=== PATIENT | female | born 1940 | race Caucasian/White ===

== ENCOUNTER 2016-04-13 00:38 | Inpatient (IN) | payer MEDICARE, OTHER ==
--- NOTE | 2016-04-13 01:05 | ER Document Report ---
ED General - General Stated Complaint: ALTERED MENTAL STATUS Notes: Patient is a 75 year old female who presents with complaints of possible overdose. Patient was seen yesterday after a fall. CT scan of the head and neck were performed. Also x-rays performed. Patient has a clavicle fracture. Patient is now on oxycodone 15 mg which, according to her medication list, she has been on for a long period time and is not new. She is also on final. Patient was not discharged home with any new medications. Tonight she become unresponsive in her chair after taking it. [facility] arrived and she was unresponsive and hypoxic. They gave her Narcan. Patient did awake after Narcan but continue to be confused. She cannot comment whole lot other than she has pain which is understandable being that she did receive Narcan. She does have the broken clavicle fracture. She when asked where her pain is, she continues to say her neck. Did speak with her and asked are wall. She is one that has been care for the patient since her fall yesterday. She says that at baseline she is usually awake and alert and appropriate and cares for herself without difficulty. She does not think that she took any extra pain medications. She says that the fentanyl patch that is on her is 3 days old. TRAVEL OUTSIDE OF THE [place] IN LAST 30 DAYS: No - Related Data Allergies/Adverse Reactions: No Known Allergies Allergy (Verified 04/13/16 04:43) Past Medical History - Social History Smoking Status: Never Smoker Frequency of alcohol use: None Drug Abuse: None Family History: Reviewed & Not Pertinent - Past Medical History Cardiac Medical History: Reports: Hx Hypertension Pulmonary Medical History: Reports: Hx Bronchitis Skin Medical History: Reports Hx Cellulitis Traumatic Medical History: Reports: Hx Fractures - Femur Past Surgical History: Reports: Hx Cholecystectomy, Hx Hysterectomy, Hx Orthopedic Surgery - right hip, right knee - Immunizations Hx Diphtheria, Pertussis, Tetanus Vaccination: No Review of Systems - Review of Systems -: Yes ROS unobtainable due to patient's medical condition - Limited due to patient's confusion. Physical Exam - Vital signs Vitals: Temp 98.9 F 04/13/16 00:40 - Notes Notes: General Appearance: Well nourished, alert, confused. Appears to be in pain. Vitals: reviewed, See vital signs table. Head: no swelling or tenderness to the head Eyes: PERRL, EOMI, Conjuctiva clear Mouth: No decreasd moisture Throat: No tonsillar inflammation, No airway obstruction, No lymphadenopathy Neck: Pain with any movement or palpation of the neck. Chest wall: Pain over the right clavicle. Fentanyl patch on right flank which was removed by me. Lungs: No wheezing, No rales, No rhonci, No accessory muscle use, good air exchange bilaterally. Heart: Normal rate, Regular rythm, No murmur, no rub Abdomen: Normal BS, soft, No rigidity, No abdominal tenderness, No guarding, no rebound, no abdominal masses, no organomegaly Extremities: strength 5/5 in all extremities, good pulses in all extremities, no swelling or tenderness in the extremities, no edema. Skin: warm, dry, appropriate color, no rash Neuro: speech clear, disoriented, unable to answer questions appropriately. As before extremities on her own without difficulty.. Course - Re-evaluation Re-evalutation: 04/13/16 04:56 Patient continues to have some confusion. The Narcan initially did awaken her however she still seemed confused on the right arrival. She is complaining of some neck pain at times. I did obtain a CT scan it's negative. She does have a leukocytosis. My main concern is that now she is starting to spike a fever. I feel that she possibly could be meningitis being that she has continued confusion, fever, and neck pain. I will obtain a lumbar puncture. I've ordered a crack in the buttocks. We will put her in isolation. - Vital Signs Vital signs: Temp Pulse Resp BP Pulse Ox 100.4 F 17 162/69 H 97 04/13/16 04:30 04/13/16 04:02 04/13/16 04:02 04/13/16 04:02 - Laboratory Result Diagrams: 04/13/16 01:10 04/13/16 01:10 Laboratory results interpreted by me: 04/13/16 04/13/16 04/13/16 01:10 01:10 01:10 WBC 13.3 H RDW 15.4 H Seg Neutrophils % 84.8 H Lymphocytes % 5.5 L Absolute Neutrophils 11.3 H Sodium 134.8 L Chloride 95 L Glucose 113 H AST 57 H ALT 58 H TSH Urine Protein 04/13/16 04/13/16 01:10 01:20 WBC RDW Seg Neutrophils % Lymphocytes % Absolute Neutrophils Sodium Chloride Glucose AST ALT TSH 5.95 H Urine Protein 30 H - EKG Interpretation by Me Additional EKG results interpreted by me: 04/13/16 02:07 EKG is reviewed and interpreted by me. EKG shows what appears to be either atrial fibrillation or very rate or sinus arrhythmia. There are some P waves. It's hard to discern if there is P waves before every QRS. It is irregular. There is no ST segment elevation or depression. Rate is approximately 112 bpm. MN interval, QRS duration are within normal range. QTC intervals slightly prolonged. Old EKG for comparison is from 12/07/2015. - Transfer of Care Notes: 04/13/16 02:08 I just spoke with patient's vy-ngwteuco-os-law. She says that after being seen her yesterday she came home with her and she's been caring for her. She says she really does not know her medical regimen. She did bring a list of all her medications as well as list of medical past medical problems from Dr. Roman's office. She says she did receive dosages of Dilaudid yesterday when she was here. She is unsure she took her meds at home but she does have a Juliette patch on. She does get oxycodone at home as well. According to her records these have been prescribed since November at the latest. Some of her meds have been prescribed since July. Discharge - Discharge Clinical Impression: Fracture of clavicle, right, closed Qualifiers: Encounter type: initial encounter Clavicle location: shaft Fracture alignment: nondisplaced Qualified Code(s): S42.024A - Nondisplaced fracture of shaft of right clavicle, initial encounter for closed fracture Altered mental status Qualifiers: Altered mental status type: unspecified Qualified Code(s): R41.82 - Altered mental status, unspecified Fever Qualifiers: Fever type: unspecified Qualified Code(s): R50.9 - Fever, unspecified Leukocytosis Qualifiers: Leukocytosis type: unspecified Qualified Code(s): D72.829 - Elevated white blood cell count, unspecified Condition: Stable Disposition: ADMITTED INPATIENT Admitting Provider: Hospitalist Unit Admitted: [facility]
[2016-04-13 01:20] LABS: ABSOLUTE LYMPHOCYTES (AUTO) 0.7 10^3/uL (0.5-4.7); ABSOLUTE MONOCYTES (AUTO) 1.3 10^3/uL (0.1-1.4); ABSOLUTE NEUT (AUTO) 11.3 10^3/uL (1.7-8.2); BASOPHILS % (AUTO) 0.2 % (0-2); EOSINOPHILS % (AUTO) 0.1 % (0-6); HEMATOCRIT 38.2 % (36.0-47.0); HEMOGLOBIN 12.8 g/dL (12.0-15.5); HGB HCT DIFFERENCE 0.2; LYMPHOCYTES % (AUTO) 5.5 % (13-45); MEAN CORPUSCULAR HEMOGLOBIN 30.9 pg (27.0-33.4); MEAN CORPUSCULAR HGB CONC 33.4 g/dL (32.0-36.0); MEAN CORPUSCULAR VOLUME 93 fl (80-97); MONOCYTES % (AUTO) 9.4 % (3-13); RED BLOOD COUNT 4.13 10^6/uL (3.72-5.28); RED CELL DISTRIBUTION WIDTH 15.4 % (11.5-14.0); SEGMENTED NEUTROPHILS % (AUTO) 84.8 % (42-78); WHITE BLOOD COUNT 13.3 10^3/uL (4.0-10.5)
[2016-04-13 01:36] LABS: ANION GAP 14 (5-19); BLOOD UREA NITROGEN 19 mg/dL (7-20); CALCIUM 9.9 mg/dL (8.4-10.2); CARBON DIOXIDE 26 mmol/L (22-30); CHLORIDE 95 mmol/L (98-107); CREATININE RESULT 0.72 mg/dL (0.52-1.25); GLUCOSE 113 mg/dL (75-110); POTASSIUM 4.5 mmol/L (3.6-5.0); SODIUM 134.8 mmol/L (137-145)
[2016-04-13 01:47] LABS: AMORPHOUS SEDIMENT,URINE TRACE /HPF; APPEARANCE,URINE CLEAR; BILIRUBIN,URINE NEGATIVE (NEGATIVE); GLUCOSE, URINE NEGATIVE (NEGATIVE); KETONES,URINE NEGATIVE (NEGATIVE); LEUKOCYTE ESTERASE,URINE NEGATIVE (NEGATIVE); NITRITE,URINE NEGATIVE (NEGATIVE); PROTEIN,URINE 30 mg/dL (NEGATIVE); URINE SPECIFIC GRAVITY 1.012; UROBILINOGEN,URINE NEGATIVE mg/dL (<2.0)
[2016-04-13] MEDS ORDERED: FENTANYL CITRATE INJ/PF 100 MCG/2 ML AMPUL IV ONE (02:03)
[2016-04-13] MEDS ORDERED: CEFTRIAXONE INJ 1000 MG VIAL IV ONE (04:53)
[2016-04-13] MEDS ORDERED: VANCOMYCIN HCL INJ 1000 MG VIAL IV ONE (04:53)
[2016-04-13] MEDS ORDERED: ACYCLOVIR SODIUM INJ/PF 500 MG/10 ML SDV IV ONE (04:55)
[2016-04-13] MEDS ORDERED: LIDOCAINE 1% INJ-PF (10 MG/ML) 30 ML SDV INJ ONE (04:56)
[2016-04-13] MEDS ORDERED: DIAZEPAM INJ 10 MG/2 ML DISP.SYRIN IV ONE (05:07)
[2016-04-13] MEDS ORDERED: DIAZEPAM INJ 10 MG/2 ML DISP.SYRIN ONE ×2 (05:09→05:17)
[2016-04-13 05:39] LABS: ADD ON TESTING BLD IN LAB ACKNOWLEDGE
[2016-04-13 06:01] LABS: ALANINE AMINOTRANSFERASE 58 U/L (9-52); ALBUMIN 3.9 g/dL (3.5-5.0); ALKALINE PHOSPHATASE 109 U/L (38-126); ASPARTATE AMINO TRANSFERASE 57 U/L (14-36); BILIRUBIN,TOTAL 0.7 mg/dL (0.2-1.3); CREATINE KINASE 132 U/L (30-135); MAGNESIUM 1.8 mg/dL (1.6-2.3); TOTAL PROTEIN 7.2 g/dL (6.3-8.2)
[2016-04-13 06:03] LABS: ALCOHOL < 10 mg/dL (NONE DETECTED)
[2016-04-13 06:12] LABS: CREATINE KINASE MB 4.35 ng/mL (<4.55); TROPONIN I 0.016 ng/mL
[2016-04-13 06:45] LABS: PARTIAL THROMBOPLASTIN TIME 21.3 SEC (23.5-35.8); PROTHROMBIN TIME 13.6 SEC (11.4-15.4)
[2016-04-13] MEDS ORDERED: VANCOMYCIN HCL 0 MG in DEXTROSE 5%-WATER 250 ML IV NR (06:45)
[2016-04-13] MEDS ORDERED: NORMAL SALINE 1000 ML 1,000 ML IV PRN (06:57)
[2016-04-13] MEDS ORDERED: ACYCLOVIR SODIUM INJ/PF 500 MG/10 ML SDV IV SCH (07:00)
[2016-04-13] MEDS ORDERED: PHARMACY COMMUNICATION ORDER MC SCH (07:00)
[2016-04-13] MEDS ORDERED: RIFAMPIN INJ 600 MG VIAL IV SCH (07:00)
[2016-04-13] MEDS ORDERED: IPRATROPIUM/ALBUTEROL 0.5-2.5 MG/3 ML AMPUL NEB PRN (07:11)
[2016-04-13 07:26] LABS: URINE BARBITURATES SCREEN NEGATIVE; URINE METHADONE SCREEN NEGATIVE; URINE PHENCYCLIDINE SCREEN NEGATIVE
--- NOTE | 2016-04-13 07:45 | PDOC H&P ---
History of Present Illness Admission Date/PCP: 04/13/16 06:00 Abel Patient complains of: confusion History of Present Illness: BHARATH JORDAN is a 75 year old female with underlying rheumatoid arthritis, on multiple pain medications for same, along with paroxysmal atrial fibrillation, reported hypertension, osteoporosis, sick sinus syndrome and sleep apnea, along with multiple other diagnoses, who presents to the emergency room for evaluation of above complaint. Patient has been discussed with emergency room physician who evaluated the patient. Patient is globally disoriented and is able to provide no history whatsoever in terms of acute or chronic events, review of systems, personal habits, family history, etc. No friends or family are present. No Old inpatient records are available for review.. Was seen in the emergency room on April 12 after suffering a fall, with resulting concussion and closed right clavicle fracture. Was sent home with a right arm sling but no additional pain medication. Was found unresponsive in her chair by her mh-atgywuvf-jt-law, who had been taking care of her since her fall. Was also noted to be hypoxic upon EMS arrival. Was given Narcan. She did awaken somewhat after Narcan, but remained confused. At her baseline, she is awake alert and appropriate, and cares for herself without difficulty. Takes multiple pain medications, including fentanyl patch, but according to the emergency room physician, who removed the patch, the patch itself was 3 days old. She spiked a low-grade fever sometime after arrival in the emergency room. Concern was for encephalitis. However, despite sedation, lumbar puncture was not able to be performed by the emergency room physician due to lack of patient cooperation. Hospitalist service was then consulted. Laboratory results are listed in [facility] and are reviewed. X-ray summary results are listed below, with full report(s) reviewed. . EKG reviewed and compared to prior tracing from December 06 of last year. Social history/personal habits: No information available at this point in time. Family History : No information available at this point in time. Allergies/adverse reactions NKDA. Home medications are reviewed from a print out from her primary care provider's office and are to be reconciled by nursing staff in [facility]. Home medications initially autopopulated into [facility] may not accurately reflect patient's true medications, dosages, and/or frequencies. REVIEW OF SYSTEMS: See history and present illness. Otherwise, No information available at this point in time. PHYSICAL EXAMINATION: 70.2 kg. Height is not recorded on the chart. Blood pressure 162/88. Pulse 83 and regular. 97% saturation on room air. Respirations are 20 and unlabored. Temperature 100.4. Elderly female, who appears perhaps a bit older than her stated age. Appears not to feel very well. Awake, but her only verbal response is "I hurt. " Mostly she just moans. Nursing staff says that has been the case since her arrival in the emergency room. Emergency room nurse Liza is present. Skin is warm and dry. No grossly obvious evidence of rash in areas of skin examined. No subcutaneous nodules palpated. Moderate-sized area of ecchymosis , anterolateral right lower leg, without mikael hematoma. ENT: Hearing difficult to adequately evaluate due to her mental status. Tongue midline on slight protrusion pink and slightly tacky Eyes: No scleral icterus. Pupils equal and reactive to light at 4 mm. [place] conjunctivae. Moderate-sized area of ecchymosis on the lateral half of her right supraorbital ridge, without mikael hematoma. No evidence of globe involvement. Neck is nontender to gentle palpation. Midline trachea. No palpable thyroid nodule mass enlargement or tenderness. Lymphatic: No palpable cervical or clavicular nodes. Neck and lymphatic exams limited by patient body habitus. Psychiatric: Can't be adequately evaluated due to her current status. Lungs: Auscultation reveals clear and equal breath sounds bilaterally. No use of accessory respiratory muscles. Cardiovascular: Heart regular rate and rhythm, without gallop murmur or rub. No carotid or abdominal aortic bruits. No ankle or pedal edema. Faintly palpable dorsalis pedis pulses. Abdomen: soft, slightly obese, slightly distended nontender with positive bowel sounds. Unable to adequately evaluate abdomen for masses or organomegaly due to body habitus and distention. Extremities: Hands and feet are warm and dry. No calf tenderness to compression. No grossly obvious visual evidence of calf swelling. Gentle manipulation of lower extremities fails to reveal any obvious evidence of injury or instability to knees hips or ankles. Right upper extremity is in a sling. This is left in place. Neurologic: Moves left upper extremity grossly normally. Patellar reflexes absent. Absent Babinski. Light touch can't be determined due to her mental status. Does not follow request for dorsiflexion or plantar flexion of her feet.. Past Medical History Cardiac Medical History: Reports: Hypertension Pulmonary Medical History: Reports: Bronchitis Hematology: Reports: Anemia Past Surgical History Past Surgical History: Reports: Cholecystectomy, Hysterectomy, Orthopedic Surgery - right hip, right knee Social History Information Source: Emergency Med Personnel, [facility] Records Lives with: Other - Uncertain Smoking Status: Never Smoker Frequency of Alcohol Use: None - Uncertain Hx Recreational Drug Use: No - uncertain Drugs: None - uncertain - Advance Directive Resuscitation Status: Full Code - Assumed Surrogate healthcare decision maker:: uncertain at this point in time Family History Family History: Reviewed & Not Pertinent Parental Family History Reviewed: No - information not available at this point in time. Children Family History Reviewed: No Sibling(s) Family History Reviewed.: No Medication/Allergy Home Medications: Cetirizine HCl [All Day Allergy] 1 tab PO DAILY 04/13/16 Cholecalciferol (Vitamin D3) [Vitamin D3 2000 unit Tablet] 1 tab PO DAILY Docusate Sodium [Dok] 1 tab PO TID 04/13/16 Fentanyl [Fentanyl] 1 each TOP ASDIR PRN 04/13/16 Furosemide [Furosemide] 1 tab PO DAILY 04/13/16 Levalbuterol Tartrate [Xopenex Hfa] 2 inh PO Q4H 04/13/16 Misoprostol [Cytotec 100 Mcg Tablet] 1 tab PO DAILY 04/13/16 Oxybutynin Chloride [Ditropan Xl] 1 tab PO DAILY 04/13/16 Oxycodone HCl [Oxycodone HCl ER] 1 tab PO ASDIR PRN 04/13/16 Oxycodone HCl [Oxycodone HCl ER] 1 tab PO ASDIR PRN 04/13/16 RX: Celecoxib 1 tab PO BID 04/13/16 RX: Famotidine 1 tab PO DAILY 04/13/16 RX: Hydrocortisone Valerate [Westcort] 1 applic TOP ASDIR PRN 04/13/16 RX: Hydroxyzine HCl 1 tab PO DAILY 04/13/16 RX: Omeprazole 1 tab PO DAILY 04/13/16 RX: Potassium Chloride 1 tab PO DAILY 04/13/16 Silver Sulfadiazine [Silvadene 1% Cream 25 gm] 1 applic TP DAILY 04/13/16 Triamcinolone Acetonide [Aristocort 0.1% Cream 15 gm] 1 applic TP BID 04/13/16 Allergies/Adverse Reactions: No Known Allergies Allergy (Verified 04/13/16 04:43) Physical Exam Vital Signs: Temp Pulse Resp BP Pulse Ox 100.4 F 17 162/69 H 97 04/13/16 04:30 04/13/16 04:02 04/13/16 04:02 04/13/16 04:02 Results Impressions: Cervical Spine CT 04/13/16 00:46 IMPRESSION: CHRONIC DEGENERATIVE CHANGES. NO ACUTE FINDINGS. Head CT 04/13/16 00:46 IMPRESSION: CHRONIC CHANGES OF ATROPHY AND MICROVASCULAR ISCHEMIA. NO ACUTE PROCESS. Chest X-Ray 04/13/16 05:24 IMPRESSION: HEART ENLARGED WITHOUT FAILURE. NO OTHER SIGNIFICANT RADIOGRAPHIC FINDING IN THE CHEST. Assessment & Plan - Diagnosis (1) Acute encephalopathy Is this a current diagnosis for this admission?: YesPlan: Uncertain etiology at this point in time. With low-grade fever, concern is for encephalitis. Order has been written for image guided lumbar puncture. Empiric antibiotics and steroids have been ordered. Hopefully will clear with time and treatment. Knee high SCDs for DVT prophylaxis; will forego Lovenox or heparin at this point in time due to her lumbar puncture. Will reinstitute medical prophylaxis at appropriate time interval from her lumbar puncture. Time spent in evaluation and management of patient: 61 minutes. (2) Fever Qualifiers: Qualified Code(s): R50.9 - Fever, unspecified Is this a current diagnosis for this admission?: YesPlan: No obvious source at this point in time. Image guided lumbar puncture has been ordered. (3) Fracture of clavicle, right, closed Qualifiers: Qualified Code(s): S42.024A - Nondisplaced fracture of shaft of right clavicle, initial encounter for closed fracture Is this a current diagnosis for this admission?: YesPlan: Continue right upper extremity sling. When necessary pain medication. (4) Elevated LFTs Is this a current diagnosis for this admission?: YesPlan: Repeat chemistry. (5) EMERSON (obstructive sleep apnea) Is this a current diagnosis for this admission?: YesPlan: When necessary CPAP. (6) Paroxysmal atrial fibrillation Is this a current diagnosis for this admission?: YesPlan: Sinus rhythm at present. Follow clinically. (7) Rheumatoid arthritis Qualifiers: Qualified Code(s): M06.9 - Rheumatoid arthritis, unspecified Is this a current diagnosis for this admission?: YesPlan: When necessary pain medication. - Inpatient Certification Based on my medical assessment, after consideration of the patient's comorbidities, presenting symptoms, or acuity I expect that the services needed warrant INPATIENT care.: Yes I certify that my determination is in accordance with my understanding of Medicare's requirements for reasonable and necessary INPATIENT services [42 CFR 412.3e].: Yes Medical Necessity: Need Close Monitoring Due to Risk of Patient Decompensation, Need For IV Fluids, Need For Continuous Telemetry Monitoring, Need for IV Antibiotics, Risk of Complication if Not Cared For in Hospital Post Hospital Care: D/C or Transfer Summary
--- NOTE | 2016-04-13 09:03 | EKG REPORT ---
SEVERITY:- BORDERLINE ECG - SINUS TACHYCARDIA WITH IRREGULAR RATE 96-135 : Confirmed by: Huber Ashraf MD 13-Apr-2016 09:02:44
--- NOTE | 2016-04-13 10:54 | Progress Note ---
Provider Note Provider Note: JULIAN SINHA Search Criteria: Last Name 'Julian' and First Name 'Shreya' and = ' and Request Period = 10/16/15' to 04/13/2016' - 2 out of 2 Recipients Selected. Fill Date Product, Str, Form Qty Days Pt ID Prescriber Written RX# N/R* Pharm MED+ ------ ---- --------- --- ------- ----- --------- ------ 04/04/2016 FENTANYL 50 MCG/HR PATCH 10.00 30 [id number] 01/30/2016 [id number] N [id number] 120.0 02/11/2016 HYDROCODONE-CHLORPHEN ER SUSP 115.00 23 [id number] 2015 [id number] N [id number] 00.0 01/22/2016 FENTANYL 50 MCG/HR PATCH 10.00 30 [id number] 01/22/2016 [id number] N [id number] 120.0 11/13/2015 OXYCODONE HCL 15 MG TABLET 90.00 30 [id number] 11/13/2015 [id number] N [id number] 67.5 11/09/2015 OXYCODONE HCL 10 MG TABLET 180.00 30 [id number] 11/09/2015 [id number] N [id number] 90.0 [id number] LENNIE NORRIS); [facility], [address] [facility], [facility], [place] [address] [id number] BHARTI PAIZ MD; [facility], [address] , [address], [facility] [address] [id number] LANEY ESCOBAR MD; [facility], [address] [place] [address] ,, [facility] [address]
[2016-04-13] MEDS ORDERED: ONDANSETRON HCL INJ/PF 4 MG/2 ML SDV IV PRN (11:23)
[2016-04-13] MEDS ORDERED: ONDANSETRON HCL INJ/PF 4 MG/2 ML SDV ONE (11:24)
[2016-04-13] MEDS: DEXAMETHASONE SOD PHOS INJ 10 MG/1 ML VIAL IV SCH ×2 (13:33→18:36)
[2016-04-13] MEDS ORDERED: OXYCODONE HCL IR 5 MG TABLET ONE (14:45)
--- NOTE | 2016-04-13 14:45 | PDOC PROGRESS REPORT ---
Subjective Progress Note for:: 04/13/16 Subjective:: The patient was seen earlier today on rounds. When rounding on the patient she was found to be awake and alert to situation but not fully conversational. Patient has consented to the lumbar puncture. The patient complains of generalized pain but no area of specific pain. The patient has asked to remove her immobilizer and I have encouraged her to keep this in place. Patient has had one episode of bilious vomit. The patient denies any nausea, diarrhea, shortness of breath, dizziness, chest pain, heart palpitations, fevers, or chills. The patient has remained afebrile. Blood pressures have been in a good range. When prompted the patient voices no other concerns at this time. Review of systems: The rest of the review of systems is negative. Physical Exam Vital Signs: Temp Pulse Resp BP Pulse Ox 98.4 F 101 H 20 161/96 H 95 04/13/16 09:10 04/13/16 09:15 04/13/16 09:10 04/13/16 09:10 04/13/16 09:10 General appearance: PRESENT: no acute distress, cooperative, disheveled, well- developed, well-nourished Head exam: PRESENT: atraumatic, normocephalic Eye exam: PRESENT: conjunctiva pink, EOMI, PERRLA. ABSENT: scleral icterus Ear exam: PRESENT: normal external ear exam Mouth exam: PRESENT: moist, tongue midline Neck exam: ABSENT: carotid bruit, JVD, lymphadenopathy, thyromegaly Respiratory exam: PRESENT: clear to auscultation sabina, symmetrical, unlabored. ABSENT: rales, rhonchi, tachypnea, wheezes Cardiovascular exam: PRESENT: RRR. ABSENT: diastolic murmur, rubs, systolic murmur Pulses: PRESENT: normal dorsalis pedis pul Vascular exam: PRESENT: normal capillary refill GI/Abdominal exam: PRESENT: normal bowel sounds, soft. ABSENT: distended, guarding, mass, organolmegaly, rebound, tenderness Rectal exam: PRESENT: deferred Extremities exam: PRESENT: full ROM. ABSENT: calf tenderness, clubbing, pedal edema Neurological exam: PRESENT: alert, altered - Slightly, delayed, oriented to person, oriented to place, oriented to situation, CN II-XII grossly intact. ABSENT: motor sensory deficit Psychiatric exam: PRESENT: appropriate affect, normal mood. ABSENT: homicidal ideation, suicidal ideation Skin exam: PRESENT: dry, intact, warm. ABSENT: cyanosis, rash Results Laboratory Results: Labs- Last Values WBC 13.3 10^3/uL (4.0-10.5) H 04/13/16 01:10 RBC 4.13 10^6/uL (3.72-5.28) 04/13/16 01:10 Hgb 12.8 g/dL (12.0-15.5) 04/13/16 01:10 Hct 38.2 % (36.0-47.0) 04/13/16 01:10 MCV 93 fl (80-97) 04/13/16 01:10 MCH 30.9 pg (27.0-33.4) 04/13/16 01:10 MCHC 33.4 g/dL (32.0-36.0) 04/13/16 01:10 RDW 15.4 % (11.5-14.0) H 04/13/16 01:10 Plt Count 279 10^3/uL (150-450) 04/13/16 01:10 Seg Neutrophils % 84.8 % (42-78) H 04/13/16 01:10 Lymphocytes % 5.5 % (13-45) L 04/13/16 01:10 Monocytes % 9.4 % (3-13) 04/13/16 01:10 Eosinophils % 0.1 % (0-6) 04/13/16 01:10 Basophils % 0.2 % (0-2) 04/13/16 01:10 Absolute Neutrophils 11.3 10^3/uL (1.7-8.2) H 04/13/16 01:10 Absolute Lymphocytes 0.7 10^3/uL (0.5-4.7) 04/13/16 01:10 Absolute Monocytes 1.3 10^3/uL (0.1-1.4) 04/13/16 01:10 Absolute Eosinophils 0.0 10^3/uL (0.0-0.6) 04/13/16 01:10 Absolute Basophils 0.0 10^3/uL (0.0-0.2) 04/13/16 01:10 PT 13.6 SEC (11.4-15.4) 04/13/16 06:22 INR 1.01 04/13/16 06:22 APTT 21.3 SEC (23.5-35.8) L 04/13/16 06:22 Sodium 134.8 mmol/L (137-145) L 04/13/16 01:10 Potassium 4.5 mmol/L (3.6-5.0) 04/13/16 01:10 Chloride 95 mmol/L (98-107) L 04/13/16 01:10 Carbon Dioxide 26 mmol/L (22-30) 04/13/16 01:10 Anion Gap 14 (5-19) 04/13/16 01:10 BUN 19 mg/dL (7-20) 04/13/16 01:10 Creatinine 0.72 mg/dL (0.52-1.25) 04/13/16 01:10 Est GFR ( Amer) > 60 (>60) 04/13/16 01:10 Est GFR (Non-Af Amer) > 60 (>60) 04/13/16 01:10 Glucose 113 mg/dL (75-110) H 04/13/16 01:10 Calcium 9.9 mg/dL (8.4-10.2) 04/13/16 01:10 Magnesium 1.8 mg/dL (1.6-2.3) 04/13/16 01:10 Total Bilirubin 0.7 mg/dL (0.2-1.3) 04/13/16 01:10 Direct Bilirubin 0.0 mg/dL (0.0-0.3) 04/13/16 01:10 AST 57 U/L (14-36) H 04/13/16 01:10 ALT 58 U/L (9-52) H 04/13/16 01:10 Alkaline Phosphatase 109 U/L (38-126) 04/13/16 01:10 Creatine Kinase 132 U/L (30-135) 04/13/16 01:10 CK-MB (CK-2) 4.35 ng/mL (<4.55) 04/13/16 01:10 Troponin I 0.016 ng/mL 04/13/16 01:10 Total Protein 7.2 g/dL (6.3-8.2) 04/13/16 01:10 Albumin 3.9 g/dL (3.5-5.0) 04/13/16 01:10 TSH 5.95 uIU/mL (0.47-4.68) H 04/13/16 01:10 Urine Color YELLOW 04/13/16 01:20 Urine Appearance CLEAR 04/13/16 01:20 Urine pH 6.0 (5.0-9.0) 04/13/16 01:20 Ur Specific [place] 1.012 04/13/16 01:20 Urine Protein 30 mg/dL (NEGATIVE) H 04/13/16 01:20 Urine Glucose (UA) NEGATIVE mg/dL (NEGATIVE) 04/13/16 01:20 Urine Ketones NEGATIVE mg/dL (NEGATIVE) 04/13/16 01:20 Urine Blood NEGATIVE (NEGATIVE) 04/13/16 01:20 Urine Nitrite NEGATIVE (NEGATIVE) 04/13/16 01:20 Urine Bilirubin NEGATIVE (NEGATIVE) 04/13/16 01:20 Urine Urobilinogen NEGATIVE mg/dL (<2.0) 04/13/16 01:20 Ur Leukocyte Esterase NEGATIVE (NEGATIVE) 04/13/16 01:20 Urine WBC (Auto) 1 /HPF 04/13/16 01:20 U Hyaline Cast (Auto) 5 /LPF 04/13/16 01:20 Squamous Epi Cells Auto <1 /HPF 04/13/16 01:20 Amorphous Sediment Auto TRACE /HPF 04/13/16 01:20 Urine Ascorbic Acid NEGATIVE (NEGATIVE) 04/13/16 01:20 Fluid Tube Number Not Reportable 04/13/16 06:45 CSF Volume Not Reportable 04/13/16 06:45 CSF WBC Not Reportable 04/13/16 06:45 CSF RBC Not Reportable 04/13/16 06:45 Urine Opiates Screen NEGATIVE 04/13/16 01:20 Urine Methadone Screen NEGATIVE 04/13/16 01:20 Ur Barbiturates Screen NEGATIVE 04/13/16 01:20 Ur Phencyclidine Scrn NEGATIVE 04/13/16 01:20 Ur Amphetamines Screen NEGATIVE 04/13/16 01:20 U Benzodiazepines Scrn NEGATIVE 04/13/16 01:20 Urine Cocaine Screen NEGATIVE 04/13/16 01:20 U Marijuana (THC) Screen NEGATIVE 04/13/16 01:20 Serum Alcohol < 10 mg/dL (NONE DETECTED) 04/13/16 01:10 Impressions: Cervical Spine CT 04/13/16 00:46 IMPRESSION: CHRONIC DEGENERATIVE CHANGES. NO ACUTE FINDINGS. Head CT 04/13/16 00:46 IMPRESSION: CHRONIC CHANGES OF ATROPHY AND MICROVASCULAR ISCHEMIA. NO ACUTE PROCESS. Chest X-Ray 04/13/16 05:24 IMPRESSION: HEART ENLARGED WITHOUT FAILURE. NO OTHER SIGNIFICANT RADIOGRAPHIC FINDING IN THE CHEST. Lumbar Puncture 04/13/16 06:53 IMPRESSION: Attempted Lumbar puncture under fluoroscopy. Assessment & Plan - Diagnosis (1) SIRS (systemic inflammatory response syndrome) Is this a current diagnosis for this admission?: YesPlan: Uncertain of the source of this. Given the patient's elevated white count and elevation in LFTs will obtain right upper quadrant ultrasound to assure there is no biliary issue. Any other source of infectious process other than encephalitis appear to be ruled out at this time. 04/13/16 04/13/16 01:10 01:10 WBC 13.3 H AST 57 H ALT 58 H (2) Acute encephalopathy Is this a current diagnosis for this admission?: YesPlan: Multiple differentials exist including eventual encephalitis. Currently awaiting lumbar puncture. Do have a suspicion for opiate withdrawal. Please see attached controlled substance records. Appears the patient has gotten narcotics from both the [facility] pharmacy as well as civilian pharmacies. (3) Fracture of clavicle, right, closed Qualifiers: Encounter type: initial encounter Clavicle location: shaft Fracture alignment: nondisplaced Qualified Code(s): S42.024A - Nondisplaced fracture of shaft of right clavicle, initial encounter for closed fracture Is this a current diagnosis for this admission?: YesPlan: NT immobilizer. (4) Elevated LFTs Is this a current diagnosis for this admission?: YesPlan: These are mild will repeat in the a.m.. (5) Concussion Qualifiers: Encounter type: subsequent encounter Loss of consciousness presence/ duration: with LOC of 30 min or less Qualified Code(s): S06.0X1D - Concussion with loss of consciousness of 30 minutes or less, subsequent encounter Is this a current diagnosis for this admission?: YesPlan: Follow-up head CT is unremarkable (6) Facial laceration Qualifiers: Encounter type: subsequent encounter Qualified Code(s): S01.81XD - Laceration without foreign body of other part of head, subsequent encounter Is this a current diagnosis for this admission?: YesPlan: Areas clean and dry (7) Laceration of right forearm Qualifiers: Encounter type: subsequent encounter Qualified Code(s): S51.811D - Laceration without foreign body of right forearm, subsequent encounter (8) Scalp laceration Qualifiers: Encounter type: subsequent encounter Qualified Code(s): S01.01XD - Laceration without foreign body of scalp, subsequent encounter (9) EMERSON (obstructive sleep apnea) Is this a current diagnosis for this admission?: Yes (10) Paroxysmal atrial fibrillation Is this a current diagnosis for this admission?: YesPlan: Currently in sinus rhythm will continue home medications. Upon review of the patient's current medications doesn't appear he is taken any antidysrhythmic. Upon review of the patient's external medication list it appears that she has not had flecainide filled since November. Will continue the patient's current home medications and follow. (11) Rheumatoid arthritis Qualifiers: Rheumatoid arthritis location: unspecified site Rheumatoid factor presence: unspecified presence Qualified Code(s): M06.9 - Rheumatoid arthritis, unspecified Is this a current diagnosis for this admission?: Yes (12) Opiate dependence, continuous Is this a current diagnosis for this admission?: YesPlan: Given the patient has both fentanyl and oxycodone there is possibility that the patient may have been oversedated however she did not respond very well to marked in. It appears the patient's drug screen is negative in spite of her having a Fentanyl patch in place. Therefore the patient may having some evidence of opiate withdrawal. Will add when necessary oxycodone follow.
[2016-04-13] MEDS: ACETAMINOPHEN 650 MG SUPP.RECT PR PRN (14:51)
[2016-04-13] MEDS ORDERED: RIFAMPIN 600 MG in NORMAL SALINE 500 ML IV SCH (15:00)
[2016-04-13] MEDS: AMPICILLIN SODIUM 2 GM in NORMAL SALINE 100 ML IV SCH ×2 (15:59→18:36)
[2016-04-13] MEDS: ACYCLOVIR SODIUM 700 MG in NORMAL SALINE 250 ML IV SCH ×2 (16:00→22:26)
[2016-04-13] MEDS ORDERED: VANCOMYCIN HCL 1,000 MG in DEXTROSE 5%-WATER 250 ML IV SCH (16:00)
[2016-04-13] MEDS ORDERED: CEFTRIAXONE 2 GM/D5W RTU 50 ML IV SCH (18:00)
[2016-04-13] MEDS ORDERED: DOCUSATE SODIUM 100 MG CAPSULE PO SCH (18:00)
[2016-04-13] MEDS: DOCUSATE SODIUM 100 MG CAPSULE PO SCH (18:36)
[2016-04-13] MEDS: VANCOMYCIN HCL 1,000 MG in DEXTROSE 5%-WATER 250 ML IV SCH (20:54)
[2016-04-13] MEDS: OXYCODONE HCL IR 5 MG TABLET PO PRN (23:04)
[2016-04-13] MEDS ORDERED: NORMAL SALINE 1000 ML 500 ML IV ONE (23:35)
[2016-04-14] MEDS: DEXAMETHASONE SOD PHOS INJ 10 MG/1 ML VIAL IV SCH ×2 (00:25→05:34)
[2016-04-14] MEDS: AMPICILLIN SODIUM 2 GM in NORMAL SALINE 100 ML IV SCH ×3 (00:44→07:49)
[2016-04-14] MEDS: CEFTRIAXONE 2 GM/D5W RTU 2 GM/50 ML RTUPB IV SCH ×2 (02:07→10:32)
[2016-04-14] MEDS: OXYCODONE HCL IR 5 MG TABLET PO PRN ×4 (03:39→19:52)
[2016-04-14] MEDS ORDERED: NORMAL SALINE 1000 ML 250 ML IV ONE (04:10)
[2016-04-14] MEDS ORDERED: ENALAPRILAT DIHYDRATE INJ/PF 1.25 MG/1 ML SDV IV PRN (04:11)
[2016-04-14] MEDS: ACETAMINOPHEN 650 MG SUPP.RECT PR PRN (04:18)
[2016-04-14] MEDS: ACYCLOVIR SODIUM 700 MG in NORMAL SALINE 250 ML IV SCH (05:34)
[2016-04-14 07:28] LABS: HEMATOCRIT 39.1 % (36.0-47.0); HEMOGLOBIN 13.4 g/dL (12.0-15.5); HGB HCT DIFFERENCE 1.1; MEAN CORPUSCULAR HEMOGLOBIN 31.6 pg (27.0-33.4); MEAN CORPUSCULAR HGB CONC 34.3 g/dL (32.0-36.0); MEAN CORPUSCULAR VOLUME 92 fl (80-97); RED BLOOD COUNT 4.24 10^6/uL (3.72-5.28); WHITE BLOOD COUNT 8.5 10^3/uL (4.0-10.5)
[2016-04-14 07:42] LABS: ALANINE AMINOTRANSFERASE 45 U/L (9-52); ALKALINE PHOSPHATASE 100 U/L (38-126); ANION GAP 12 (5-19); ASPARTATE AMINO TRANSFERASE 35 U/L (14-36); BILIRUBIN,TOTAL 1.3 mg/dL (0.2-1.3); BLOOD UREA NITROGEN 13 mg/dL (7-20); CALCIUM 8.7 mg/dL (8.4-10.2); CARBON DIOXIDE 24 mmol/L (22-30); CHLORIDE 96 mmol/L (98-107); CREATININE RESULT 0.53 mg/dL (0.52-1.25); GLUCOSE 101 mg/dL (75-110); MAGNESIUM 1.6 mg/dL (1.6-2.3); SODIUM 132.3 mmol/L (137-145); TOTAL PROTEIN 6.3 g/dL (6.3-8.2)
[2016-04-14] MEDS: VANCOMYCIN HCL 1,000 MG in DEXTROSE 5%-WATER 250 ML IV SCH (07:50)
[2016-04-14 07:56] LABS: BASOPHILS % (MANUAL) 0 % (0-2); EOSINOPHILS % (MANUAL) 0 % (0-6); LYMPHOCYTES % (MANUAL) 5 % (13-45); TOTAL CELLS COUNTED 100
[2016-04-14 07:59] LABS: ANISOCYTOSIS SLIGHT; TOXIC GRANULATION 1+; TOXIC VACUOLATION PRESENT
--- NOTE | 2016-04-14 09:18 | EKG REPORT ---
SEVERITY:- ABNORMAL ECG - AFIB with RVR BORDERLINE LEFT AXIS DEVIATION BORDERLINE PROLONGED QT INTERVAL : Confirmed by: Lai Luz 14-Apr-2016 09:17:56
[2016-04-14] MEDS ORDERED: CHOLECALCIFEROL PO SCH (10:00)
[2016-04-14] MEDS ORDERED: FAMOTIDINE PO SCH (10:00)
[2016-04-14] MEDS ORDERED: [UNRECOGNIZED DRUG - REMARK] PO SCH (10:00)
[2016-04-14] MEDS ORDERED: (PENDING PHARMACY ID) (Omeprazole [Omeprazole] 1 TAB) PO SCH (10:00)
[2016-04-14] MEDS ORDERED: MISOPROSTOL 0.1 MG TABLET PO SCH (10:00)
[2016-04-14] MEDS: CHOLECALCIFEROL (D3) 1,000 UNIT TABLET PO SCH (10:32)
[2016-04-14] MEDS: CETIRIZINE 5 MG TABLET PO SCH (10:32)
[2016-04-14] MEDS: MISOPROSTOL 0.1 MG TABLET PO SCH (10:33)
[2016-04-14] MEDS: FAMOTIDINE 20 MG TABLET PO SCH (10:33)
[2016-04-14] MEDS: DOCUSATE SODIUM 100 MG CAPSULE PO SCH ×3 (10:33→17:38)
[2016-04-14] MEDS ORDERED: ENOXAPARIN SODIUM INJ 80 MG/0.8 ML DISP.SYRIN SUBCUT ONE (12:00)
[2016-04-14] MEDS ORDERED: AZITHROMYCIN 250 MG TABLET PO ONE (12:45)
[2016-04-14] MEDS ORDERED: METOPROLOL SUCCINATE 25 MG TAB.SR.24H PO ONE (12:45)
[2016-04-14] MEDS ORDERED: FENTANYL 50 MCG/HR PATCH.TD72 TOP PRN (13:00)
[2016-04-14] MEDS ORDERED: FENTANYL 50 MCG/HR PATCH.TD72 TOP SCH (13:45)
--- NOTE | 2016-04-14 15:48 | PDOC PROGRESS REPORT ---
Subjective Progress Note for:: 04/14/16 Subjective:: The patient was seen on rounds today. The patient is completely back to baseline. The patient is alert and oriented to person place time and situation. The patient has no issues with breathing. Patient has remained afebrile and her blood pressures have been in a good range. According to the patient and her daughter the patient had been treated for bronchitis the day before at her primary care provider's office. The patient denies any headaches no neurological deficits. The patient responded to Narcan yesterday as well as with holding her narcotics. I spoke with the patient about her opiate use in that it appears that she gets opiates from 2 different places including [facility] as well as a civilian pharmacy. As soon as I entered the room I was met with significant hostility from the patient's son who did invade my personal space to demand to have her transferred immediately. I asked the patient's son to please respect my space and allow me to assess the patient with her permission. Son went on to say that he did not like this hospital and the patient was in danger by being here. I explained EMTALA laws to both the son, patient and other family that was present at bedside. Other than the son, the family present at bedside was supportive of the patient to stay in this hospital. The patient herself stated that she was okay to stay in this hospital however she wanted to be transferred if it would in make her son happy. Both the patient and her son stated that they would flip the cost of being transferred to another facility. I explained to the patient had made a significant recovery and a complete resolution of symptoms that once her pain was under control the patient could be discharged. They're not receptive to this plan. It appears that the patient has been on this Duragesic patch for years so she is agreed to let me resumed it however will add oxycodone back sparingly given the patient's oversedation. Also both family members in the room are concerned about the amount of opiates this patient consumes. Since the patient has providers in [place] the patient has asked to be transferred to [facility]. I spoke with the transfer center at [facility]. Given that there are absolutely no beds available at this time the patient appointment coordinator would not initiate transfer. The patient appointment coordinator inform me that the case would be reviewed on Thursday and a call would be made back to [facility] if there were beds available. The patient appointment coordinator stated that the reasons of transfer did not fall within EMTALA guidelines and that the patient would have to pay for transport most likely up front. I called and spoke with the patient's cardiology practice. Dr. Hadley was the manager of school honey producer for the group since this is a holiday. It appears that the patient has not had any medications for her atrial fibrillation since October 2015. The patient is in chronic A. fib it appears and her rate is relatively well controlled however she is not on a medication. With activity the patient can tack up into the 120s. The patient does not appear to be on any long-term anticoagulation which may be due to her fall risk. I discussed the case and he is agreed to proceed with adding a beta idalmis therapy and anticoagulating while in the hospital setting. Patient is to follow with cardiology at discharge. There was no need for acute transfer for cardiac care. I communicated this with the patient's son and family. The son accused me of being a liar and stated that if the patient needed to be transferred it could be easily transferred. I reassured the patient family in the son that I was not being deceptive. I made him aware that the only other option would be to leave AMA and drive to the emergency room at [facility]. I quickly exited the room after my examination as I realize there is no way to me rectify this situation at this time. Both the patient and other family members are content at this time however the patient's son is highly disgruntled. I once again rounded on the patient after the family left and the patient was found to be at her personal baseline with no complaint. Physical Exam Vital Signs: Temp Pulse Resp BP Pulse Ox 99.6 F 107 H 20 125/79 97 04/14/16 13:00 04/14/16 13:00 04/14/16 13:00 04/14/16 13:00 04/14/16 13:00 Intake & Output 04/12/16 04/13/16 04/14/16 23:59 23:59 23:59 Intake Total 1367 2229 Output Total 1800 2049 Balance -433 179 Weight 73.4 kg General appearance: PRESENT: no acute distress, cooperative, disheveled, well- developed - Frail, chronically ill-appearing, well-nourished Head exam: PRESENT: atraumatic, normocephalic Eye exam: PRESENT: conjunctiva pink, EOMI, PERRLA. ABSENT: scleral icterus Ear exam: PRESENT: normal external ear exam Mouth exam: PRESENT: moist, tongue midline Neck exam: ABSENT: carotid bruit, JVD, lymphadenopathy, thyromegaly Respiratory exam: PRESENT: clear to auscultation sabina. ABSENT: rales, rhonchi, wheezes Cardiovascular exam: PRESENT: irregular rhythm. ABSENT: diastolic murmur, rubs , systolic murmur Pulses: PRESENT: normal dorsalis pedis pul Vascular exam: PRESENT: normal capillary refill GI/Abdominal exam: PRESENT: normal bowel sounds, soft. ABSENT: distended, guarding, mass, organolmegaly, rebound, tenderness Rectal exam: PRESENT: deferred Extremities exam: PRESENT: full ROM. ABSENT: calf tenderness, clubbing, pedal edema Neurological exam: PRESENT: alert, awake, oriented to person, oriented to place , oriented to time, oriented to situation, CN II-XII grossly intact. ABSENT: motor sensory deficit Psychiatric exam: PRESENT: appropriate affect, normal mood. ABSENT: homicidal ideation, suicidal ideation Skin exam: PRESENT: abrasion, dry, intact, warm, other - Multiple areas of ecchymosis from fall. ABSENT: cyanosis, rash Results Laboratory Results: 04/14/16 06:48 04/14/16 06:48 04/14/16 04/14/16 06:48 06:48 WBC 8.5 RBC 4.24 Hgb 13.4 Hct 39.1 MCV 92 MCH 31.6 MCHC 34.3 RDW 15.0 H Plt Count 263 Seg Neutrophils % Not Reportable Lymphocytes % Not Reportable Monocytes % Not Reportable Eosinophils % Not Reportable Basophils % Not Reportable Absolute Neutrophils Not Reportable Absolute Lymphocytes Not Reportable Absolute Monocytes Not Reportable Absolute Eosinophils Not Reportable Absolute Basophils Not Reportable Sodium 132.3 L Potassium 4.0 Chloride 96 L Carbon Dioxide 24 Anion Gap 12 BUN 13 Creatinine 0.53 Est GFR ( Amer) > 60 Est GFR (Non-Af Amer) > 60 Glucose 101 Calcium 8.7 Magnesium 1.6 Total Bilirubin 1.3 AST 35 ALT 45 Alkaline Phosphatase 100 Total Protein 6.3 Albumin 3.0 L Impressions: Abdomen Ultrasound 04/13/16 00:00 IMPRESSION: 1. Limited study. Fatty liver is suggested. Gallbladder surgically absent. No duct dilatation. Cervical Spine CT 04/13/16 00:46 IMPRESSION: CHRONIC DEGENERATIVE CHANGES. NO ACUTE FINDINGS. Head CT 04/13/16 00:46 IMPRESSION: CHRONIC CHANGES OF ATROPHY AND MICROVASCULAR ISCHEMIA. NO ACUTE PROCESS. Chest X-Ray 04/13/16 05:24 IMPRESSION: HEART ENLARGED WITHOUT FAILURE. NO OTHER SIGNIFICANT RADIOGRAPHIC FINDING IN THE CHEST. Lumbar Puncture 04/13/16 06:53 IMPRESSION: Attempted Lumbar puncture under fluoroscopy. Assessment & Plan - Diagnosis (1) Opiate overdose Qualifiers: Encounter type: initial encounter Injury intent: accidental or unintentional Qualified Code(s): T40.601A - Poisoning by unspecified narcotics, accidental (unintentional), initial encounter Is this a current diagnosis for this admission?: YesPlan: It appears that the patient was oversedated due to both fentanyl and oxycodone. The patient responded well to Narcan and withholding these medications the patient's mentation returned back to her baseline. (2) Opiate dependence, continuous Is this a current diagnosis for this admission?: YesPlan: I have resumed the patient's fentanyl patch which she has been on for a number of years. Instead of adding back long-acting oxycodone I have started back instant release oxycodone 5 milligrams for the patient to take only as needed. I have encouraged the patient to use opiates sparingly as her response to Narcan feels strongly that this is all oversedation. (3) Acute bronchitis Qualifiers: Bronchitis organism: unspecified organism Qualified Code(s): J20.9 - Acute bronchitis, unspecified Is this a current diagnosis for this admission?: YesPlan: Her symptoms overall are much improved will transition antibiotic coverage to by mouth. (4) SIRS (systemic inflammatory response syndrome) Is this a current diagnosis for this admission?: YesPlan: Secondary to bronchitis the patient has been afebrile for greater than 24 hours. White count is normalized. (5) Acute encephalopathy Is this a current diagnosis for this admission?: YesPlan: Most likely a combination of Sirs and opiates (6) Fracture of clavicle, right, closed Qualifiers: Encounter type: initial encounter Clavicle location: shaft Fracture alignment: nondisplaced Qualified Code(s): S42.024A - Nondisplaced fracture of shaft of right clavicle, initial encounter for closed fracture Is this a current diagnosis for this admission?: YesPlan: Continue immobilizer. (7) Elevated LFTs Is this a current diagnosis for this admission?: YesPlan: These have normalized. (8) Concussion Qualifiers: Encounter type: subsequent encounter Loss of consciousness presence/ duration: with LOC of 30 min or less Qualified Code(s): S06.0X1D - Concussion with loss of consciousness of 30 minutes or less, subsequent encounter Is this a current diagnosis for this admission?: YesPlan: Follow-up head CT is unremarkable (9) Facial laceration Qualifiers: Encounter type: subsequent encounter Qualified Code(s): S01.81XD - Laceration without foreign body of other part of head, subsequent encounter Is this a current diagnosis for this admission?: YesPlan: Areas clean and dry (10) Laceration of right forearm Qualifiers: Encounter type: subsequent encounter Qualified Code(s): S51.811D - Laceration without foreign body of right forearm, subsequent encounter (11) Scalp laceration Qualifiers: Encounter type: subsequent encounter Qualified Code(s): S01.01XD - Laceration without foreign body of scalp, subsequent encounter (12) EMERSON (obstructive sleep apnea) Is this a current diagnosis for this admission?: Yes (13) Paroxysmal atrial fibrillation Is this a current diagnosis for this admission?: YesPlan: The patient is currently in atrial fibrillation but is relatively well rate controlled. Upon review of the patient's current medications doesn't appear he is taken any antidysrhythmic. Upon review of the patient's external medication list it appears that she has not had flecainide filled since November. I've spoken with the patient's covering manager of school who is in agreement of starting metoprolol and having the patient to follow-up in outpatient basis. (14) Rheumatoid arthritis Qualifiers: Rheumatoid arthritis location: unspecified site Rheumatoid factor presence: unspecified presence Qualified Code(s): M06.9 - Rheumatoid arthritis, unspecified Is this a current diagnosis for this admission?: Yes - Time Time Spent with patient: on this followup including assessment, plan, physical examination, family meeting, conversation with the transfer center, and patient education is 60 minutes. Time Spent with patient: 35 or more minutes Medications reviewed and adjusted accordingly: Yes Anticipated discharge: Home Within: within 24 hours Disposition: The patient is a full code. Pending patient's symptomatology and diagnostic findings will reevaluate in the a.m. for discharge.
[2016-04-14] MEDS ORDERED: CEFUROXIME 500 MG TABLET PO SCH (18:00)
[2016-04-14] MEDS ORDERED: CELECOXIB 200 MG CAPSULE PO SCH (18:00)
[2016-04-14] MEDS ORDERED: ENOXAPARIN SODIUM INJ 80 MG/0.8 ML DISP.SYRIN SUBCUT SCH (22:00)
[2016-04-14] MEDS: METOPROLOL SUCCINATE 25 MG TAB.SR.24H PO SCH (22:57)
[2016-04-15] MEDS ORDERED: LORAZEPAM INJ 2 MG/1 ML VIAL IV ONE (01:40)
--- NOTE | 2016-04-15 07:53 | PDOC TRANSFER SUMMARY ---
General Admission Date/PCP: 04/13/16 07:00 Admission Date: 04/13/16 Transfer Date: 04/15/16 Accepting Facility: [facility] Resuscitation Status: Full Code - Assumed - Transfer Diagnosis (1) Acute encephalopathy Current Visit: Yes (2) Fracture of clavicle, right, closed Current Visit: Yes (3) Opiate dependence, continuous Current Visit: Yes (4) Opiate overdose Current Visit: Yes (5) Elevated LFTs Current Visit: Yes (6) EMERSON (obstructive sleep apnea) Current Visit: No (7) Paroxysmal atrial fibrillation Current Visit: No (8) Rheumatoid arthritis Current Visit: No - Transfer Medications Home Medications: Celecoxib 1 tab PO BID 04/13/16 Cetirizine HCl [All Day Allergy] 1 tab PO DAILY 04/13/16 Cholecalciferol (Vitamin D3) [Vitamin D3 2000 unit Tablet] 1 tab PO DAILY Docusate Sodium [Dok] 1 tab PO TID 04/13/16 Famotidine 1 tab PO DAILY 04/13/16 Fentanyl [Fentanyl] 1 each TOP ASDIR PRN 04/13/16 Furosemide [Furosemide] 1 tab PO DAILY 04/13/16 Hydrocortisone Valerate [Westcort] 1 applic TOP ASDIR PRN 04/13/16 Hydroxyzine HCl 1 tab PO DAILY 04/13/16 Levalbuterol Tartrate [Xopenex Hfa] 2 inh PO Q4H 04/13/16 Misoprostol [Cytotec 100 Mcg Tablet] 1 tab PO DAILY 04/13/16 Omeprazole 1 tab PO DAILY 04/13/16 Oxybutynin Chloride [Ditropan Xl] 1 tab PO DAILY 04/13/16 Oxycodone HCl [Oxycodone HCl ER] 1 tab PO ASDIR PRN 04/13/16 Oxycodone HCl [Oxycodone HCl ER] 1 tab PO ASDIR PRN 04/13/16 Potassium Chloride 1 tab PO DAILY 04/13/16 Silver Sulfadiazine [Silvadene 1% Cream 25 gm] 1 applic TP DAILY 04/13/16 Triamcinolone Acetonide [Aristocort 0.1% Cream 15 gm] 1 applic TP BID 04/13/16 Transfer Medications: Current Medications Acetaminophen (Tylenol 650 Mg Supp) 650 mg SD Q8HP PRN Stop: 05/13/16 07:10 Last Admin: 04/14/16 04:18 Dose: 650 mg Cefuroxime Axetil (Ceftin 500 Mg Tablet) 500 mg PO BID NELI Stop: 04/21/16 17:59 Last Admin: 04/14/16 17:38 Dose: 500 mg Celecoxib (Celebrex 200 Mg Capsule) 200 mg PO BID NELI Stop: 05/14/16 17:59 Last Admin: 04/14/16 17:38 Dose: 200 mg Cetirizine HCl (Zyrtec 5 Mg Tablet) 5 mg PO DAILY NELI Stop: 05/14/16 09:59 Last Admin: 04/14/16 10:32 Dose: 5 mg Cholecalciferol (Vitamin D3 1000 Unit Tablet) 2,000 unit PO DAILY NELI Stop: 05/14/16 09:59 Last Admin: 04/14/16 10:32 Dose: 2,000 unit Docusate Sodium (Colace 100 Mg Capsule) 100 mg PO TID NELI Stop: 05/13/16 17:59 Last Admin: 04/14/16 17:38 Dose: 100 mg Enoxaparin Sodium (Lovenox Inj 80 Mg/0.8 Ml Disp.Syrin) 70 mg SUBCUT Q12 NELI Stop: 05/14/16 21:59 Last Admin: 04/14/16 23:38 Dose: Not Given Famotidine (Pepcid 20 Mg Tablet) 40 mg PO DAILY NELI Stop: 05/14/16 09:59 Last Admin: 04/14/16 10:33 Dose: 40 mg Fentanyl (Duragesic 50 Mcg/Hr Transdermal Patch) 1 each TOP Q3DAYS [facility] Stop: 04/21/16 12:59 Metoprolol Succinate (Toprol Xl 25 Mg Tab.Sr) 25 mg PO Q12 NELI Stop: 05/14/16 21:59 Last Admin: 04/14/16 22:57 Dose: 25 mg Misoprostol (Cytotec 0.1 Mg Tablet) 0.1 mg PO DAILY NELI Stop: 05/14/16 09:59 Last Admin: 04/14/16 10:33 Dose: 0.1 mg Oxycodone HCl (Oxy-Ir 5 Mg Tablet) 5 mg PO Q4HP PRN Stop: 04/20/16 14:38 Last Admin: 04/14/16 19:52 Dose: 5 mg Pharmacy Profile Note (Medication Communication Order) 1 each MC .DOSE ADJUST NELI Stop: 05/13/16 06:59 Sodium Chloride (Saline Flush 2.5 Ml Monoject Prefil Syrin) 2.5 ml IV Q8 [facility] Stop: 05/13/16 13:59 Last Admin: 04/15/16 05:03 Dose: 2.5 ml - Allergies Allergies/Adverse Reactions: No Known Allergies Allergy (Verified 04/13/16 04:43) - Diet/Activity Discharge Diet: As Tolerated Discharge Activity: Bedrest Hospital Course Hospital Course: Patient was admitted on 04/13/2016 with altered mental status She was found unresponsive at home and responded to Narcan IV , but remained confused seen on 04/12/2016 in ER after sustaining a fall and was diagnosed of concussion and fractured right clavicle During her stay patient remains confused belligerent at times 1- Metabolic Encephalopathy Etiology may be multifold Concussion Patient did sustain a head injury 04/[address] scan of the brain was negative on 04/12/16 and 04/13/2016 There was no evidence of subdural hematoma Repeat CT of the head be performed today as patient has been anticoagulated in the last couple days There is no evidence of infection; patient came in was a normal white count; no fever A spinal tap could not be performed on admission as the patient was too restless Sedimentation rate , CRP have been ordered and results are pending TSH was slightly elevated Repeat TSH T3-T4 pending Vitamin B-12 level ABGs ammonia pending Opiate use and withdrawal may be responsible for metabolic encephalopathy at this time Patient was restarted on small dose of oxycodone and fentanyl patch 2 paroxysmal atrial fibrillation Rate controlled on metoprolol 25 mg twice a day Patient has a vascular chelo score 4 but she is clearly not a candidate for chronic anticoagulation with her unsteady gait; recent head injury We will just treat her with Lovenox prophylaxis and have discontinued anticoagulation 3 obstructive sleep apnea We'll we will inquire about C Pap at night ABGs will be obtained 4 transient elevated LFTs on admission LFTs are normal now serum ammonia level will be obtained Small doses of Risperdal 1 mg by mouth every 12 were ordered for agitation and delirium We will transfer the patient to [facility] at request of her Family Physical Exam Vital Signs: Temp Pulse Resp BP Pulse Ox 97.4 F 91 20 156/98 H 95 04/15/16 04:22 04/15/16 04:22 04/15/16 04:22 04/15/16 04:22 04/15/16 01:05 Intake & Output 04/14/16 04/15/16 04/16/16 00:59 00:59 00:59 Intake Total 1392 2667 12 Output Total 2750 1300 500 Balance -1358 1367 -488 Weight 73.4 kg 71.6 kg General appearance: PRESENT: cooperative, mild distress, well-nourished Head exam: PRESENT: other - Ecchymoses right periorbital area; small laceration sutured over the right eyebrow Eye exam: PRESENT: conjunctiva pink, EOMI, PERRLA Neck exam: ABSENT: carotid bruit, JVD, lymphadenopathy, thyromegaly Respiratory exam: PRESENT: wheezes - Scattered. ABSENT: accessory muscle use, chest wall tenderness, prolonged expiratory phas, tachypnea Cardiovascular exam: PRESENT: irregular rhythm. ABSENT: gallop, rubs, systolic murmur Pulses: PRESENT: normal carotid pulses GI/Abdominal exam: PRESENT: normal bowel sounds, soft. ABSENT: distended, guarding, mass, organolmegaly, rebound, tenderness Extremities exam: PRESENT: full ROM, other - Multiple ecchymosis upper extremities. ABSENT: calf tenderness, clubbing, pedal edema Musculoskeletal exam: PRESENT: full ROM Neurological exam: PRESENT: awake, oriented to situation, CN II-XII grossly intact Psychiatric exam: PRESENT: agitated, anxious Skin exam: PRESENT: other - Multiple ecchymosis Results Laboratory Results: 04/14/16 06:48 04/14/16 06:48 04/14/16 06:48 WBC 8.5 RBC 4.24 Hgb 13.4 Hct 39.1 MCV 92 MCH 31.6 MCHC 34.3 RDW 15.0 H Plt Count 263 04/13/16 04/13/16 04/13/16 01:10 01:10 01:10 WBC 13.3 H RDW 15.4 H Seg Neutrophils % 84.8 H Seg Neuts % (Manual) Lymphocytes % 5.5 L Lymphocytes % (Manual) Monocytes % (Manual) Absolute Neutrophils 11.3 H Abs Lymphs (Manual) Abs Monocytes (Manual) APTT Sodium 134.8 L Chloride 95 L Glucose 113 H AST 57 H ALT 58 H Albumin TSH Urine Protein 04/13/16 04/13/16 04/13/16 01:10 01:20 06:22 WBC RDW Seg Neutrophils % Seg Neuts % (Manual) Lymphocytes % Lymphocytes % (Manual) Monocytes % (Manual) Absolute Neutrophils Abs Lymphs (Manual) Abs Monocytes (Manual) APTT 21.3 L Sodium Chloride Glucose AST ALT Albumin TSH 5.95 H Urine Protein 30 H 04/14/16 04/14/16 06:48 06:48 WBC RDW 15.0 H Seg Neutrophils % Seg Neuts % (Manual) 95 H Lymphocytes % Lymphocytes % (Manual) 5 L Monocytes % (Manual) 0 L Absolute Neutrophils Abs Lymphs (Manual) 0.4 L Abs Monocytes (Manual) 0.0 L APTT Sodium 132.3 L Chloride 96 L Glucose AST ALT Albumin 3.0 L TSH Urine Protein EKG Comments: afib RVR Impressions: Abdomen Ultrasound 04/13/16 00:00 IMPRESSION: 1. Limited study. Fatty liver is suggested. Gallbladder surgically absent. No duct dilatation. Cervical Spine CT 04/13/16 00:46 IMPRESSION: CHRONIC DEGENERATIVE CHANGES. NO ACUTE FINDINGS. Head CT 04/13/16 00:46 IMPRESSION: CHRONIC CHANGES OF ATROPHY AND MICROVASCULAR ISCHEMIA. NO ACUTE PROCESS. Chest X-Ray 04/13/16 05:24 IMPRESSION: HEART ENLARGED WITHOUT FAILURE. NO OTHER SIGNIFICANT RADIOGRAPHIC FINDING IN THE CHEST. Lumbar Puncture 04/13/16 06:53 IMPRESSION: Attempted Lumbar puncture under fluoroscopy. Plan Discharge Plan: transfer to [facility] when bed is available
[2016-04-15] MEDS: FAMOTIDINE 20 MG TABLET PO SCH (09:46)
[2016-04-15] MEDS: OXYCODONE HCL IR 5 MG TABLET PO PRN (09:47)
[2016-04-15] MEDS: RISPERIDONE 1 MG TABLET PO SCH ×2 (09:48→17:44)
[2016-04-15] MEDS: DOCUSATE SODIUM 100 MG CAPSULE PO SCH ×2 (09:48→17:44)
[2016-04-15] MEDS: METOPROLOL SUCCINATE 25 MG TAB.SR.24H PO SCH ×2 (09:48→21:04)
[2016-04-15] MEDS: FENTANYL 25 MCG/HR PATCH.TD72 TD SCH (09:49)
[2016-04-15] MEDS: CHOLECALCIFEROL (D3) 1,000 UNIT TABLET PO SCH (09:49)
[2016-04-15] MEDS: CETIRIZINE 5 MG TABLET PO SCH (09:50)
[2016-04-15] MEDS: MISOPROSTOL 0.1 MG TABLET PO SCH (09:50)
[2016-04-15 09:54] LABS: C-REACTIVE PROTEIN 24.6 mg/L (<10.0)
[2016-04-15 10:55] LABS: ARTERIAL BLOOD BASE EXCESS 2.9 mmol/L; ARTERIAL BLOOD O2 SATURATION 94.5 % (94-98)
[2016-04-15 11:04] LABS: FREE T3 2.88 pg/mL (2.77-5.27)
[2016-04-15 11:17] LABS: THYROID STIMULATING HORMONE 5.41 uIU/mL (0.47-4.68)
[2016-04-15 11:39] LABS: CREATININE RESULT 0.63 mg/dL (0.52-1.25)
[2016-04-16 04:45] LABS: HEMATOCRIT 40.5 % (36.0-47.0); HGB HCT DIFFERENCE 1.5; MEAN CORPUSCULAR HEMOGLOBIN 31.6 pg (27.0-33.4); MEAN CORPUSCULAR HGB CONC 34.6 g/dL (32.0-36.0); MEAN CORPUSCULAR VOLUME 91 fl (80-97); RED BLOOD COUNT 4.44 10^6/uL (3.72-5.28); RED CELL DISTRIBUTION WIDTH 15.2 % (11.5-14.0); WHITE BLOOD COUNT 9.6 10^3/uL (4.0-10.5)
[2016-04-16] MEDS: CETIRIZINE 5 MG TABLET PO SCH (09:47)
[2016-04-16] MEDS: METOPROLOL SUCCINATE 25 MG TAB.SR.24H PO SCH ×2 (09:47→21:54)
[2016-04-16] MEDS: MISOPROSTOL 0.1 MG TABLET PO SCH (09:47)
[2016-04-16] MEDS: RISPERIDONE 1 MG TABLET PO SCH ×2 (09:47→17:41)
[2016-04-16] MEDS: CHOLECALCIFEROL (D3) 1,000 UNIT TABLET PO SCH (09:48)
[2016-04-16] MEDS: ENOXAPARIN SODIUM INJ 40 MG/0.4 ML DISP.SYRIN SUBCUT SCH (09:48)
[2016-04-16] MEDS: FAMOTIDINE 20 MG TABLET PO SCH (09:48)
[2016-04-16] MEDS: DOCUSATE SODIUM 100 MG CAPSULE PO SCH ×3 (09:48→17:41)
--- NOTE | 2016-04-16 10:39 | PDOC PROGRESS REPORT ---
Subjective Progress Note for:: 04/16/16 Subjective:: Patient is still confused less agitated Repeat CAT scan was unremarkable Rest of delirium workup was also unremarkable She is still monitored and is still in atrial fibrillation now controlled ventricular rate she appears to be bradycardic at times and Toprol-XL was decreased to only once a day There were no beds available at [facility] she still awaiting transfer Physical Exam Vital Signs: Temp Pulse Resp BP Pulse Ox 97.8 F 50 L 16 165/75 H 98 04/16/16 07:59 04/16/16 07:59 04/16/16 07:59 04/16/16 07:59 04/16/16 07:59 Intake & Output 04/15/16 04/16/16 04/17/16 00:59 00:59 00:59 Intake Total 2667 474 245 Output Total 1300 500 Balance 1367 -26 245 Weight 73.4 kg 69 kg 71.6 kg General appearance: PRESENT: no acute distress, thin Head exam: PRESENT: normocephalic Eye exam: PRESENT: conjunctiva pink, EOMI, PERRLA. ABSENT: scleral icterus Mouth exam: PRESENT: moist, tongue midline Neck exam: ABSENT: carotid bruit, JVD, lymphadenopathy, thyromegaly Respiratory exam: PRESENT: clear to auscultation sabina. ABSENT: rales, rhonchi, wheezes Cardiovascular exam: PRESENT: irregular rhythm. ABSENT: diastolic murmur, rubs , systolic murmur Pulses: PRESENT: normal dorsalis pedis pul GI/Abdominal exam: PRESENT: normal bowel sounds, soft. ABSENT: distended, guarding, mass, organolmegaly, rebound, tenderness Neurological exam: PRESENT: awake, CN II-XII grossly intact Skin exam: PRESENT: other - Scattered ecchymoses Results Laboratory Results: 04/16/16 04:20 04/15/16 09:25 04/15/16 04/15/16 04/15/16 09:25 09:25 09:25 WBC RBC Hgb Hct MCV MCH MCHC RDW Plt Count Carbonic Acid HCO3/H2CO3 Ratio ABG pH ABG pCO2 ABG pO2 ABG HCO3 ABG O2 Saturation ABG Base Excess FiO2 Creatinine 0.63 Est GFR ( Amer) > 60 Est GFR (Non-Af Amer) > 60 C-Reactive Protein 24.6 H Vitamin B12 436.0 TSH 5.41 H Free T4 1.62 Free T3 pg/mL 2.88 04/15/16 04/16/16 10:30 04:20 WBC 9.6 RBC 4.44 Hgb 14.0 Hct 40.5 MCV 91 MCH 31.6 MCHC 34.6 RDW 15.2 H Plt Count 266 Carbonic Acid 1.09 HCO3/H2CO3 Ratio 24:1 ABG pH 7.48 H ABG pCO2 36.3 ABG pO2 66.5 L ABG HCO3 26.2 H ABG O2 Saturation 94.5 ABG Base Excess 2.9 FiO2 ROOM AIR Creatinine Est GFR ( Amer) Est GFR (Non-Af Amer) C-Reactive Protein Vitamin B12 TSH Free T4 Free T3 pg/mL Impressions: Abdomen Ultrasound 04/13/16 00:00 IMPRESSION: 1. Limited study. Fatty liver is suggested. Gallbladder surgically absent. No duct dilatation. Cervical Spine CT 04/13/16 00:46 IMPRESSION: CHRONIC DEGENERATIVE CHANGES. NO ACUTE FINDINGS. Lumbar Puncture 04/13/16 06:53 IMPRESSION: Attempted Lumbar puncture under fluoroscopy. Head CT 04/15/16 07:59 IMPRESSION: No acute intracranial changes Chest X-Ray 04/15/16 10:00 IMPRESSION: Bibasilar probable atelectasis. Pneumonia could not entirely be excluded Retrocardiac hiatal hernia Nonunited nondisplaced distal right clavicle fracture. Multiple old healed right anterior rib fractures Assessment & Plan - Diagnosis (1) Acute encephalopathy Is this a current diagnosis for this admission?: YesPlan: Etiology likely related to drugs Opiate overdose on admission Patient also may have been hypotensive and or hypoxemic Encephalopathy is improving ;we will continue small doses of Risperdal Patient is still on a one-to-one watch (2) Fracture of clavicle, right, closed Qualifiers: Encounter type: initial encounter Clavicle location: shaft Fracture alignment: nondisplaced Qualified Code(s): S42.024A - Nondisplaced fracture of shaft of right clavicle, initial encounter for closed fracture Is this a current diagnosis for this admission?: Yes (3) Opiate dependence, continuous Is this a current diagnosis for this admission?: YesPlan: Continue small doses of opiates to prevent withdrawal (4) Opiate overdose Qualifiers: Encounter type: initial encounter Injury intent: accidental or unintentional Qualified Code(s): T40.601A - Poisoning by unspecified narcotics, accidental (unintentional), initial encounter Is this a current diagnosis for this admission?: Yes (5) Elevated LFTs Is this a current diagnosis for this admission?: Yes (6) EMERSON (obstructive sleep apnea) Is this a current diagnosis for this admission?: Yes (7) Paroxysmal atrial fibrillation Is this a current diagnosis for this admission?: YesPlan: Decrease metoprolol continue to monitor The patient is not a candidate for chronic anticoagulation (8) Rheumatoid arthritis Qualifiers: Rheumatoid arthritis location: unspecified site Rheumatoid factor presence: unspecified presence Qualified Code(s): M06.9 - Rheumatoid arthritis, unspecified Is this a current diagnosis for this admission?: Yes - Time Time Spent with patient: Continue the present management We will transfer if a bed is available at [facility] Time Spent with patient: 25-34 minutes
[2016-04-16] MEDS: OXYCODONE HCL IR 5 MG TABLET PO PRN (14:40)
[2016-04-16 23:04] LABS: ANION GAP 9 (5-19); BLOOD UREA NITROGEN 19 mg/dL (7-20); CALCIUM 9.5 mg/dL (8.4-10.2); CARBON DIOXIDE 27 mmol/L (22-30); CHLORIDE 101 mmol/L (98-107); CREATININE RESULT 0.78 mg/dL (0.52-1.25); GLUCOSE 108 mg/dL (75-110); POTASSIUM 3.8 mmol/L (3.6-5.0); SODIUM 136.5 mmol/L (137-145)
[2016-04-16 23:52] LABS: ARTERIAL BLOOD BASE EXCESS 1.1 mmol/L; ARTERIAL BLOOD O2 SATURATION 94.8 % (94-98)
[2016-04-17] MEDS: CHOLECALCIFEROL (D3) 1,000 UNIT TABLET PO SCH (09:48)
[2016-04-17] MEDS: FAMOTIDINE 20 MG TABLET PO SCH (09:48)
[2016-04-17] MEDS: CETIRIZINE 5 MG TABLET PO SCH (09:48)
[2016-04-17] MEDS: ENOXAPARIN SODIUM INJ 40 MG/0.4 ML DISP.SYRIN SUBCUT SCH (09:48)
[2016-04-17] MEDS: DOCUSATE SODIUM 100 MG CAPSULE PO SCH ×3 (09:48→18:19)
[2016-04-17] MEDS: METOPROLOL SUCCINATE 25 MG TAB.SR.24H PO SCH ×2 (09:48→22:15)
[2016-04-17] MEDS: MISOPROSTOL 0.1 MG TABLET PO SCH (09:52)
[2016-04-17] MEDS ORDERED: ACETAMINOPHEN 650 MG SUPP.RECT PR PRN (11:24)
--- NOTE | 2016-04-17 16:35 | PDOC PROGRESS REPORT ---
Subjective Progress Note for:: 04/17/16 Subjective:: doing a lot better still confused but not agitated does not complain of any pain except in her right shoulder Physical Exam Vital Signs: Temp Pulse Resp BP Pulse Ox 98.3 F 103 H 18 147/79 H 100 04/17/16 12:34 04/17/16 14:00 04/17/16 08:39 04/17/16 12:34 04/17/16 12:34 Intake & Output 04/16/16 04/17/16 04/18/16 00:59 00:59 00:59 Intake Total 474 496 30 Output Total 500 Balance -26 496 30 Weight 69 kg 71.6 kg 71.6 kg General appearance: PRESENT: no acute distress, thin Head exam: PRESENT: normocephalic, other - right periorbital ecchymoses Eye exam: PRESENT: conjunctiva pink, EOMI, PERRLA. ABSENT: scleral icterus Mouth exam: PRESENT: moist, tongue midline Respiratory exam: PRESENT: clear to auscultation sabina. ABSENT: rales, rhonchi, wheezes Cardiovascular exam: PRESENT: RRR. ABSENT: diastolic murmur, rubs, systolic murmur GI/Abdominal exam: PRESENT: normal bowel sounds, soft. ABSENT: distended, guarding, mass, organolmegaly, rebound, tenderness Neurological exam: PRESENT: awake, CN II-XII grossly intact Results Laboratory Results: 04/16/16 04:20 04/16/16 22:42 04/16/16 04/16/16 22:42 23:40 Carbonic Acid 1.01 L HCO3/H2CO3 Ratio 23:1 ABG pH 7.48 H ABG pCO2 33.5 L ABG pO2 68.0 L ABG HCO3 24.1 ABG O2 Saturation 94.8 ABG Base Excess 1.1 FiO2 21% Sodium 136.5 L Potassium 3.8 Chloride 101 Carbon Dioxide 27 Anion Gap 9 BUN 19 Creatinine 0.78 Est GFR ( Amer) > 60 Est GFR (Non-Af Amer) > 60 Glucose 108 Calcium 9.5 Impressions: Abdomen Ultrasound 04/13/16 00:00 IMPRESSION: 1. Limited study. Fatty liver is suggested. Gallbladder surgically absent. No duct dilatation. Cervical Spine CT 04/13/16 00:46 IMPRESSION: CHRONIC DEGENERATIVE CHANGES. NO ACUTE FINDINGS. Lumbar Puncture 04/13/16 06:53 IMPRESSION: Attempted Lumbar puncture under fluoroscopy. Head CT 04/15/16 07:59 IMPRESSION: No acute intracranial changes Chest X-Ray 04/15/16 10:00 IMPRESSION: Bibasilar probable atelectasis. Pneumonia could not entirely be excluded Retrocardiac hiatal hernia Nonunited nondisplaced distal right clavicle fracture. Multiple old healed right anterior rib fractures Assessment & Plan - Diagnosis (1) Acute encephalopathy Is this a current diagnosis for this admission?: Yes (2) Fracture of clavicle, right, closed Qualifiers: Encounter type: initial encounter Clavicle location: shaft Fracture alignment: nondisplaced Qualified Code(s): S42.024A - Nondisplaced fracture of shaft of right clavicle, initial encounter for closed fracture Is this a current diagnosis for this admission?: Yes (3) Opiate dependence, continuous Is this a current diagnosis for this admission?: Yes (4) Opiate overdose Qualifiers: Encounter type: initial encounter Injury intent: accidental or unintentional Qualified Code(s): T40.601A - Poisoning by unspecified narcotics, accidental (unintentional), initial encounter Is this a current diagnosis for this admission?: Yes (5) Elevated LFTs Is this a current diagnosis for this admission?: Yes (6) EMERSON (obstructive sleep apnea) Is this a current diagnosis for this admission?: Yes (7) Paroxysmal atrial fibrillation Is this a current diagnosis for this admission?: Yes (8) Rheumatoid arthritis Qualifiers: Rheumatoid arthritis location: unspecified site Rheumatoid factor presence: unspecified presence Qualified Code(s): M06.9 - Rheumatoid arthritis, unspecified Is this a current diagnosis for this admission?: Yes - Time Time Spent with patient: will continue present management patient was evaluated by PT and needs 2 people assist cancelled transfer to [place] as there is no active medical issue at this time delirium - resolving and physical disability remain Patient needs transfer to SNF facility attempted to reach family Time Spent with patient: 25-34 minutes
[2016-04-18 06:56] LABS: HEMATOCRIT 37.3 % (36.0-47.0); HEMOGLOBIN 12.6 g/dL (12.0-15.5); HGB HCT DIFFERENCE 0.5; MEAN CORPUSCULAR HEMOGLOBIN 31.6 pg (27.0-33.4); MEAN CORPUSCULAR HGB CONC 33.8 g/dL (32.0-36.0); MEAN CORPUSCULAR VOLUME 93 fl (80-97); RED CELL DISTRIBUTION WIDTH 15.1 % (11.5-14.0)
[2016-04-18] MEDS: ENOXAPARIN SODIUM INJ 40 MG/0.4 ML DISP.SYRIN SUBCUT SCH (09:37)
[2016-04-18] MEDS: METOPROLOL SUCCINATE 25 MG TAB.SR.24H PO SCH ×2 (09:38→21:06)
[2016-04-18] MEDS: FAMOTIDINE 20 MG TABLET PO SCH (09:38)
[2016-04-18] MEDS: CHOLECALCIFEROL (D3) 1,000 UNIT TABLET PO SCH (09:38)
[2016-04-18] MEDS: DOCUSATE SODIUM 100 MG CAPSULE PO SCH ×3 (09:38→17:17)
[2016-04-18] MEDS: CETIRIZINE 5 MG TABLET PO SCH (09:39)
[2016-04-18] MEDS: MISOPROSTOL 0.1 MG TABLET PO SCH (09:39)
[2016-04-18] MEDS: FENTANYL 25 MCG/HR PATCH.TD72 TD SCH (09:39)
--- NOTE | 2016-04-18 18:06 | PDOC PROGRESS REPORT ---
Subjective Progress Note for:: 04/18/16 Subjective:: doing much better still confused at times but not belligerant or delirious mentation very much improved patient was evaluated by Physical therapy and found to be a candidate for short term rehab She has 2 bed offers and may be transfered on thursday if stable Physical Exam Vital Signs: Temp Pulse Resp BP Pulse Ox 98.4 F 53 L 16 102/54 L 97 04/18/16 16:22 04/18/16 16:22 04/18/16 16:22 04/18/16 16:22 04/18/16 16:22 Intake & Output 04/17/16 04/18/16 04/19/16 00:59 00:59 00:59 Intake Total 496 555 105 Balance 496 555 105 Weight 71.6 kg 71.6 kg 71 kg General appearance: PRESENT: no acute distress, cooperative, thin Head exam: PRESENT: normocephalic, other - ecchymoses right periorbital area fading Eye exam: PRESENT: conjunctiva pink, EOMI, PERRLA. ABSENT: scleral icterus Neck exam: ABSENT: carotid bruit, JVD, lymphadenopathy, thyromegaly Respiratory exam: PRESENT: clear to auscultation sabina. ABSENT: rales, rhonchi, wheezes Cardiovascular exam: PRESENT: bradycardia GI/Abdominal exam: PRESENT: normal bowel sounds, soft. ABSENT: distended, guarding, mass, organolmegaly, rebound, tenderness Neurological exam: PRESENT: awake, CN II-XII grossly intact Skin exam: PRESENT: dry, intact, warm, other - ecchmoses face and upper extremities. ABSENT: cyanosis, rash Results Laboratory Results: 04/18/16 06:33 04/16/16 22:42 04/18/16 06:33 WBC 9.0 RBC 4.00 Hgb 12.6 Hct 37.3 MCV 93 MCH 31.6 MCHC 33.8 RDW 15.1 H Plt Count 272 Impressions: Abdomen Ultrasound 04/13/16 00:00 IMPRESSION: 1. Limited study. Fatty liver is suggested. Gallbladder surgically absent. No duct dilatation. Cervical Spine CT 04/13/16 00:46 IMPRESSION: CHRONIC DEGENERATIVE CHANGES. NO ACUTE FINDINGS. Lumbar Puncture 04/13/16 06:53 IMPRESSION: Attempted Lumbar puncture under fluoroscopy. Head CT 04/15/16 07:59 IMPRESSION: No acute intracranial changes Chest X-Ray 04/15/16 10:00 IMPRESSION: Bibasilar probable atelectasis. Pneumonia could not entirely be excluded Retrocardiac hiatal hernia Nonunited nondisplaced distal right clavicle fracture. Multiple old healed right anterior rib fractures Assessment & Plan - Diagnosis (1) Acute encephalopathy Is this a current diagnosis for this admission?: Yes (2) Fracture of clavicle, right, closed Qualifiers: Encounter type: initial encounter Clavicle location: shaft Fracture alignment: nondisplaced Qualified Code(s): S42.024A - Nondisplaced fracture of shaft of right clavicle, initial encounter for closed fracture Is this a current diagnosis for this admission?: Yes (3) Opiate dependence, continuous Is this a current diagnosis for this admission?: Yes (4) Opiate overdose Qualifiers: Encounter type: initial encounter Injury intent: accidental or unintentional Qualified Code(s): T40.601A - Poisoning by unspecified narcotics, accidental (unintentional), initial encounter Is this a current diagnosis for this admission?: Yes (5) Elevated LFTs Is this a current diagnosis for this admission?: Yes (6) EMERSON (obstructive sleep apnea) Is this a current diagnosis for this admission?: Yes (7) Paroxysmal atrial fibrillation Is this a current diagnosis for this admission?: Yes (8) Rheumatoid arthritis Qualifiers: Rheumatoid arthritis location: unspecified site Rheumatoid factor presence: unspecified presence Qualified Code(s): M06.9 - Rheumatoid arthritis, unspecified Is this a current diagnosis for this admission?: Yes - Time Time Spent with patient: continue present management Time Spent with patient: 25-34 minutes Within: within 72 hours Disposition: to SNF
[2016-04-18] MEDS: ACETAMINOPHEN 325 MG TABLET PO PRN (21:06)
[2016-04-19] MEDS: DOCUSATE SODIUM 100 MG CAPSULE PO SCH ×3 (09:15→17:15)
[2016-04-19] MEDS: FAMOTIDINE 20 MG TABLET PO SCH (09:15)
[2016-04-19] MEDS: CETIRIZINE 5 MG TABLET PO SCH (09:15)
[2016-04-19] MEDS: CHOLECALCIFEROL (D3) 1,000 UNIT TABLET PO SCH (09:15)
[2016-04-19] MEDS: ENOXAPARIN SODIUM INJ 40 MG/0.4 ML DISP.SYRIN SUBCUT SCH (09:15)
[2016-04-19] MEDS: MISOPROSTOL 0.1 MG TABLET PO SCH (09:17)
--- NOTE | 2016-04-19 14:44 | PDOC PROGRESS REPORT ---
Subjective Progress Note for:: 04/19/16 Subjective:: confusion is very much improved alert and awake awaiting transfer to short term rehab on thursday Physical Exam Vital Signs: Temp Pulse Resp BP Pulse Ox 98.0 F 52 L 18 144/61 H 99 04/19/16 11:43 04/19/16 11:43 04/19/16 11:43 04/19/16 11:43 04/19/16 11:43 Intake & Output 04/18/16 04/19/16 04/20/16 00:59 00:59 00:59 Intake Total 555 798 377 Balance 555 798 377 Weight 71.6 kg 71 kg 71.6 kg General appearance: PRESENT: no acute distress Head exam: PRESENT: normocephalic Eye exam: PRESENT: conjunctiva pink, EOMI, PERRLA. ABSENT: scleral icterus Neck exam: ABSENT: carotid bruit, JVD, lymphadenopathy, thyromegaly Respiratory exam: PRESENT: clear to auscultation sabina. ABSENT: rales, rhonchi, wheezes Cardiovascular exam: PRESENT: RRR. ABSENT: diastolic murmur, rubs, systolic murmur GI/Abdominal exam: PRESENT: normal bowel sounds, soft. ABSENT: distended, guarding, mass, organolmegaly, rebound, tenderness Rectal exam: PRESENT: deferred Extremities exam: PRESENT: full ROM. ABSENT: calf tenderness, clubbing, pedal edema Neurological exam: PRESENT: awake, CN II-XII grossly intact Results Laboratory Results: 04/18/16 06:33 04/16/16 22:42 Impressions: Abdomen Ultrasound 04/13/16 00:00 IMPRESSION: 1. Limited study. Fatty liver is suggested. Gallbladder surgically absent. No duct dilatation. Cervical Spine CT 04/13/16 00:46 IMPRESSION: CHRONIC DEGENERATIVE CHANGES. NO ACUTE FINDINGS. Lumbar Puncture 04/13/16 06:53 IMPRESSION: Attempted Lumbar puncture under fluoroscopy. Head CT 04/15/16 07:59 IMPRESSION: No acute intracranial changes Chest X-Ray 04/15/16 10:00 IMPRESSION: Bibasilar probable atelectasis. Pneumonia could not entirely be excluded Retrocardiac hiatal hernia Nonunited nondisplaced distal right clavicle fracture. Multiple old healed right anterior rib fractures Assessment & Plan - Diagnosis (1) Acute encephalopathy Is this a current diagnosis for this admission?: Yes (2) Fracture of clavicle, right, closed Qualifiers: Encounter type: initial encounter Clavicle location: shaft Fracture alignment: nondisplaced Qualified Code(s): S42.024A - Nondisplaced fracture of shaft of right clavicle, initial encounter for closed fracture Is this a current diagnosis for this admission?: Yes (3) Opiate dependence, continuous Is this a current diagnosis for this admission?: Yes (4) Opiate overdose Qualifiers: Encounter type: initial encounter Injury intent: accidental or unintentional Qualified Code(s): T40.601A - Poisoning by unspecified narcotics, accidental (unintentional), initial encounter Is this a current diagnosis for this admission?: Yes (5) Elevated LFTs Is this a current diagnosis for this admission?: Yes (6) EMERSON (obstructive sleep apnea) Is this a current diagnosis for this admission?: Yes (7) Paroxysmal atrial fibrillation Is this a current diagnosis for this admission?: Yes (8) Rheumatoid arthritis Qualifiers: Rheumatoid arthritis location: unspecified site Rheumatoid factor presence: unspecified presence Qualified Code(s): M06.9 - Rheumatoid arthritis, unspecified Is this a current diagnosis for this admission?: Yes (9) Bradycardia Is this a current diagnosis for this admission?: NoPlan: HR is in 40's or 50's at times will decrease metoprolol to 12.5 mg twice a day with parameters - Time Time Spent with patient: 15-24 minutes
[2016-04-19] MEDS ORDERED: BISACODYL 10 MG SUPP.RECT PR PRN (15:53)
[2016-04-19] MEDS ORDERED: POLYETHYLENE GLYCOL 3350 POWDER 17 GM/1 PACKET PO ONE (17:00)
[2016-04-19] MEDS: ACETAMINOPHEN 325 MG TABLET PO PRN (21:51)
[2016-04-19] MEDS: METOPROLOL TARTRATE 25 MG TABLET PO SCH (21:53)
[2016-04-20] MEDS: MISOPROSTOL 0.1 MG TABLET PO SCH (10:49)
[2016-04-20] MEDS: CETIRIZINE 5 MG TABLET PO SCH (10:50)
[2016-04-20] MEDS: CHOLECALCIFEROL (D3) 1,000 UNIT TABLET PO SCH (10:50)
[2016-04-20] MEDS: METOPROLOL TARTRATE 25 MG TABLET PO SCH ×2 (10:50→21:34)
[2016-04-20] MEDS: FAMOTIDINE 20 MG TABLET PO SCH (10:50)
[2016-04-20] MEDS: ACETAMINOPHEN 325 MG TABLET PO PRN (10:54)
[2016-04-20] MEDS: ENOXAPARIN SODIUM INJ 40 MG/0.4 ML DISP.SYRIN SUBCUT SCH (10:58)
[2016-04-20] MEDS: POLYETHYLENE GLYCOL 3350 POWDER 17 GM/1 PACKET PO SCH (12:14)
[2016-04-20] MEDS: DOCUSATE SODIUM 100 MG CAPSULE PO SCH ×3 (12:14→17:39)
--- NOTE | 2016-04-20 18:55 | PDOC PROGRESS REPORT ---
Subjective Progress Note for:: 04/20/16 Subjective:: feels well cooperative At times still somewhat confused Physical Exam Vital Signs: Temp Pulse Resp BP Pulse Ox 97.4 F 105 H 17 130/74 H 96 04/20/16 03:41 04/20/16 14:00 04/20/16 03:41 04/20/16 03:41 04/20/16 03:41 Intake & Output 04/19/16 04/20/16 04/21/16 00:59 00:59 00:59 Intake Total 798 1767 205 Balance 798 1767 205 Weight 71 kg 71.6 kg 72.5 kg Results Laboratory Results: 04/18/16 06:33 04/16/16 22:42 Impressions: Abdomen Ultrasound 04/13/16 00:00 IMPRESSION: 1. Limited study. Fatty liver is suggested. Gallbladder surgically absent. No duct dilatation. Cervical Spine CT 04/13/16 00:46 IMPRESSION: CHRONIC DEGENERATIVE CHANGES. NO ACUTE FINDINGS. Lumbar Puncture 04/13/16 06:53 IMPRESSION: Attempted Lumbar puncture under fluoroscopy. Head CT 04/15/16 07:59 IMPRESSION: No acute intracranial changes Chest X-Ray 04/15/16 10:00 IMPRESSION: Bibasilar probable atelectasis. Pneumonia could not entirely be excluded Retrocardiac hiatal hernia Nonunited nondisplaced distal right clavicle fracture. Multiple old healed right anterior rib fractures Assessment & Plan - Diagnosis (1) Acute encephalopathy Is this a current diagnosis for this admission?: Yes (2) Fracture of clavicle, right, closed Qualifiers: Encounter type: initial encounter Clavicle location: shaft Fracture alignment: nondisplaced Qualified Code(s): S42.024A - Nondisplaced fracture of shaft of right clavicle, initial encounter for closed fracture Is this a current diagnosis for this admission?: Yes (3) Opiate dependence, continuous Is this a current diagnosis for this admission?: Yes (4) Opiate overdose Qualifiers: Encounter type: initial encounter Injury intent: accidental or unintentional Qualified Code(s): T40.601A - Poisoning by unspecified narcotics, accidental (unintentional), initial encounter Is this a current diagnosis for this admission?: Yes (5) Elevated LFTs Is this a current diagnosis for this admission?: Yes (6) EMERSON (obstructive sleep apnea) Is this a current diagnosis for this admission?: Yes (7) Paroxysmal atrial fibrillation Is this a current diagnosis for this admission?: Yes (8) Rheumatoid arthritis Qualifiers: Rheumatoid arthritis location: unspecified site Rheumatoid factor presence: unspecified presence Qualified Code(s): M06.9 - Rheumatoid arthritis, unspecified Is this a current diagnosis for this admission?: Yes (9) Bradycardia Is this a current diagnosis for this admission?: No - Time Time Spent with patient: patient is stable at this time no new acute issues evaluate for SNF in am Time Spent with patient: 15-24 minutes
[2016-04-21] MEDS: ACETAMINOPHEN 325 MG TABLET PO PRN ×2 (01:17→08:44)
[2016-04-21 07:35] LABS: HEMATOCRIT 35.5 % (36.0-47.0); HEMOGLOBIN 12.2 g/dL (12.0-15.5); HGB HCT DIFFERENCE 1.1; MEAN CORPUSCULAR HEMOGLOBIN 31.3 pg (27.0-33.4); MEAN CORPUSCULAR HGB CONC 34.2 g/dL (32.0-36.0); MEAN CORPUSCULAR VOLUME 92 fl (80-97); RED BLOOD COUNT 3.88 10^6/uL (3.72-5.28); RED CELL DISTRIBUTION WIDTH 14.8 % (11.5-14.0); WHITE BLOOD COUNT 22.8 10^3/uL (4.0-10.5)
[2016-04-21 07:51] LABS: ANION GAP 10 (5-19); BLOOD UREA NITROGEN 24 mg/dL (7-20); CALCIUM 9.4 mg/dL (8.4-10.2); CARBON DIOXIDE 26 mmol/L (22-30); CHLORIDE 98 mmol/L (98-107); GLUCOSE 99 mg/dL (75-110); POTASSIUM 4.3 mmol/L (3.6-5.0); SODIUM 133.6 mmol/L (137-145)
[2016-04-21] MEDS: ENOXAPARIN SODIUM INJ 40 MG/0.4 ML DISP.SYRIN SUBCUT SCH (08:43)
[2016-04-21] MEDS: CETIRIZINE 5 MG TABLET PO SCH (10:40)
[2016-04-21] MEDS: POLYETHYLENE GLYCOL 3350 POWDER 17 GM/1 PACKET PO SCH (10:40)
[2016-04-21] MEDS: FAMOTIDINE 20 MG TABLET PO SCH (10:41)
[2016-04-21] MEDS: DOCUSATE SODIUM 100 MG CAPSULE PO SCH ×2 (10:41→13:54)
[2016-04-21] MEDS: CHOLECALCIFEROL (D3) 1,000 UNIT TABLET PO SCH (10:41)
[2016-04-21] MEDS: MISOPROSTOL 0.1 MG TABLET PO SCH (10:41)
[2016-04-21] MEDS: FENTANYL 25 MCG/HR PATCH.TD72 TD SCH (10:42)
[2016-04-21] MEDS: METOPROLOL TARTRATE 25 MG TABLET PO SCH (11:16)
--- NOTE | 2016-04-21 12:32 | PDOC TRANSFER SUMMARY ---
General - Admit/Disc Date/PCP Admission Date/Primary Care Provider: 04/13/16 07:00 Anthony Roman Discharge Date: 04/21/16 - Discharge Diagnosis (1) Acute encephalopathy Is this a current diagnosis for this admission?: YesSummary: patient was admitted with acute encephalopathy She was extremely restless and after her spinal tap could not be performed She was not febrile A CT of the head was negative Patient was on the fentanyl patch and intermittent doses of oxycodone It was felt that the patient had metabolic encephalopathy secondary to narcotics which were held In the first couple days of her stay Later on we resumed fentanyl patch 25 microg every 3 days Oxycodone was discontinued patient did not have intractable pain And is quite comfortable at discharge Vitamin B-12 was 430 TSH was 5.4 with normal T3-T4 (2) Fracture of clavicle, right, closed Is this a current diagnosis for this admission?: YesSummary: A sling was applied Patient should wear sling for the next 4 weeks for comfort (3) Opiate dependence, continuous Is this a current diagnosis for this admission?: YesSummary: Patient is treated at pain clinic in [place] We strongly feel that the opiates should be ordered sparingly (4) Opiate overdose Is this a current diagnosis for this admission?: Yes (5) Elevated LFTs Is this a current diagnosis for this admission?: YesSummary: LFTs were slightly elevated on admission, they did normalize upon discharge (6) EMERSON (obstructive sleep apnea) Is this a current diagnosis for this admission?: Yes (7) Paroxysmal atrial fibrillation Is this a current diagnosis for this admission?: YesSummary: Patient is not a candidate for chronic anticoagulation as she is high risk for falls and bleeds We discharged her on Ecotrin 81 mg daily Bradycardia has been noted on the monitor with heart rate less then 50 We decreased metoprolol to 12.5 mg by mouth twice a day (8) Rheumatoid arthritis Is this a current diagnosis for this admission?: YesSummary: Continue NSAIDS (9) Bradycardia Is this a current diagnosis for this admission?: No (10) Leukocytosis Is this a current diagnosis for this admission?: YesSummary: At discharge patient's white count is 20,000 The reason is unclear patient has no fever ; UA showed wbc small bacteria C+S pending patient was discharged on keflex po - Additional Information Resuscitation Status: Full Code - Assumed Discharge Diet: As Tolerated Discharge Activity: Bedrest Home Medications: Cetirizine HCl [All Day Allergy] 1 tab PO DAILY 04/13/16 Cholecalciferol (Vitamin D3) [Vitamin D3 2000 unit Tablet] 1 tab PO DAILY Docusate Sodium [Dok] 1 tab PO TID 04/13/16 Famotidine 1 tab PO DAILY 04/13/16 Levalbuterol Tartrate [Xopenex Hfa] 2 inh PO Q4H 04/13/16 Misoprostol [Cytotec 0.1 mg Tablet] 1 tab PO DAILY 04/13/16 Omeprazole 1 tab PO DAILY 04/13/16 Oxybutynin Chloride [Ditropan Xl] 1 tab PO DAILY 04/13/16 Aspirin [Ecotrin 81 mg EC Tablet] 81 mg PO DAILY #30 tabec 04/21/16 Celecoxib [Celebrex 100 mg Capsule] 100 mg PO BID #60 capsule 04/21/16 Cephalexin Monohydrate [Keflex 500 mg Capsule] 500 mg PO TID #21 capsule Fentanyl [Duragesic 25 mcg/hr Transdermal Patch] 1 each TD Q3DAYS #4 patch.[id number] 04/21/16 Metoprolol Tartrate [Lopressor 25 mg Tablet] 12.5 mg PO Q12 #60 tablet 04/21/16 Polyethylene Glycol 3350 [Miralax Powder 17 gm/Packet] 17 gm PO DAILY #30 powd.pack 04/21/16 History of Present Illness Admission Date/PCP: 04/13/16 07:00 Patient complains of: altered mental status History of Present Illness: BHARATH JORDAN is a 75 year old female with underlying rheumatoid arthritis, on multiple pain medications for same, along with paroxysmal atrial fibrillation, reported hypertension, osteoporosis, sick sinus syndrome and sleep apnea, along with multiple other diagnoses, who presents to the emergency room for evaluation of above complaint. Patient has been discussed with emergency room physician who evaluated the patient. Patient is globally disoriented and is able to provide no history whatsoever in terms of acute or chronic events, review of systems, personal habits, family history, etc. No friends or family are present. No Old inpatient records are available for review.. Was seen in the emergency room on April 12 after suffering a fall, with resulting concussion and closed right clavicle fracture. Was sent home with a right arm sling but no additional pain medication. Was found unresponsive in her chair by her [id number]-law, who had been taking care of her since her fall. Was also noted to be hypoxic upon EMS arrival. Was given Narcan. She did awaken somewhat after Narcan, but remained confused. At her baseline, she is awake alert and appropriate, and cares for herself without difficulty. Takes multiple pain medications, including fentanyl patch, but according to the emergency room physician, who removed the patch, the patch itself was 3 days old. She spiked a low-grade fever sometime after arrival in the emergency room. Concern was for encephalitis. However, despite sedation, lumbar puncture was not able to be performed by the emergency room physician due to lack of patient cooperation. Hospitalist service was then consulted. Laboratory results are listed in upad and are reviewed. Hospital Course Hospital Course: See above Physical Exam Vital Signs: Temp Pulse Resp BP Pulse Ox 98.9 F 31 L 20 104/62 98 04/21/16 07:54 04/21/16 07:54 04/21/16 07:54 04/21/16 07:54 04/21/16 07:54 Intake & Output 04/20/16 04/21/16 04/22/16 00:59 00:59 00:59 Intake Total 1767 205 420 Balance 1767 205 420 Weight 71.6 kg 72.5 kg 71.8 kg General appearance: PRESENT: no acute distress, thin Head exam: PRESENT: normocephalic - Ecchymosis right periorbital area. One stitch was removed from laceration of the right eyebrow which was healed Eye exam: PRESENT: conjunctiva pink, EOMI, PERRLA. ABSENT: scleral icterus Mouth exam: PRESENT: moist, tongue midline Neck exam: ABSENT: carotid bruit, JVD, lymphadenopathy, thyromegaly Respiratory exam: PRESENT: clear to auscultation sabina. ABSENT: rales, rhonchi, wheezes Cardiovascular exam: PRESENT: RRR. ABSENT: diastolic murmur, rubs, systolic murmur Vascular exam: PRESENT: normal capillary refill GI/Abdominal exam: PRESENT: normal bowel sounds, soft. ABSENT: distended, guarding, mass, organolmegaly, rebound, tenderness Rectal exam: PRESENT: deferred Extremities exam: PRESENT: other - Right upper extremity in a sling Neurological exam: PRESENT: alert, awake, CN II-XII grossly intact. ABSENT: motor sensory deficit Results Laboratory Results: 04/21/16 07:22 04/21/16 07:22 04/21/16 04/21/16 07:22 07:22 WBC 22.8 H RBC 3.88 Hgb 12.2 Hct 35.5 L MCV 92 MCH 31.3 MCHC 34.2 RDW 14.8 H Plt Count 252 Sodium 133.6 L Potassium 4.3 Chloride 98 Carbon Dioxide 26 Anion Gap 10 BUN 24 H Creatinine 0.80 Est GFR ( Amer) > 60 Est GFR (Non-Af Amer) > 60 Glucose 99 Calcium 9.4 Labs- All tests 24 hr 04/21/16 04/21/16 07:22 07:22 WBC 22.8 H RBC 3.88 Hgb 12.2 Hct 35.5 L MCV 92 MCH 31.3 MCHC 34.2 RDW 14.8 H Plt Count 252 Sodium 133.6 L Potassium 4.3 Chloride 98 Carbon Dioxide 26 Anion Gap 10 BUN 24 H Creatinine 0.80 Est GFR ( Amer) > 60 Est GFR (Non-Af Amer) > 60 Glucose 99 Calcium 9.4 04/16/16 04/18/16 04:20 06:33 WBC 9.0 Hgb 14.0 Hct 40.5 Impressions: Abdomen Ultrasound 04/13/16 00:00 IMPRESSION: 1. Limited study. Fatty liver is suggested. Gallbladder surgically absent. No duct dilatation. Cervical Spine CT 04/13/16 00:46 IMPRESSION: CHRONIC DEGENERATIVE CHANGES. NO ACUTE FINDINGS. Lumbar Puncture 04/13/16 06:53 IMPRESSION: Attempted Lumbar puncture under fluoroscopy. Head CT 04/15/16 07:59 IMPRESSION: No acute intracranial changes Chest X-Ray 04/15/16 10:00 IMPRESSION: Bibasilar probable atelectasis. Pneumonia could not entirely be excluded Retrocardiac hiatal hernia Nonunited nondisplaced distal right clavicle fracture. Multiple old healed right anterior rib fractures Transfer Plan - Disposition Transfer Plan: Patient to be transferred to [place] for short-term rehabilitation - Time Spent with Patient Time spent with patient: Greater than 30 Minutes
[2016-04-21 13:31] VITALS: BP 112/98
[2016-04-21 13:53] LABS: APPEARANCE,URINE SLIGHTLY-CLOUDY; BILIRUBIN,URINE NEGATIVE (NEGATIVE); GLUCOSE, URINE NEGATIVE (NEGATIVE); KETONES,URINE NEGATIVE (NEGATIVE); LEUKOCYTE ESTERASE,URINE SMALL (NEGATIVE); NITRITE,URINE NEGATIVE (NEGATIVE); PROTEIN,URINE NEGATIVE (NEGATIVE); URINE SPECIFIC GRAVITY 1.018; UROBILINOGEN,URINE NEGATIVE mg/dL (<2.0)
[2016-04-21] MEDS ORDERED: CEPHALEXIN 500 MG CAPSULE PO ONE (14:19)
[2016-04-21] MEDS ORDERED: CIPROFLOXACIN HCL 500 MG TABLET PO ONE (15:30)
[2016-04-21] MEDS ORDERED: CIPROFLOXACIN HCL 500 MG TABLET PO SCH (22:00)
== END 2016-04-21 17:25 | DRG 917 ==
LOC: ER 00:38 → EH 06:00 → UNDOADMIN 06:00 → EH 07:00 → 3W 08:55 → EH 08:55 → 5 04-15 22:57
PROVIDERS: ADMIT Family Medicine; ATTEND Family Medicine
DX: T40.4X1A Poisoning by other synthetic narcotics, accidental (unintentional), initial encounter (principal); G92 Toxic encephalopathy; F11.23 Opioid dependence with withdrawal; T40.2X1A Poisoning by other opioids, accidental (unintentional), initial encounter; J20.9 Acute bronchitis, unspecified; G47.33 Obstructive sleep apnea (adult) (pediatric); I10 Essential (primary) hypertension; M06.9 Rheumatoid arthritis, unspecified; I48.0 Paroxysmal atrial fibrillation; I49.5 Sick sinus syndrome; M81.0 Age-related osteoporosis without current pathological fracture; D64.9 Anemia, unspecified; Z78.1 Physical restraint status; R94.5 Abnormal results of liver function studies; Z53.8 Procedure and treatment not carried out for other reasons; S51.811D Laceration without foreign body of right forearm, subsequent encounter; S42.024D Nondisplaced fracture of shaft of right clavicle, subsequent encounter for fracture with routine healing; S01.01XD Laceration without foreign body of scalp, subsequent encounter; Y92.009 Unspecified place in unspecified non-institutional (private) residence as the place of occurrence of the external cause; W19.XXXD Unspecified fall, subsequent encounter; Z79.899 Other long term (current) drug therapy; Z90.49 Acquired absence of other specified parts of digestive tract; Z90.710 Acquired absence of both cervix and uterus; R09.02 Hypoxemia
CPT/HCPCS: 36415; 36600; 62270; 70450; 71010; 71020; 71250; 72125; 76705; 80048; 80053; 80076; 80202; 80307; 81001; 82140; 82550; 82553; 82565; 82607; 82803; 83735; 84439; 84443; 84481; 84484; 85025; 85027; 85610; 85652; 85730; 86140; 87040; 87086; 87088; 87186; 89050; 93005; 93010; 94799; 96374; 99285; G8978-GP; G8979-GP; J0133; J0290; J0696; J1100; J1650; J2060; J2405; J3010; J3360; J3370; J3490; J7030; J7040; J7050; J7060; L0172

== ENCOUNTER 2016-06-08 16:12 | Inpatient (IN) | payer MEDICARE, OTHER ==
[2016-06-08 16:48] LABS: HEMATOCRIT 34.5 % (36.0-47.0); HEMOGLOBIN 11.5 g/dL (12.0-15.5); MEAN CORPUSCULAR HEMOGLOBIN 31.6 pg (27.0-33.4); MEAN CORPUSCULAR HGB CONC 33.4 g/dL (32.0-36.0); MEAN CORPUSCULAR VOLUME 95 fl (80-97); RED BLOOD COUNT 3.65 10^6/uL (3.72-5.28); RED CELL DISTRIBUTION WIDTH 14.3 % (11.5-14.0); WHITE BLOOD COUNT 20.5 10^3/uL (4.0-10.5)
[2016-06-08 17:02] LABS: ALANINE AMINOTRANSFERASE 41 U/L (9-52); ALBUMIN 4.4 g/dL (3.5-5.0); ALKALINE PHOSPHATASE 139 U/L (38-126); ANION GAP 16 (5-19); ASPARTATE AMINO TRANSFERASE 58 U/L (14-36); BASOPHILS % (MANUAL) 0 % (0-2); BILIRUBIN,TOTAL 1.2 mg/dL (0.2-1.3); BLOOD UREA NITROGEN 37 mg/dL (7-20); CALCIUM 10.4 mg/dL (8.4-10.2); CARBON DIOXIDE 24 mmol/L (22-30); CHLORIDE 94 mmol/L (98-107); CREATININE RESULT 1.28 mg/dL (0.52-1.25); EOSINOPHILS % (MANUAL) 0 % (0-6); GLUCOSE 104 mg/dL (75-110); LYMPHOCYTES % (MANUAL) 1 % (13-45); POTASSIUM 4.4 mmol/L (3.6-5.0); SODIUM 134.2 mmol/L (137-145); TOTAL CELLS COUNTED 100; TOTAL PROTEIN 7.8 g/dL (6.3-8.2)
[2016-06-08 17:04] LABS: RBC MORPHOLOGY COMMENT NORMO-CYTIC/CHROMIC
[2016-06-08] MEDS ORDERED: NORMAL SALINE 1000 ML 500 ML IV ONE (17:09)
[2016-06-08] MEDS ORDERED: LORAZEPAM INJ 2 MG/1 ML VIAL IV ONE ×2 (17:10→18:58)
--- NOTE | 2016-06-08 17:19 | ER Document Report ---
ED General - General Chief Complaint: Fever Stated Complaint: FEVER Information source: Patient, Relative, [facility] Records Notes: This is a 75-year-old female with a history of multiple medical problems to include rheumatoid arthritis for which she takes multiple pain medications. Patient lives with her son who helps take care of her. The son states that the patient woke up at about 420 this morning screaming saying that she needed to help to get back in bed. He was able to assist her back to bed and then she awoke up at 0720 moaning and groaning. She has been moaning and writhing around ever since and not answering questions consistently. EMS was called and of note EMS documented a temperature of 103.9. Son states that he was not aware that she had a fever and that she was not sick recently and was acting normally yesterday. She has had no vomiting. She tells me that she hurts all over but specifically in her abdomen. She is persistently moaning and difficult to understand but will occasionally answer a question. TRAVEL OUTSIDE OF THE [place] IN LAST 30 DAYS: No - Related Data Allergies/Adverse Reactions: amoxicillin Allergy (Verified 04/21/16 14:55) cephalexin [From Keflex] Allergy (Verified 04/21/16 14:55) Itching and Rash morphine Allergy (Verified 04/21/16 14:55) Penicillins Allergy (Verified 04/21/16 14:55) Past Medical History - General Information source: Relative, [facility] Records Cannot obtain history due to: Dementia, Altered mental status - Social History Smoking Status: Unknown if Ever Smoked Family History: Reviewed & Not Pertinent - Past Medical History Cardiac Medical History: Reports: Hx Hypertension Pulmonary Medical History: Reports: Hx Bronchitis Skin Medical History: Reports Hx Cellulitis Traumatic Medical History: Reports: Hx Fractures - Femur Past Surgical History: Reports: Hx Cholecystectomy, Hx Hysterectomy, Hx Orthopedic Surgery - right hip, right knee - Immunizations Hx Diphtheria, Pertussis, Tetanus Vaccination: No Review of Systems - Review of Systems -: Yes ROS unobtainable due to patient's medical condition Physical Exam - Vital signs Vitals: Resp 20 06/08/16 16:15 - Notes Notes: PHYSICAL EXAMINATION: GENERAL: Frail elderly female, agitated and moaning. She will open her eyes and occasionally answer a question. She is ill-appearing. HEAD: Atraumatic, normocephalic. EYES: Pupils equal round and reactive to light, extraocular movements intact, sclera anicteric, conjunctiva are normal. ENT: nares patent, oropharynx clear without exudates. Moist mucous membranes. NECK: without lymphadenopathy, supple with normal range of motion LUNGS: Breath sounds clear to auscultation bilaterally and equal. No wheezes rales or rhonchi. HEART: Regular rate and rhythm without murmurs ABDOMEN: Soft, nontender, normoactive bowel sounds. No guarding, no rebound. Large ventral hernia which is easily reduced and nontender to palpation EXTREMITIES: no pitting or edema. No cyanosis. NEUROLOGICAL: Cranial nerves grossly intact. Patient moves all 4 extremities symmetrically. PSYCH: Agitated and anxious. SKIN: Warm, Dry, normal turgor, no rashes or lesions noted. Course - Re-evaluation Re-evalutation: 06/08/16 17:17 Record review reveals that patient was recently admitted from April 13 to April 21 of this year with somewhat similar symptoms finally determined to be an insect encephalopathy likely secondary to polypharmacy with narcotics. She was discharged to [facility] for rehabilitation at which she stay for 1 month and then her son signed her out and has been caring for her since. 06/08/16 20:33 Lab evaluation and chest x-ray demonstrated likely sepsis with leukocytosis and a right basilar infiltrate. She also has a significant urinary tract infection. She was given 2 doses of Ativan for initial added agitation in order to tolerate a CT of her abdomen and pelvis. She is now sleepy secondary to the Ativan but she does respond to tactile stimulation opens her eyes and pushes my hand away. She is continuing to maintain her airway. Her EKG does demonstrate new T-wave inversions in V3 and V4 and her cardiac enzymes are mildly elevated. She was given aspirin. 06/08/16 20:40 06/08/16 21:10 Discussed case with carmen Villeda and at this time given the patient's infection and sepsis the recommendation is to treat here at [place], as urgent cardiac intervention is not indicated at this time.. If patient requires urgent cardiac intervention at a later time, she can be transferred later. Will discuss with hospitalist for admission. 06/08/16 23:30 - Vital Signs Vital signs: Temp Pulse Resp BP Pulse Ox 100.1 F 104 H 16 140/59 H 98 06/08/16 16:18 06/08/16 16:18 06/08/16 19:01 06/08/16 19:01 06/08/16 19:01 - Laboratory Result Diagrams: 06/08/16 16:25 06/08/16 16:25 Laboratory results interpreted by me: 06/08/16 06/08/16 06/08/16 16:25 16:25 16:25 WBC 20.5 H RBC 3.65 L Hgb 11.5 L Hct 34.5 L RDW 14.3 H Seg Neuts % (Manual) 97 H Lymphocytes % (Manual) 1 L Monocytes % (Manual) 2 L Abs Neuts (Manual) 19.9 H Abs Lymphs (Manual) 0.2 L Sodium 134.2 L Chloride 94 L BUN 37 H Creatinine 1.28 H Est GFR ( Amer) 49 L Est GFR (Non-Af Amer) 41 L Calcium 10.4 H AST 58 H Alkaline Phosphatase 139 H Creatine Kinase 621 H CK-MB (CK-2) Urine Protein Urine Ketones Urine Blood Ur Leukocyte Esterase 06/08/16 06/08/16 16:25 17:52 WBC RBC Hgb Hct RDW Seg Neuts % (Manual) Lymphocytes % (Manual) Monocytes % (Manual) Abs Neuts (Manual) Abs Lymphs (Manual) Sodium Chloride BUN Creatinine Est GFR ( Amer) Est GFR (Non-Af Amer) Calcium AST Alkaline Phosphatase Creatine Kinase CK-MB (CK-2) 7.37 H Urine Protein 30 H Urine Ketones TRACE H Urine Blood SMALL H Ur Leukocyte Esterase LARGE H - EKG Interpretation by Me EKG shows normal: Sinus rhythm Rate: Tachycardia Rhythm: NSR Additional EKG results interpreted by me: 06/08/16 20:39 Compared to previous EKG, there are deep T-wave inversions in V3 and V4 which appear new. I see no ST elevation or depression. Critical Care Note - Critical Care Note Total time excluding time spent on procedures (mins): 40 - minutes of critical care time spent in direct contact evaluating and reevaluating the patient, treating symptoms, reviewing labs and studies and speaking with family and consultants excluding any procedures Discharge - Discharge Clinical Impression: Acute electrocardiogram changes Sepsis Qualifiers: Sepsis type: sepsis due to unspecified organism Qualified Code(s): A41.9 - Sepsis, unspecified organism UTI (urinary tract infection) Qualifiers: Urinary tract infection type: site unspecified Hematuria presence: without hematuria Qualified Code(s): N39.0 - Urinary tract infection, site not specified Pneumonia Qualifiers: Pneumonia type: due to unspecified organism Laterality: right Lung location: lower lobe of lung Qualified Code(s): J18.1 - Lobar pneumonia, unspecified organism Condition: Serious Disposition: ADMITTED INPATIENT Admitting Provider: Hospitalist - Dr. Ghotra Unit Admitted: [facility]
[2016-06-08] MEDS ORDERED: LEVOFLOXACIN 750 MG/D5W RTU 150 ML IV ONE (17:25)
[2016-06-08] MEDS ORDERED: VANCOMYCIN HCL INJ 1000 MG VIAL IV ONE (17:25)
[2016-06-08 18:31] LABS: APPEARANCE,URINE CLOUDY; BILIRUBIN,URINE NEGATIVE (NEGATIVE); GLUCOSE, URINE NEGATIVE (NEGATIVE); KETONES,URINE TRACE mg/dL (NEGATIVE); LEUKOCYTE ESTERASE,URINE LARGE (NEGATIVE); NITRITE,URINE NEGATIVE (NEGATIVE); PROTEIN,URINE 30 mg/dL (NEGATIVE); URINE SPECIFIC GRAVITY 1.014; UROBILINOGEN,URINE NEGATIVE mg/dL (<2.0)
[2016-06-08 18:51] LABS: URINE BARBITURATES SCREEN NEGATIVE; URINE METHADONE SCREEN NEGATIVE; URINE OPIATES LOW NEGATIVE; URINE PHENCYCLIDINE SCREEN NEGATIVE
[2016-06-08 19:19] LABS: CREATINE KINASE MB 7.37 ng/mL (<4.55); TROPONIN I 0.018 ng/mL
[2016-06-08] MEDS ORDERED: ASPIRIN 81 MG TABLET, CHEWABLE PO ONE (19:45)
[2016-06-08] MEDS ORDERED: HEPARIN SOD (PORCINE) 1,000 UNIT/ML 10 ML VIAL IV ONE (20:29)
[2016-06-08] MEDS ORDERED: HEPARIN SODIUM,PORCINE/D5W 250 ML IV PRN (20:29)
[2016-06-08] MEDS ORDERED: HEPARIN SOD (PORCINE) 1,000 UNIT/ML 10 ML VIAL IV PRN (20:29)
[2016-06-08] MEDS ORDERED: NORMAL SALINE 1000 ML 1,000 ML IV ONE (20:31)
[2016-06-08 21:40] LABS: PROTHROMBIN TIME 15.3 SEC (11.4-15.4)
[2016-06-08] MEDS ORDERED: ASPIRIN 300 MG SUPP, RECTAL PR ONE (21:40)
[2016-06-08 21:41] LABS: PARTIAL THROMBOPLASTIN TIME 28.1 SEC (23.5-35.8)
[2016-06-08] MEDS ORDERED: IPRATROPIUM/ALBUTEROL 0.5-2.5 MG/3 ML AMPUL NEB PRN (23:14)
[2016-06-08] MEDS ORDERED: PHARMACY COMMUNICATION ORDER MC NR (23:15)
[2016-06-08] MEDS ORDERED: GENTAMICIN SULFATE 0 MG in DEXTROSE 5%-WATER 100 ML IV NR (23:15)
[2016-06-08] MEDS ORDERED: VANCOMYCIN HCL 0 MG in DEXTROSE 5%-WATER 250 ML IV NR (23:30)
[2016-06-08] MEDS ORDERED: ACETAMINOPHEN 650 MG SUPP.RECT PR PRN (23:35)
--- NOTE | 2016-06-08 23:56 | PDOC H&P ---
History of Present Illness Admission Date/PCP: 06/08/16 21:53 Uncertain Patient complains of: Fever History of Present Illness: BHARATH JORDAN is a 75 year old female With underlying rheumatoid arthritis, treated by Fentanyl patch, along with paroxysmal atrial fibrillation , reported hypertension, osteoporosis, sick sinus syndrome, and sleep apnea, who presents to the emergency room for evaluation of above complaint. Patient has been discussed with emergency room physician who evaluated the patient. Patient is oriented only to the fact that she is in the hospital and is able to provide no history whatsoever in terms of acute or chronic events, review of systems, personal habits, family history, etc. No friends or family are present. Old inpatient records are reviewed. She does currently deny pain. Emergency room physician notes have been reviewed. Hospitalized on our service April 13 to the of this year with final diagnoses including acute encephalopathy, felt secondary to narcotics along with closed right clavicle fracture and leukocytosis. History and physical and discharge summary have been reviewed. . Laboratory results are listed in [facility] and are reviewed. X-ray summary results are listed below, with full report(s) reviewed. . EKG reviewed. And compared to a tracing from April 13 of this year. Social history/personal habits: Was transferred from our facility after the above hospital stay to [facility]. Son reportedly took her out of the alf.No further information available this point in time. Allergies/adverse reactions are listed in [facility] and are reviewed. Home medications Home medications initially autopopulated into [employer] may not accurately reflect patient's true medications, dosages, and/or frequencies. Unfortunately, patient not able to list medications/dosages/frequencies. Order has been entered for staff to contact family, outpatient physician, and/or pharmacy to more accurately determine medications, dosages, and frequencies and to contact physician when that has been accomplished. REVIEW OF SYSTEMS: See history and present illness.No further information available this point in time. PHYSICAL EXAMINATION: 5 feet 5 inches tall. 68 kg. BMI 25 kg/m. Temperature 100.1. Blood pressure 130/70. Pulse 113 and regular. 90% saturation on 3 L oxygen per nasal cannula. Respirations are 22 and unlabored. Well-nourished well-developed though somewhat disheveled elderly female who appears perhaps a bit older than her stated age. A bit sleepy, but does awake reasonably well, though remains somewhat fatigued in appearance. Maintaining her airway well. Mildly anxious, without agitation. Skin is warm and dry. No grossly obvious evidence of rash in areas of skin examined. No subcutaneous nodules palpated. Evidence of mild almost circumferential cellulitis involving the lower two thirds of the right lower leg. Mild inflammation and warmth. No crepitus fluctuance or expressible discharge. ENT: Hearing grossly normal to normal conversation. Tongue midline on protrusion pink and slightly tacky. No Guajardo sign Eyes: No scleral icterus. Pupils equal and reactive to light at 4 mm. [place] conjunctivae. No raccoon eyes. Neck is supple and nontender to gentle active range of motion and palpation. Midline trachea. No palpable thyroid nodule mass enlargement or tenderness. Lymphatic: No palpable cervical or clavicular nodes. Neck and lymphatic exams limited by patient body habitus. Psychiatric: Difficult to adequately evaluate due to her current status. Lungs: Auscultation reveals clear and equal breath sounds bilaterally. No use of accessory respiratory muscles. Cardiovascular: Heart regular rate and rhythm, without gallop murmur or rub. No carotid or abdominal aortic bruits. Mild bilateral slightly pitting ankle and pedal edema. Faintly palpable dorsalis pedis pulses. Abdomen: soft, , slightly distended nontender with positive bowel sounds. Unable to adequately evaluate abdomen for masses or organomegaly due to distention. Small to moderate size reducible nontender infraumbilical midline hernia. Extremities: Hands and feet are warm and dry. No calf tenderness to compression. No grossly obvious visual evidence of calf swelling. Gentle manipulation of lower extremities fails to reveal any obvious evidence of injury or instability to knees hips or ankles. Scattered ecchymoses on her lower extremities, right greater than left, appearing to be old. No mikael hematoma. Neurologic: Moves upper extremities grossly normally. Hand team supervisor 5 over 5 and symmetric. Patellar reflexes absent. Absent Babinski. Light touch can't be determined due to her current status.. Does not dorsiflex or plantarflex feet to request.. Past Medical History Cardiac Medical History: Reports: Hypertension Pulmonary Medical History: Reports: Bronchitis Hematology: Reports: Anemia Past Surgical History Past Surgical History: Reports: Cholecystectomy, Hysterectomy, Orthopedic Surgery - right hip, right knee Social History Information Source: Emergency Med Personnel, [facility] Records Lives with: Family Smoking Status: Unknown if Ever Smoked Frequency of Alcohol Use: None - Uncertain Hx Recreational Drug Use: No - uncertain Drugs: None - uncertain Hx Prescription Drug Abuse: No - Advance Directive Resuscitation Status: Full Code Surrogate healthcare decision maker:: Uncertain; probably her son. Family History Family History: Reviewed & Not Pertinent Parental Family History Reviewed: No - No information available this point in time. Children Family History Reviewed: No - No information available this point in time. Sibling(s) Family History Reviewed.: No - No information available this point in time. Medication/Allergy Home Medications: Cetirizine HCl [All Day Allergy] 1 tab PO DAILY 04/13/16 Cholecalciferol (Vitamin D3) [Vitamin D3 2000 unit Tablet] 1 tab PO DAILY Docusate Sodium [Dok] 1 tab PO TID 04/13/16 Famotidine 1 tab PO DAILY 04/13/16 Levalbuterol Tartrate [Xopenex Hfa] 2 inh PO Q4H 04/13/16 Misoprostol [Cytotec 0.1 mg Tablet] 1 tab PO DAILY 04/13/16 Omeprazole 1 tab PO DAILY 04/13/16 Oxybutynin Chloride [Ditropan Xl] 1 tab PO DAILY 04/13/16 Aspirin [Ecotrin 81 mg EC Tablet] 81 mg PO DAILY #30 tabec 04/21/16 Celecoxib [Celebrex 100 mg Capsule] 100 mg PO BID #60 capsule 04/21/16 Ciprofloxacin HCl [Cipro] 250 mg PO BID #14 tablet 04/21/16 Fentanyl [Duragesic 25 mcg/hr Transdermal Patch] 1 each TD Q3DAYS #4 patch.[id number] 04/21/16 Metoprolol Tartrate [Lopressor 25 mg Tablet] 12.5 mg PO Q12 #60 tablet 04/21/16 Polyethylene Glycol 3350 [Miralax Powder 17 gm/Packet] 17 gm PO DAILY #30 powd.pack 04/21/16 Allergies/Adverse Reactions: amoxicillin Allergy (Verified 04/21/16 14:55) cephalexin [From Keflex] Allergy (Verified 04/21/16 14:55) Itching and Rash morphine Allergy (Verified 04/21/16 14:55) Penicillins Allergy (Verified 04/21/16 14:55) Physical Exam Vital Signs: Temp Pulse Resp BP Pulse Ox 100.1 F 104 H 16 140/59 H 98 06/08/16 16:18 06/08/16 16:18 02/26/17 19:01 06/08/16 19:01 06/08/16 19:01 Results Impressions: Chest X-Ray 06/08/16 16:15 IMPRESSION: Fluffy parenchymal density projecting over the right lung base concerning for infiltrate, atelectasis, or edema. Correlate clinically. Linear opacity noted left lung base likely representing scarring/atelectasis. Abdomen/Pelvis CT 06/08/16 17:21 IMPRESSION: Lower abdominal/pelvic wall hernia. No acute findings. Assessment & Plan - Diagnosis (1) ARF (acute renal failure) Qualifiers: Acute renal failure type: unspecified Qualified Code(s): N17.9 - Acute kidney failure, unspecified Is this a current diagnosis for this admission?: YesPlan: Probably prerenal in nature. IV fluids. Follow-up chemistry. (2) Acute electrocardiogram changes Is this a current diagnosis for this admission?: YesPlan: No complaints of chest pain. Repeat cardiac enzymes. (3) Acute encephalopathy Is this a current diagnosis for this admission?: YesPlan: Likely multifactorial. Supportive care at this point in time. Hopefully will clear with time and treatment. Knee high SCDs for DVT prophylaxis, left lower extremity only along with subcutaneous heparin. Time spent in evaluation and management of patient: 72 minutes. (4) Cellulitis of right leg Is this a current diagnosis for this admission?: Yes (5) Pneumonia Qualifiers: Pneumonia type: due to unspecified organism Laterality: right Lung location: lower lobe of lung Qualified Code(s): J18.1 - Lobar pneumonia, unspecified organism Is this a current diagnosis for this admission?: YesPlan: Patient will be admitted under [pneumonia] protocol. Incentive spirometry twice a day. [PRN] DuoNeb's. Antibiotics will consist of intravenous Zithromax, gentamicin, and aztreonam, along with vancomycin, given patient's recent hospital stays, along with stay in alf. Pharmacy to assist with dosing.. Patient is a full code. (6) UTI (urinary tract infection) Qualifiers: Urinary tract infection type: site unspecified Hematuria presence: without hematuria Qualified Code(s): N39.0 - Urinary tract infection, site not specified Is this a current diagnosis for this admission?: Yes (7) EMERSON (obstructive sleep apnea) Is this a current diagnosis for this admission?: YesPlan: C Pap - Inpatient Certification Based on my medical assessment, after consideration of the patient's comorbidities, presenting symptoms, or acuity I expect that the services needed warrant INPATIENT care.: Yes I certify that my determination is in accordance with my understanding of Medicare's requirements for reasonable and necessary INPATIENT services [42 CFR 412.3e].: Yes Medical Necessity: Significant Comorbidiites Make Outpatient Treatment Too Risky , Need Close Monitoring Due to Risk of Patient Decompensation, Need For IV Fluids, Need For Continuous Telemetry Monitoring, Need for IV Antibiotics Post Hospital Care: D/C or Transfer Summary
[2016-06-09 00:01] LABS: MAGNESIUM 1.5 mg/dL (1.6-2.3)
[2016-06-09 00:09] LABS: CREATINE KINASE MB 3.38 ng/mL (<4.55)
[2016-06-09 00:17] LABS: TROPONIN I 0.044 ng/mL
[2016-06-09] MEDS: DEXTROSE 5%-NORMAL SALINE 1,000 ML IV PRN ×3 (00:19→22:15)
[2016-06-09] MEDS ORDERED: MAGNESIUM SULFATE/D5W 1 GM/100 ML RTUPB IV ONE ×2 (01:00→01:13)
[2016-06-09] MEDS ORDERED: GENTAMICIN SULFATE INJ 80 MG/2 ML VIAL IV SCH (01:30)
[2016-06-09] MEDS ORDERED: GENTAMICIN SULFATE 100 MG in DEXTROSE 5%-WATER 100.0 ML IV ONE (02:00)
[2016-06-09] MEDS ORDERED: AZTREONAM 2 GM in DEXTROSE 5%-WATER 50 ML IV SCH (06:00)
[2016-06-09] MEDS ORDERED: AZTREONAM INJ 1 GM VIAL IV SCH (06:00)
[2016-06-09] MEDS ORDERED: AZTREONAM INJ 1 GM VIAL ONE (06:47)
[2016-06-09 07:30] LABS: ANION GAP 9 (5-19); BLOOD UREA NITROGEN 25 mg/dL (7-20); CALCIUM 8.7 mg/dL (8.4-10.2); CARBON DIOXIDE 23 mmol/L (22-30); CHLORIDE 100 mmol/L (98-107); CREATINE KINASE 899 U/L (30-135); CREATININE RESULT 0.75 mg/dL (0.52-1.25); GLUCOSE 119 mg/dL (75-110); POTASSIUM 3.8 mmol/L (3.6-5.0); SODIUM 131.6 mmol/L (137-145)
[2016-06-09 07:35] LABS: HEMATOCRIT 28.8 % (36.0-47.0); HGB HCT DIFFERENCE -0.6; MEAN CORPUSCULAR HEMOGLOBIN 31.1 pg (27.0-33.4); MEAN CORPUSCULAR HGB CONC 32.7 g/dL (32.0-36.0); MEAN CORPUSCULAR VOLUME 95 fl (80-97); RED BLOOD COUNT 3.03 10^6/uL (3.72-5.28); RED CELL DISTRIBUTION WIDTH 14.6 % (11.5-14.0); WHITE BLOOD COUNT 20.7 10^3/uL (4.0-10.5)
[2016-06-09 07:40] LABS: CREATINE KINASE MB 5.75 ng/mL (<4.55); TROPONIN I 0.03 ng/mL
--- NOTE | 2016-06-09 08:08 | EKG REPORT ---
SEVERITY:- ABNORMAL ECG - SINUS TACHYCARDIA ATRIAL PREMATURE COMPLEX BORDERLINE LEFT AXIS DEVIATION NONSPECIFIC T ABNORMALITIES, DIFFUSE LEADS : Confirmed by: Huber Ashraf MD 09-Jun-2016 08:07:42
[2016-06-09 08:23] LABS: BAND NEUTROPHILS % (MANUAL) 3 % (3-5); BASOPHILS % (MANUAL) 0 % (0-2); EOSINOPHILS % (MANUAL) 0 % (0-6); LYMPHOCYTES % (MANUAL) 3 % (13-45); TOTAL CELLS COUNTED 100
[2016-06-09 08:24] LABS: ANISOCYTOSIS SLIGHT; HYPOCHROMASIA 1+; TOXIC GRANULATION 1+
[2016-06-09 08:25] LABS: HEMOGLOBIN 9.4 g/dL (12.0-15.5)
[2016-06-09] MEDS: HEPARIN SOD (PORCINE) 5,000 UNIT/ML 1 ML SYRINGE SUBCUT SCH ×2 (09:54→22:16)
[2016-06-09] MEDS ORDERED: AZITHROMYCIN 500 MG in DEXTROSE 5%-WATER 250 ML IV SCH (10:00)
[2016-06-09] MEDS ORDERED: IMIPENEM/CILASTATIN SODIUM INJ 500 MG VIAL IV SCH (11:45)
--- NOTE | 2016-06-09 11:51 | PDOC PROGRESS REPORT ---
Subjective Progress Note for:: 06/09/16 Subjective:: Patient is on BiPAP. Admitted for pneumonia, UTI, lower extremity cellulitis. Patient does not remember what happened. Patient denies diarrhea. Patient stated that she is constipated. No nausea or vomiting. Physical Exam Vital Signs: Temp Pulse Resp BP Pulse Ox 98 F 74 17 138/64 H 100 06/09/16 00:09 06/09/16 08:40 06/09/16 09:01 06/09/16 09:01 06/09/16 09:01 General appearance: PRESENT: no acute distress, cooperative, other - On BiPAP Head exam: PRESENT: normocephalic Eye exam: PRESENT: EOMI Mouth exam: PRESENT: moist, neck supple Neck exam: ABSENT: JVD Respiratory exam: PRESENT: rhonchi - Few bilateral. ABSENT: wheezes Cardiovascular exam: PRESENT: RRR. ABSENT: gallop GI/Abdominal exam: PRESENT: hypoactive bowel sounds, soft, other - Ventral hernia noted. ABSENT: tenderness Extremities exam: ABSENT: pedal edema Neurological exam: PRESENT: alert, awake Skin exam: PRESENT: dry, warm, other - Skin on the lower extremity w/ bruises.. ABSENT: cyanosis Results Laboratory Results: 06/09/16 06:32 06/09/16 06:32 06/08/16 06/09/16 06/09/16 23:20 06:32 06:32 WBC 20.7 H RBC 3.03 L Hgb 9.4 L D Hct 28.8 L MCV 95 MCH 31.1 MCHC 32.7 RDW 14.6 H Plt Count 231 Seg Neutrophils % Not Reportable Lymphocytes % Not Reportable Monocytes % Not Reportable Eosinophils % Not Reportable Basophils % Not Reportable Absolute Neutrophils Not Reportable Absolute Lymphocytes Not Reportable Absolute Monocytes Not Reportable Absolute Eosinophils Not Reportable Absolute Basophils Not Reportable Sodium 131.6 L Potassium 3.8 Chloride 100 Carbon Dioxide 23 Anion Gap 9 BUN 25 H Creatinine 0.75 Est GFR ( Amer) > 60 Est GFR (Non-Af Amer) > 60 Glucose 119 H Calcium 8.7 Magnesium 1.5 L 06/08/16 06/08/16 06/09/16 23:20 23:20 06:32 Creatine Kinase 574 H 899 H CK-MB (CK-2) 3.38 Troponin I 0.044 06/09/16 06:32 Creatine Kinase CK-MB (CK-2) 5.75 H Troponin I 0.030 Impressions: Chest X-Ray 06/08/16 16:15 IMPRESSION: Fluffy parenchymal density projecting over the right lung base concerning for infiltrate, atelectasis, or edema. Correlate clinically. Linear opacity noted left lung base likely representing scarring/atelectasis. Abdomen/Pelvis CT 06/08/16 17:21 IMPRESSION: Lower abdominal/pelvic wall hernia. No acute findings. Assessment & Plan - Diagnosis (1) ARF (acute renal failure) Qualifiers: Acute renal failure type: unspecified Qualified Code(s): N17.9 - Acute kidney failure, unspecified Is this a current diagnosis for this admission?: Yes (2) Cellulitis of right leg Is this a current diagnosis for this admission?: Yes (3) Pneumonia Qualifiers: Pneumonia type: due to unspecified organism Laterality: right Lung location: lower lobe of lung Qualified Code(s): J18.1 - Lobar pneumonia, unspecified organism Is this a current diagnosis for this admission?: Yes (4) Sepsis Qualifiers: Sepsis type: sepsis due to unspecified organism Qualified Code(s): A41.9 - Sepsis, unspecified organism Is this a current diagnosis for this admission?: Yes (5) UTI (urinary tract infection) Qualifiers: Urinary tract infection type: site unspecified Hematuria presence: without hematuria Qualified Code(s): N39.0 - Urinary tract infection, site not specified Is this a current diagnosis for this admission?: Yes (6) Hyponatremia Is this a current diagnosis for this admission?: Yes (7) Elevated CPK Is this a current diagnosis for this admission?: Yes (8) EMERSON (obstructive sleep apnea) Is this a current diagnosis for this admission?: Yes (9) Paroxysmal atrial fibrillation Is this a current diagnosis for this admission?: Yes (10) Rheumatoid arthritis Qualifiers: Rheumatoid arthritis location: unspecified site Rheumatoid factor presence: unspecified presence Qualified Code(s): M06.9 - Rheumatoid arthritis, unspecified Is this a current diagnosis for this admission?: Yes - Time Time Spent with patient: 25-34 minutes - Plan Summary Plan Summary: We will continue to trend better support for now. Continue gentle hydration. Change antibiotic to Primaxin. Follow cultures. Monitor electrolytes.
[2016-06-09] MEDS ORDERED: ACETAMINOPHEN 325 MG TABLET ONE (14:42)
[2016-06-09] MEDS: IMIPENEM/CILASTATIN SODIUM 500 MG in NORMAL SALINE 100 ML IV SCH ×2 (14:42→22:33)
[2016-06-09] MEDS ORDERED: IMIPENEM/CILASTATIN SODIUM INJ 500 MG VIAL IV ONE (22:18)
[2016-06-10] MEDS: ACETAMINOPHEN 325 MG TABLET PO PRN ×2 (02:06→23:13)
[2016-06-10 06:26] LABS: ANION GAP 7 (5-19); BLOOD UREA NITROGEN 13 mg/dL (7-20); CALCIUM 8.6 mg/dL (8.4-10.2); CARBON DIOXIDE 26 mmol/L (22-30); CHLORIDE 102 mmol/L (98-107); CREATINE KINASE 558 U/L (30-135); CREATININE RESULT 0.56 mg/dL (0.52-1.25); GLUCOSE 90 mg/dL (75-110); MAGNESIUM 1.7 mg/dL (1.6-2.3); POTASSIUM 3.5 mmol/L (3.6-5.0); SODIUM 134.5 mmol/L (137-145)
[2016-06-10] MEDS: IMIPENEM/CILASTATIN SODIUM 500 MG in NORMAL SALINE 100 ML IV SCH ×3 (06:45→23:16)
[2016-06-10] MEDS: HEPARIN SOD (PORCINE) 5,000 UNIT/ML 1 ML SYRINGE SUBCUT SCH ×2 (13:04→23:16)
--- NOTE | 2016-06-10 15:59 | PDOC PROGRESS REPORT ---
Subjective Progress Note for:: 06/10/16 Subjective:: Patient reports that she feels tired. Physical Exam Vital Signs: Temp Pulse Resp BP Pulse Ox 97.5 F 77 16 149/88 H 98 06/10/16 12:28 06/10/16 14:26 06/10/16 14:26 06/10/16 12:28 06/10/16 14:26 Intake & Output 06/09/16 06/10/16 06/11/16 06:59 06:59 06:59 Intake Total 655 360 Output Total 1800 500 Balance -1145 -140 General appearance: PRESENT: no acute distress Eye exam: PRESENT: conjunctiva pink. ABSENT: scleral icterus Mouth exam: PRESENT: moist, tongue midline Neck exam: ABSENT: JVD Respiratory exam: PRESENT: clear to auscultation sabina. ABSENT: rales, rhonchi, wheezes Cardiovascular exam: PRESENT: RRR. ABSENT: diastolic murmur, rubs, systolic murmur GI/Abdominal exam: PRESENT: normal bowel sounds, soft. ABSENT: distended, guarding, mass, organolmegaly, rebound, tenderness Extremities exam: PRESENT: other - Patient has erythema and swelling of the right ankle area. ABSENT: calf tenderness, clubbing Neurological exam: PRESENT: alert, awake, oriented to person, oriented to place , oriented to time Psychiatric exam: PRESENT: appropriate affect Skin exam: PRESENT: erythema - Right leg is warm erythematous., warm Results Laboratory Results: 06/09/16 06:32 06/10/16 05:41 06/10/16 05:41 Sodium 134.5 L Potassium 3.5 L Chloride 102 Carbon Dioxide 26 Anion Gap 7 BUN 13 Creatinine 0.56 Est GFR ( Amer) > 60 Est GFR (Non-Af Amer) > 60 Glucose 90 Calcium 8.6 Magnesium 1.7 06/08/16 06/08/16 06/09/16 23:20 23:20 06:32 Creatine Kinase 574 H 899 H CK-MB (CK-2) 3.38 Troponin I 0.044 06/09/16 06/10/16 06:32 05:41 Creatine Kinase 558 H CK-MB (CK-2) 5.75 H Troponin I 0.030 Impressions: Chest X-Ray 06/08/16 16:15 IMPRESSION: Fluffy parenchymal density projecting over the right lung base concerning for infiltrate, atelectasis, or edema. Correlate clinically. Linear opacity noted left lung base likely representing scarring/atelectasis. Abdomen/Pelvis CT 06/08/16 17:21 IMPRESSION: Lower abdominal/pelvic wall hernia. No acute findings. Assessment & Plan - Diagnosis (1) ARF (acute renal failure) Qualifiers: Acute renal failure type: unspecified Qualified Code(s): N17.9 - Acute kidney failure, unspecified Is this a current diagnosis for this admission?: YesPlan: This has resolved with IV fluids. (2) Acute encephalopathy Is this a current diagnosis for this admission?: YesPlan: Patient was initially confusion she presented. She is doing better. Most likely secondary to the acute infection. (3) Cellulitis of right leg Is this a current diagnosis for this admission?: YesPlan: Patient is less erythema. We'll continue the antibiotics for cellulitis. (4) Pneumonia Qualifiers: Pneumonia type: due to unspecified organism Laterality: right Lung location: lower lobe of lung Qualified Code(s): J18.1 - Lobar pneumonia, unspecified organism Is this a current diagnosis for this admission?: YesPlan: Patient is growing group B strep from blood cultures. This could be from pneumonia or could also be from her cellulitis. (5) Sepsis Qualifiers: Sepsis type: sepsis due to unspecified organism Qualified Code(s): A41.9 - Sepsis, unspecified organism Is this a current diagnosis for this admission?: YesPlan: This could be from her cellulitis of the leg or her pneumonia. Patient is growing group B strep from blood cultures. We'll discuss with infectious disease along of IV antibiotics she will need. We'll continue with the imipenem. (6) EMERSON (obstructive sleep apnea) Is this a current diagnosis for this admission?: YesPlan: Continue with CPAP. (7) Paroxysmal atrial fibrillation Is this a current diagnosis for this admission?: YesPlan: Patient is in a regular rhythm today. (8) Rheumatoid arthritis Qualifiers: Rheumatoid arthritis location: unspecified site Rheumatoid factor presence: unspecified presence Qualified Code(s): M06.9 - Rheumatoid arthritis, unspecified Is this a current diagnosis for this admission?: YesPlan: No evidence for active disease at this time. - Time Time Spent with patient: 25-34 minutes - Inpatient Certification Medical Necessity: Need for IV Antibiotics
[2016-06-11] MEDS ORDERED: LACTULOSE SYRUP 20 GM/30 ML UDCUP PO ONE ×2 (02:45→06:00)
[2016-06-11] MEDS: IMIPENEM/CILASTATIN SODIUM 500 MG in NORMAL SALINE 100 ML IV SCH ×2 (05:23→14:52)
[2016-06-11 06:43] LABS: ABSOLUTE BASOPHILS # (AUTO) 0.1 10^3/uL (0.0-0.2); ABSOLUTE EOSINOPHILS # (AUTO) 0.3 10^3/uL (0.0-0.6); ABSOLUTE LYMPHOCYTES (AUTO) 0.9 10^3/uL (0.5-4.7); ABSOLUTE MONOCYTES (AUTO) 0.6 10^3/uL (0.1-1.4); ABSOLUTE NEUT (AUTO) 9.1 10^3/uL (1.7-8.2); BASOPHILS % (AUTO) 0.5 % (0-2); EOSINOPHILS % (AUTO) 2.6 % (0-6); HEMATOCRIT 28.6 % (36.0-47.0); HEMOGLOBIN 9.8 g/dL (12.0-15.5); HGB HCT DIFFERENCE 0.8; MEAN CORPUSCULAR HEMOGLOBIN 32.1 pg (27.0-33.4); MEAN CORPUSCULAR HGB CONC 34.1 g/dL (32.0-36.0); MEAN CORPUSCULAR VOLUME 94 fl (80-97); MONOCYTES % (AUTO) 5.5 % (3-13); RED BLOOD COUNT 3.04 10^6/uL (3.72-5.28); RED CELL DISTRIBUTION WIDTH 14.3 % (11.5-14.0); SEGMENTED NEUTROPHILS % (AUTO) 83.4 % (42-78); WHITE BLOOD COUNT 10.9 10^3/uL (4.0-10.5)
[2016-06-11] MEDS: KETOROLAC TROMETHAMINE INJ/PF 30 MG/1 ML SDV IV PRN ×2 (07:00→14:51)
[2016-06-11 07:02] LABS: ANION GAP 6 (5-19); BLOOD UREA NITROGEN 11 mg/dL (7-20); CARBON DIOXIDE 26 mmol/L (22-30); CHLORIDE 104 mmol/L (98-107); CREATININE RESULT 0.64 mg/dL (0.52-1.25); GLUCOSE 87 mg/dL (75-110); POTASSIUM 3.8 mmol/L (3.6-5.0); SODIUM 135.6 mmol/L (137-145)
--- NOTE | 2016-06-11 12:46 | XCELERA REPORT ---
[address] [address] Lower Extremity Venous Evaluation Name: BHARATH JORDAN Age: 75 yrs Gender: Female : 1940 Patient Status: Inpatient Patient Location: [id number] Study Date: 06/11/2016 10:37 AM Procedure: Color flow and duplex imaging of the veins of the left lower extremity as well as the right Common Femoral vein. Reason For Study: left thigh pain Ordering Physician: ZELDA MOFFETT Performed By: Azalea Holguin Right Sided Venous Evaluation The right common femoral vein is fully compressible. Spontaneous and phasic flow is present in the right common femoral vein. Left Sided Venous Evaluation Normal vessel filling wall to wall, compression and augmentation as well as Colour flow down to the infrageniculate veins. Interpretation Summary No duplex evidence of DVT or obstruction in the left lower extremity nor in the right Common Femoral vein. : ZELDA MOFFETT > Gonzalez Carreon
[2016-06-11] MEDS: ACETAMINOPHEN 325 MG TABLET PO PRN (14:51)
[2016-06-11] MEDS: HEPARIN SOD (PORCINE) 5,000 UNIT/ML 1 ML SYRINGE SUBCUT SCH ×2 (14:52→22:13)
[2016-06-11] MEDS ORDERED: VANCOMYCIN HCL 0 MG in DEXTROSE 5%-WATER 250 ML IV NR (16:45)
--- NOTE | 2016-06-11 17:39 | PDOC PROGRESS REPORT ---
Subjective Progress Note for:: 06/11/16 Subjective:: Complains of pain in her left thigh. Physical Exam Vital Signs: Temp Pulse Resp BP Pulse Ox 98.7 F 70 18 132/66 H 98 06/11/16 15:40 06/11/16 15:40 06/11/16 15:40 06/11/16 15:40 06/11/16 15:40 Intake & Output 06/10/16 06/11/16 06/12/16 06:59 06:59 06:59 Intake Total 655 2400 465 Output Total 1800 2087 700 Balance -1145 313 -235 Weight 72 kg General appearance: PRESENT: no acute distress Eye exam: PRESENT: conjunctiva pink. ABSENT: scleral icterus Mouth exam: PRESENT: moist, tongue midline Neck exam: ABSENT: carotid bruit, JVD, lymphadenopathy, thyromegaly Respiratory exam: PRESENT: clear to auscultation sabina. ABSENT: rales, rhonchi, wheezes Cardiovascular exam: PRESENT: RRR. ABSENT: diastolic murmur, rubs, systolic murmur GI/Abdominal exam: PRESENT: normal bowel sounds, soft. ABSENT: distended, guarding, mass, organolmegaly, rebound, tenderness Extremities exam: PRESENT: other - Left thigh is tender to palpate but no obvious thrombus. Neurological exam: PRESENT: alert, awake, oriented to person, oriented to place , oriented to time Psychiatric exam: PRESENT: appropriate affect Skin exam: PRESENT: dry, intact, warm. ABSENT: cyanosis, rash Results Laboratory Results: 06/11/16 05:32 06/11/16 05:32 06/11/16 06/11/16 05:32 05:32 WBC 10.9 H RBC 3.04 L Hgb 9.8 L Hct 28.6 L MCV 94 MCH 32.1 MCHC 34.1 RDW 14.3 H Plt Count 241 Seg Neutrophils % 83.4 H Lymphocytes % 8.0 L Monocytes % 5.5 Eosinophils % 2.6 Basophils % 0.5 Absolute Neutrophils 9.1 H Absolute Lymphocytes 0.9 Absolute Monocytes 0.6 Absolute Eosinophils 0.3 Absolute Basophils 0.1 Sodium 135.6 L Potassium 3.8 Chloride 104 Carbon Dioxide 26 Anion Gap 6 BUN 11 Creatinine 0.64 Est GFR ( Amer) > 60 Est GFR (Non-Af Amer) > 60 Glucose 87 Calcium 9.0 06/08/16 06/08/16 06/09/16 23:20 23:20 06:32 Creatine Kinase 574 H 899 H CK-MB (CK-2) 3.38 Troponin I 0.044 06/09/16 06/10/16 06:32 05:41 Creatine Kinase 558 H CK-MB (CK-2) 5.75 H Troponin I 0.030 Impressions: Chest X-Ray 06/08/16 16:15 IMPRESSION: Fluffy parenchymal density projecting over the right lung base concerning for infiltrate, atelectasis, or edema. Correlate clinically. Linear opacity noted left lung base likely representing scarring/atelectasis. Abdomen/Pelvis CT 06/08/16 17:21 IMPRESSION: Lower abdominal/pelvic wall hernia. No acute findings. Assessment & Plan - Diagnosis (1) ARF (acute renal failure) Qualifiers: Acute renal failure type: unspecified Qualified Code(s): N17.9 - Acute kidney failure, unspecified Is this a current diagnosis for this admission?: YesPlan: This has resolved with IV fluids. (2) Acute encephalopathy Is this a current diagnosis for this admission?: YesPlan: Patient was initially confusion she presented. She is doing better. Most likely secondary to the acute infection. (3) Cellulitis of right leg Is this a current diagnosis for this admission?: YesPlan: Patient is less erythema. We'll continue the antibiotics for cellulitis. (4) Pneumonia Qualifiers: Pneumonia type: due to unspecified organism Laterality: right Lung location: lower lobe of lung Qualified Code(s): J18.1 - Lobar pneumonia, unspecified organism Is this a current diagnosis for this admission?: YesPlan: Patient is growing group B strep from blood cultures. This could be from pneumonia or could also be from her cellulitis. (5) Sepsis Qualifiers: Sepsis type: sepsis due to unspecified organism Qualified Code(s): A41.9 - Sepsis, unspecified organism Is this a current diagnosis for this admission?: YesPlan: This could be from her cellulitis of the leg or her pneumonia. Patient is growing group B strep from blood cultures. The case was discussed with infectious disease at [facility]. They recommended given her one positive blood culture for group B strep that she needs IV antibiotics for a total of 10 days. They recommended switching to vancomycin which we will do. (6) EMERSON (obstructive sleep apnea) Is this a current diagnosis for this admission?: YesPlan: Continue with CPAP. (7) Paroxysmal atrial fibrillation Is this a current diagnosis for this admission?: YesPlan: Patient is in a regular rhythm today. (8) Rheumatoid arthritis Qualifiers: Rheumatoid arthritis location: unspecified site Rheumatoid factor presence: unspecified presence Qualified Code(s): M06.9 - Rheumatoid arthritis, unspecified Is this a current diagnosis for this admission?: YesPlan: No evidence for active disease at this time. - Time Time Spent with patient: 25-34 minutes - Inpatient Certification Medical Necessity: Need for IV Antibiotics
[2016-06-11] MEDS ORDERED: VANCOMYCIN HCL 1,250 MG in DEXTROSE 5%-WATER 250 ML IV SCH (20:00)
[2016-06-11] MEDS: OXYCODONE HCL IR 5 MG TABLET PO PRN (22:12)
[2016-06-12] MEDS: OXYCODONE HCL IR 5 MG TABLET PO PRN ×2 (01:43→09:08)
[2016-06-12 07:00] LABS: ANION GAP 7 (5-19); BLOOD UREA NITROGEN 11 mg/dL (7-20); CALCIUM 8.7 mg/dL (8.4-10.2); CARBON DIOXIDE 25 mmol/L (22-30); CHLORIDE 103 mmol/L (98-107); CREATININE RESULT 0.71 mg/dL (0.52-1.25); GLUCOSE 93 mg/dL (75-110); POTASSIUM 3.9 mmol/L (3.6-5.0); SODIUM 134.7 mmol/L (137-145)
[2016-06-12 07:22] LABS: ABSOLUTE EOSINOPHILS # (AUTO) 0.3 10^3/uL (0.0-0.6); ABSOLUTE LYMPHOCYTES (AUTO) 1.2 10^3/uL (0.5-4.7); ABSOLUTE MONOCYTES (AUTO) 0.6 10^3/uL (0.1-1.4); ABSOLUTE NEUT (AUTO) 4.9 10^3/uL (1.7-8.2); BASOPHILS % (AUTO) 0.5 % (0-2); EOSINOPHILS % (AUTO) 4.7 % (0-6); HEMATOCRIT 30.4 % (36.0-47.0); HEMOGLOBIN 10.4 g/dL (12.0-15.5); HGB HCT DIFFERENCE 0.8; LYMPHOCYTES % (AUTO) 16.7 % (13-45); MEAN CORPUSCULAR HEMOGLOBIN 32.2 pg (27.0-33.4); MEAN CORPUSCULAR HGB CONC 34.2 g/dL (32.0-36.0); MEAN CORPUSCULAR VOLUME 94 fl (80-97); MONOCYTES % (AUTO) 8.8 % (3-13); RED BLOOD COUNT 3.23 10^6/uL (3.72-5.28); SEGMENTED NEUTROPHILS % (AUTO) 69.3 % (42-78)
[2016-06-12] MEDS: HEPARIN SOD (PORCINE) 5,000 UNIT/ML 1 ML SYRINGE SUBCUT SCH (09:07)
[2016-06-12] MEDS ORDERED: VANCOMYCIN HCL 1,250 MG in DEXTROSE 5%-WATER 250 ML IV ONE (15:00)
[2016-06-12 15:50] VITALS: BP 150/74
--- NOTE | 2016-06-12 17:45 | PDOC DISCHARGE SUMMARY ---
General - Admit/Disc Date/PCP Admission Date/Primary Care Provider: 06/08/16 23:14 Discharge Date: 06/12/16 - Discharge Diagnosis (1) ARF (acute renal failure) Is this a current diagnosis for this admission?: YesSummary: Resolved (2) Acute encephalopathy Is this a current diagnosis for this admission?: YesSummary: Secondary to acute infection. The encephalopathy has resolved. (3) Cellulitis of right leg Is this a current diagnosis for this admission?: YesSummary: Growing group B strep from blood cultures (4) Pneumonia Is this a current diagnosis for this admission?: YesSummary: Probable gram-positive cocci. Patient grew out group B strep however she also has cellulitis. (5) Sepsis Is this a current diagnosis for this admission?: YesSummary: Secondary to group B streptococcus (6) EMERSON (obstructive sleep apnea) Is this a current diagnosis for this admission?: Yes (7) Paroxysmal atrial fibrillation Is this a current diagnosis for this admission?: Yes (8) Rheumatoid arthritis Is this a current diagnosis for this admission?: Yes - Additional Information Resuscitation Status: Full Code Discharge Diet: Cardiac Discharge Activity: Activity As Tolerated Home Medications: Albuterol Sulfate [Ventolin 0.083% Neb 2.5 mg/3 mL Ampul] 3 ml NEB RTQ4HP PRN Fentanyl [Duragesic 50 Mcg/Hr Transdermal Patch] 1 patch TOP Q72H 06/09/16 Hydroxyzine HCl [Atarax 25 mg Tablet] 25 mg PO QHS 06/09/16 Oxybutynin Chloride [Ditropan Xl] 10 mg PO DAILY 06/09/16 Oxycodone HCl 15 mg PO Q4H 06/09/16 Oxycodone HCl 15 mg PO Q4HP PRN 06/09/16 Potassium Chloride [Klor-Con 10] 10 meq PO DAILY 06/09/16 History of Present Illness History of Present Illness: BHARATH JORDAN is a 75 year old female who has a history of rheumatoid arthritis but is not on any chronic immunosuppression who presented with cellulitis of the right leg as well as acute renal failure secondary to dehydration. The patient was encephalopathic when she presented and was not able to give any further history. Hospital Course Hospital Course: 75-year-old female with rheumatoid arthritis who is not on any immunosuppressants for this who presents with acute encephalopathy, acute renal failure and was found to have a cellulitis of the right leg. She also was noted to have a pneumonia also. Patient was started on empiric antibiotics and eventually grew out group B strep from her blood cultures. Was not clear whether the group B strep is from her pneumonia for her cellulitis. The case was discussed with infectious disease consultation at the [facility] and they recommended that the patient have a total of 10 days of IV vancomycin given the strep bacteremia. Patient had one positive culture with group B strep. Also had a positive urine culture that grew out group B strep which could've also been the source for her bacteremia. Regardless of the actual source for her bacteremia, it is felt that 10 days would be adequate treatment. The patient had a PICC line placed on the day of discharge and will complete 6 additional days for a total of 10 days of vancomycin. The patient when she presented was encephalopathic and is felt to be secondary to underlying infection as it has resolved. She also did have acute renal failure that responded to IV fluids and has resolved. Physical Exam Vital Signs: Temp Pulse Resp BP Pulse Ox 98.4 F 98 19 150/74 H 98 06/12/16 15:49 06/12/16 15:49 06/12/16 15:49 06/12/16 15:49 06/12/16 15:49 Intake & Output 06/11/16 06/12/16 06/13/16 06:59 06:59 06:59 Intake Total 2400 945 592 Output Total 2087 3400 600 Balance 313 -2455 -8 Weight 72 kg General appearance: PRESENT: no acute distress Eye exam: PRESENT: conjunctiva pink. ABSENT: scleral icterus Mouth exam: PRESENT: moist, tongue midline Neck exam: ABSENT: carotid bruit, JVD, lymphadenopathy, thyromegaly Respiratory exam: PRESENT: clear to auscultation sabina. ABSENT: rales, rhonchi, wheezes Cardiovascular exam: PRESENT: RRR. ABSENT: diastolic murmur, rubs, systolic murmur GI/Abdominal exam: PRESENT: normal bowel sounds, soft. ABSENT: distended, guarding, mass, organolmegaly, rebound, tenderness Extremities exam: PRESENT: other - Minimal erythema on the right lateral leg. ABSENT: calf tenderness, clubbing, pedal edema Neurological exam: PRESENT: alert, awake, oriented to person, oriented to place , oriented to time, oriented to situation Psychiatric exam: PRESENT: appropriate affect Skin exam: PRESENT: other - Minimal Erythema on the right lateral leg Results Laboratory Results: 06/12/16 06:06 06/12/16 06:06 06/12/16 06/12/16 06:06 06:06 WBC 7.0 RBC 3.23 L Hgb 10.4 L Hct 30.4 L MCV 94 MCH 32.2 MCHC 34.2 RDW 14.0 Plt Count 264 Seg Neutrophils % 69.3 Lymphocytes % 16.7 Monocytes % 8.8 Eosinophils % 4.7 Basophils % 0.5 Absolute Neutrophils 4.9 Absolute Lymphocytes 1.2 Absolute Monocytes 0.6 Absolute Eosinophils 0.3 Absolute Basophils 0.0 Sodium 134.7 L Potassium 3.9 Chloride 103 Carbon Dioxide 25 Anion Gap 7 BUN 11 Creatinine 0.71 Est GFR ( Amer) > 60 Est GFR (Non-Af Amer) > 60 Glucose 93 Calcium 8.7 06/08/16 06/08/16 06/09/16 23:20 23:20 06:32 Creatine Kinase 574 H 899 H CK-MB (CK-2) 3.38 Troponin I 0.044 06/09/16 06/10/16 06:32 05:41 Creatine Kinase 558 H CK-MB (CK-2) 5.75 H Troponin I 0.030 Impressions: Chest X-Ray 06/08/16 16:15 IMPRESSION: Fluffy parenchymal density projecting over the right lung base concerning for infiltrate, atelectasis, or edema. Correlate clinically. Linear opacity noted left lung base likely representing scarring/atelectasis. Abdomen/Pelvis CT 06/08/16 17:21 IMPRESSION: Lower abdominal/pelvic wall hernia. No acute findings. Guidance Fluoroscopy 06/12/16 00:00 IMPRESSION: PLACEMENT OF A 5 FR DUAL LUMEN 36 CM PICC IN THE basilic VEIN. Interventional Vascular Procedure 06/12/16 00:00 IMPRESSION: PLACEMENT OF A 5 FR DUAL LUMEN 36 CM PICC IN THE basilic VEIN. PICC Line Insertion 06/12/16 00:00 IMPRESSION: PLACEMENT OF A 5 FR DUAL LUMEN 36 CM PICC IN THE basilic VEIN. Qualifiers PATEINT BEING DISCHARGED WITH ANY OF THE FOLLOWING DIAGNOSIS?: No Plan Discharge Plan: Patient is discharged home with home health for IV antibiotics in the form of vancomycin 1.250 g IV every 24 hours 6 days. Patient does have home health for routine PICC line and status CBC and a basic metabolic drawn in 1 week. Time Spent: Greater than 30 Minutes
== END 2016-06-12 17:04 | disposition home health service (06) | DRG 871 ==
LOC: ER 16:12 → UNDOADMIN 21:53 → EH 21:53 → 3W 06-09 21:11
PROVIDERS: ADMIT Family Medicine; ATTEND Family Medicine
PROC: 02HV33Z Insertion of Infusion Device into Superior Vena Cava, Percutaneous Approach (ICD-10-PCS; principal; 2016-06-12)
PROC: B548ZZA Ultrasonography of Superior Vena Cava, Guidance (ICD-10-PCS; 2016-06-12)
DX: A40.1 Sepsis due to streptococcus, group B (principal); G93.41 Metabolic encephalopathy; J15.9 Unspecified bacterial pneumonia; N39.0 Urinary tract infection, site not specified; N17.9 Acute kidney failure, unspecified; L03.115 Cellulitis of right lower limb; E87.1 Hypo-osmolality and hyponatremia; M06.9 Rheumatoid arthritis, unspecified; E86.0 Dehydration; R65.20 Severe sepsis without septic shock; I48.0 Paroxysmal atrial fibrillation; B95.1 Streptococcus, group B, as the cause of diseases classified elsewhere; G47.33 Obstructive sleep apnea (adult) (pediatric); I10 Essential (primary) hypertension; I49.5 Sick sinus syndrome; M81.0 Age-related osteoporosis without current pathological fracture; Z79.82 Long term (current) use of aspirin; Z79.899 Other long term (current) drug therapy; Z88.0 Allergy status to penicillin; Z88.6 Allergy status to analgesic agent; Z88.8 Allergy status to other drugs, medicaments and biological substances
CPT/HCPCS: 36415; 36569; 51702; 71010; 74176; 76937; 77001; 80048; 80053; 80307; 81001; 82550; 82553; 83605; 83735; 84484; 85025; 85610; 85730; 87040; 87075; 87077; 87086; 87088; 87186; 87804; 93005; 93010; 93971; 94660; 94799; 96365; 96375; 96376; 99291; G8978-GP; G8979-GP; J0456; J0743; J1580; J1642; J1644; J1885; J1956; J2060; J3370; J3475; J3490; J7030; J7060

== ENCOUNTER 2016-06-27 21:21 | Inpatient (IN) | payer MEDICARE, OTHER ==
--- NOTE | 2016-06-27 21:26 | ER Document Report ---
ED Neuro Symptoms/Deficit - General Chief Complaint: S/S of Possible Stroke Stated Complaint: POSSIBLE STROKE Notes: The patient is a 76-year-old female, past medical history A. fib, presents from home after 4 hours of left gaze palsy and left-sided weakness. Her son said that she was normal before the onset of symptoms at 17:00 today. This is never happened before. Patient is AAO3, but only will repeat that she has a headache. There may have been a fall earlier today. She denies chest pain, blurry vision, nausea, vomiting, shortness of breath, numbness, tingling or abdominal pain. TRAVEL OUTSIDE OF THE [place] IN LAST 30 DAYS: No - Related Data Allergies/Adverse Reactions: amoxicillin Allergy (Verified 04/21/16 14:55) cephalexin [From Keflex] Allergy (Verified 04/21/16 14:55) Itching and Rash morphine Allergy (Verified 04/21/16 14:55) Penicillins Allergy (Verified 04/21/16 14:55) Past Medical History - General Information source: Patient, Emergency Med Personnel - Social History Smoking Status: Unknown if Ever Smoked Family History: Reviewed & Not Pertinent - Past Medical History Cardiac Medical History: Reports: Hx Hypertension Pulmonary Medical History: Reports: Hx Bronchitis Skin Medical History: Reports Hx Cellulitis Traumatic Medical History: Reports: Hx Fractures - Femur Past Surgical History: Reports: Hx Cholecystectomy, Hx Hysterectomy, Hx Orthopedic Surgery - right hip, right knee - Immunizations Hx Diphtheria, Pertussis, Tetanus Vaccination: No Review of Systems - Review of Systems Notes: REVIEW OF SYSTEMS: CONSTITUTIONAL: -fevers, -chills EENT: +left gaze palsy, -eye pain, -difficulty swallowing, -nasal congestion CARDIOVASCULAR: -chest pain, -syncope. RESPIRATORY: -cough, -SOB GASTROINTESTINAL: -abdominal pain, - nausea, -vomiting, -diarrhea GENITOURINARY: -dysuria, -hematuria MUSCULOSKELETAL: -back pain, -neck pain SKIN: -rash or skin lesions. HEMATOLOGIC: -easy bruising or bleeding. LYMPHATIC: -swollen, enlarged glands. NEUROLOGICAL: -altered mental status or loss of consciousness, +headache, +left- sided weakness PSYCHIATRIC: -anxiety, -depression. ALL OTHER SYSTEMS REVIEWED AND NEGATIVE. Physical Exam - Notes Notes: PHYSICAL EXAMINATION: GENERAL: Elderly-appearing, in no acute distress. HEAD: Atraumatic, normocephalic. EYES: left gaze palsy, sclera anicteric, conjunctiva are normal. ENT: nares patent, oropharynx clear without exudates. Moist mucous membranes. NECK: Normal range of motion, supple without lymphadenopathy LUNGS: Breath sounds clear to auscultation bilaterally and equal. No wheezes rales or rhonchi. HEART: Regular rate and rhythm without murmurs ABDOMEN: Soft, nontender, normoactive bowel sounds. No guarding, no rebound. No masses appreciated. EXTREMITIES: Normal range of motion, no pitting or edema. No cyanosis. NEUROLOGICAL: 4/5 strength of LUE and LLE. 5/5 strength of RUE and RLE. No sensory changes. SKIN: Warm, Dry, normal turgor, no rashes or lesions noted. Course - Re-evaluation Re-evalutation: Patient with 4.5 hours of strokelike symptoms on arrival to the emergency room. CT head does not show any acute changes. She is out of the tPa window. Attempted to obtain a CTA to assess for presence of clot, but 2 attempts led to infiltration of contrast into her vein. Patient is protecting her airway. Her NIH stroke scale is 5. ABCD2 score is 6. Given ASA. Pt requires Inpatient admission for further evaluation and treatment. 06/27/16 23:41 Patient had a generalized tonic-clonic seizure that lasted less than 2 minutes. 1 mg IM Ativan was given. Patient is postictal. Looking through her medical records, no prior history of use. CAT scan does not show a bleed. 06/28/16 00:[address] Bella and he has accepted patient to Telemetry. - Laboratory Result Diagrams: 06/27/16 22:45 06/27/16 22:45 Laboratory results interpreted by me: 06/27/16 06/27/16 06/27/16 22:45 22:45 23:22 RBC 3.36 L Hgb 10.7 L Hct 31.8 L RDW 14.2 H Lymphocytes % 9.1 L Sodium 131.4 L Chloride 93 L POC Glucose 116 H Alkaline Phosphatase 132 H - Diagnostic Test Radiology reviewed: Image reviewed, Reports reviewed Radiology results interpreted by me: CT Head: NAD - EKG Interpretation by Me EKG shows normal: Sinus rhythm Rate: Tachycardia When compared to previous EKG there are: Changes noted Critical Care Note - Critical Care Note Total time excluding time spent on procedures (mins): 45 Discharge - Discharge Clinical Impression: Seizure CVA (cerebral vascular accident) Qualifiers: CVA mechanism: unspecified Qualified Code(s): I63.9 - Cerebral infarction, unspecified Condition: Stable Disposition: ADMITTED INPATIENT Admitting Provider: Hospitalist - [facility] Admitted: Telemetry
--- NOTE | 2016-06-27 22:30 | ER Document Report ---
ED NIH Stroke Scale - NIH Stroke Scale When completed:: Before Alteplase *: 1. NIH scale should be completed with appropriate accompanying assessment tools. *: 2. The NIH should reflect what the patient is capable of doing and should not be coached by the clinician. 1a. Level of Consciousness: 0=Alert;keenly responsive -: 1=Drowsy -: 2=Obtunded -: 3=Coma/unresponsive or reflex to noxious stimuli. 1a. Responses: 0 1b. Orientation Questions: a. What month is it? -: b. How old are you? -: 0=Answers both questions correctly. -: 1=Answers one question correctly or patient is intubated or has orotracheal trauma. -: 2=Answers neither question correctly. 1b. Responses: 0 1c. Response to commands: a. Open and close eyes? -: b. Site Damage Prevention Technician and release hand? -: Credit is given despite weakness. Demonstration of task is permitted. Substitute command if hands cannot be used. -: 0=Performs both tasks correctly -: 1=Performs one task correctly -: 2=Performs neither task correctly 1c. Responses: 0 2. Gaze: Establish eye contact and instruct patient to "Follow my finger" -: 0=Normal -: 1=Partial gaze palsy. Gaze is abnormal in one or both eyes, but where forced deviation or total gaze paresis is not present. -: 2=Forced deviation or total gaze paresis. 2. Responses: 2 3. Visual [place]: Sees fingers in all four quadrants. -: 0=No visual loss. -: 1=Partial hemianopsia. -: 2=Complete hemianopsia. -: 3=Bilateral hemianopsia (including Cortical blindness) 3. Responses: 0 4. Facial Movement: Instruct patient to: -: a. Show me your teeth -: b. Raise your eyebrows -: c. Close your eyes -: d. Smile -: 0=Normal symmetrical movement -: 1=Minor paralysis (flattened nasolabial fold, asymmetry on smiling). -: 2=Partial paralysis (total or near total paralysis of lower face). -: 3=Complete paralysis of upper and lower face 4. Responses: 1 5. Motor functions (left arm): Alternate sides and extend each arm with palms down (90 degrees if sitting or 45 degrees for supine). -: 0=No drift;limb holds for full 10 seconds. -: 1=Drift; limb holds but drifts down before full 10 seconds, but does not hit bed. -: 2=Some effort against gravity; limb cannot get to or maintain position. -: 3=No effort against gravity; limb falls. -: 4=No movement. -: UN=Amputation, joint fusion, explain in comments. 5. Responses (left arm): 1 5. Motor Functions (right arm): Alternate sides and extend each arm with palms down (90 degrees if sitting or 45 degrees for supine). -: 0=No drift;limb holds for full 10 seconds. -: 1=Drift; limb holds but drifts down before full 10 seconds, but does not hit bed. -: 2=Some effort against gravity; limb cannot get to or maintain position. -: 3=No effort against gravity; limb falls. -: 4=No movement. -: UN=Amputation, joint fusion, explain in comments. 5. Responses (right arm): 0 6. Motor Functions (left leg): With patient lying supine, alternate sides and extend each leg (30 degrees always while supine). -: 0=No drift, leg holds position for full 5 seconds -: 1=Drift; leg falls before full 5 seconds but does not hit bed. -: 2=Some effort against gravity, leg falls to bed but some effort against gravity. -: 3=No effort against gravity, leg falls to bed immediately. -: 4=No movement. -: UN=Amputation, joint fusion; explain in comments. 6. Responses (left leg): 1 6. Motor Functions (right leg): With patient lying supine, alternate sides and extend each leg (30 degrees always while supine). -: 0=No drift, leg holds position for full 5 seconds -: 1=Drift; leg falls before full 5 seconds but does not hit bed. -: 2=Some effort against gravity, leg falls to bed but some effort against gravity. -: 3=No effort against gravity, leg falls to bed immediately. -: 4=No movement. -: UN=Amputation, joint fusion; explain in comments. 6. Responses (right leg): 0 7. Limb Ataxia: With eyes open instruct patient to: -: a. "Touch your finger to your nose". -: b. "Touch your heel to your stovall" -: 0=Absent -: 1=Present in one limb. -: 2=Present in two limbs. -: UN=Amputation or joint fusion; explain in comments. 7. Responses: 0 8. Sensory: Test sensation using pinprick or noxious stimuli. Test as many body parts as possible. -: 0=Normal;no sensory loss -: 1=Mile to moderate sensory loss (patient feels pin prick but is less sharp on affected side). -: 2=Severe or total sensory loss. 8. Responses: 0 9. Best Language: Instruct patient to: -: a. "Describe what you see in this picture." -: b. "Name the items in this picture." -: c. "Read these sentences." -: 0=No aphasia, normal -: 1=Mild to moderate aphasia. -: 2=Severe aphasia -: 3=Mute, global aphasia, no usable speech or auditory comprehension. 9. Responses: 0 10. Articulation, Dysarthia: Instruct patient to: -: "Read these words" or "Repeat these words" -: 0=Normal -: 1=Mild to moderate; patient may slur some words but can be understood without difficulty. -: 2=Severe; patients speech so slurred as to be unintelligible in the absence of dysphasia. -: UN=Intubated or other physical barrier, explain in comments. 10. Responses: 0 11. Extinction or inattention: 0=No abnormality -: 1= Visual, tactile, auditory, spatial, or personal inattention or extinction to bilateral simulation in one or the sensory modalities. -: 2=Profound lorelei-inattention or lorelei-inattention to more than one modality; does not recognize own hand. 11. Responses: 0 Total Score: 5
[2016-06-27 22:57] LABS: ABSOLUTE EOSINOPHILS # (AUTO) 0.2 10^3/uL (0.0-0.6); ABSOLUTE LYMPHOCYTES (AUTO) 0.7 10^3/uL (0.5-4.7); ABSOLUTE MONOCYTES (AUTO) 0.7 10^3/uL (0.1-1.4); ABSOLUTE NEUT (AUTO) 5.7 10^3/uL (1.7-8.2); BASOPHILS % (AUTO) 0.6 % (0-2); EOSINOPHILS % (AUTO) 2.9 % (0-6); HEMATOCRIT 31.8 % (36.0-47.0); HEMOGLOBIN 10.7 g/dL (12.0-15.5); HGB HCT DIFFERENCE 0.3; LYMPHOCYTES % (AUTO) 9.1 % (13-45); MEAN CORPUSCULAR HEMOGLOBIN 31.9 pg (27.0-33.4); MEAN CORPUSCULAR HGB CONC 33.7 g/dL (32.0-36.0); MEAN CORPUSCULAR VOLUME 95 fl (80-97); MONOCYTES % (AUTO) 9.7 % (3-13); RED BLOOD COUNT 3.36 10^6/uL (3.72-5.28); RED CELL DISTRIBUTION WIDTH 14.2 % (11.5-14.0); SEGMENTED NEUTROPHILS % (AUTO) 77.7 % (42-78); WHITE BLOOD COUNT 7.4 10^3/uL (4.0-10.5)
[2016-06-27 23:04] LABS: PROTHROMBIN TIME 12.8 SEC (11.4-15.4)
[2016-06-27 23:05] LABS: PARTIAL THROMBOPLASTIN TIME 29.4 SEC (23.5-35.8)
[2016-06-27 23:17] LABS: ALANINE AMINOTRANSFERASE 30 U/L (9-52); ALBUMIN 4.1 g/dL (3.5-5.0); ALKALINE PHOSPHATASE 132 U/L (38-126); ANION GAP 11 (5-19); ASPARTATE AMINO TRANSFERASE 26 U/L (14-36); BILIRUBIN,TOTAL 0.5 mg/dL (0.2-1.3); BLOOD UREA NITROGEN 15 mg/dL (7-20); CALCIUM 9.7 mg/dL (8.4-10.2); CARBON DIOXIDE 27 mmol/L (22-30); CHLORIDE 93 mmol/L (98-107); CREATINE KINASE 57 U/L (30-135); CREATININE RESULT 0.91 mg/dL (0.52-1.25); GLUCOSE 103 mg/dL (75-110); POTASSIUM 4.1 mmol/L (3.6-5.0); SODIUM 131.4 mmol/L (137-145); TOTAL PROTEIN 7.4 g/dL (6.3-8.2)
[2016-06-28] MEDS ORDERED: ACETAMINOPHEN 650 MG SUPP.RECT PR PRN (00:04)
[2016-06-28] MEDS ORDERED: ASPIRIN 300 MG SUPP, RECTAL PR ONE ×2 (00:04→05:14)
[2016-06-28 00:25] LABS: CREATINE KINASE 57 U/L (30-135)
[2016-06-28] MEDS ORDERED: NALOXONE HCL INJ/PF 0.4 MG/1 ML SDV ONE (00:26)
[2016-06-28 00:28] LABS: ALCOHOL < 10 mg/dL (NONE DETECTED)
[2016-06-28 00:46] LABS: CREATINE KINASE MB 1.45 ng/mL (<4.55)
[2016-06-28 00:50] LABS: TROPONIN I < 0.012 ng/mL
[2016-06-28] MEDS ORDERED: HYDROMORPHONE HCL INJ/PF 2 MG/ML AMPULE ONE (00:56)
[2016-06-28] MEDS ORDERED: HYDROMORPHONE HCL INJ/PF 2 MG/ML AMPULE SUBCUT ONE (01:00)
[2016-06-28] MEDS ORDERED: NALOXONE HCL INJ/PF 0.4 MG/1 ML SDV SUBCUT ONE (03:45)
--- NOTE | 2016-06-28 04:23 | OPERATIVE REPORT E ---
Operative Report NAME: BHARATH JORDAN : 1940 AGE: 76Y DATE OF SURGERY: 06/28/2016 ROOM: ED60 OPERATION: Insertion of a triple-lumen via the left internal jugular vein with ultrasound guidance. SURGEON: KAITLYN COY M.D. ANESTHESIA: Local with 1% Xylocaine. INDICATION: This is a 76-year-old female admitted for a possible CVA. The patient has poor peripheral veins and failed attempt placement of right IJ catheter in the emergency room. DESCRIPTION OF PROCEDURE: With the patient *------* steep Trendelenburg position and the left side of the neck exposed with a nurse assisting her head towards the right side. The left neck was then prepped and draped in the usual sterile fashion. With the use of ultrasound, the left internal jugular vein was then identified. Next, local anesthesia was infiltrated along the left side between the clavicular and thyroid muscles. A small needle was then used to puncture the left internal jugular vein and a larger needle was then placed just behind the smaller needle and the left internal jugular vein was then punctured. A guidewire was then placed through the needle and threaded into the area of the superior vena cava. The smaller needle was removed and the bigger needle also removed over the guidewire. The puncture site was then enlarged with an #11 blade. A dilator was then passed through the guidewire. The dilator was removed and finger pressure at the puncture site was done to prevent bleeding. Next, a triple-lumen catheter was then inserted through the guidewire into the superior vena cava area. The guidewire subsequently removed and all the 3 ports were then irrigated and aspirated quite easily with saline solution. Next, the catheter was subsequently anchored to the skin with 3-0 silk suture. A catheter protector was then placed around the catheter on the insertion site and a transparent sterile dressing was then placed around it. A chest x-ray will be obtained for placement. The patient tolerated the procedure well. DICTATING PHYSICIAN: KAITLYN COY M.D. [id number] PHY#: [id number] ID: [id number] JOB#: [id number] ACCT: [id number] cc:KAITLYN COY M.D. >
[2016-06-28] MEDS: HEPARIN SOD (PORCINE) 5,000 UNIT/ML 1 ML SYRINGE SUBCUT SCH ×3 (05:20→21:41)
--- NOTE | 2016-06-28 05:28 | CONSULTATION REPORT E ---
Consultation Report NAME: BHARATH JORDAN : 1940 AGE: 76Y DATE: 06/28/2016 322 A TO: KAITLYN COY M.D. FROM: BLADIMIR DEL ROSARIO M.D. Requesting Physician REASON FOR CONSULTATION: Patient needed central line. HISTORY OF PRESENT ILLNESS: This is a 76-year-old female, admitted for possible CVA. She had a CAT scan of the brain, which showed no significant findings. However, clinically, patient is uncooperative and somewhat restless. There are small areas of dark discoloration along the right neck from a previous attempted internal jugular vein placement. The patient apparently had all the symptoms started around 5:00 p.m. this afternoon. PHYSICAL EXAMINATION: GENERAL: Prior to this, patient apparently is alert and oriented x3, but patient is just complaining of headache. There may have been a fall earlier in the day. NECK: Rest of the physical exam of the neck showed normal range of motion. LUNGS: Breath sounds are clear to auscultation. HEART: Regular rate and rhythm without murmurs. ABDOMEN: Soft and nontender. EXTREMITIES: Normal range of motion. IMPRESSION: Possible cerebrovascular accident, poor peripheral vein for intravenous access, and failed attempt to place a right internal jugular vein catheter. RECOMMENDATIONS: A left internal jugular vein triple lumen catheter was then inserted under local anesthesia in sterile technique. X-rays will be obtained for placement. DICTATING PHYSICIAN: KAITLYN COY M.D. [id number] PHY#: [id number] ID: [id number] JOB#: [id number] ACCT: [id number] cc:KAITLYN COY M.D. >
--- NOTE | 2016-06-28 05:30 | PDOC H&P ---
History of Present Illness Admission Date/PCP: 06/28/16 00:04 Patient complains of: Altered mental status History of Present Illness: BHARATH JORDAN is a 76 year old female with a past medical history of opiate dependence depression and anxiety and recent opiate overdose with encephalopathy. Presents with altered mental status noted by patient son to be altered with a left-sided gaze prompting evaluation emergency room for half hours after the onset and out of the window thrombo-lysis. She has a two- minute tonic-clonic seizure which breaks with a 1 mg dose of Ativan followed by a brief postictal state. Labs and imaging are unremarkable. Patient is able to state her name moving all 4 extremities and localizes noxious stimuli with an odd affect. Past Medical History Cardiac Medical History: Reports: Hypertension Pulmonary Medical History: Reports: Bronchitis Psychiatric Medical History: Reports: Other - Opiate misuse Hematology: Reports: Anemia Past Surgical History Past Surgical History: Reports: Cholecystectomy, Hysterectomy, Orthopedic Surgery - right hip, right knee Social History Information Source: Relative, H Records Lives with: Family Smoking Status: Unknown if Ever Smoked Frequency of Alcohol Use: None - Uncertain Hx Recreational Drug Use: No - uncertain Drugs: None - uncertain Hx Prescription Drug Abuse: Yes - Advance Directive Resuscitation Status: Full Code Family History Family History: Reviewed & Not Pertinent, Other - Unobtainable Parental Family History Reviewed: Yes - unobtainable Children Family History Reviewed: Yes Sibling(s) Family History Reviewed.: Yes Medication/Allergy Home Medications: Albuterol Sulfate [Ventolin 0.083% Neb 2.5 mg/3 mL Ampul] 3 ml NEB RTQ4HP PRN Fentanyl [Duragesic 50 Mcg/Hr Transdermal Patch] 1 patch TOP Q72H 06/09/16 Hydroxyzine HCl [Atarax 25 mg Tablet] 25 mg PO QHS 06/09/16 Oxybutynin Chloride [Ditropan Xl] 10 mg PO DAILY 06/09/16 Oxycodone HCl 15 mg PO Q4H 06/09/16 Oxycodone HCl 15 mg PO Q4HP PRN 06/09/16 Potassium Chloride [Klor-Con 10] 10 meq PO DAILY 06/09/16 Allergies/Adverse Reactions: amoxicillin Allergy (Verified 04/21/16 14:55) cephalexin [From Keflex] Allergy (Verified 04/21/16 14:55) Itching and Rash morphine Allergy (Verified 04/21/16 14:55) Penicillins Allergy (Verified 04/21/16 14:55) Review of Systems ROS unobtainable: Due to mental status - Unobtainable Physical Exam Vital Signs: Temp Pulse Resp BP Pulse Ox 98.5 F 96 18 135/77 H 100 06/28/16 04:14 06/28/16 04:14 06/28/16 04:14 06/28/16 04:14 06/28/16 04:14 Intake & Output 06/26/16 06/27/16 06/28/16 11:59 11:59 11:59 Weight 67.4 kg General appearance: PRESENT: disheveled, mild distress Head exam: PRESENT: atraumatic, normocephalic Eye exam: PRESENT: conjunctiva pink, EOMI, PERRLA. ABSENT: scleral icterus Ear exam: PRESENT: normal external ear exam Mouth exam: PRESENT: moist, tongue midline Neck exam: ABSENT: carotid bruit, JVD, lymphadenopathy, thyromegaly Respiratory exam: PRESENT: clear to auscultation sabina. ABSENT: rales, rhonchi, wheezes Cardiovascular exam: PRESENT: RRR. ABSENT: diastolic murmur, rubs, systolic murmur Pulses: PRESENT: normal dorsalis pedis pul Vascular exam: PRESENT: normal capillary refill GI/Abdominal exam: PRESENT: hypoactive bowel sounds, normal bowel sounds, soft. ABSENT: distended, guarding, mass, organolmegaly, rebound, tenderness Rectal exam: PRESENT: deferred Extremities exam: PRESENT: full ROM, +1 edema. ABSENT: calf tenderness, clubbing, joint swelling, pedal edema Neurological exam: PRESENT: alert, altered, oriented to person, CN II-XII grossly intact Psychiatric exam: PRESENT: unusual affect Focused psych exam: PRESENT: restlessness Skin exam: PRESENT: dry, intact, warm. ABSENT: cyanosis, rash Results Impressions: Head CT 06/27/16 00:00 IMPRESSION: NO CT EVIDENCE OF ACUTE ISCHEMIA, HEMORRHAGE, OR MASS LESION. NO SIGNIFICANT CHANGE FROM PRIOR STUDY. Head CTA 06/27/16 21:26 IMPRESSION: NONDIAGNOSTIC CTA HEAD FOR REASONS ABOVE. Chest X-Ray 06/28/16 00:00 IMPRESSION: Interval placement of a left cervical vascular access catheter, the tip of which projects at the level of the superior vena cava, but the course of which appears somewhat atypical, crossing midline below the level of the aortic arch. Retrospective review of comparison CT imaging revealed this is likely a normal course and position in this patient. Assessment & Plan - Diagnosis (1) Acute encephalopathy Is this a current diagnosis for this admission?: YesPlan: Possibly secondary to seizure otherwise known opiate misuse with recent overdose , I'll attempt to wean narcotics as vitals remained stable and she is protecting her airway. She is ordered IV Keppra (2) Seizure Is this a current diagnosis for this admission?: YesPlan: Please see #1 (3) Opiate overdose Qualifiers: Encounter type: initial encounter Injury intent: accidental or unintentional Qualified Code(s): T40.601A - Poisoning by unspecified narcotics, accidental (unintentional), initial encounter Is this a current diagnosis for this admission?: YesPlan: Discontinue fentanyl patch hold by mouth for aspiration risk, wean narcotics as tolerated - Time Time Spent: 30 to 50 Minutes
[2016-06-28] MEDS ORDERED: LEVETIRACETAM 500 MG in NORMAL SALINE 100 ML IV SCH (06:00)
[2016-06-28] MEDS ORDERED: LEVETIRACETAM 500 MG/NACL-ISO 500 MG/100 ML RTUPB IV ONE (06:14)
[2016-06-28 06:45] LABS: ABSOLUTE BASOPHILS # (AUTO) 0.1 10^3/uL (0.0-0.2); ABSOLUTE EOSINOPHILS # (AUTO) 0.1 10^3/uL (0.0-0.6); ABSOLUTE LYMPHOCYTES (AUTO) 0.8 10^3/uL (0.5-4.7); ABSOLUTE MONOCYTES (AUTO) 0.9 10^3/uL (0.1-1.4); ABSOLUTE NEUT (AUTO) 6.2 10^3/uL (1.7-8.2); BASOPHILS % (AUTO) 0.8 % (0-2); EOSINOPHILS % (AUTO) 1.7 % (0-6); HEMATOCRIT 28.9 % (36.0-47.0); HEMOGLOBIN 9.7 g/dL (12.0-15.5); HGB HCT DIFFERENCE 0.2; LYMPHOCYTES % (AUTO) 10.1 % (13-45); MEAN CORPUSCULAR HEMOGLOBIN 31.7 pg (27.0-33.4); MEAN CORPUSCULAR HGB CONC 33.4 g/dL (32.0-36.0); MEAN CORPUSCULAR VOLUME 95 fl (80-97); MONOCYTES % (AUTO) 11.1 % (3-13); RED BLOOD COUNT 3.05 10^6/uL (3.72-5.28); RED CELL DISTRIBUTION WIDTH 14.4 % (11.5-14.0); SEGMENTED NEUTROPHILS % (AUTO) 76.3 % (42-78); WHITE BLOOD COUNT 8.1 10^3/uL (4.0-10.5)
[2016-06-28 06:56] LABS: ALANINE AMINOTRANSFERASE 24 U/L (9-52); ALBUMIN 3.3 g/dL (3.5-5.0); ALKALINE PHOSPHATASE 105 U/L (38-126); ANION GAP 12 (5-19); ASPARTATE AMINO TRANSFERASE 23 U/L (14-36); BILIRUBIN,TOTAL 0.5 mg/dL (0.2-1.3); BLOOD UREA NITROGEN 12 mg/dL (7-20); CALCIUM 8.9 mg/dL (8.4-10.2); CARBON DIOXIDE 26 mmol/L (22-30); CHLORIDE 96 mmol/L (98-107); CREATINE KINASE 102 U/L (30-135); GLUCOSE 89 mg/dL (75-110); POTASSIUM 3.9 mmol/L (3.6-5.0); SODIUM 134.3 mmol/L (137-145); TOTAL PROTEIN 6.3 g/dL (6.3-8.2)
[2016-06-28 07:06] LABS: CREATINE KINASE MB 1.92 ng/mL (<4.55)
[2016-06-28 07:10] LABS: TROPONIN I < 0.012 ng/mL
[2016-06-28] MEDS: ASPIRIN 325 MG TABLET, ENT COATED PO SCH (12:26)
[2016-06-28] MEDS: NORMAL SALINE 1000 ML 1,000 ML IV SCH ×3 (12:26→21:58)
[2016-06-28] MEDS ORDERED: LORAZEPAM INJ 2 MG/1 ML VIAL ONE ×2 (15:35→16:37)
[2016-06-28] MEDS: LORAZEPAM INJ 2 MG/1 ML VIAL IV PRN ×2 (15:35→17:21)
[2016-06-28 15:41] LABS: CREATINE KINASE MB 3.45 ng/mL (<4.55)
[2016-06-28 15:47] LABS: TROPONIN I < 0.012 ng/mL
--- NOTE | 2016-06-28 16:10 | EKG REPORT ---
SEVERITY:- ABNORMAL ECG - WANDERING PACEMAKER VENTRICULAR BIGEMINY BORDERLINE LEFT AXIS DEVIATION BORDERLINE PROLONGED QT INTERVAL : Confirmed by: Joanna Barnes MD 28-Jun-2016 16:09:11
[2016-06-28] MEDS ORDERED: HALOPERIDOL LACTATE INJ 5 MG/1 ML VIAL IV ONE (16:34)
[2016-06-28] MEDS ORDERED: LORAZEPAM INJ 2 MG/1 ML VIAL IV ONE (16:34)
[2016-06-28] MEDS ORDERED: HALOPERIDOL LACTATE INJ 5 MG/1 ML VIAL ONE (16:36)
[2016-06-28] MEDS: LEVETIRACETAM 500 MG/NACL-ISO 500 MG/100 ML RTUPB IV SCH (17:20)
[2016-06-28 18:10] LABS: APPEARANCE,URINE CLEAR; BILIRUBIN,URINE NEGATIVE (NEGATIVE); GLUCOSE, URINE NEGATIVE (NEGATIVE); KETONES,URINE NEGATIVE (NEGATIVE); LEUKOCYTE ESTERASE,URINE NEGATIVE (NEGATIVE); NITRITE,URINE NEGATIVE (NEGATIVE); PROTEIN,URINE NEGATIVE (NEGATIVE); URINE SPECIFIC GRAVITY 1.006; UROBILINOGEN,URINE NEGATIVE mg/dL (<2.0)
[2016-06-28 18:31] LABS: URINE BARBITURATES SCREEN NEGATIVE; URINE METHADONE SCREEN NEGATIVE; URINE OPIATES LOW NEGATIVE; URINE PHENCYCLIDINE SCREEN NEGATIVE
[2016-06-28] MEDS: ATORVASTATIN CALCIUM 80 MG TABLET PO SCH (21:41)
[2016-06-29 04:58] LABS: ABSOLUTE BASOPHILS # (AUTO) 0.1 10^3/uL (0.0-0.2); ABSOLUTE EOSINOPHILS # (AUTO) 0.3 10^3/uL (0.0-0.6); ABSOLUTE LYMPHOCYTES (AUTO) 0.7 10^3/uL (0.5-4.7); ABSOLUTE MONOCYTES (AUTO) 0.7 10^3/uL (0.1-1.4); ABSOLUTE NEUT (AUTO) 5.2 10^3/uL (1.7-8.2); BASOPHILS % (AUTO) 1.3 % (0-2); EOSINOPHILS % (AUTO) 3.8 % (0-6); HEMATOCRIT 28.5 % (36.0-47.0); HEMOGLOBIN 9.7 g/dL (12.0-15.5); HGB HCT DIFFERENCE 0.6; LYMPHOCYTES % (AUTO) 10.6 % (13-45); MEAN CORPUSCULAR HEMOGLOBIN 32.2 pg (27.0-33.4); MEAN CORPUSCULAR VOLUME 95 fl (80-97); MONOCYTES % (AUTO) 10.4 % (3-13); RED BLOOD COUNT 3.01 10^6/uL (3.72-5.28); RED CELL DISTRIBUTION WIDTH 14.3 % (11.5-14.0); SEGMENTED NEUTROPHILS % (AUTO) 73.9 % (42-78)
[2016-06-29] MEDS: HEPARIN SOD (PORCINE) 5,000 UNIT/ML 1 ML SYRINGE SUBCUT SCH ×3 (05:06→21:07)
[2016-06-29] MEDS: LEVETIRACETAM 500 MG/NACL-ISO 500 MG/100 ML RTUPB IV SCH ×2 (05:07→17:13)
[2016-06-29 05:17] LABS: ALANINE AMINOTRANSFERASE 27 U/L (9-52); ALBUMIN 3.2 g/dL (3.5-5.0); ALKALINE PHOSPHATASE 112 U/L (38-126); ANION GAP 12 (5-19); ASPARTATE AMINO TRANSFERASE 27 U/L (14-36); BILIRUBIN,TOTAL 0.8 mg/dL (0.2-1.3); BLOOD UREA NITROGEN 6 mg/dL (7-20); CALCIUM 8.7 mg/dL (8.4-10.2); CARBON DIOXIDE 25 mmol/L (22-30); CHLORIDE 101 mmol/L (98-107); CREATININE RESULT 0.53 mg/dL (0.52-1.25); GLUCOSE 75 mg/dL (75-110); POTASSIUM 3.4 mmol/L (3.6-5.0); SODIUM 138.1 mmol/L (137-145); TOTAL PROTEIN 6.2 g/dL (6.3-8.2)
[2016-06-29] MEDS ORDERED: LEVETIRACETAM 500 MG/NACL-ISO 100 ML IV SCH (10:00)
[2016-06-29] MEDS: ASPIRIN 325 MG TABLET, ENT COATED PO SCH ×2 (12:28→13:49)
[2016-06-29] MEDS ORDERED: POTASSIUM CHLORIDE 20 MEQ/15 ML UDCUP PO ONE (13:30)
--- NOTE | 2016-06-29 14:09 | PDOC PROGRESS REPORT ---
Subjective Progress Note for:: 06/29/16 Subjective:: still very lethargic , arousable no further seizures Physical Exam Vital Signs: Temp Pulse Resp BP Pulse Ox 97.9 F 98 20 161/73 H 100 06/29/16 07:45 06/29/16 07:45 06/29/16 07:45 06/29/16 07:45 06/29/16 07:45 Intake & Output 06/28/16 06/29/16 06/30/16 00:59 00:59 00:59 Intake Total 200 100 Output Total 1250 1700 Balance -1050 -1600 Weight 67.4 kg 61.3 kg General appearance: PRESENT: mild distress Head exam: PRESENT: atraumatic, normocephalic Eye exam: PRESENT: conjunctiva pink, EOMI, PERRLA. ABSENT: scleral icterus Neck exam: ABSENT: carotid bruit, JVD, lymphadenopathy, thyromegaly Respiratory exam: PRESENT: clear to auscultation sabina. ABSENT: rales, rhonchi, wheezes Cardiovascular exam: PRESENT: RRR. ABSENT: diastolic murmur, rubs, systolic murmur GI/Abdominal exam: PRESENT: normal bowel sounds, soft. ABSENT: distended, guarding, mass, organolmegaly, rebound, tenderness Rectal exam: PRESENT: deferred Neurological exam: PRESENT: altered - lethargic arousable Results Laboratory Results: 06/29/16 04:45 06/29/16 04:45 06/28/16 06/29/16 06/29/16 17:40 04:45 04:45 WBC 7.0 RBC 3.01 L Hgb 9.7 L Hct 28.5 L MCV 95 MCH 32.2 MCHC 34.0 RDW 14.3 H Plt Count 277 Seg Neutrophils % 73.9 Lymphocytes % 10.6 L Monocytes % 10.4 Eosinophils % 3.8 Basophils % 1.3 Absolute Neutrophils 5.2 Absolute Lymphocytes 0.7 Absolute Monocytes 0.7 Absolute Eosinophils 0.3 Absolute Basophils 0.1 Sodium 138.1 Potassium 3.4 L Chloride 101 Carbon Dioxide 25 Anion Gap 12 BUN 6 L Creatinine 0.53 Est GFR ( Amer) > 60 Est GFR (Non-Af Amer) > 60 Glucose 75 Calcium 8.7 Total Bilirubin 0.8 AST 27 ALT 27 Alkaline Phosphatase 112 Total Protein 6.2 L Albumin 3.2 L Urine Color COLORLESS Urine Appearance CLEAR Urine pH 7.0 Ur Specific [place] 1.006 Urine Protein NEGATIVE Urine Glucose (UA) NEGATIVE Urine Ketones NEGATIVE Urine Blood NEGATIVE Urine Nitrite NEGATIVE Ur Leukocyte Esterase NEGATIVE 06/28/16 06/28/16 06/28/16 06:19 06:19 14:38 Creatine Kinase 102 135 CK-MB (CK-2) 1.92 Troponin I < 0.012 06/28/16 14:38 Creatine Kinase CK-MB (CK-2) 3.45 Troponin I < 0.012 Impressions: Head CT 06/27/16 00:00 IMPRESSION: NO CT EVIDENCE OF ACUTE ISCHEMIA, HEMORRHAGE, OR MASS LESION. NO SIGNIFICANT CHANGE FROM PRIOR STUDY. Head CTA 06/27/16 21:26 IMPRESSION: NONDIAGNOSTIC CTA HEAD FOR REASONS ABOVE. Carotid Doppler Study 06/28/16 00:00 IMPRESSION: Limited study. No stenosis identified. Consider follow-up study when the patient is more stable. Chest X-Ray 06/28/16 00:00 IMPRESSION: Interval placement of a left cervical vascular access catheter, the tip of which projects at the level of the superior vena cava, but the course of which appears somewhat atypical, crossing midline below the level of the aortic arch. Retrospective review of comparison CT imaging revealed this is likely a normal course and position in this patient. KUB X-Ray 06/28/16 00:00 IMPRESSION: Constipation, otherwise unremarkable bowel gas pattern Head MRI 06/28/16 00:10 IMPRESSION: Limited study as noted above. ATROPHY AND CHRONIC MICRO-VASCULAR ISCHEMIC CHANGES. OTHERWISE NORMAL MRI OF THE BRAIN WITHOUT INTRAVENOUS GADOLINIUM CONTRAST. Assessment & Plan - Diagnosis (1) Metabolic encephalopathy Is this a current diagnosis for this admission?: YesPlan: likely secondary to postictal state seizure was witnessed on admission CT brain was normal EEG pending continue keppra IV and seizure precautions vitamin B12 and TSH pending (2) Seizure Is this a current diagnosis for this admission?: Yes (3) Dementia Qualifiers: Dementia type: unspecified type Dementia behavioral disturbance: without behavioral disturbance Qualified Code(s): F03.90 - Unspecified dementia without behavioral disturbance Is this a current diagnosis for this admission?: YesPlan: family describes mental decline and increasing confusion in last few months Patient will need 24 hour care may need to be discharged to SNF when clinically stable - Time Time Spent with patient: No evidence of CVA- normal brain MRI Time Spent with patient: 15-24 minutes
[2016-06-29] MEDS: ATORVASTATIN CALCIUM 80 MG TABLET PO SCH (21:07)
[2016-06-29] MEDS: NORMAL SALINE 1000 ML 1,000 ML IV PRN (21:26)
[2016-06-29] MEDS ORDERED: HEPARIN 10 UNIT/ML IV SCH (22:00)
[2016-06-30] MEDS: ACETAMINOPHEN 325 MG TABLET PO PRN ×2 (01:07→20:12)
[2016-06-30] MEDS: HEPARIN SOD (PORCINE) 5,000 UNIT/ML 1 ML SYRINGE SUBCUT SCH ×3 (05:29→21:40)
[2016-06-30] MEDS: LEVETIRACETAM 500 MG/NACL-ISO 500 MG/100 ML RTUPB IV SCH ×2 (05:29→17:34)
--- NOTE | 2016-06-30 15:20 | XCELERA REPORT ---
[address] [address] Transthoracic Echocardiogram Report Name: BHARATH JORDAN Age: 76 yrs Gender: Female : 1940 Patient Status: Inpatient Patient Location: [id number]\S\322\S\A Study Date: 06/30/2016 11:08 AM Height: 65 in Weight: 135 lb BSA: 1.7 m2 Procedure: A complete two-dimensional transthoracic echocardiogram was performed (2D, M-mode, spectral and color flow Doppler). The study was technically difficult with many images being suboptimal in quality. Reason For Study: TIA / Encephalopathy Ordering Physician: ALEA GUTIERREZ Performed By: Farheen Kee Interpretation Summary The study was technically difficult with many images being suboptimal in quality. The Ejection Fraction estimate is 45-50% Left ventricular systolic function is mildly reduced. There is borderline concentric left ventricular hypertrophy. The left ventricle is grossly normal size. Doppler measurements suggest pseudonormalized left ventricular relaxation, which is associated with grade II/IV or mild to moderate diastolic dysfunction Regional wall motion abnormalities cannot be excluded due to limited visualization. The right ventricular systolic function is normal. The left atrium is mildly dilated. The right atrium is normal in size There is a mild to moderate amount of mitral regurgitation There is no mitral valve stenosis. No aortic regurgitation is present. There is no aortic valve stenosis There is a trace or physiologic amount of tricuspid regurgitation Tricuspid regurgitation jet envelope not well defined to measure RV systolic pressure accurately. The aortic root is not well visualized. The inferior vena cava was not well visualized There is no pericardial effusion. MMode/2D Measurements \T\ Calculations RVDd: 3.1 cm LVIDd: 4.7 cm FS: 22.7 % Ao root diam: 2.7 cm IVSd: 0.89 cm LVIDs: 3.6 cm EDV(Teich): 101.7 ml LVPWd: 0.87 cm ESV(Teich): 55.3 ml Ao root area: 5.9 cm2 EF(Teich): 45.6 % LA dimension: 3.9 cm Doppler Measurements \T\ Calculations MV E max stacie: MV P1/2t max stacie: Ao V2 max: LV V1 max P.7 cm/sec 61.7 cm/sec 135.7 cm/sec 2.2 mmHg MV A max stacie: MV P1/2t: 67.6 msec Ao max PG: LV V1 max: 112.5 cm/sec 7.4 mmHg 74.5 cm/sec MV E/A: 0.54 MVA(P1/2t): 3.3 cm2 MV dec slope: 267.2 cm/sec2 MV dec time: 0.24 sec PA V2 max: TR max stacie: 116.0 cm/sec 206.5 cm/sec PA max P.4 mmHgTR max P.1 mmHg Left Ventricle The left ventricle is grossly normal size. There is borderline concentric left ventricular hypertrophy. Left ventricular systolic function is mildly reduced. The Ejection Fraction estimate is 45-50%. Doppler measurements suggest pseudonormalized left ventricular relaxation, which is associated with grade II/IV or mild to moderate diastolic dysfunction. Regional wall motion abnormalities cannot be excluded due to limited visualization. Right Ventricle The right ventricle is grossly normal size. There is normal right ventricular wall thickness. The right ventricular systolic function is normal. Atria The right atrium is normal in size. The left atrium is mildly dilated. Interarterial septum not well visualized and not well dopplered. Cannot comment on ASD/PFO presence. Mitral Valve There is mild mitral annular calcification. There is no mitral valve stenosis. There is a mild to moderate amount of mitral regurgitation. Aortic Valve The aortic valve is mildly calcified. The aortic valve is not well visualized secondary to technical limitations. There is no aortic valve stenosis. No aortic regurgitation is present. Tricuspid Valve The tricuspid valve is not well visualized secondary to technical limitations. There is no tricuspid stenosis. There is a trace or physiologic amount of tricuspid regurgitation. Tricuspid regurgitation jet envelope not well defined to measure RV systolic pressure accurately. Pulmonic Valve The pulmonic valve is not well visualized. Great Vessels The aortic root is not well visualized. The inferior vena cava was not well visualized. Effusions There is no pericardial effusion. Incidental Findings No definite cardiac source of CVA/TIA noted on this particular trans- thoracic study. : ALEA GUTIERREZ > Lai Luz
[2016-06-30] MEDS: ATORVASTATIN CALCIUM 80 MG TABLET PO SCH (21:40)
--- NOTE | 2016-06-30 22:13 | PDOC PROGRESS REPORT ---
Subjective Progress Note for:: 06/30/16 Subjective:: Patient's mentation is improving; She appears more alert and awake is answering some questions appropriately No fever no chills Hemodynamically stable Physical Exam Vital Signs: Temp Pulse Resp BP Pulse Ox 98.2 F 108 H 20 140/85 H 100 06/30/16 15:18 06/30/16 15:18 06/30/16 15:18 06/30/16 15:18 06/30/16 15:18 Intake & Output 06/29/16 06/30/16 07/01/16 00:59 00:59 00:59 Intake Total 200 1000 2006 Output Total 1250 4200 2950 Balance -1050 -3200 -943 Weight 67.4 kg 61.3 kg 62.5 kg General appearance: PRESENT: no acute distress, thin, other - Pale and chronically ill-looking Head exam: PRESENT: atraumatic, normocephalic Eye exam: PRESENT: conjunctiva pink, EOMI, PERRLA. ABSENT: scleral icterus Ear exam: PRESENT: normal external ear exam Mouth exam: PRESENT: moist, tongue midline Neck exam: ABSENT: carotid bruit, JVD, lymphadenopathy, thyromegaly Respiratory exam: PRESENT: clear to auscultation sabina. ABSENT: rales, rhonchi, wheezes Cardiovascular exam: PRESENT: RRR. ABSENT: diastolic murmur, rubs, systolic murmur Pulses: PRESENT: normal dorsalis pedis pul Vascular exam: PRESENT: normal capillary refill GI/Abdominal exam: PRESENT: normal bowel sounds, soft. ABSENT: distended, guarding, mass, organolmegaly, rebound, tenderness Rectal exam: PRESENT: deferred Extremities exam: PRESENT: full ROM. ABSENT: calf tenderness, clubbing, pedal edema Neurological exam: PRESENT: awake, CN II-XII grossly intact. ABSENT: motor sensory deficit Skin exam: PRESENT: dry, intact, warm. ABSENT: cyanosis, rash Results Laboratory Results: 06/29/16 04:45 06/29/16 04:45 06/28/16 17:40 Hitchcock Catheter Urine Culture - Final NO GROWTH 2 DAYS 06/28/16 06/28/16 06/28/16 06:19 06:19 14:38 Creatine Kinase 102 135 CK-MB (CK-2) 1.92 Troponin I < 0.012 06/28/16 14:38 Creatine Kinase CK-MB (CK-2) 3.45 Troponin I < 0.012 Impressions: Head CT 06/27/16 00:00 IMPRESSION: NO CT EVIDENCE OF ACUTE ISCHEMIA, HEMORRHAGE, OR MASS LESION. NO SIGNIFICANT CHANGE FROM PRIOR STUDY. Head CTA 06/27/16 21:26 IMPRESSION: NONDIAGNOSTIC CTA HEAD FOR REASONS ABOVE. Carotid Doppler Study 06/28/16 00:00 IMPRESSION: Limited study. No stenosis identified. Consider follow-up study when the patient is more stable. Chest X-Ray 06/28/16 00:00 IMPRESSION: Interval placement of a left cervical vascular access catheter, the tip of which projects at the level of the superior vena cava, but the course of which appears somewhat atypical, crossing midline below the level of the aortic arch. Retrospective review of comparison CT imaging revealed this is likely a normal course and position in this patient. KUB X-Ray 06/28/16 00:00 IMPRESSION: Constipation, otherwise unremarkable bowel gas pattern Head MRI 06/28/16 00:10 IMPRESSION: Limited study as noted above. ATROPHY AND CHRONIC MICRO-VASCULAR ISCHEMIC CHANGES. OTHERWISE NORMAL MRI OF THE BRAIN WITHOUT INTRAVENOUS GADOLINIUM CONTRAST. Assessment & Plan - Diagnosis (1) Metabolic encephalopathy Is this a current diagnosis for this admission?: YesPlan: Acute metabolic encephalopathy was likely secondary to postictal state Encephalopathy is clearing slowly Continue supportive treatment Neoro workup was unremarkable Vitamin B-12 TSH were normal (2) Seizure Is this a current diagnosis for this admission?: YesPlan: Seizure witnessed in admission Continue Keppra EEG to be performed (3) Dementia Qualifiers: Dementia type: unspecified type Dementia behavioral disturbance: without behavioral disturbance Qualified Code(s): F03.90 - Unspecified dementia without behavioral disturbance Is this a current diagnosis for this admission?: YesPlan: Likely underwent underlying dementia patient according to family has had worsening of her mentation Disorientation and memory loss over past 2 months We will initiate Namenda by mouth - Time Time Spent with patient: Family wishes for patient to be placed in a nursing facility Time Spent with patient: 25-34 minutes
[2016-06-30] MEDS ORDERED: ASPIRIN 325 MG TABLET, ENT COATED PO SCH (22:16)
[2016-07-01] MEDS: NORMAL SALINE 1000 ML 1,000 ML IV PRN ×2 (01:11→16:36)
[2016-07-01] MEDS: HEPARIN SOD (PORCINE) 5,000 UNIT/ML 1 ML SYRINGE SUBCUT SCH ×3 (06:36→21:05)
[2016-07-01] MEDS: LEVETIRACETAM 500 MG/NACL-ISO 500 MG/100 ML RTUPB IV SCH (06:37)
--- NOTE | 2016-07-01 10:51 | PDOC PROGRESS REPORT ---
Subjective Progress Note for:: 07/01/16 Subjective:: Patient is alert and appropriate today. She has no specific complaints. Patient denies fever, chills, headache, new focal weakness, chest pain, shortness of breath, abdominal pain, nausea, vomiting, diarrhea, constipation. Physical Exam Vital Signs: Temp Pulse Resp BP Pulse Ox 98.1 F 50 L 19 154/99 H 98 07/01/16 07:36 07/01/16 07:36 07/01/16 07:36 07/01/16 07:36 07/01/16 07:36 Intake & Output 06/30/16 07/01/16 07/02/16 06:59 06:59 06:59 Intake Total 1757 2300 Output Total 7500 3025 Balance -7567 -521 Weight 62.5 kg 61.3 kg GENERAL: No acute distress HEENT: Conjunctiva clear, nonicteric, moist mucous membranes, no JVD, midline trachea RESPIRATORY: Clear to auscultation bilaterally, no wheezes, no rhonchi CARDIAC: Regular rate and rhythm, no murmurs/gallops/rubs ABDOMEN: Soft, nondistended, nontender, positive bowel sounds, no rebound, no guarding EXTREMETIES: No edema, cyanosis, clubbing NEUROLOGIC: Alert, oriented to person/place, not oriented to year, CN's grossly intact, no focal deficits SKIN: No rash, wounds PSYCH: Normal mood, normal affect Results Laboratory Results: 06/29/16 04:45 06/29/16 04:45 06/28/16 17:40 Hitchcock Catheter Urine Culture - Final NO GROWTH 2 DAYS 06/28/16 06/28/16 06/28/16 06:19 06:19 14:38 Creatine Kinase 102 135 CK-MB (CK-2) 1.92 Troponin I < 0.012 06/28/16 14:38 Creatine Kinase CK-MB (CK-2) 3.45 Troponin I < 0.012 Impressions: Head CT 06/27/16 00:00 IMPRESSION: NO CT EVIDENCE OF ACUTE ISCHEMIA, HEMORRHAGE, OR MASS LESION. NO SIGNIFICANT CHANGE FROM PRIOR STUDY. Head CTA 06/27/16 21:26 IMPRESSION: NONDIAGNOSTIC CTA HEAD FOR REASONS ABOVE. Carotid Doppler Study 06/28/16 00:00 IMPRESSION: Limited study. No stenosis identified. Consider follow-up study when the patient is more stable. Chest X-Ray 06/28/16 00:00 IMPRESSION: Interval placement of a left cervical vascular access catheter, the tip of which projects at the level of the superior vena cava, but the course of which appears somewhat atypical, crossing midline below the level of the aortic arch. Retrospective review of comparison CT imaging revealed this is likely a normal course and position in this patient. KUB X-Ray 06/28/16 00:00 IMPRESSION: Constipation, otherwise unremarkable bowel gas pattern Head MRI 06/28/16 00:10 IMPRESSION: Limited study as noted above. ATROPHY AND CHRONIC MICRO-VASCULAR ISCHEMIC CHANGES. OTHERWISE NORMAL MRI OF THE BRAIN WITHOUT INTRAVENOUS GADOLINIUM CONTRAST. Assessment & Plan - Diagnosis (1) Metabolic encephalopathy Is this a current diagnosis for this admission?: YesPlan: Likely secondary to seizure and postictal state. Mental status is now approaching baseline. Patient is alert and oriented to person and place today. (2) Dementia Qualifiers: Dementia type: unspecified type Dementia behavioral disturbance: without behavioral disturbance Qualified Code(s): F03.90 - Unspecified dementia without behavioral disturbance Is this a current diagnosis for this admission?: Yes (3) Seizure Is this a current diagnosis for this admission?: YesPlan: Patient has been started on Keppra this admission. EEG is pending. (4) Ambulatory dysfunction Is this a current diagnosis for this admission?: YesPlan: Physical therapy has seen patient and recommend intermediate facility upon discharge. She has a bed offer at [facility]. (5) EMERSON (obstructive sleep apnea) Is this a current diagnosis for this admission?: Yes (6) Paroxysmal atrial fibrillation Is this a current diagnosis for this admission?: YesPlan: Currently in sinus rhythm. - Time Time Spent with patient: 25-34 minutes Anticipated discharge: SNF Within: within 24 hours
[2016-07-01] MEDS: DULOXETINE HCL 30 MG CAPSULE.DR PO SCH (11:12)
[2016-07-01] MEDS: MEMANTINE HCL 10 MG TABLET PO SCH (11:12)
[2016-07-01] MEDS: OXYBUTYNIN CHLORIDE 5 MG TABLET PO SCH (11:13)
[2016-07-01] MEDS: LEVETIRACETAM 500 MG TABLET PO SCH (21:05)
[2016-07-01] MEDS: ATORVASTATIN CALCIUM 80 MG TABLET PO SCH (21:05)
[2016-07-02] MEDS: HEPARIN SOD (PORCINE) 5,000 UNIT/ML 1 ML SYRINGE SUBCUT SCH ×3 (05:47→21:20)
[2016-07-02] MEDS: NORMAL SALINE 1000 ML 1,000 ML IV PRN (05:52)
[2016-07-02 06:56] LABS: ABSOLUTE BASOPHILS # (AUTO) 0.1 10^3/uL (0.0-0.2); ABSOLUTE EOSINOPHILS # (AUTO) 0.5 10^3/uL (0.0-0.6); ABSOLUTE MONOCYTES (AUTO) 0.7 10^3/uL (0.1-1.4); BASOPHILS % (AUTO) 0.8 % (0-2); EOSINOPHILS % (AUTO) 6.3 % (0-6); HEMATOCRIT 33.4 % (36.0-47.0); HEMOGLOBIN 11.4 g/dL (12.0-15.5); HGB HCT DIFFERENCE 0.8; LYMPHOCYTES % (AUTO) 13.9 % (13-45); MEAN CORPUSCULAR HGB CONC 34.2 g/dL (32.0-36.0); MEAN CORPUSCULAR VOLUME 94 fl (80-97); MONOCYTES % (AUTO) 10.2 % (3-13); RED BLOOD COUNT 3.58 10^6/uL (3.72-5.28); SEGMENTED NEUTROPHILS % (AUTO) 68.8 % (42-78); WHITE BLOOD COUNT 7.3 10^3/uL (4.0-10.5)
[2016-07-02 07:14] LABS: ALANINE AMINOTRANSFERASE 22 U/L (9-52); ALBUMIN 3.1 g/dL (3.5-5.0); ALKALINE PHOSPHATASE 102 U/L (38-126); ANION GAP 12 (5-19); ASPARTATE AMINO TRANSFERASE 28 U/L (14-36); BILIRUBIN,DIRECT 0.3 mg/dL (0.0-0.4); BILIRUBIN,TOTAL 0.7 mg/dL (0.2-1.3); BLOOD UREA NITROGEN 9 mg/dL (7-20); CALCIUM 8.8 mg/dL (8.4-10.2); CARBON DIOXIDE 23 mmol/L (22-30); CHLORIDE 102 mmol/L (98-107); CREATININE RESULT 0.56 mg/dL (0.52-1.25); GLUCOSE 91 mg/dL (75-110); MAGNESIUM 1.4 mg/dL (1.6-2.3); POTASSIUM 3.6 mmol/L (3.6-5.0); SODIUM 136.7 mmol/L (137-145); TOTAL PROTEIN 6.1 g/dL (6.3-8.2)
[2016-07-02] MEDS: LEVETIRACETAM 500 MG TABLET PO SCH ×2 (10:24→21:18)
[2016-07-02] MEDS: MAGNESIUM OXIDE 400 MG TABLET PO SCH ×2 (10:25→17:03)
[2016-07-02] MEDS: ASPIRIN 81 MG TABLET, ENT COATED PO SCH (10:25)
[2016-07-02] MEDS: MEMANTINE HCL 10 MG TABLET PO SCH (10:25)
[2016-07-02] MEDS: OXYBUTYNIN CHLORIDE 5 MG TABLET PO SCH (10:25)
[2016-07-02] MEDS: DULOXETINE HCL 30 MG CAPSULE.DR PO SCH (10:25)
[2016-07-02] MEDS: ACETAMINOPHEN 325 MG TABLET PO PRN (10:26)
--- NOTE | 2016-07-02 17:04 | PDOC PROGRESS REPORT ---
Subjective Progress Note for:: 07/02/16 Subjective:: Patient is alert and appropriate today. She has no specific complaints. Patient denies fever, chills, headache, new focal weakness, chest pain, shortness of breath, abdominal pain, nausea, vomiting, diarrhea, constipation. Physical Exam Vital Signs: Temp Pulse Resp BP Pulse Ox 98.2 F 99 16 139/87 H 100 07/02/16 11:48 07/02/16 11:48 07/02/16 11:48 07/02/16 11:48 07/02/16 11:48 Intake & Output 07/01/16 07/02/16 07/03/16 06:59 06:59 06:59 Intake Total 2300 2500 170 Output Total 3025 1775 Balance -725 725 170 Weight 61.3 kg 62.3 kg GENERAL: No acute distress HEENT: Conjunctiva clear, nonicteric, moist mucous membranes, no JVD, midline trachea RESPIRATORY: Clear to auscultation bilaterally, no wheezes, no rhonchi CARDIAC: Regular rate and rhythm, no murmurs/gallops/rubs ABDOMEN: Soft, nondistended, nontender, positive bowel sounds, no rebound, no guarding EXTREMETIES: No edema, cyanosis, clubbing NEUROLOGIC: Alert, oriented to person/place, not oriented to year, CN's grossly intact, no focal deficits SKIN: No rash, wounds PSYCH: Normal mood, normal affect Results Laboratory Results: 07/02/16 06:28 07/02/16 06:28 07/02/16 07/02/16 06:28 06:28 WBC 7.3 RBC 3.58 L Hgb 11.4 L Hct 33.4 L MCV 94 MCH 32.0 MCHC 34.2 RDW 14.0 Plt Count 298 Seg Neutrophils % 68.8 Lymphocytes % 13.9 Monocytes % 10.2 Eosinophils % 6.3 H Basophils % 0.8 Absolute Neutrophils 5.0 Absolute Lymphocytes 1.0 Absolute Monocytes 0.7 Absolute Eosinophils 0.5 Absolute Basophils 0.1 Sodium 136.7 L Potassium 3.6 Chloride 102 Carbon Dioxide 23 Anion Gap 12 BUN 9 Creatinine 0.56 Est GFR ( Amer) > 60 Est GFR (Non-Af Amer) > 60 Glucose 91 Calcium 8.8 Magnesium 1.4 L Total Bilirubin 0.7 AST 28 ALT 22 Alkaline Phosphatase 102 Total Protein 6.1 L Albumin 3.1 L 06/28/16 06/28/16 06/28/16 06:19 06:19 14:38 Creatine Kinase 102 135 CK-MB (CK-2) 1.92 Troponin I < 0.012 06/28/16 14:38 Creatine Kinase CK-MB (CK-2) 3.45 Troponin I < 0.012 Impressions: Head CT 06/27/16 00:00 IMPRESSION: NO CT EVIDENCE OF ACUTE ISCHEMIA, HEMORRHAGE, OR MASS LESION. NO SIGNIFICANT CHANGE FROM PRIOR STUDY. Head CTA 06/27/16 21:26 IMPRESSION: NONDIAGNOSTIC CTA HEAD FOR REASONS ABOVE. Carotid Doppler Study 06/28/16 00:00 IMPRESSION: Limited study. No stenosis identified. Consider follow-up study when the patient is more stable. Chest X-Ray 06/28/16 00:00 IMPRESSION: Interval placement of a left cervical vascular access catheter, the tip of which projects at the level of the superior vena cava, but the course of which appears somewhat atypical, crossing midline below the level of the aortic arch. Retrospective review of comparison CT imaging revealed this is likely a normal course and position in this patient. KUB X-Ray 06/28/16 00:00 IMPRESSION: Constipation, otherwise unremarkable bowel gas pattern Head MRI 06/28/16 00:10 IMPRESSION: Limited study as noted above. ATROPHY AND CHRONIC MICRO-VASCULAR ISCHEMIC CHANGES. OTHERWISE NORMAL MRI OF THE BRAIN WITHOUT INTRAVENOUS GADOLINIUM CONTRAST. Assessment & Plan - Diagnosis (1) Metabolic encephalopathy Is this a current diagnosis for this admission?: YesPlan: Likely secondary to seizure and postictal state. Mental status is now approaching baseline. Patient is alert and oriented to person and place today. (2) Dementia Qualifiers: Dementia type: unspecified type Dementia behavioral disturbance: without behavioral disturbance Qualified Code(s): F03.90 - Unspecified dementia without behavioral disturbance Is this a current diagnosis for this admission?: YesPlan: Continue supportive care. Apparently there is some Adult Protective Services case ongoing regarding patient's well-being. She has a neighbor listed as her power of insurance defense attorney but we do not have adequate contact information for this person in order to update them on her medical situation. (3) Seizure Is this a current diagnosis for this admission?: YesPlan: Patient has been started on Keppra this admission. EEG is pending. (4) Ambulatory dysfunction Is this a current diagnosis for this admission?: YesPlan: Physical therapy has seen patient and recommend assisted facility upon discharge. She has a bed offer at [facility]. (5) EMERSON (obstructive sleep apnea) Is this a current diagnosis for this admission?: Yes (6) Paroxysmal atrial fibrillation Is this a current diagnosis for this admission?: YesPlan: Currently in sinus rhythm. (7) Hypomagnesemia Is this a current diagnosis for this admission?: YesPlan: Start magnesium oxide 400 mg twice daily. - Time Time Spent with patient: 25-34 minutes
[2016-07-02] MEDS: ATORVASTATIN CALCIUM 80 MG TABLET PO SCH (21:18)
[2016-07-03] MEDS: HEPARIN SOD (PORCINE) 5,000 UNIT/ML 1 ML SYRINGE SUBCUT SCH ×2 (06:21→13:49)
[2016-07-03] MEDS: ACETAMINOPHEN 325 MG TABLET PO PRN (06:32)
--- NOTE | 2016-07-03 09:35 | PDOC TRANSFER SUMMARY ---
General - Admit/Disc Date/PCP Admission Date/Primary Care Provider: 06/28/16 00:04 Discharge Date: 07/03/16 - Discharge Diagnosis (1) Metabolic encephalopathy Is this a current diagnosis for this admission?: Yes (2) Seizure Is this a current diagnosis for this admission?: Yes (3) Dementia Is this a current diagnosis for this admission?: Yes (4) Ambulatory dysfunction Is this a current diagnosis for this admission?: Yes (5) EMERSON (obstructive sleep apnea) Is this a current diagnosis for this admission?: Yes (6) Paroxysmal atrial fibrillation Is this a current diagnosis for this admission?: Yes (7) Hypomagnesemia Is this a current diagnosis for this admission?: Yes - Additional Information Resuscitation Status: Full Code Discharge Diet: Cardiac Discharge Activity: Activity As Tolerated Home Medications: Duloxetine HCl [Cymbalta] 60 mg PO DAILY 06/28/16 Esomeprazole Mag Trihydrate [Nexium] 40 mg PO DAILY 06/28/16 Hydroxyzine HCl [Atarax 25 mg Tablet] 25 mg PO QHS 06/28/16 Oxybutynin Chloride [Ditropan 5 mg Tablet] 5 mg PO DAILY 06/28/16 Potassium Chloride [Klor-Con 10] 10 meq PO DAILY 06/28/16 Acetaminophen [Tylenol 325 mg Tablet] 650 mg PO Q4HP PRN tablet 07/03/16 Aspirin [Ecotrin 81 mg EC Tablet] 81 mg PO DAILY tabec 07/03/16 Atorvastatin Calcium [Lipitor 20 mg Tablet] 20 mg PO QHS #30 tablet 07/03/16 Furosemide [Lasix] 20 mg PO QAM #30 tablet 07/03/16 Levetiracetam [Keppra 500 mg Tablet] 500 mg PO Q12 #60 tablet 07/03/16 Magnesium Oxide [Mag-Ox 400 mg Tablet] 400 mg PO BID tablet 07/03/16 Memantine HCl [Namenda 10 mg Tablet] 10 mg PO DAILY tablet 07/03/16 Oxycodone HCl 5 mg PO Q8HP PRN #10 capsule 07/03/16 History of Present Illness Admission Date/PCP: 06/28/16 00:04 Patient complains of: Altered mental status History of Present Illness: BHARATH JORDAN is a 76 year old female with a past medical history of opiate dependence depression and anxiety and recent opiate overdose with encephalopathy. Presents with altered mental status noted by patient son to be altered with a left-sided gaze prompting evaluation emergency room for half hours after the onset and out of the window thrombo-lysis. She has a two- minute tonic-clonic seizure which breaks with a 1 mg dose of Ativan followed by a brief postictal state. Labs and imaging are unremarkable. Patient is able to state her name moving all 4 extremities and localizes noxious stimuli with an odd affect. Physical Exam Vital Signs: Temp Pulse Resp BP Pulse Ox 98.4 F 91 19 154/82 H 99 07/03/16 07:42 07/03/16 07:42 07/03/16 07:42 07/03/16 07:42 07/03/16 07:42 Intake & Output 07/02/16 07/03/16 07/04/16 06:59 06:59 06:59 Intake Total 2500 1006 Output Total 1775 1700 Balance 725 -694 Weight 62.3 kg 60.8 kg GENERAL: No acute distress HEENT: Conjunctiva clear, nonicteric, moist mucous membranes, no JVD, midline trachea RESPIRATORY: Clear to auscultation bilaterally, no wheezes, no rhonchi CARDIAC: Regular rate and rhythm, no murmurs/gallops/rubs ABDOMEN: Soft, nondistended, nontender, positive bowel sounds, no rebound, no guarding EXTREMETIES: No edema, cyanosis, clubbing NEUROLOGIC: Alert, oriented to person only, not oriented to year, place, CN's grossly intact, no focal deficits SKIN: No rash, wounds PSYCH: Normal mood, normal affect Results Laboratory Results: 07/02/16 06:28 07/02/16 06:28 06/28/16 06/28/16 06/28/16 06:19 06:19 14:38 Creatine Kinase 102 135 CK-MB (CK-2) 1.92 Troponin I < 0.012 06/28/16 14:38 Creatine Kinase CK-MB (CK-2) 3.45 Troponin I < 0.012 Labs- Last Values WBC 7.3 10^3/uL (4.0-10.5) 07/02/16 06:28 RBC 3.58 10^6/uL (3.72-5.28) L 07/02/16 06:28 Hgb 11.4 g/dL (12.0-15.5) L 07/02/16 06:28 Hct 33.4 % (36.0-47.0) L 07/02/16 06:28 MCV 94 fl (80-97) 07/02/16 06:28 MCH 32.0 pg (27.0-33.4) 07/02/16 06:28 MCHC 34.2 g/dL (32.0-36.0) 07/02/16 06:28 RDW 14.0 % (11.5-14.0) 07/02/16 06:28 Plt Count 298 10^3/uL (150-450) 07/02/16 06:28 Seg Neutrophils % 68.8 % (42-78) 07/02/16 06:28 Lymphocytes % 13.9 % (13-45) 07/02/16 06:28 Monocytes % 10.2 % (3-13) 07/02/16 06:28 Eosinophils % 6.3 % (0-6) H 07/02/16 06:28 Basophils % 0.8 % (0-2) 07/02/16 06:28 Absolute Neutrophils 5.0 10^3/uL (1.7-8.2) 07/02/16 06:28 Absolute Lymphocytes 1.0 10^3/uL (0.5-4.7) 07/02/16 06:28 Absolute Monocytes 0.7 10^3/uL (0.1-1.4) 07/02/16 06:28 Absolute Eosinophils 0.5 10^3/uL (0.0-0.6) 07/02/16 06:28 Absolute Basophils 0.1 10^3/uL (0.0-0.2) 07/02/16 06:28 PT 12.8 SEC (11.4-15.4) 06/27/16 22:45 INR 0.94 06/27/16 22:45 APTT 29.4 SEC (23.5-35.8) 06/27/16 22:45 Sodium 136.7 mmol/L (137-145) L 07/02/16 06:28 Potassium 3.6 mmol/L (3.6-5.0) 07/02/16 06:28 Chloride 102 mmol/L (98-107) 07/02/16 06:28 Carbon Dioxide 23 mmol/L (22-30) 07/02/16 06:28 Anion Gap 12 (5-19) 07/02/16 06:28 BUN 9 mg/dL (7-20) 07/02/16 06:28 Creatinine 0.56 mg/dL (0.52-1.25) 07/02/16 06:28 Est GFR ( Amer) > 60 (>60) 07/02/16 06:28 Est GFR (Non-Af Amer) > 60 (>60) 07/02/16 06:28 Glucose 91 mg/dL (75-110) 07/02/16 06:28 POC Glucose 116 mg/dL (70-110) H 06/27/16 23:22 Calcium 8.8 mg/dL (8.4-10.2) 07/02/16 06:28 Magnesium 1.4 mg/dL (1.6-2.3) L 07/02/16 06:28 Total Bilirubin 0.7 mg/dL (0.2-1.3) 07/02/16 06:28 Direct Bilirubin 0.3 mg/dL (0.0-0.4) 07/02/16 06:28 Indirect Bilirubin Not Reportable 07/02/16 06:28 Neonat Total Bilirubin Not Reportable 07/02/16 06:28 AST 28 U/L (14-36) 07/02/16 06:28 ALT 22 U/L (9-52) 07/02/16 06:28 Alkaline Phosphatase 102 U/L (38-126) 07/02/16 06:28 Creatine Kinase 135 U/L (30-135) 06/28/16 14:38 CK-MB (CK-2) 3.45 ng/mL (<4.55) 06/28/16 14:38 Troponin I < 0.012 ng/mL 06/28/16 14:38 Total Protein 6.1 g/dL (6.3-8.2) L 07/02/16 06:28 Albumin 3.1 g/dL (3.5-5.0) L 07/02/16 06:28 Vitamin B12 > 1000.0 pg/mL (239-931) H 06/29/16 04:45 TSH 1.86 uIU/mL (0.47-4.68) 06/29/16 04:45 Urine Color COLORLESS 06/28/16 17:40 Urine Appearance CLEAR 06/28/16 17:40 Urine pH 7.0 (5.0-9.0) 06/28/16 17:40 Ur Specific [place] 1.006 06/28/16 17:40 Urine Protein NEGATIVE mg/dL (NEGATIVE) 06/28/16 17:40 Urine Glucose (UA) NEGATIVE mg/dL (NEGATIVE) 06/28/16 17:40 Urine Ketones NEGATIVE mg/dL (NEGATIVE) 06/28/16 17:40 Urine Blood NEGATIVE (NEGATIVE) 06/28/16 17:40 Urine Nitrite NEGATIVE (NEGATIVE) 06/28/16 17:40 Urine Bilirubin NEGATIVE (NEGATIVE) 06/28/16 17:40 Urine Urobilinogen NEGATIVE mg/dL (<2.0) 06/28/16 17:40 Ur Leukocyte Esterase NEGATIVE (NEGATIVE) 06/28/16 17:40 Urine Ascorbic Acid NEGATIVE (NEGATIVE) 06/28/16 17:40 Salicylates < 1.0 mg/dL (2.0-20.0) L 06/27/16 23:41 Urine Opiates Screen NEGATIVE 06/28/16 17:40 Urine Methadone Screen NEGATIVE 06/28/16 17:40 Acetaminophen < 10 ug/mL (10-30) L 06/27/16 23:41 Ur Barbiturates Screen NEGATIVE 06/28/16 17:40 Ur Phencyclidine Scrn NEGATIVE 06/28/16 17:40 Ur Amphetamines Screen NEGATIVE 06/28/16 17:40 U Benzodiazepines Scrn NEGATIVE 06/28/16 17:40 Urine Cocaine Screen NEGATIVE 06/28/16 17:40 U Marijuana (THC) Screen NEGATIVE 06/28/16 17:40 Serum Alcohol < 10 mg/dL (NONE DETECTED) 06/27/16 23:41 06/28/16 17:40 Urine Culture - Final Hitchcock Catheter NO GROWTH 2 DAYS Impressions: Head CT 06/27/16 00:00 IMPRESSION: NO CT EVIDENCE OF ACUTE ISCHEMIA, HEMORRHAGE, OR MASS LESION. NO SIGNIFICANT CHANGE FROM PRIOR STUDY. Head CTA 06/27/16 21:26 IMPRESSION: NONDIAGNOSTIC CTA HEAD FOR REASONS ABOVE. Carotid Doppler Study 06/28/16 00:00 IMPRESSION: Limited study. No stenosis identified. Consider follow-up study when the patient is more stable. Chest X-Ray 06/28/16 00:00 IMPRESSION: Interval placement of a left cervical vascular access catheter, the tip of which projects at the level of the superior vena cava, but the course of which appears somewhat atypical, crossing midline below the level of the aortic arch. Retrospective review of comparison CT imaging revealed this is likely a normal course and position in this patient. KUB X-Ray 06/28/16 00:00 IMPRESSION: Constipation, otherwise unremarkable bowel gas pattern Head MRI 06/28/16 00:10 IMPRESSION: Limited study as noted above. ATROPHY AND CHRONIC MICRO-VASCULAR ISCHEMIC CHANGES. OTHERWISE NORMAL MRI OF THE BRAIN WITHOUT INTRAVENOUS GADOLINIUM CONTRAST. Transfer Plan - Time Spent with Patient Time spent with patient: Greater than 30 Minutes
--- NOTE | 2016-07-03 10:02 | EEG PRO FEE REPORT ---
EEG INTERPRETATION PATIENT NAME: BHARATH JORDAN ROOM#: [id number] ORDER#: [id number] DATE OF STUDY: 07/01/2016 : 1940 REFERRING MD: Dr Pearson DIAGNOSIS: Possible seizures REPORT The background is somewhat slow down to mostly 5-6 Hz theta throughout a lot of superimposed motion artifact. No further focal slowing is seen nor any major amplitude asymmetry noted. No definite epileptiform activity is identified on video or on the tracing. Overall this appears to be somewhat slow EEG even considering the stated age of 76 most consistent with a generalized cause of cerebral dysfunction such as a toxic or metabolic cause. Postictal state is possible but again no definite epileptiform activity was seen during the tracing. IMPRESSION Normal EEG INTERPRETING PHYSICIAN: BURT FAIRCHILD M.D. /: MTEFFT TT: [id number] ID: [id number] /: [id number] TD: [id number] JOB: [id number] cc:Cristian JACKSON M.D. >
[2016-07-03] MEDS: MAGNESIUM OXIDE 400 MG TABLET PO SCH (11:08)
[2016-07-03] MEDS: DULOXETINE HCL 30 MG CAPSULE.DR PO SCH (11:08)
[2016-07-03] MEDS: ASPIRIN 81 MG TABLET, ENT COATED PO SCH (11:08)
[2016-07-03] MEDS: LEVETIRACETAM 500 MG TABLET PO SCH (11:08)
[2016-07-03] MEDS: MEMANTINE HCL 10 MG TABLET PO SCH (11:08)
[2016-07-03] MEDS: OXYBUTYNIN CHLORIDE 5 MG TABLET PO SCH (11:09)
[2016-07-03 13:05] VITALS: BP 160/80
== END 2016-07-03 15:40 | DRG 100 ==
LOC: ER 21:21 → EH 06-28 00:04 → UNDOADMIN 06-28 00:24 → 3W 06-28 03:20
PROVIDERS: ADMIT Internal Medicine; ATTEND Internal Medicine
PROC: 02HV33Z Insertion of Infusion Device into Superior Vena Cava, Percutaneous Approach (ICD-10-PCS; principal; 2016-06-28)
PROC: B548ZZA Ultrasonography of Superior Vena Cava, Guidance (ICD-10-PCS; 2016-06-28)
DX: G40.409 Other generalized epilepsy and epileptic syndromes, not intractable, without status epilepticus (principal); G93.41 Metabolic encephalopathy; F11.20 Opioid dependence, uncomplicated; G89.29 Other chronic pain; Z78.1 Physical restraint status; F03.90 Unspecified dementia, unspecified severity, without behavioral disturbance, psychotic disturbance, mood disturbance, and anxiety; G47.33 Obstructive sleep apnea (adult) (pediatric); I48.0 Paroxysmal atrial fibrillation; E83.42 Hypomagnesemia; K59.00 Constipation, unspecified; F32.9 Major depressive disorder, single episode, unspecified; F41.9 Anxiety disorder, unspecified; I10 Essential (primary) hypertension; D64.9 Anemia, unspecified; Z79.899 Other long term (current) drug therapy; Z90.49 Acquired absence of other specified parts of digestive tract; Z90.710 Acquired absence of both cervix and uterus; Z88.0 Allergy status to penicillin; Z88.1 Allergy status to other antibiotic agents; Z88.6 Allergy status to analgesic agent
CPT/HCPCS: 36415; 70450; 70496; 70551; 71010; 74000; 80053; 80307; 81001; 82550; 82553; 82607; 82962; 83735; 84443; 84484; 85025; 85610; 85730; 87086; 93005; 93010; 93306; 93880; 95819; 96374; 99291; C1751; G8978-GP; G8979-GP; G8987-GO; G8988-GO; J1170; J1630; J1642; J1644; J1953; J2060; J2310; J3490; J7030

== ENCOUNTER → 2017-02-20 | Outpatient (CLI) | payer MEDICARE, OTHER ==
--- NOTE | 2017-02-21 13:11 | XCELERA REPORT ---
[address] [address] Lower Extremity Arterial Evaluation Name: BHARATH JORDAN Age: 76 yrs Gender: Female : 1940 Patient Status: Outpatient Patient Location: Study Date: 02/20/2017 10:47 AM Procedure: A color flow and duplex scan of the lower extremity arteries was performed bilaterally with velocity and waveform anaylsis. Ankle brachial indicies performed. Reason For Study: ULCER Ordering Physician: ARI SALES Performed By: Nuzhat Long Measurements and Calculations Right Left TOBACCO PREVENTION HEALTH EDUCATOR PSV 106.9 87.7 cm/sec Prox PFA PSV -84.5 -56.9 cm/sec Prox SFA PSV -147.7 115.0 cm/sec Mid SFA PSV -120.2 -101.8 cm/sec Dist SFA PSV -79.6 -69.8 cm/sec Prox Pop A PSV 53.1 62.5 cm/sec Dist HERSON PSV 63.9 75.8 cm/sec Prox SALES SERVICE REP PSV 43.1 cm/sec Mid SALES SERVICE REP PSV 29.5 cm/sec Dist SALES SERVICE REP PSV -94.3 cm/sec Dist [place] A PSV 63.8 cm/sec Evin Pedis PSV 89.5 -24.0 cm/sec Right Side Arterial Evaluation Normal velocity and triphasic waveforms noted from the Common Femoral artery to the infrageniculate vessels. 0 % stenosis. Ankle Brachial index was not obtainable due to non compressibility. Left Side Arterial Evaluation Normal velocity and triphasic waveforms noted from the Common Femoral artery to the Popliteal artery. Biphasic in the Anterior Tibial artery. Occluded Posterior Tibial artery . 2-19 % stenosis. At the Anterior tibial artery with occlusion in the Posterior Tibial artery. Ankle Brachial index was not obtainable due to non compressibility. Interpretation Summary Mild hemodynamically significant lesions in the right lower extremity only, on duplex imaging, at rest. Moderate hemodynamically significant lesions in the left lower extremity only, on duplex imaging, at rest. : ARI SALES > Gonzalez Carreon
== END ==
LOC: SP 10:36
PROVIDERS: ATTEND Nurse Practitioner Family
DX: L97.212 Non-pressure chronic ulcer of right calf with fat layer exposed (principal)
CPT/HCPCS: 93925

== ENCOUNTER 2017-03-13 15:14 | Observation (INO) | payer MEDICARE, OTHER ==
[2017-03-13] MEDS ORDERED: ASPIRIN 81 MG TABLET, CHEWABLE PO ONE (17:13)
[2017-03-13 17:27] LABS: ABSOLUTE BASOPHILS # (AUTO) 0.1 10^3/uL (0.0-0.2); ABSOLUTE EOSINOPHILS # (AUTO) 0.4 10^3/uL (0.0-0.6); ABSOLUTE LYMPHOCYTES (AUTO) 1.2 10^3/uL (0.5-4.7); ABSOLUTE MONOCYTES (AUTO) 0.9 10^3/uL (0.1-1.4); BASOPHILS % (AUTO) 0.8 % (0-2); HEMATOCRIT 27.6 % (36.0-47.0); HEMOGLOBIN 8.8 g/dL (12.0-15.5); LYMPHOCYTES % (AUTO) 13.6 % (13-45); MEAN CORPUSCULAR HEMOGLOBIN 24.7 pg (27.0-33.4); MEAN CORPUSCULAR HGB CONC 31.9 g/dL (32.0-36.0); MEAN CORPUSCULAR VOLUME 77 fl (80-97); PLATELET COUNT 330 10^3/uL (150-450); RED BLOOD COUNT 3.57 10^6/uL (3.72-5.28); RED CELL DISTRIBUTION WIDTH 16.6 % (11.5-14.0); SEGMENTED NEUTROPHILS % (AUTO) 70.6 % (42-78); TOTAL CELLS COUNTED % (AUTO) 100 %; WHITE BLOOD COUNT 8.6 10^3/uL (4.0-10.5)
--- NOTE | 2017-03-13 17:46 | ER Document Report ---
ED Cardiac - General Mode of Arrival: Ambulatory Information source: Patient TRAVEL OUTSIDE OF THE [place] IN LAST 30 DAYS: No <VERA DAVIS - Last Filed: 03/13/17 18:13> <PENNIE VELASQUEZ - Last Filed: 03/13/17 22:45> - General Chief Complaint: Chest Pain Stated Complaint: CHEST PAIN Time Seen by Provider: 03/13/17 17:10 Notes: Patient is a 76 year old female presenting to the emergency department complaining of chest pain onset yesterday. Patient states that she went to bed last night and her chest pain persisted unto today and she decided to call EMS. Patient describes her chest pain as something heavy on her chest. Patient states that she would have occasional chest pain that normally subsides on its own. Patient also states that she also has some jaw pain. Patient denies any sore throat, runny nose, trouble breathing, vomiting, nausea, diarrhea, sweats or chills. (VERA DAVIS) - Related Data Allergies/Adverse Reactions: amoxicillin Allergy (Verified 03/13/17 19:20) cephalexin [From Keflex] Allergy (Verified 03/13/17 19:20) Itching and Rash morphine Allergy (Verified 03/13/17 19:20) Penicillins Allergy (Verified 03/13/17 19:20) Home Medications: Current Home Medications Aspirin [Aspirin EC] 81 mg PO DAILY 03/13/17 [History] Atorvastatin Calcium [Lipitor 20 mg Tablet] 20 mg PO QHS 03/13/17 [History] Donepezil HCl [Aricept 5 mg Tablet] 5 mg PO DAILY 03/13/17 [History] Duloxetine HCl [Cymbalta] 60 mg PO DAILY 03/13/17 [History] Furosemide [Lasix 20 mg Tablet] 20 mg PO QAM 03/13/17 [History] Hydroxyzine HCl 25 mg PO QHS 03/13/17 [History] Levetiracetam [Keppra 500 mg Tablet] 500 mg PO Q12 03/13/17 [History] Magnesium Oxide [Mag-Ox 400 mg Tablet] 400 mg PO BID 03/13/17 [History] Memantine HCl [Namenda 10 mg Tablet] 10 mg PO BID 03/13/17 [History] Pantoprazole Sodium 40 mg PO DAILY 03/13/17 [History] Potassium Chloride [Klor-Con 10 Meq Tablet.sa] 10 meq PO DAILY 03/13/17 [History ] Quetiapine Fumarate [Seroquel 25 mg Tablet] 25 mg PO QHS 03/13/17 [History] Past Medical History - General Information source: Patient - Social History Smoking Status: Never Smoker Chew tobacco use (# tins/day): No Frequency of alcohol use: Rare Drug Abuse: None Family History: Reviewed & Not Pertinent, Other - Unobtainable Patient has suicidal ideation: No Patient has homicidal ideation: No - Past Medical History Cardiac Medical History: Reports: Hx Hypertension Pulmonary Medical History: Reports: Hx Bronchitis Skin Medical History: Reports Hx Cellulitis Traumatic Medical History: Reports: Hx Fractures - Femur Past Surgical History: Reports: Hx Cholecystectomy, Hx Hysterectomy, Hx Orthopedic Surgery - right hip, right knee - Immunizations Hx Diphtheria, Pertussis, Tetanus Vaccination: No <VERA DAVIS - Last Filed: 03/13/17 18:13> - Social History Family History: Hypertension, Other - Unobtainabl -correction, not unobtainable <PENNIE VELASQUEZ - Last Filed: 03/13/17 22:45> Review of Systems - Review of Systems Constitutional: No symptoms reported EENT: See HPI, Other - Jaw pain Cardiovascular: See HPI, Chest pain Respiratory: No symptoms reported Gastrointestinal: No symptoms reported Genitourinary: No symptoms reported Female Genitourinary: No symptoms reported Musculoskeletal: No symptoms reported Skin: No symptoms reported Hematologic/Lymphatic: No symptoms reported Neurological/Psychological: No symptoms reported -: Yes All other systems reviewed and negative <VERA DAVIS - Last Filed: 03/13/17 18:13> Physical Exam <VERA DAVIS - Last Filed: 03/13/17 18:13> <PENNIE VELASQUEZ - Last Filed: 03/13/17 22:45> - Vital signs Vitals: Resp Pulse Ox 21 H 97 03/13/17 15:36 03/13/17 15:36 - Notes Notes: GENERAL: Alert, interacts well. No acute distress. HEAD: Normocephalic, atraumatic. EYES: Pupils equal, round, and reactive to light. Extraocular movements intact. ENT: Oral mucosa moist, tongue midline. NECK: Full range of motion. Supple. Trachea midline. LUNGS: Clear to auscultation bilaterally, no wheezes, rales, or rhonchi. No respiratory distress. HEART: Mild tachycardia. 1/6 systolic murmur. No gallops or rubs. ABDOMEN: Soft, non-tender. Non-distended. Bowel sounds present in all 4 quadrants. EXTREMITIES: Moves all 4 extremities spontaneously. No edema, radial and dorsalis pedis pulses 2/4 bilaterally. No cyanosis. NEUROLOGICAL: Alert and oriented x3. Normal speech. PSYCH: Normal affect, normal mood. SKIN: Warm, dry, normal turgor. No rashes or lesions noted. (VERA DAVIS) Course - Laboratory Result Diagrams: 03/13/17 15:00 03/13/17 15:00 <VERA DAVIS - Last Filed: 03/13/17 18:13> - Laboratory Result Diagrams: 03/13/17 15:00 03/13/17 15:00 <PENNIE VELASQUEZ - Last Filed: 03/13/17 22:45> - Re-evaluation Re-evalutation: 03/13/17 20:52 CBC shows anemia with hemoglobin 8.8, no leukocytosis, CMP shows slightly elevated BUN at 25 otherwise unremarkable, cardiac enzymes negative 1 however her chest pain did worsen however there were no dynamic EKG changes, it did resolve with 2 nitroglycerin. Chest x-ray does not show any acute process. Patient was given aspirin, I am concerned for unstable angina. I did discuss this patient with Dr. Jalloh who agrees to accept the patient to her service in observation status. Patient will be given a single dose of Lovenox. 03/13/17 20:54 Hospitalist will continue to follow hypertension in the hospital. (PENNIE VELASQUEZ) - Vital Signs Vital signs: Temp Pulse Resp BP Pulse Ox 19 151/88 H 94 03/13/17 21:31 03/13/17 21:31 03/13/17 21:31 - Laboratory Laboratory results interpreted by me: 03/13/17 03/13/17 15:00 15:00 RBC 3.57 L Hgb 8.8 L Hct 27.6 L MCV 77 L MCH 24.7 L MCHC 31.9 L RDW 16.6 H BUN 25 H Est GFR (Non-Af Amer) 53 L Direct Bilirubin 0.6 H - EKG Interpretation by Me Additional EKG results interpreted by me: 03/13/17 20:53 Initial EKG shows sinus rhythm at a rate of 68, 1 PAC, left axis deviation, no ST segment elevations or depressions, nonspecific T-wave inversions in the 3 per my interpretation. Repeat EKG shows sinus rhythm rate 96, left axis deviation, no ST segment elevation or depression, no T-wave inversions per my interpretation. (PENNIE VELASQUEZ) Discharge <VERA DAVIS - Last Filed: 03/13/17 18:13> - [facility] Tele[facility] <PENNIE VELASQUEZ - Last Filed: 03/13/17 22:45> - Discharge Clinical Impression: Chest pain, rule out acute myocardial infarction Hypertension Qualifiers: Hypertension type: essential hypertension Qualified Code(s): I10 - Essential ( primary) hypertension Condition: Fair Disposition: ADMITTED OBSERVATION Scribe Attestation: 03/13/17 22:44 I personally performed the services described in the documentation, reviewed and edited the documentation which was dictated to the scribe in my presence, and it accurately records my words and actions. (PENNIE VELASQUEZ) Scribe Documentation - Scribe Written by Jose:: Jose Patel, 03/13/2017 acting as scribe for :: Maxime <VERA DAVIS - Last Filed: 03/13/17 18:13>
[2017-03-13 17:51] LABS: ALANINE AMINOTRANSFERASE 26 U/L (9-52); ALKALINE PHOSPHATASE 113 U/L (38-126); ANION GAP 9 (5-19); ASPARTATE AMINO TRANSFERASE 23 U/L (14-36); BILIRUBIN,DIRECT 0.6 mg/dL (0.0-0.4); BILIRUBIN,TOTAL 0.8 mg/dL (0.2-1.3); BLOOD UREA NITROGEN 25 mg/dL (7-20); CALCIUM 9.4 mg/dL (8.4-10.2); CARBON DIOXIDE 29 mmol/L (22-30); CHLORIDE 100 mmol/L (98-107); CREATINE KINASE 64 U/L (30-135); GLUCOSE 101 mg/dL (75-110); POTASSIUM 4.7 mmol/L (3.6-5.0); SODIUM 138.3 mmol/L (137-145); TOTAL PROTEIN 7.3 g/dL (6.3-8.2)
[2017-03-13] MEDS: NITROGLYCERIN 0.4 MG/TAB 25 TAB/BOTTLE SL PRN ×2 (18:02→18:16)
[2017-03-13 18:06] LABS: CREATINE KINASE MB 0.68 ng/mL (<4.55)
[2017-03-13 18:10] LABS: TROPONIN I < 0.012 ng/mL
--- NOTE | 2017-03-13 18:27 | RADIOLOGY REPORT (SQ) ---
EXAM DESCRIPTION: CHEST SINGLE VIEW COMPLETED DATE/TIME: 03/13/2017 6:05 pm REASON FOR STUDY: chest pain COMPARISON: 06/28/2016 EXAM PARAMETERS: NUMBER OF VIEWS: One view. TECHNIQUE: Single frontal radiographic view of the chest acquired. RADIATION DOSE: NA LIMITATIONS: None. FINDINGS: LUNGS AND PLEURA: The lungs are hyperexpanded. There is no infiltrate or effusion. There is no mass. MEDIASTINUM AND HILAR STRUCTURES: No masses. Contour normal. HEART AND VASCULAR STRUCTURES: Heart normal in size. Tortuosity of the descending aorta. BONES: Scoliosis. HARDWARE: None in the chest. OTHER: No other significant finding. IMPRESSION: Chronic lung changes with no acute cardiopulmonary disease. TECHNICAL DOCUMENTATION: JOB ID: [id number] [employer]- All Rights Reserved
[2017-03-13] MEDS ORDERED: ENOXAPARIN SODIUM INJ 80 MG/0.8 ML DISP.SYRIN SUBCUT ONE (20:53)
[2017-03-13] MEDS ORDERED: MAG HYDROX/AL HYDROX/SIMETH SUSP 30 ML UDCUP PO PRN (21:47)
[2017-03-13] MEDS ORDERED: NITROGLYCERIN 0.4 MG/TAB 25 TAB/BOTTLE SL PRN (21:47)
[2017-03-13] MEDS ORDERED: ONDANSETRON 4 MG TAB.RAPDIS PO PRN (21:47)
[2017-03-13] MEDS ORDERED: QUETIAPINE FUMARATE 25 MG TABLET PO SCH (22:00)
[2017-03-13] MEDS ORDERED: (PENDING PHARMACY ID) (Hydroxyzine Hcl [Hydroxyzine Hcl] 25 MG) PO SCH (22:00)
[2017-03-13] MEDS ORDERED: ATORVASTATIN CALCIUM 40 MG TABLET PO SCH (22:00)
[2017-03-13] MEDS ORDERED: HYDROXYZINE PAMOATE 25 MG CAPSULE PO ONE (22:15)
[2017-03-13] MEDS: LEVETIRACETAM 500 MG TABLET PO SCH (23:17)
[2017-03-13] MEDS: METOPROLOL TARTRATE 25 MG TABLET PO SCH (23:18)
[2017-03-13] MEDS: LISINOPRIL 5 MG TABLET PO SCH (23:18)
[2017-03-13] MEDS: ENOXAPARIN SODIUM INJ 80 MG/0.8 ML DISP.SYRIN SUBCUT SCH (23:19)
[2017-03-13 23:45] LABS: TROPONIN I < 0.012 ng/mL
[2017-03-14] MEDS ORDERED: ACETAMINOPHEN 325 MG TABLET PO PRN (00:15)
--- NOTE | 2017-03-14 02:47 | EKG REPORT ---
SEVERITY:- ABNORMAL ECG - ECTOPIC ATRIAL RHYTHM SHORT ND INTERVAL, ACCELERATED AV CONDUCTION BORDERLINE LEFT AXIS DEVIATION BORDERLINE PROLONGED QT INTERVAL : Confirmed by: Huber Ashraf MD 13-Mar-2017 19:52:16
--- NOTE | 2017-03-14 05:13 | PDOC H&P ---
History of Present Illness Admission Date/PCP: 03/13/17 21:01 MEGHA PAZ MD History of Present Illness: BHARATH JORDAN is a 76 year old female with a past medical history of dementia, GERD, hyperlipidemia, questionable seizure disorder who presents to the emergency department with complaints of chest pain beginning yesterday. Patient reports this is an epigastric discomfort that she describes as a heaviness that radiates through to her back and up to her jaw. She reports this having improved after the second nitroglycerin. Patient denies any aggravating factors. She denies any associated shortness of breath, diaphoresis , nausea, vomiting, or metallic taste in her mouth. Patient is referred to the hospital service for evaluation of her chest pain. Past Medical History Cardiac Medical History: Reports: Hypertension Pulmonary Medical History: Reports: Bronchitis Neurological Medical History: Reports: Seizures, Other - Dementia Psychiatric Medical History: Reports: Depression Hematology: Reports: Anemia Past Surgical History Past Surgical History: Reports: Cholecystectomy, Hysterectomy, Orthopedic Surgery - right hip, right knee, Tonsillectomy Social History Smoking Status: Never Smoker Frequency of Alcohol Use: None Hx Recreational Drug Use: No Hx Prescription Drug Abuse: No - Advance Directive Resuscitation Status: Do Not Resuscitate Surrogate healthcare decision maker:: Miguelina Jordan, granddaughter Family History Family History: CAD, Hypertension Parental Family History Reviewed: Yes Children Family History Reviewed: Yes Sibling(s) Family History Reviewed.: Yes Medication/Allergy Home Medications: Aspirin [Aspirin EC] 81 mg PO DAILY 03/13/17 Atorvastatin Calcium [Lipitor 20 mg Tablet] 20 mg PO QHS 03/13/17 Donepezil HCl [Aricept 5 mg Tablet] 5 mg PO DAILY 03/13/17 Duloxetine HCl [Cymbalta] 60 mg PO DAILY 03/13/17 Furosemide [Lasix 20 mg Tablet] 20 mg PO QAM 03/13/17 Hydroxyzine HCl 25 mg PO QHS 03/13/17 Levetiracetam [Keppra 500 mg Tablet] 500 mg PO Q12 03/13/17 Magnesium Oxide [Mag-Ox 400 mg Tablet] 400 mg PO BID 03/13/17 Memantine HCl [Namenda 10 mg Tablet] 10 mg PO BID 03/13/17 Pantoprazole Sodium 40 mg PO DAILY 03/13/17 Potassium Chloride [Klor-Con 10 Meq Tablet.sa] 10 meq PO DAILY 03/13/17 Quetiapine Fumarate [Seroquel 25 mg Tablet] 25 mg PO QHS 03/13/17 Allergies/Adverse Reactions: amoxicillin Allergy (Verified 03/13/17 19:20) cephalexin [From Keflex] Allergy (Verified 03/13/17 19:20) Itching and Rash morphine Allergy (Verified 03/13/17 19:20) Penicillins Allergy (Verified 03/13/17 19:20) Review of Systems Constitutional: ABSENT: chills, fever(s), headache(s), weight gain, weight loss Eyes: ABSENT: visual disturbances Ears: ABSENT: hearing changes Cardiovascular: PRESENT: as per HPI, chest pain. ABSENT: dyspnea on exertion, edema, orthropnea, palpitations Respiratory: ABSENT: cough, hemoptysis Gastrointestinal: ABSENT: abdominal pain, constipation, diarrhea, hematemesis, hematochezia, nausea, vomiting Genitourinary: ABSENT: dysuria, hematuria Musculoskeletal: ABSENT: joint swelling Integumentary: ABSENT: rash, wounds Neurological: ABSENT: abnormal gait, abnormal speech, confusion, dizziness, focal weakness, syncope Psychiatric: ABSENT: anxiety, depression, homidical ideation, suicidal ideation Endocrine: ABSENT: cold intolerance, heat intolerance, polydipsia, polyuria Hematologic/Lymphatic: ABSENT: easy bleeding, easy bruising Physical Exam Vital Signs: Temp Pulse Resp BP Pulse Ox 98.2 F 65 16 126/57 H 97 03/14/17 03:26 03/14/17 03:26 03/14/17 03:26 03/14/17 03:26 03/14/17 03:26 Intake & Output 03/12/17 03/13/17 03/14/17 06:59 06:59 06:59 Intake Total 245 Output Total 300 Balance -55 Weight 65.7 kg General appearance: PRESENT: no acute distress, well-developed, well-nourished Head exam: PRESENT: atraumatic, normocephalic Eye exam: PRESENT: conjunctiva pink, EOMI, PERRLA. ABSENT: scleral icterus Ear exam: PRESENT: normal external ear exam Mouth exam: PRESENT: moist, tongue midline Neck exam: ABSENT: JVD, lymphadenopathy, thyromegaly, tracheal deviation Respiratory exam: PRESENT: clear to auscultation sabina. ABSENT: rales, rhonchi, wheezes Cardiovascular exam: PRESENT: RRR. ABSENT: diastolic murmur, rubs, systolic murmur Pulses: PRESENT: normal dorsalis pedis pul Vascular exam: PRESENT: normal capillary refill GI/Abdominal exam: PRESENT: normal bowel sounds, soft. ABSENT: distended, guarding, mass, organolmegaly, rebound, tenderness Rectal exam: PRESENT: deferred Extremities exam: PRESENT: full ROM. ABSENT: calf tenderness, clubbing, pedal edema Neurological exam: PRESENT: alert, awake, oriented to person, oriented to place , oriented to situation, CN II-XII grossly intact. ABSENT: motor sensory deficit Psychiatric exam: PRESENT: appropriate affect, normal mood. ABSENT: homicidal ideation, suicidal ideation Skin exam: PRESENT: dry, intact, warm. ABSENT: cyanosis, rash Results Laboratory Results: 03/13/17 23:00 CK-MB (CK-2) 0.60 Troponin I < 0.012 03/13/17 03/13/17 15:00 15:00 Hgb 8.8 L MCV 77 L Plt Count 330 BUN 25 H Creatinine 1.01 Impressions: Chest X-Ray 03/13/17 17:13 IMPRESSION: Chronic lung changes with no acute cardiopulmonary disease. Status: Imported from PACS Assessment & Plan - Diagnosis (1) Chest pain, rule out acute myocardial infarction Is this a current diagnosis for this admission?: Yes Plan: Place patient on telemetry observation. Monitor for arrhythmia or ST segment changes. Initiate patient on treatment dose Lovenox. Initiate patient on metoprolol, Lipitor, oxygen, nitroglycerin, morphine, and aspirin. Serial cardiac enzymes every 6 hours. Testing lipid panel in the morning. Will obtain stress test tomorrow due to patient's risk factors and concerning history of chest pain. (2) Hypertension Qualifiers: Hypertension type: essential hypertension Qualified Code(s): I10 - Essential (primary) hypertension Is this a current diagnosis for this admission?: Yes Plan: Place patient on metoprolol and lisinopril (3) Seizure Is this a current diagnosis for this admission?: Yes Plan: Keppra 500 p.o. twice daily and seizure precautions (4) Paroxysmal atrial fibrillation Is this a current diagnosis for this admission?: Yes Plan: Metoprolol (5) EMERSON (obstructive sleep apnea) Is this a current diagnosis for this admission?: Yes (6) Rheumatoid arthritis Qualifiers: Rheumatoid arthritis location: unspecified site Is this a current diagnosis for this admission?: Yes - Time Time Spent: 30 to 50 Minutes Medications reviewed and adjusted accordingly: Yes Anticipated discharge: Home Within: within 24 hours - Inpatient Certification Based on my medical assessment, after consideration of the patient's comorbidities, presenting symptoms, or acuity I expect that the services needed warrant INPATIENT care.: No I certify that my determination is in accordance with my understanding of Medicare's requirements for reasonable and necessary INPATIENT services [42 CFR 412.3e].: No Post Hospital Care: D/C [employer] Operator Documentation
[2017-03-14] MEDS ORDERED: LANSOPRAZOLE 15 MG TAB.RAP.DR PO SCH (06:00)
[2017-03-14 06:25] LABS: CHOLESTEROL 112.01 mg/dL (0-200); CREATINE KINASE 57 U/L (30-135); TRIGLYCERIDES 80 mg/dL (<150)
[2017-03-14 06:35] LABS: CREATINE KINASE MB 0.47 ng/mL (<4.55)
[2017-03-14 06:36] LABS: DIRECT LDL 36 mg/dL (<100)
[2017-03-14 06:51] LABS: TROPONIN I < 0.012 ng/mL
[2017-03-14] MEDS: METOPROLOL TARTRATE 25 MG TABLET PO SCH (09:42)
[2017-03-14] MEDS: LISINOPRIL 5 MG TABLET PO SCH (09:43)
[2017-03-14] MEDS: LEVETIRACETAM 500 MG TABLET PO SCH (09:43)
[2017-03-14] MEDS: ENOXAPARIN SODIUM INJ 80 MG/0.8 ML DISP.SYRIN SUBCUT SCH (09:44)
[2017-03-14] MEDS ORDERED: DULOXETINE HCL 30 MG CAPSULE.DR PO SCH (10:00)
[2017-03-14] MEDS ORDERED: POTASSIUM CHLORIDE 10 MEQ TABLET.SA PO SCH (10:00)
[2017-03-14] MEDS ORDERED: ASPIRIN 325 MG TABLET, ENT COATED PO SCH (10:00)
[2017-03-14] MEDS ORDERED: MAGNESIUM OXIDE 400 MG TABLET PO SCH (10:00)
[2017-03-14] MEDS ORDERED: DONEPEZIL HCL 5 MG TABLET PO SCH (10:00)
[2017-03-14] MEDS ORDERED: MEMANTINE HCL 10 MG TABLET PO SCH (10:00)
[2017-03-14 11:38] LABS: CREATINE KINASE MB 0.47 ng/mL (<4.55)
[2017-03-14 11:45] LABS: TROPONIN I < 0.012 ng/mL
[2017-03-14 14:11] VITALS: BP 142/86
--- NOTE | 2017-03-14 20:58 | EKG REPORT ---
SEVERITY:- BORDERLINE ECG - SINUS RHYTHM ATRIAL PREMATURE COMPLEX BORDERLINE LEFT AXIS DEVIATION BORDERLINE PROLONGED QT INTERVAL : Confirmed by: Huber Ashraf MD 13-Mar-2017 19:52:26
[2017-03-14] MEDS ORDERED: HYDROXYZINE PAMOATE 25 MG CAPSULE PO SCH (22:00)
--- NOTE | 2017-03-19 06:36 | PDOC DISCHARGE SUMMARY ---
General - Admit/Disc Date/PCP Admission Date/Primary Care Provider: 03/13/17 21:01 MEGHA PAZ MD Discharge Date: 03/14/17 - Discharge Diagnosis (1) Chest pain Is this a current diagnosis for this admission?: Yes (2) Paroxysmal atrial fibrillation Is this a current diagnosis for this admission?: Yes (3) Rheumatoid arthritis Is this a current diagnosis for this admission?: Yes - Additional Information Resuscitation Status: Do Not Resuscitate Home Medications: Aspirin [Aspirin EC] 81 mg PO DAILY 03/13/17 Atorvastatin Calcium [Lipitor 20 mg Tablet] 20 mg PO QHS 03/13/17 Donepezil HCl [Aricept 5 mg Tablet] 5 mg PO DAILY 03/13/17 Duloxetine HCl [Cymbalta] 60 mg PO DAILY 03/13/17 Furosemide [Lasix 20 mg Tablet] 20 mg PO QAM 03/13/17 Hydroxyzine HCl 25 mg PO QHS 03/13/17 Levetiracetam [Keppra 500 mg Tablet] 500 mg PO Q12 03/13/17 Magnesium Oxide [Mag-Ox 400 mg Tablet] 400 mg PO BID 03/13/17 Memantine HCl [Namenda 10 mg Tablet] 10 mg PO BID 03/13/17 Pantoprazole Sodium 40 mg PO DAILY 03/13/17 Potassium Chloride [Klor-Con 10 Meq Tablet.sa] 10 meq PO DAILY 03/13/17 Quetiapine Fumarate [Seroquel 25 mg Tablet] 25 mg PO QHS 03/13/17 History of Present Illness History of Present Illness: BHARATH JORDAN is a 76 year old female with a past medical history of dementia, GERD, hyperlipidemia, questionable seizure disorder who presented to the emergency department with complaints of chest pain beginning for one day. Patient reported that was an epigastric discomfort that she described as a heaviness whic radiated through to her back and up to her jaw. She reported having improved after the second nitroglycerin. Patient denied any aggravating factors. She denied any associated shortness of breath, diaphoresis, nausea, vomiting, or metallic taste in her mouth. Patient was referred to the hospital service for evaluation of her chest pain Hospital Course Hospital Course: Patient was admitted to telemetry unit. There were no cardiac dysrhythmia. Troponins remain negative. Patient remained pain-free. She was informed that nuclear stress test could not be performed on the day of discharge. Patient was very reluctant to stay another day and she wanted to be discharged. Accordingly she was going to follow-up with her primary care provider in this regard. Since patient had achieved maximum benefit of hospitalization stay and was not amenable to stay 1 more day prompted to discharge under stable condition Physical Exam Vital Signs: Temp Pulse Resp BP Pulse Ox 98.7 F 77 16 143/75 H 100 03/14/17 12:06 03/14/17 12:06 03/14/17 12:06 03/14/17 12:06 03/14/17 12:06 Intake & Output 03/13/17 03/14/17 03/15/17 06:59 06:59 06:59 Intake Total 485 Output Total 600 Balance -115 Weight 65.7 kg General appearance: PRESENT: no acute distress, cooperative, well-developed, well-nourished Head exam: PRESENT: atraumatic, normocephalic Eye exam: PRESENT: EOMI, PERRLA Ear exam: PRESENT: normal external ear exam, TM's normal bilaterally Mouth exam: PRESENT: moist, neck supple Neck exam: PRESENT: full ROM, tenderness. ABSENT: JVD Respiratory exam: PRESENT: clear to auscultation sabina Cardiovascular exam: PRESENT: RRR. ABSENT: diastolic murmur, systolic murmur Vascular exam: PRESENT: normal capillary refill GI/Abdominal exam: PRESENT: normal bowel sounds, soft. ABSENT: guarding, tenderness Extremities exam: PRESENT: full ROM. ABSENT: joint swelling, pedal edema Musculoskeletal exam: PRESENT: ambulatory Neurological exam: PRESENT: alert, oriented to person, oriented to place, oriented to time Psychiatric exam: PRESENT: appropriate affect, normal mood Results Laboratory Results: 03/14/17 05:00 Triglycerides 80 Cholesterol 112.01 LDL Cholesterol Direct 36 VLDL Cholesterol 16.0 HDL Cholesterol 62 03/13/17 03/14/17 03/14/17 23:00 05:00 05:00 Creatine Kinase 57 CK-MB (CK-2) 0.60 0.47 Troponin I < 0.012 < 0.012 03/14/17 10:58 Creatine Kinase CK-MB (CK-2) 0.47 Troponin I < 0.012 Impressions: Chest X-Ray 03/13/17 17:13 IMPRESSION: Chronic lung changes with no acute cardiopulmonary disease. Plan Discharge Plan: Discharge home. Patient has been reminded to follow-up with her primary care provider to follow up with chest pain and if deemed needed further workup Time Spent: Greater than 30 Minutes
== END 2017-03-14 15:10 | disposition home or self-care (01) ==
LOC: ER 15:14 → EH 21:01 → 4N 22:38
PROVIDERS: ADMIT Family Medicine; ATTEND Family Medicine
DX: R07.9 Chest pain, unspecified (principal); I48.0 Paroxysmal atrial fibrillation; M06.9 Rheumatoid arthritis, unspecified; E78.4 Other hyperlipidemia; F03.90 Unspecified dementia, unspecified severity, without behavioral disturbance, psychotic disturbance, mood disturbance, and anxiety; K21.9 Gastro-esophageal reflux disease without esophagitis; E78.5 Hyperlipidemia, unspecified; R68.84 Jaw pain; I10 Essential (primary) hypertension; G47.33 Obstructive sleep apnea (adult) (pediatric); D64.9 Anemia, unspecified; R56.9 Unspecified convulsions; Z79.82 Long term (current) use of aspirin; Z79.899 Other long term (current) drug therapy; Z66 Do not resuscitate; Z90.49 Acquired absence of other specified parts of digestive tract; Z90.710 Acquired absence of both cervix and uterus; Z82.49 Family history of ischemic heart disease and other diseases of the circulatory system
CPT/HCPCS: 93005; 99285; 96372; 36415 ×2; 82553 ×2; 82550 ×2; 85025; 80053; 84484 ×2; 80061; 71010; 93010; G0378 ×2; A9270 ×16; J3490 ×2; J1650 ×2

== ENCOUNTER 2017-09-23 10:15 | Inpatient (IN) | payer MEDICARE, OTHER ==
[2017-09-23] MEDS ORDERED: ONDANSETRON 4 MG TAB.RAPDIS PO ONE (11:38)
--- NOTE | 2017-09-23 11:39 | ER Document Report ---
ED Medical Screen (RME) - General Chief Complaint: Vomiting Stated Complaint: NAUSEA Time Seen by Provider: 09/23/17 11:37 TRAVEL OUTSIDE OF THE [place] IN LAST 30 DAYS: No - HPI Patient complains to provider of: Nausea vomiting slight confusion - Related Data Allergies/Adverse Reactions: amoxicillin Allergy (Verified 09/23/17 10:33) cephalexin [From Keflex] Allergy (Verified 09/23/17 10:33) Itching and Rash morphine Allergy (Verified 09/23/17 10:33) Penicillins Allergy (Verified 09/23/17 10:33) Past Medical History - Social History Chew tobacco use (# tins/day): No Frequency of alcohol use: None Drug Abuse: None - Past Medical History Cardiac Medical History: Reports: Hx Hypertension Pulmonary Medical History: Reports: Hx Bronchitis Neurological Medical History: Reports: Hx Seizures Renal/ Medical History: Denies: Hx Peritoneal Dialysis Skin Medical History: Reports Hx Cellulitis Psychiatric Medical History: Reports: Hx Depression Traumatic Medical History: Reports: Hx Fractures - Femur Past Surgical History: Reports: Hx Cholecystectomy, Hx Hysterectomy, Hx Orthopedic Surgery - right hip, right knee, Hx Tonsillectomy - Immunizations Hx Diphtheria, Pertussis, Tetanus Vaccination: No History of Influenza Vaccine for 01/2017 - 06/2017 Season: Yes Influenza Administration Date for 01/2017 - 06/2017 Season: 01/11/17 Review of Systems - Review of Systems Gastrointestinal: Nausea, Vomiting -: Yes All other systems reviewed and negative Physical Exam - General General appearance: Appears well In distress: None Doctor's Discharge - Discharge Referrals: MEGHA PAZ MD [Primary Care Provider] - Follow up as needed
[2017-09-23 12:35] LABS: ALANINE AMINOTRANSFERASE 23 U/L (9-52); ALBUMIN 4.2 g/dL (3.5-5.0); ALKALINE PHOSPHATASE 115 U/L (38-126); ANION GAP 14 (5-19); ASPARTATE AMINO TRANSFERASE 34 U/L (14-36); BILIRUBIN,DIRECT 0.6 mg/dL (0.0-0.4); BILIRUBIN,TOTAL 1.3 mg/dL (0.2-1.3); BLOOD UREA NITROGEN 29 mg/dL (7-20); CALCIUM 9.8 mg/dL (8.4-10.2); CARBON DIOXIDE 27 mmol/L (22-30); CHLORIDE 98 mmol/L (98-107); GLUCOSE 103 mg/dL (75-110); LIPASE 111.8 U/L (23-300); POTASSIUM 4.7 mmol/L (3.6-5.0); SODIUM 139.1 mmol/L (137-145); TOTAL PROTEIN 7.7 g/dL (6.3-8.2)
[2017-09-23] MEDS ORDERED: METOCLOPRAMIDE HCL INJ/PF 10 MG/2 ML SDV ONE (13:17)
[2017-09-23] MEDS ORDERED: ONDANSETRON HCL INJ/PF 4 MG/2 ML SDV ONE (13:17)
[2017-09-23] MEDS ORDERED: GLYCOPYRROLATE 1 MG/5 ML SYRINGE ONE (13:17)
[2017-09-23] MEDS ORDERED: ROCURONIUM BROMIDE INJ 50 MG/5 ML VIAL IV ONE (13:17)
[2017-09-23] MEDS ORDERED: SUCCINYLCHOLINE CHLORIDE INJ 200 MG/10 ML VIAL ONE (13:17)
[2017-09-23] MEDS ORDERED: NEOSTIGMINE METHYLSULFATE 10 MG/10 ML VIAL ONE (13:17)
--- NOTE | 2017-09-23 13:19 | ER Document Report ---
ED General - General Chief Complaint: Vomiting Stated Complaint: NAUSEA Time Seen by Provider: 09/23/17 11:37 TRAVEL OUTSIDE OF THE [place] IN LAST 30 DAYS: No - Related Data Allergies/Adverse Reactions: amoxicillin Allergy (Verified 09/23/17 10:33) cephalexin [From Keflex] Allergy (Verified 09/23/17 10:33) Itching and Rash morphine Allergy (Verified 09/23/17 10:33) Penicillins Allergy (Verified 09/23/17 10:33) Past Medical History - Social History Smoking Status: Never Smoker Chew tobacco use (# tins/day): No Frequency of alcohol use: None Drug Abuse: None Family History: CAD, Hypertension Patient has suicidal ideation: No Patient has homicidal ideation: No - Past Medical History Cardiac Medical History: Reports: Hx Hypertension Pulmonary Medical History: Reports: Hx Bronchitis Neurological Medical History: Reports: Hx Seizures Renal/ Medical History: Denies: Hx Peritoneal Dialysis Skin Medical History: Reports Hx Cellulitis Psychiatric Medical History: Reports: Hx Depression Traumatic Medical History: Reports: Hx Fractures - Femur Past Surgical History: Reports: Hx Cholecystectomy, Hx Hysterectomy, Hx Orthopedic Surgery - right hip, right knee, Hx Tonsillectomy - Immunizations Hx Diphtheria, Pertussis, Tetanus Vaccination: No Course - Re-evaluation Re-evalutation: 69-year-old female presents to the ED with complaints of nausea vomiting, vitals stable, no distress and afebrile. This provider attempted to reduce hernia without success. for leukocytosis or anemia, CMP negative for hepatic renal dysfunction, electrolytes stable. EKG negative for STEMI, troponin 0.50, so under the threshold. Urinalysis does show UTI will send for urine culture. CT abdomen pelvis with IV contrast shows patient has a small bowel obstruction from small bowel incarcerated in a subxiphoid midline ventral hernia. Dr. Abdiel Heredia, surgeon on-call, contacted about incarcerated surgical at 1510 for surgical consult. Patient advised of CT findings, discussed that patient does have a hernia that does need reduction emergently. Patient is unsure she would like to have surgery here or possibly transferred in [place] however she is not in connection with a surgeon in [place]. Her primary care provider would like to set her up for surgery, she has an upcoming appointment with a surgeon however has never been established by a surgeon for hernia repair. Dr. Heredia, at bedside to evaluate patient, attempt to reduce without success. After much consideration, patient states she would like to stay and have surgery done at [place]. all questions and concerns answered by this provider. Patient will be admitted to surgical service for hernia repair - Laboratory Result Diagrams: 09/23/17 13:30 09/23/17 13:30 Laboratory results interpreted by me: 09/23/17 09/23/17 09/23/17 11:50 13:30 13:30 RDW 14.7 H Seg Neutrophils % 81.2 H Lymphocytes % 8.2 L APTT Chloride 97 L BUN 29 H 28 H Est GFR (Non-Af Amer) 57 L 52 L Direct Bilirubin 0.6 H Urine Protein Urine Ketones Urine Bilirubin Urine Urobilinogen Ur Leukocyte Esterase 09/23/17 09/23/17 13:30 14:13 RDW Seg Neutrophils % Lymphocytes % APTT 20.5 L Chloride BUN Est GFR (Non-Af Amer) Direct Bilirubin Urine Protein 100 H Urine Ketones 20 H Urine Bilirubin SMALL H Urine Urobilinogen 2.0 H Ur Leukocyte Esterase LARGE H Discharge - Discharge Clinical Impression: Incarcerated hernia, UTI (urinary tract infection) Condition: Good Disposition: ADMITTED INPATIENT Admitting Provider: Surgicalist - Dr. Abdiel Meehan Referrals: MEGHA PAZ MD [Primary Care Provider] - Follow up as needed
[2017-09-23 13:48] LABS: ABSOLUTE EOSINOPHILS # (AUTO) 0.1 10^3/uL (0.0-0.6); ABSOLUTE LYMPHOCYTES (AUTO) 0.8 10^3/uL (0.5-4.7); ABSOLUTE MONOCYTES (AUTO) 0.9 10^3/uL (0.1-1.4); ABSOLUTE NEUT (AUTO) 8.1 10^3/uL (1.7-8.2); BASOPHILS % (AUTO) 0.5 % (0-2); EOSINOPHILS % (AUTO) 0.6 % (0-6); HEMATOCRIT 39.3 % (36.0-47.0); HEMOGLOBIN 13.1 g/dL (12.0-15.5); LYMPHOCYTES % (AUTO) 8.2 % (13-45); MEAN CORPUSCULAR HEMOGLOBIN 29.7 pg (27.0-33.4); MEAN CORPUSCULAR HGB CONC 33.3 g/dL (32.0-36.0); MEAN CORPUSCULAR VOLUME 89 fl (80-97); MONOCYTES % (AUTO) 9.5 % (3-13); PLATELET COUNT 300 10^3/uL (150-450); RED BLOOD COUNT 4.42 10^6/uL (3.72-5.28); RED CELL DISTRIBUTION WIDTH 14.7 % (11.5-14.0); SEGMENTED NEUTROPHILS % (AUTO) 81.2 % (42-78); TOTAL CELLS COUNTED % (AUTO) 100 %; WHITE BLOOD COUNT 9.9 10^3/uL (4.0-10.5)
[2017-09-23 14:05] LABS: ALANINE AMINOTRANSFERASE 21 U/L (9-52); ALBUMIN 4.2 g/dL (3.5-5.0); ALKALINE PHOSPHATASE 118 U/L (38-126); ANION GAP 14 (5-19); ASPARTATE AMINO TRANSFERASE 30 U/L (14-36); BILIRUBIN,DIRECT 0.4 mg/dL (0.0-0.4); BILIRUBIN,TOTAL 1.1 mg/dL (0.2-1.3); BLOOD UREA NITROGEN 28 mg/dL (7-20); CALCIUM 9.7 mg/dL (8.4-10.2); CARBON DIOXIDE 28 mmol/L (22-30); CHLORIDE 97 mmol/L (98-107); CREATINE KINASE 60 U/L (30-135); GLUCOSE 96 mg/dL (75-110); POTASSIUM 4.3 mmol/L (3.6-5.0); SODIUM 138.7 mmol/L (137-145); TOTAL PROTEIN 7.7 g/dL (6.3-8.2)
[2017-09-23] MEDS ORDERED: NITROGLYCERIN 0.4 MG/TAB 25 TAB/BOTTLE SL ONE (14:09)
[2017-09-23] MEDS ORDERED: NITROGLYCERIN 0.4 MG/TAB 25 TAB/BOTTLE ONE (14:11)
[2017-09-23 14:24] LABS: APPEARANCE,URINE CLOUDY; BILIRUBIN,URINE SMALL (NEGATIVE); COLOR,URINE AMBER; GLUCOSE, URINE NEGATIVE (NEGATIVE); KETONES,URINE 20 mg/dL (NEGATIVE); LEUKOCYTE ESTERASE,URINE LARGE (NEGATIVE); NITRITE,URINE NEGATIVE (NEGATIVE); PROTEIN,URINE 100 mg/dL (NEGATIVE); URINE SPECIFIC GRAVITY 1.027
[2017-09-23 14:32] LABS: INTERNATIONAL RATION (INR) 1.02; PARTIAL THROMBOPLASTIN TIME 20.5 SEC (23.5-35.8); PROTHROMBIN TIME 13.9 SEC (11.4-15.4)
--- NOTE | 2017-09-23 14:38 | RADIOLOGY REPORT (SQ) ---
EXAM DESCRIPTION: CHEST SINGLE VIEW COMPLETED DATE/TIME: 09/23/2017 2:23 pm REASON FOR STUDY: chest pain with n/v, abd pain COMPARISON: 03/13/2017 EXAM PARAMETERS: NUMBER OF VIEWS: One view. TECHNIQUE: Single frontal radiographic view of the chest acquired. RADIATION DOSE: NA LIMITATIONS: None. FINDINGS: LUNGS AND PLEURA: No opacities, masses or pneumothorax. No pleural effusion. MEDIASTINUM AND HILAR STRUCTURES: Stable appearance. Tortuous aorta. HEART AND VASCULAR STRUCTURES: Heart stable. No overt CHF. BONES: Stable. HARDWARE: Bilateral shoulder arthroplasties. OTHER: No other significant finding. IMPRESSION: Nothing acute. TECHNICAL DOCUMENTATION: JOB ID: [id number] [employer]- All Rights Reserved Reading location - IP/workstation name: [email or web address]
[2017-09-23 15:04] LABS: CREATINE KINASE MB 1.38 ng/mL (<4.55)
[2017-09-23 15:06] LABS: TROPONIN I 0.05 ng/mL
--- NOTE | 2017-09-23 15:13 | RADIOLOGY REPORT (SQ) ---
EXAM DESCRIPTION: CT ABD/PELVIS WITH IV ONLY COMPLETED DATE/TIME: 09/23/2017 2:50 pm REASON FOR STUDY: abd pain, inc confusion COMPARISON: CT abdomen pelvis 06/08/2016 CT chest 04/12/2016 TECHNIQUE: CT scan of the abdomen and pelvis performed using helical scanning technique with dynamic intravenous contrast injection. No oral contrast. Images reviewed with lung, soft tissue, and bone windows. Reconstructed coronal and sagittal MPR images reviewed. Delayed images for evaluation of the urinary system also acquired. All images stored on PACS. All CT scanners at this facility use dose modulation, iterative reconstruction, and/or weight based d osing when appropriate to reduce radiation dose to as low as reasonably achievable (ALARA). [facility]: Dose Right [facility]: CareDose [facility]: Dose Right [facility]: Teradose 4D [facility]: [employer] CONTRAST TYPE AND DOSE: contrast/concentration: Isovue 370.00 mg/ml; Total Contrast Delivered: 78.0 ml; Total Saline Delivered: 31.8 ml RENAL FUNCTION: Creatinine 0.95 RADIATION DOSE: CT Rad equipment meets quality standard of care and radiation dose reduction techniq ues were employed. CTDIvol: 7.8 - 10.5 mGy. DLP: 940 mGy-cm.. LIMITATIONS: None. FINDINGS: A subxiphoid midline ventral hernia is present, containing an obstructed incarcerated loop of small bowel. This best shown on axial images 13-18 and sagittal image 59. Anterior abdominal wa ll defect only measures about 13 mm in diameter. Patient does have a small bowel obstruction with dilated loops of small bowel throughout the abdomen and pelvis. Colon is decompressed. No free intraperitoneal air or fluid. These findings were discussed with Dianna CARRION in the emergency room. LOWER CHEST: Large retrocardiac hiatal hernia containing the stomach fundus and portion of stomach radha dy. Air-fluid level in the esophagus above the level of hernia. LIVER: Normal size. Stable intra and extrahepatic biliary ductal dilatation as compared to 06/08/2016 and 04/12/2016 exams. SPLEEN: Normal size. No focal lesions. PANCREAS: No masses. No significant calcifications. No adjacent inflammation or peripancreatic fluid collections. Pancreatic duct not dilated. GALLBLADDER: Surgically absent ADRENAL GLANDS: No significant masses or asymmetry. RIGHT KIDNEY AND URETER: No solid masses. No significant calcifications. No hydronephrosis or hyd roureter. LEFT KIDNEY AND URETER: No solid masses. No significant calcifications. No hydronephrosis or hydr oureter. AORTA AND VESSELS: No aneurysm. No dissection. Renal arteries, SMA, celiac arteries are patent. RETROPERITONEUM: No retroperitoneal adenopathy, hemorrhage or masses. BOWEL AND PERITONEAL CAVITY: Small bowel obstruction. Colon decompressed. Large retrocardiac hiatal hernia containing the stomach fundus and portion of the body. Fluid in the esophagus from GE reflux APPENDIX: Not identified PELVIS: No mass. No free fluid. Normal bladder. Normal size female postmenopausal organs ABDOMINAL WALL: No masses. No hernias. BONES: Diffuse degenerative changes in the spine. Stable lower thoracic compression deformity at T10 OTHER: No other significant finding. IMPRESSION: Small bowel obstruction from small bowel incarcerated in a subxiphoid midline ventral he rnia TECHNICAL DOCUMENTATION: JOB ID: [id number] Quality ID # [id number]: Final reports with documentation of one or more dose reduction techniques (e.g., Au tomated exposure control, adjustment of the mA and/or kV according to patient size, use of iterative reconstruction technique) 2010 [employer]- All Rights Reserved Reading location - IP/workstation name: [email or web address]
[2017-09-23] MEDS ORDERED: FENTANYL CITRATE INJ/PF 100 MCG/2 ML AMPUL IV ONE (15:27)
[2017-09-23] MEDS ORDERED: FENTANYL CITRATE INJ/PF 100 MCG/2 ML AMPUL ONE (15:29)
[2017-09-23] MEDS ORDERED: ETOMIDATE INJ/PF 20 MG/10 ML SDV IV ONE ×2 (15:34)
[2017-09-23] MEDS ORDERED: BUPIVACAINE HCL 0.25 % INJ/PF (2.5 MG/1 ML) 30 ML VIAL ONE (16:30)
[2017-09-23] MEDS ORDERED: ONDANSETRON HCL INJ/PF 4 MG/2 ML SDV IV ONE (16:35)
[2017-09-23] MEDS ORDERED: PROPOFOL INJ 200 MG/20 ML VIAL IV ONE (17:00)
[2017-09-23] MEDS ORDERED: FENTANYL CITRATE INJ/PF 250 MCG/5 ML AMPULE ONE (17:00)
[2017-09-23] MEDS ORDERED: MIDAZOLAM 2 MG/2 ML INJ ONE (17:00)
[2017-09-23] MEDS ORDERED: ACETAMINOPHEN 1,000 MG/100 ML RTUPB IV ONE (17:00)
[2017-09-23] MEDS ORDERED: MORPHINE SULFATE 10 MG/ML INJ ONE (17:01)
[2017-09-23] MEDS ORDERED: METRONIDAZOLE 500 MG/NS RTU 100 ML IV ONE (18:05)
[2017-09-23] MEDS ORDERED: CIPROFLOXACIN 400 MG/D5W RTU 400 MG/200 ML RTUPB IV ONE (18:07)
[2017-09-23] MEDS ORDERED: ONDANSETRON HCL INJ/PF 4 MG/2 ML SDV IV PRN ×2 (18:51→20:18)
[2017-09-23] MEDS ORDERED: MEPERIDINE HCL/PF INJ 25 MG/1 ML DISP.SYRIN IV PRN (18:51)
[2017-09-23] MEDS ORDERED: DIPHENHYDRAMINE HCL 50 MG/ML VIAL IV PRN (18:51)
[2017-09-23] MEDS ORDERED: FENTANYL CITRATE INJ/PF 100 MCG/2 ML AMPUL IV PRN ×3 (18:51)
--- NOTE | 2017-09-23 19:40 | EKG REPORT ---
SEVERITY:- ABNORMAL ECG - WANDERING PACEMAKER BORDERLINE LEFT AXIS DEVIATION BORDERLINE T ABNORMALITIES, DIFFUSE LEADS PROLONGED QT INTERVAL : Confirmed by: Huber Ashraf MD 23-Sep-2017 19:39:43
[2017-09-23] MEDS ORDERED: DEXTROSE 40% GEL 15 GM TUBE PO PRN ×2 (20:18)
[2017-09-23] MEDS ORDERED: GLUCAGON,HUMAN RECOMB 1 MG INJ SUBCUT PRN (20:18)
[2017-09-23] MEDS ORDERED: DEXTROSE 50%-WATER 25 GM/50 ML DISP.SYRIN IV PRN ×2 (20:18)
[2017-09-23] MEDS: FENTANYL CITRATE INJ/PF 100 MCG/2 ML AMPUL IV PRN (21:11)
[2017-09-23] MEDS: FAMOTIDINE INJ/PF 20 MG/2 ML SDV IV SCH (21:21)
--- NOTE | 2017-09-23 23:01 | Operative Report ---
Nonrecallable Operative Report DATE OF SURGERY: 09/23/17 PREOPERATIVE DIAGNOSIS: 1. Strangulated hernia. 2. Small bowel obstruction POSTOPERATIVE DIAGNOSIS: 1. Strangulated hernia. 2. Small bowel obstruction. 3. Involvement of the terminal ileum with in the hernia, necessitating bowel resection OPERATION: 1. Exploratory laparotomy. 2. Right hemicolectomy. SURGEON: KRISTOPHER LEON ANESTHESIA: GA TISSUE REMOVED OR ALTERED: Right hemicolectomy COMPLICATIONS: Strangulated small bowel, requiring resection. Redundant cecum volvulized around the area of obstruction ESTIMATED BLOOD LOSS: 50 cc PROCEDURE: Drains/implants: None. Procedure in detail: After informed consent was obtained, the patient was laid in the supine position in the operating room. The area of the abdomen was prepped and draped in a normal sterile fashion. The epigastric hernia appeared to arise from a laparoscopic port site in the midline. Incision was created over this area and carefully dissected through the subcutaneous tissue. Once the hernia was visualized, there was obvious necrosis of the hernia contents. The sac was opened. The fascia was opened. The laparotomy was then extended to approximately the level of the umbilicus. A portion of terminal ileum was found to lie within the hernia defect. This was immediately adjacent to the ileocecal valve. It appeared that the cecum was very mobile, and the right colon was torsed around the fixed area of the terminal ileum. This was detorsed and inspected. The necrotic area was immediately adjacent to the ileocecal valve on the terminal ileum. A resection would be required. Due to the cecum and ascending colon's mobility (and potential for volvulus) a right hemicolectomy with ileocolic anastomosis was felt be the most appropriate course of action. The small bowel was divided with the HUMBLE stapling device proximal to the area of necrosis. The mid transverse colon was also divided using the HUMBLE stapling device. The right colon was freed from the mesentery using the LigaSure impact device. This was performed adjacent to the wall of the colon. The right hemicolectomy specimen was then removed from the patient, and sent to pathology. Next, attention was turned to creation of the anastomosis. The terminal ileum and transverse colon were brought in apposition to one another. The antimesenteric sides of the bowel were stapled together using the HUMBLE-75 stapling device. The resultant defect was closed with the HUMBLE 75 stapler. 2 crotch stitches of 3-0 Vicryl were placed. The anastomosis was then tested. It was found to be free of any leakage. The mesenteric defect was closed using 3-0 Vicryl suture in simple running fashion. The anastomosis was returned to the abdominal cavity. The abdomen was copiously irrigated and suctioned. Next , the midline fascia was reapproximated using #1 double-stranded PDS suture in simple running fashion. The overlying skin was closed using skin jeremie. All sponge, instrument, and needle counts were correct 2. Condition: Fair.
--- NOTE | 2017-09-23 23:10 | PDOC H&P ---
History of Present Illness Admission Date/PCP: 09/23/17 16:55 MEGHA PAZ MD Patient complains of: Abdominal pain, irreducible ventral hernia History of Present Illness: BHARATH JORDAN is a 77 year old female with an epigastric ventral hernia at a laparoscopic port site. The patient has previously undergone laparoscopic cholecystectomy. She reports that on Thursday (3 days ago) her hernia came incarcerated. The patient has had increasing pain, nausea, vomiting, and bloating since that time. Her pain is sharp and stabbing. The patient's pain became so bad that she presented to the emergency department. The patient underwent CT scanning, confirming an incarcerated ventral hernia with obstruction. Currently the patient denies any chest pain, shortness of breath, fevers, chills, dizziness. She does report malaise, nausea, vomiting, abdominal pain. Nothing makes her pain better. Palpation of her abdomen makes her pain worse. Past Medical History Cardiac Medical History: Reports: Hypertension Pulmonary Medical History: Reports: Bronchitis Neurological Medical History: Reports: Seizures, Other - Dementia Musculoskeltal Medical History: Reports: Arthritis - Rheumatoid Psychiatric Medical History: Reports: Depression Hematology: Reports: Anemia Past Surgical History Past Surgical History: Reports: Cholecystectomy, Hysterectomy, Orthopedic Surgery - right hip, right knee, Tonsillectomy Social History Smoking Status: Never Smoker Frequency of Alcohol Use: None Hx Recreational Drug Use: No Hx Prescription Drug Abuse: No Family History Family History: CAD, Hypertension Parental Family History Reviewed: Yes Children Family History Reviewed: Yes Sibling(s) Family History Reviewed.: Yes Medication/Allergy Home Medications: Aspirin [Aspirin EC] 81 mg PO DAILY 03/13/17 Atorvastatin Calcium [Lipitor 20 mg Tablet] 20 mg PO DAILY 03/13/17 Donepezil HCl [Aricept 5 mg Tablet] 5 mg PO DAILY 03/13/17 Duloxetine HCl [Cymbalta] 60 mg PO DAILY 03/13/17 Furosemide [Lasix 20 mg Tablet] 20 mg PO QAM 03/13/17 Hydroxyzine HCl 25 mg PO QHS 03/13/17 Levetiracetam [Keppra 500 mg Tablet] 500 mg PO Q12 03/13/17 Magnesium Oxide [Mag-Ox 400 mg Tablet] 400 mg PO BID 03/13/17 Memantine HCl [Namenda 10 mg Tablet] 10 mg PO BID 03/13/17 Pantoprazole Sodium 40 mg PO DAILY 03/13/17 Potassium Chloride [Klor-Con 10 Meq Tablet.sa] 10 meq PO DAILY 03/13/17 Quetiapine Fumarate [Seroquel 25 mg Tablet] 25 mg PO QHS 03/13/17 Buprenorphine [Butrans] 5 mcg TOP MO@1000 09/23/17 Polyethylene Glycol 3350 [Miralax Powder 17 gm/Packet] 17 gm PO DAILY 09/23/17 Psyllium Seed [Metamucil-Sf Powder 5.85 gm Packet] 1 packet PO DAILYP PRN Tolterodine Tartrate [Tolterodine Tartrate ER] 4 mg PO DAILY 09/23/17 Allergies/Adverse Reactions: amoxicillin Allergy (Verified 09/23/17 10:33) cephalexin [From Keflex] Allergy (Verified 09/23/17 10:33) Itching and Rash morphine Allergy (Verified 09/23/17 10:33) Penicillins Allergy (Verified 09/23/17 10:33) Review of Systems Constitutional: ABSENT: chills, fever(s) Nose, Mouth, and Throat: ABSENT: sore throat Cardiovascular: ABSENT: chest pain, palpitations Respiratory: ABSENT: cough, dyspnea Gastrointestinal: PRESENT: abdominal pain, bloating, nausea, vomiting Musculoskeletal: PRESENT: joint swelling Integumentary: ABSENT: pruritus, rash Neurological: PRESENT: confusion, memory loss Psychiatric: ABSENT: anxiety, depression Endocrine: ABSENT: cold intolerance, heat intolerance Hematologic/Lymphatic: ABSENT: easy bleeding, easy bruising Physical Exam General appearance: PRESENT: severe distress - Abdominal pain Head exam: PRESENT: atraumatic, normocephalic Eye exam: PRESENT: EOMI, PERRLA. ABSENT: scleral icterus Neck exam: ABSENT: lymphadenopathy, meningismus, tenderness, thyromegaly, tracheal deviation Respiratory exam: PRESENT: clear to auscultation sabina, unlabored. ABSENT: chest wall tenderness, stridor, wheezes Cardiovascular exam: PRESENT: RRR Pulses: PRESENT: normal radial pulses Vascular exam: PRESENT: normal capillary refill. ABSENT: pallor GI/Abdominal exam: PRESENT: distended, guarding, hernia - Epigastric, irreducible, tenderness Rectal exam: PRESENT: deferred Neurological exam: PRESENT: alert, awake, oriented to person, oriented to situation, CN II-XII grossly intact. ABSENT: motor sensory deficit Psychiatric exam: PRESENT: anxious. ABSENT: agitated, depressed Skin exam: ABSENT: cyanosis, erythema, jaundice Results Impressions: Abdomen/Pelvis CT 09/23/17 13:19 IMPRESSION: Small bowel obstruction from small bowel incarcerated in a subxiphoid midline ventral hernia Chest X-Ray 09/23/17 13:21 IMPRESSION: Nothing acute. Assessment & Plan - Diagnosis (1) Incarcerated hernia Is this a current diagnosis for this admission?: Yes - Plan Summary Plan Summary: This is a 77-year-old female with incarcerated epigastric hernia and small bowel obstruction. I have recommended she undergo surgical intervention to correct this problem. This is been discussed at length with the patient, her daughter via telephone, and another family member that is present. After much discussion, the patient has requested surgical intervention. Plan for exploratory laparotomy [email or web address].
[2017-09-24] MEDS: METRONIDAZOLE 500 MG/NS RTU 100 ML IV SCH ×2 (01:33→08:36)
[2017-09-24] MEDS: FENTANYL CITRATE INJ/PF 100 MCG/2 ML AMPUL IV PRN ×7 (02:30→22:59)
[2017-09-24 04:09] LABS: HEMOGLOBIN 11.3 g/dL (12.0-15.5); MEAN CORPUSCULAR HEMOGLOBIN 30.2 pg (27.0-33.4); MEAN CORPUSCULAR HGB CONC 33.3 g/dL (32.0-36.0); MEAN CORPUSCULAR VOLUME 91 fl (80-97); RED BLOOD COUNT 3.76 10^6/uL (3.72-5.28); RED CELL DISTRIBUTION WIDTH 14.6 % (11.5-14.0); WHITE BLOOD COUNT 9.9 10^3/uL (4.0-10.5)
[2017-09-24 04:22] LABS: ALANINE AMINOTRANSFERASE 21 U/L (9-52); ALBUMIN 2.8 g/dL (3.5-5.0); ALKALINE PHOSPHATASE 67 U/L (38-126); ANION GAP 9 (5-19); ASPARTATE AMINO TRANSFERASE 33 U/L (14-36); BILIRUBIN,DIRECT 0.3 mg/dL (0.0-0.4); BILIRUBIN,TOTAL 0.8 mg/dL (0.2-1.3); BLOOD UREA NITROGEN 22 mg/dL (7-20); CARBON DIOXIDE 25 mmol/L (22-30); CHLORIDE 105 mmol/L (98-107); GLUCOSE 134 mg/dL (75-110); POTASSIUM 3.7 mmol/L (3.6-5.0); SODIUM 139.1 mmol/L (137-145); TOTAL PROTEIN 5.5 g/dL (6.3-8.2)
[2017-09-24 04:31] LABS: ABSOLUTE LYMPHOCYTES# (MANUAL) 0.6 10^3/uL (0.5-4.7); ABSOLUTE MONOCYTES # (MANUAL) 0.5 10^3/uL (0.1-1.4); ABSOLUTE NEUTROPHILS# (MANUAL) 8.8 10^3/uL (1.7-8.2); BAND NEUTROPHILS % (MANUAL) 2 % (3-5); BASOPHILS % (MANUAL) 0 % (0-2); EOSINOPHILS % (MANUAL) 0 % (0-6); LYMPHOCYTES % (MANUAL) 6 % (13-45); MONOCYTES % (MANUAL) 5 % (3-13); PLATELET CLUMPS PRESENT; PLATELET COMMENT ADEQUATE; SEGMENTED NEUTROPHILS % (MAN) 87 % (42-78); TOTAL CELLS COUNTED 100; TOXIC GRANULATION 2+
[2017-09-24 04:32] LABS: RBC MORPHOLOGY COMMENT NORMO-CYTIC/CHROMIC
[2017-09-24 04:33] LABS: PLATELET COUNT 218 10^3/uL (150-450)
[2017-09-24] MEDS ORDERED: CIPROFLOXACIN 400 MG/D5W RTU 400 MG/200 ML RTUPB IV SCH (06:00)
[2017-09-24] MEDS: DEXTROSE 5%-LACTATED RINGERS 1,000 ML IV PRN ×2 (06:23→22:55)
[2017-09-24] MEDS: ENOXAPARIN SODIUM INJ 40 MG/0.4 ML DISP.SYRIN SUBCUT SCH (11:10)
[2017-09-24] MEDS: FAMOTIDINE INJ/PF 20 MG/2 ML SDV IV SCH ×2 (11:12→23:07)
--- NOTE | 2017-09-24 11:16 | PDOC PROGRESS REPORT ---
Subjective Progress Note for:: 09/24/17 Subjective:: Poor pain control. Mid upper abdominal pain. Patient is on chronic narcotic patch at home for chronic back pain. Otherwise patient feels okay. Reason For Visit: STRANGULATED HERNIA, SMALL BOWEL OBSTRUCTION Physical Exam Vital Signs: Temp Pulse Resp BP Pulse Ox 98.3 F 74 20 128/65 H 96 09/24/17 08:00 09/24/17 08:21 09/24/17 08:38 09/24/17 08:38 09/24/17 08:38 Intake & Output 09/23/17 09/24/17 09/25/17 06:59 06:59 06:59 Intake Total 3793 Output Total 685 60 Balance 3108 -60 Weight 72.3 kg General appearance: PRESENT: cooperative, mild distress - Complains of upper abdominal pain but she does not appear toxic. Respiratory exam: PRESENT: clear to auscultation sabina Cardiovascular exam: PRESENT: RRR GI/Abdominal exam: PRESENT: other - Soft, nondistended, tender at the incision site but otherwise minimal tenderness elsewhere in the abdomen. Neurological exam: PRESENT: alert, awake, oriented to person, oriented to place , oriented to time, oriented to situation Psychiatric exam: PRESENT: appropriate affect Results Laboratory Results: 09/24/17 03:41 09/24/17 03:41 09/24/17 09/24/17 03:41 03:41 WBC 9.9 RBC 3.76 Hgb 11.3 L Hct 34.0 L MCV 91 MCH 30.2 MCHC 33.3 RDW 14.6 H Plt Count 218 Seg Neutrophils % Not Reportable Lymphocytes % Not Reportable Monocytes % Not Reportable Eosinophils % Not Reportable Basophils % Not Reportable Absolute Neutrophils Not Reportable Absolute Lymphocytes Not Reportable Absolute Monocytes Not Reportable Absolute Eosinophils Not Reportable Absolute Basophils Not Reportable Sodium 139.1 Potassium 3.7 Chloride 105 Carbon Dioxide 25 Anion Gap 9 BUN 22 H Creatinine 0.81 Est GFR ( Amer) > 60 Est GFR (Non-Af Amer) > 60 Glucose 134 H Calcium 8.0 L Magnesium 1.8 Total Bilirubin 0.8 AST 33 ALT 21 Alkaline Phosphatase 67 Total Protein 5.5 L Albumin 2.8 L 09/23/17 20:29 Troponin I 0.041 Impressions: Abdomen/Pelvis CT 09/23/17 13:19 IMPRESSION: Small bowel obstruction from small bowel incarcerated in a subxiphoid midline ventral hernia Chest X-Ray 09/23/17 13:21 IMPRESSION: Nothing acute. Assessment & Plan - Diagnosis (1) Incarcerated hernia Is this a current diagnosis for this admission?: Yes Plan: Status post surgical repair with right hemicolectomy. Patient looks good other than pain control issues. Will try to get a hold of the patient's home medications and will increase her fentanyl dosage and to better manage her postoperative pain. Will transfer patient to a regular bed.
[2017-09-24] MEDS: MEMANTINE HCL 10 MG TABLET PO SCH (17:13)
--- NOTE | 2017-09-24 18:27 | PDOC CONSULTATION ---
Consultation Consult Date: 09/24/17 Consult reason:: Medical Management, Post op Period History of Present Illness Admission Date/PCP: 09/23/17 16:55 MEGHA PAZ MD Patient complains of: Abdominal Pain, nausea and vomiting History of Present Illness: BHARATH JORDAN is a 77 year old female admitted with nausea and vomiting as well as epigastric pain. She was found to have an incarcerated hernia. She did have surgical repair with right hemicolectomy done on September 23. Patient was monitored in the ICU and appears to be progressing as expected. Hospitalist consult is requested for medical management Past Medical History Cardiac Medical History: Reports: Hypertension Pulmonary Medical History: Reports: Bronchitis Neurological Medical History: Reports: Seizures, Other - Dementia Musculoskeltal Medical History: Reports: Arthritis - Rheumatoid Psychiatric Medical History: Reports: Depression Hematology: Reports: Anemia Past Surgical History Past Surgical History: Reports: Cholecystectomy, Hysterectomy, Orthopedic Surgery - right hip, right knee, Tonsillectomy Social History Information Source: Patient Lives with: Family Smoking Status: Never Smoker Frequency of Alcohol Use: None Hx Recreational Drug Use: No Hx Prescription Drug Abuse: No - Advance Directive Resuscitation Status: Full Code Family History Family History: CAD, Hypertension Parental Family History Reviewed: No Children Family History Reviewed: NA Sibling(s) Family History Reviewed.: Unknown Medication/Allergy Home Medications: Aspirin [Aspirin EC] 81 mg PO DAILY 03/13/17 Atorvastatin Calcium [Lipitor 20 mg Tablet] 20 mg PO DAILY 03/13/17 Donepezil HCl [Aricept 5 mg Tablet] 5 mg PO DAILY 03/13/17 Duloxetine HCl [Cymbalta] 60 mg PO DAILY 03/13/17 Furosemide [Lasix 20 mg Tablet] 20 mg PO QAM 03/13/17 Hydroxyzine HCl 25 mg PO QHS 03/13/17 Levetiracetam [Keppra 500 mg Tablet] 500 mg PO Q12 03/13/17 Magnesium Oxide [Mag-Ox 400 mg Tablet] 400 mg PO BID 03/13/17 Memantine HCl [Namenda 10 mg Tablet] 10 mg PO BID 03/13/17 Pantoprazole Sodium 40 mg PO DAILY 03/13/17 Potassium Chloride [Klor-Con 10 Meq Tablet.sa] 10 meq PO DAILY 03/13/17 Quetiapine Fumarate [Seroquel 25 mg Tablet] 25 mg PO QHS 03/13/17 Buprenorphine [Butrans] 5 mcg TOP MO@1000 09/23/17 Polyethylene Glycol 3350 [Miralax Powder 17 gm/Packet] 17 gm PO DAILY 09/23/17 Psyllium Seed [Metamucil-Sf Powder 5.85 gm Packet] 1 packet PO DAILYP PRN Tolterodine Tartrate [Tolterodine Tartrate ER] 4 mg PO DAILY 09/23/17 Allergies/Adverse Reactions: amoxicillin Allergy (Verified 09/23/17 10:33) cephalexin [From Keflex] Allergy (Verified 09/23/17 10:33) Itching and Rash morphine Allergy (Verified 09/23/17 10:33) Penicillins Allergy (Verified 09/23/17 10:33) Review of Systems All systems: reviewed and no additional remarkable complaints except as stated Physical Exam Vital Signs: Temp Pulse Resp BP Pulse Ox 98.2 F 87 22 H 137/66 H 95 09/24/17 12:00 09/24/17 12:00 09/24/17 12:38 09/24/17 12:38 09/24/17 12:38 Intake & Output 09/23/17 09/24/17 09/25/17 06:59 06:59 06:59 Intake Total 3793 200 Output Total 685 185 Balance 3108 15 Weight 72.3 kg General appearance: PRESENT: no acute distress, well-developed, well-nourished Head exam: PRESENT: atraumatic, normocephalic Eye exam: PRESENT: conjunctiva pink, EOMI, PERRLA. ABSENT: scleral icterus Ear exam: PRESENT: normal external ear exam Mouth exam: PRESENT: moist, tongue midline Neck exam: ABSENT: carotid bruit, JVD, lymphadenopathy, thyromegaly Respiratory exam: PRESENT: clear to auscultation sabina. ABSENT: rales, rhonchi, wheezes Cardiovascular exam: PRESENT: RRR. ABSENT: diastolic murmur, rubs, systolic murmur Pulses: PRESENT: normal dorsalis pedis pul Vascular exam: PRESENT: normal capillary refill GI/Abdominal exam: PRESENT: normal bowel sounds, rebound, soft, tenderness - At incision site. ABSENT: distended, guarding, mass, organolmegaly Rectal exam: PRESENT: deferred Extremities exam: PRESENT: full ROM. ABSENT: calf tenderness, clubbing, pedal edema Neurological exam: PRESENT: alert, awake, oriented to person, oriented to place , oriented to time, oriented to situation, CN II-XII grossly intact. ABSENT: motor sensory deficit Psychiatric exam: PRESENT: appropriate affect, normal mood. ABSENT: homicidal ideation, suicidal ideation Skin exam: PRESENT: dry, intact, warm. ABSENT: cyanosis, rash Results Laboratory Results: 09/24/17 03:41 09/24/17 03:41 09/24/17 09/24/17 03:41 03:41 WBC 9.9 RBC 3.76 Hgb 11.3 L Hct 34.0 L MCV 91 MCH 30.2 MCHC 33.3 RDW 14.6 H Plt Count 218 Seg Neutrophils % Not Reportable Lymphocytes % Not Reportable Monocytes % Not Reportable Eosinophils % Not Reportable Basophils % Not Reportable Absolute Neutrophils Not Reportable Absolute Lymphocytes Not Reportable Absolute Monocytes Not Reportable Absolute Eosinophils Not Reportable Absolute Basophils Not Reportable Sodium 139.1 Potassium 3.7 Chloride 105 Carbon Dioxide 25 Anion Gap 9 BUN 22 H Creatinine 0.81 Est GFR ( Amer) > 60 Est GFR (Non-Af Amer) > 60 Glucose 134 H Calcium 8.0 L Magnesium 1.8 Total Bilirubin 0.8 AST 33 ALT 21 Alkaline Phosphatase 67 Total Protein 5.5 L Albumin 2.8 L 09/23/17 20:29 Troponin I 0.041 Impressions: Abdomen/Pelvis CT 09/23/17 13:19 IMPRESSION: Small bowel obstruction from small bowel incarcerated in a subxiphoid midline ventral hernia Chest X-Ray 09/23/17 13:21 IMPRESSION: Nothing acute. Assessment & Plan - Diagnosis (1) Incarcerated hernia Is this a current diagnosis for this admission?: Yes (2) Hypertension Qualifiers: Hypertension type: essential hypertension Qualified Code(s): I10 - Essential (primary) hypertension Is this a current diagnosis for this admission?: Yes Plan: We will restart her meds once blood pressure is controlled (3) Seizure Is this a current diagnosis for this admission?: Yes Plan: Keppra will be restarted - Time Time Spent: 30 to 50 Minutes Medications reviewed and adjusted accordingly: Yes Anticipated discharge: Home Within: within 72 hours - Inpatient Certification Based on my medical assessment, after consideration of the patient's comorbidities, presenting symptoms, or acuity I expect that the services needed warrant INPATIENT care.: Yes Medical Necessity: Significant Comorbidiites Make Outpatient Treatment Too Risky , Risk of Complication if Not Cared For in Hospital
[2017-09-24] MEDS ORDERED: (PENDING PHARMACY ID) (Hydroxyzine Hcl [Hydroxyzine Hcl] 25 MG) PO SCH (22:00)
[2017-09-24] MEDS ORDERED: HYDROXYZINE HCL 10 MG TABLET PO SCH (22:00)
[2017-09-24] MEDS: LEVETIRACETAM 500 MG TABLET PO SCH (22:57)
[2017-09-24] MEDS: ATORVASTATIN CALCIUM 20 MG TABLET PO SCH (22:57)
[2017-09-24] MEDS: QUETIAPINE FUMARATE 25 MG TABLET PO SCH (22:57)
[2017-09-24] MEDS: HYDROXYZINE PAMOATE 25 MG CAPSULE PO SCH (22:58)
[2017-09-25] MEDS: LANSOPRAZOLE 30 MG TAB.RAP.DR PO SCH (06:12)
[2017-09-25] MEDS: DONEPEZIL HCL 5 MG TABLET PO SCH (09:49)
[2017-09-25] MEDS: FAMOTIDINE INJ/PF 20 MG/2 ML SDV IV SCH ×2 (09:49→21:56)
[2017-09-25] MEDS: DULOXETINE HCL 30 MG CAPSULE.DR PO SCH (09:50)
[2017-09-25] MEDS: MEMANTINE HCL 10 MG TABLET PO SCH ×2 (09:50→17:25)
[2017-09-25] MEDS: FUROSEMIDE 20 MG TABLET PO SCH (09:50)
[2017-09-25] MEDS: ENOXAPARIN SODIUM INJ 40 MG/0.4 ML DISP.SYRIN SUBCUT SCH (09:52)
[2017-09-25] MEDS ORDERED: TOLTERODINE TARTRATE 1 MG TABLET PO SCH (10:00)
[2017-09-25] MEDS ORDERED: (PENDING PHARMACY ID) (Tolterodine Tartrate [Tolterodine Tartrate Er] 4 MG) PO SCH (10:00)
--- NOTE | 2017-09-25 10:03 | PDOC PROGRESS REPORT ---
Subjective Progress Note for:: 09/25/17 Subjective:: Patient just waking up; confused, pleasant. Reason For Visit: STRANGULATED HERNIA, SMALL BOWEL OBSTRUCTION Physical Exam Vital Signs: Temp Pulse Resp BP Pulse Ox 99.1 F 85 18 142/67 H 95 09/25/17 07:20 09/25/17 07:20 09/25/17 07:20 09/25/17 07:20 09/25/17 07:20 Intake & Output 09/24/17 09/25/17 09/26/17 06:59 06:59 06:59 Intake Total 3793 3187 Output Total 685 610 Balance 3108 2577 Weight 72.3 kg 71.3 kg General appearance: PRESENT: no acute distress GI/Abdominal exam: PRESENT: other - Midline dressing removed; jeremie in position; no drainage; remainder of abdomen benign Results Laboratory Results: 09/24/17 03:41 09/24/17 03:41 09/23/17 20:29 Troponin I 0.041 Impressions: Abdomen/Pelvis CT 09/23/17 13:19 IMPRESSION: Small bowel obstruction from small bowel incarcerated in a subxiphoid midline ventral hernia Chest X-Ray 09/23/17 13:21 IMPRESSION: Nothing acute. Assessment & Plan - Diagnosis (1) S/P right hemicolectomy Is this a current diagnosis for this admission?: Yes Plan: Patient now 2 days status post right hemicolectomy for volvulized intestines, incarcerated umbilical hernia; doing well, no complications. Recommendations : 1 start clear liquids 2. Out of bed to chair; physical therapy evaluation 3. Discharge planning 4. Hitchcock catheter still in; may discontinue later today
[2017-09-25] MEDS: ASPIRIN 81 MG TABLET, ENT COATED PO SCH (11:01)
[2017-09-25] MEDS ORDERED: KETOROLAC TROMETHAMINE 10 MG TABLET PO PRN (11:26)
[2017-09-25] MEDS: KETOROLAC TROMETHAMINE INJ/PF 30 MG/1 ML SDV IV PRN ×2 (11:49→22:09)
[2017-09-25] MEDS: LEVETIRACETAM 500 MG TABLET PO SCH ×2 (11:50→21:56)
[2017-09-25] MEDS: TOLTERODINE TARTRATE 1 MG TABLET PO SCH ×2 (11:50→21:57)
--- NOTE | 2017-09-25 19:32 | PDOC PROGRESS REPORT ---
Subjective Progress Note for:: 09/25/17 Reason For Visit: STRANGULATED HERNIA, SMALL BOWEL OBSTRUCTION Physical Exam Vital Signs: Temp Pulse Resp BP Pulse Ox 97.6 F 80 17 109/61 97 09/25/17 15:09 09/25/17 15:09 09/25/17 15:09 09/25/17 15:09 09/25/17 11:37 Intake & Output 09/24/17 09/25/17 09/26/17 06:59 06:59 06:59 Intake Total 3793 3187 1822 Output Total 685 610 350 Balance 3108 1517 1472 Weight 72.3 kg 71.3 kg General appearance: PRESENT: no acute distress, well-developed, well-nourished Head exam: PRESENT: atraumatic, normocephalic Eye exam: PRESENT: conjunctiva pink, EOMI, PERRLA. ABSENT: scleral icterus Ear exam: PRESENT: normal external ear exam Mouth exam: PRESENT: moist, tongue midline Neck exam: ABSENT: carotid bruit, JVD, lymphadenopathy, thyromegaly Respiratory exam: PRESENT: clear to auscultation sabina. ABSENT: rales, rhonchi, wheezes Cardiovascular exam: PRESENT: RRR. ABSENT: diastolic murmur, rubs, systolic murmur Pulses: PRESENT: normal dorsalis pedis pul Vascular exam: PRESENT: normal capillary refill GI/Abdominal exam: PRESENT: normal bowel sounds, soft, tenderness - incision site. ABSENT: distended, guarding, mass, organolmegaly, rebound Rectal exam: PRESENT: deferred Extremities exam: PRESENT: full ROM. ABSENT: calf tenderness, clubbing, pedal edema Neurological exam: PRESENT: alert, awake, oriented to person, oriented to place , oriented to time, oriented to situation, CN II-XII grossly intact. ABSENT: motor sensory deficit Psychiatric exam: PRESENT: appropriate affect, normal mood. ABSENT: homicidal ideation, suicidal ideation Skin exam: PRESENT: dry, intact, warm. ABSENT: cyanosis, rash Results Laboratory Results: 09/24/17 03:41 09/24/17 03:41 09/23/17 20:29 Troponin I 0.041 Impressions: Abdomen/Pelvis CT 09/23/17 13:19 IMPRESSION: Small bowel obstruction from small bowel incarcerated in a subxiphoid midline ventral hernia Chest X-Ray 09/23/17 13:21 IMPRESSION: Nothing acute. Assessment & Plan - Diagnosis (1) Incarcerated hernia Is this a current diagnosis for this admission?: Yes (2) Hypertension Qualifiers: Hypertension type: essential hypertension Qualified Code(s): I10 - Essential (primary) hypertension Is this a current diagnosis for this admission?: Yes (3) Seizure Is this a current diagnosis for this admission?: Yes - Time Time Spent with patient: 15-24 minutes Medications reviewed and adjusted accordingly: Yes Anticipated discharge: Home Within: within 72 hours - Inpatient Certification Based on my medical assessment, after consideration of the patient's comorbidities, presenting symptoms, or acuity I expect that the services needed warrant INPATIENT care.: Yes Medical Necessity: Need for Pain Control, Risk of Complication if Not Cared For in Hospital
[2017-09-25] MEDS: DEXTROSE 5%-LACTATED RINGERS 1,000 ML IV PRN (20:26)
[2017-09-25] MEDS: QUETIAPINE FUMARATE 25 MG TABLET PO SCH (21:56)
[2017-09-25] MEDS: HYDROXYZINE PAMOATE 25 MG CAPSULE PO SCH (21:56)
[2017-09-25] MEDS: ATORVASTATIN CALCIUM 20 MG TABLET PO SCH (21:57)
[2017-09-26] MEDS ORDERED: NORMAL SALINE 1000 ML 1,000 ML IV ONE (00:30)
[2017-09-26 01:10] LABS: HEMATOCRIT 29.5 % (36.0-47.0); HEMOGLOBIN 9.9 g/dL (12.0-15.5); MEAN CORPUSCULAR HEMOGLOBIN 30.7 pg (27.0-33.4); MEAN CORPUSCULAR HGB CONC 33.7 g/dL (32.0-36.0); MEAN CORPUSCULAR VOLUME 91 fl (80-97); PLATELET COUNT 212 10^3/uL (150-450); RED BLOOD COUNT 3.24 10^6/uL (3.72-5.28); RED CELL DISTRIBUTION WIDTH 14.4 % (11.5-14.0)
[2017-09-26 01:13] LABS: WHITE BLOOD COUNT 2.9 10^3/uL (4.0-10.5)
[2017-09-26 01:22] LABS: ANION GAP 6 (5-19); BLOOD UREA NITROGEN 17 mg/dL (7-20); CALCIUM 7.9 mg/dL (8.4-10.2); CARBON DIOXIDE 22 mmol/L (22-30); CHLORIDE 107 mmol/L (98-107); GLUCOSE 119 mg/dL (75-110); POTASSIUM 3.9 mmol/L (3.6-5.0); SODIUM 135.4 mmol/L (137-145)
[2017-09-26] MEDS ORDERED: NORMAL SALINE INJ/PF 0.9% 10 ML SDV IV PRN (01:34)
--- NOTE | 2017-09-26 01:37 | Operative Report ---
Nonrecallable Operative Report DATE OF SURGERY: 09/26/17 PREOPERATIVE DIAGNOSIS: Hypotension POSTOPERATIVE DIAGNOSIS: Same OPERATION: 1. Focused ultrasound of the neck. 2. Placement of left subclavian central venous access catheter 1ST CARE ASST: ZELDA HOWE ANESTHESIA: Local TISSUE REMOVED OR ALTERED: None COMPLICATIONS: None ESTIMATED BLOOD LOSS: Scant INTRAOPERATIVE FINDINGS: See below PROCEDURE: Informed consent was obtained. The patient was placed in Trendelenburg the left subclavian area was exposed , prepped and draped in a sterile fashion. Surgical plan and surgical timeout discussed. The subclavian area was anesthetized with 1% lidocaine without epinephrine. Suitable site for placement of a left subclavian vein was chosen. Ultrasound was placed on the subclavian vein used as a guide. An 18-gauge needle and wire were threaded into the right subclavian vein. The tract was dilated up, the dilator removed, and the triple-lumen central venous access catheter was threaded into the left subclavian vein uneventfully to the hub. There was excellent aspiration and flush of saline through all 3 lumens. The catheter was affixed to the skin with a Biopatch and 2-0 silk suture; sterile dressing applied. The patient tolerated the procedure well. There were no complications. Portable upright chest x-ray pending at time of dictation.
[2017-09-26 01:57] LABS: ABSOLUTE LYMPHOCYTES# (MANUAL) 0.1 10^3/uL (0.5-4.7); ABSOLUTE MONOCYTES # (MANUAL) 0.3 10^3/uL (0.1-1.4); ABSOLUTE NEUTROPHILS# (MANUAL) 2.4 10^3/uL (1.7-8.2); ANISOCYTOSIS 1+; BASOPHILS % (MANUAL) 0 % (0-2); EOSINOPHILS % (MANUAL) 3 % (0-6); LYMPHOCYTES % (MANUAL) 5 % (13-45); MONOCYTES % (MANUAL) 9 % (3-13); SEGMENTED NEUTROPHILS % (MAN) 59 % (42-78); TOTAL CELLS COUNTED 100
[2017-09-26 01:58] LABS: HYPOCHROMASIA 1+; PLATELET COMMENT ADEQUATE
[2017-09-26 02:16] LABS: BAND NEUTROPHILS % (MANUAL) 24 % (3-5)
[2017-09-26] MEDS ORDERED: NORMAL SALINE 1000 ML 1,000 ML IV PRN (02:30)
--- NOTE | 2017-09-26 03:05 | RADIOLOGY REPORT (SQ) ---
EXAM DESCRIPTION: XR CHEST 1 VIEW COMPLETED DATE/TME: 09/26/2017 00:00 EXAM DESCRIPTION: Single view of the chest CLINICAL HISTORY: Central Line Placement COMPARISON: 09/23/2017 FINDINGS: Single frontal view of the chest. Left subclavian central venous catheter with tip overlying the right atrium. Heart is not enlarged. Low lung lungs. Patchy bibasilar opacities and likely small bilateral pleural effusions. Leads overlie the chest. Postoperative change of the shoulders. Upper abdominal soft tissues are unremarkable. IMPRESSION: 1. Left subclavian central venous catheter with tip overlying the high right atrium. Somewhat medially projecting course. If there is concern for azygos vein placement lateral view may be helpful. 2. Interval increase in patchy bibasilar airspace opacities and small bilateral pleural effusions. 2011 [employer]- All Rights Reserved
[2017-09-26] MEDS: LANSOPRAZOLE 30 MG TAB.RAP.DR PO SCH (05:34)
[2017-09-26] MEDS: DEXTROSE 5%-LACTATED RINGERS 1,000 ML IV PRN ×2 (08:46→17:29)
[2017-09-26] MEDS: FUROSEMIDE 20 MG TABLET PO SCH (08:46)
[2017-09-26] MEDS: DULOXETINE HCL 30 MG CAPSULE.DR PO SCH (09:10)
[2017-09-26] MEDS: FAMOTIDINE INJ/PF 20 MG/2 ML SDV IV SCH ×2 (09:10→21:01)
[2017-09-26] MEDS: DONEPEZIL HCL 5 MG TABLET PO SCH (09:11)
[2017-09-26] MEDS: TOLTERODINE TARTRATE 1 MG TABLET PO SCH ×2 (10:09→21:00)
[2017-09-26] MEDS: MEMANTINE HCL 10 MG TABLET PO SCH ×2 (10:09→17:22)
--- NOTE | 2017-09-26 11:04 | PDOC PROGRESS REPORT ---
Subjective Progress Note for:: 09/26/17 Subjective:: Patient is postoperative day 4 status post right hemicolectomy for port revision of small bowel with ischemia. Last night she had an episode of hypotension tachycardia, and decreased mental status. She was transferred to the unit for stabilization as these events took place at 1:30 in the morning on the fifth floor of [facility]. Patient responded nicely to central line insertion, IV fluids and holding of all pain medication. 's morning she wants something more than clear liquids. Reason For Visit: STRANGULATED HERNIA, SMALL BOWEL OBSTRUCTION Physical Exam Vital Signs: Temp Pulse Resp BP Pulse Ox 98.9 F 97 18 133/74 H 95 09/26/17 06:00 09/26/17 05:40 09/26/17 06:30 09/26/17 06:30 09/26/17 06:30 Intake & Output 09/25/17 09/26/17 09/27/17 06:59 06:59 06:59 Intake Total 3187 3122 Output Total 610 450 Balance 2577 2672 Weight 71.3 kg 77.4 kg General appearance: PRESENT: no acute distress - Arouses follows simple commands GI/Abdominal exam: PRESENT: other - Soft; jeremie in place minimal abdominal tenderness appropriate for postoperative state Results Laboratory Results: 09/26/17 01:00 09/26/17 01:00 09/26/17 09/26/17 01:00 01:00 WBC 2.9 L D RBC 3.24 L Hgb 9.9 L Hct 29.5 L MCV 91 MCH 30.7 MCHC 33.7 RDW 14.4 H Plt Count 212 Seg Neutrophils % Not Reportable Lymphocytes % Not Reportable Monocytes % Not Reportable Eosinophils % Not Reportable Basophils % Not Reportable Absolute Neutrophils Not Reportable Absolute Lymphocytes Not Reportable Absolute Monocytes Not Reportable Absolute Eosinophils Not Reportable Absolute Basophils Not Reportable Sodium 135.4 L Potassium 3.9 Chloride 107 Carbon Dioxide 22 Anion Gap 6 BUN 17 Creatinine 0.87 Est GFR ( Amer) > 60 Est GFR (Non-Af Amer) > 60 Glucose 119 H Calcium 7.9 L 09/23/17 20:29 Troponin I 0.041 Impressions: Abdomen/Pelvis CT 09/23/17 13:19 IMPRESSION: Small bowel obstruction from small bowel incarcerated in a subxiphoid midline ventral hernia Chest X-Ray 09/26/17 00:00 IMPRESSION: 1. Left subclavian central venous catheter with tip overlying the high right atrium. Somewhat medially projecting course. If there is concern for azygos vein placement lateral view may be helpful. 2. Interval increase in patchy bibasilar airspace opacities and small bilateral pleural effusions. 2011 [employer]- All Rights Reserved Assessment & Plan - Diagnosis (1) S/P right hemicolectomy Is this a current diagnosis for this admission?: Yes Plan: Postoperative day 3 status post right hemicolectomy, now better after hypotensive episode likely due to dehydration last night after massive bowel. Recommendations: 1. We will advance diet as tolerated under supervision 2. Transfer to floor. 3. Discharge planning involved
[2017-09-26] MEDS: KETOROLAC TROMETHAMINE INJ/PF 30 MG/1 ML SDV IV PRN ×2 (14:03→20:55)
--- NOTE | 2017-09-26 15:51 | PDOC PROGRESS REPORT ---
Subjective Progress Note for:: 09/26/17 Subjective:: Patient was moved to the intensive care unit overnight apparently due to hypotension, altered mental status and tachycardia. She has responded nicely to intravenous fluids and her narcotics currently on hold. She is 4 days status post right hemicolectomy for port revision of small bowel ischemia Reason For Visit: STRANGULATED HERNIA, SMALL BOWEL OBSTRUCTION Physical Exam Vital Signs: Temp Pulse Resp BP Pulse Ox 98.9 F 95 20 126/80 H 99 09/26/17 06:00 09/26/17 08:00 09/26/17 11:15 09/26/17 10:31 09/26/17 11:15 Intake & Output 09/25/17 09/26/17 09/27/17 06:59 06:59 06:59 Intake Total 3187 3122 400 Output Total 610 450 160 Balance 2577 2672 240 Weight 71.3 kg 77.4 kg General appearance: PRESENT: no acute distress, well-developed, well-nourished Head exam: PRESENT: atraumatic, normocephalic Eye exam: PRESENT: conjunctiva pink, EOMI, PERRLA. ABSENT: scleral icterus Mouth exam: PRESENT: dry mucosa, tongue midline Neck exam: ABSENT: carotid bruit, JVD, lymphadenopathy, thyromegaly Respiratory exam: PRESENT: clear to auscultation sabina. ABSENT: rales, rhonchi, wheezes Cardiovascular exam: PRESENT: RRR. ABSENT: diastolic murmur, rubs, systolic murmur Pulses: PRESENT: normal dorsalis pedis pul Vascular exam: PRESENT: normal capillary refill GI/Abdominal exam: PRESENT: normal bowel sounds, tenderness - general, localized around incision site. ABSENT: distended, guarding, mass, organolmegaly, rebound Rectal exam: PRESENT: deferred Extremities exam: PRESENT: full ROM. ABSENT: calf tenderness, clubbing, pedal edema Neurological exam: PRESENT: alert, awake, oriented to person, oriented to place , oriented to situation. ABSENT: motor sensory deficit Psychiatric exam: PRESENT: appropriate affect. ABSENT: homicidal ideation, suicidal ideation Skin exam: PRESENT: dry, intact, warm. ABSENT: cyanosis, rash Results Laboratory Results: 09/26/17 01:00 09/26/17 01:00 09/26/17 09/26/17 01:00 01:00 WBC 2.9 L D RBC 3.24 L Hgb 9.9 L Hct 29.5 L MCV 91 MCH 30.7 MCHC 33.7 RDW 14.4 H Plt Count 212 Seg Neutrophils % Not Reportable Lymphocytes % Not Reportable Monocytes % Not Reportable Eosinophils % Not Reportable Basophils % Not Reportable Absolute Neutrophils Not Reportable Absolute Lymphocytes Not Reportable Absolute Monocytes Not Reportable Absolute Eosinophils Not Reportable Absolute Basophils Not Reportable Sodium 135.4 L Potassium 3.9 Chloride 107 Carbon Dioxide 22 Anion Gap 6 BUN 17 Creatinine 0.87 Est GFR ( Amer) > 60 Est GFR (Non-Af Amer) > 60 Glucose 119 H Calcium 7.9 L 09/23/17 20:29 Troponin I 0.041 Impressions: Abdomen/Pelvis CT 09/23/17 13:19 IMPRESSION: Small bowel obstruction from small bowel incarcerated in a subxiphoid midline ventral hernia Chest X-Ray 09/26/17 00:00 IMPRESSION: 1. Left subclavian central venous catheter with tip overlying the high right atrium. Somewhat medially projecting course. If there is concern for azygos vein placement lateral view may be helpful. 2. Interval increase in patchy bibasilar airspace opacities and small bilateral pleural effusions. 2010 [employer]- All Rights Reserved Assessment & Plan - Diagnosis (1) Incarcerated hernia Is this a current diagnosis for this admission?: Yes Plan: Continue management per Surgery (2) Hypertension Qualifiers: Hypertension type: essential hypertension Qualified Code(s): I10 - Essential (primary) hypertension Is this a current diagnosis for this admission?: Yes Plan: We will restart her meds once blood pressure is controlled (3) Seizure Is this a current diagnosis for this admission?: Yes Plan: Keppra -continue - Time Time Spent with patient: 15-24 minutes Medications reviewed and adjusted accordingly: Yes Anticipated discharge: Acute Rehab Within: within 72 hours - Inpatient Certification Based on my medical assessment, after consideration of the patient's comorbidities, presenting symptoms, or acuity I expect that the services needed warrant INPATIENT care.: Yes Medical Necessity: Significant Comorbidiites Make Outpatient Treatment Too Risky , Need for Pain Control
[2017-09-26] MEDS: LEVETIRACETAM 500 MG TABLET PO SCH (21:00)
[2017-09-26] MEDS: QUETIAPINE FUMARATE 25 MG TABLET PO SCH (21:00)
[2017-09-26] MEDS: ATORVASTATIN CALCIUM 20 MG TABLET PO SCH (21:00)
[2017-09-26] MEDS: HYDROXYZINE PAMOATE 25 MG CAPSULE PO SCH (21:00)
[2017-09-27] MEDS: KETOROLAC TROMETHAMINE INJ/PF 30 MG/1 ML SDV IV PRN ×3 (02:40→19:55)
[2017-09-27] MEDS: DEXTROSE 5%-LACTATED RINGERS 1,000 ML IV PRN (02:55)
[2017-09-27] MEDS: LANSOPRAZOLE 30 MG TAB.RAP.DR PO SCH (05:30)
[2017-09-27 05:44] LABS: ABSOLUTE EOSINOPHILS # (AUTO) 0.1 10^3/uL (0.0-0.6); ABSOLUTE LYMPHOCYTES (AUTO) 0.2 10^3/uL (0.5-4.7); ABSOLUTE MONOCYTES (AUTO) 0.3 10^3/uL (0.1-1.4); ABSOLUTE NEUT (AUTO) 2.2 10^3/uL (1.7-8.2); BASOPHILS % (AUTO) 0.2 % (0-2); EOSINOPHILS % (AUTO) 4.4 % (0-6); HEMATOCRIT 30.5 % (36.0-47.0); HEMOGLOBIN 10.5 g/dL (12.0-15.5); LYMPHOCYTES % (AUTO) 8.3 % (13-45); MEAN CORPUSCULAR HEMOGLOBIN 30.6 pg (27.0-33.4); MEAN CORPUSCULAR HGB CONC 34.5 g/dL (32.0-36.0); MEAN CORPUSCULAR VOLUME 89 fl (80-97); MONOCYTES % (AUTO) 10.9 % (3-13); PLATELET COUNT 216 10^3/uL (150-450); RED BLOOD COUNT 3.44 10^6/uL (3.72-5.28); RED CELL DISTRIBUTION WIDTH 14.2 % (11.5-14.0); SEGMENTED NEUTROPHILS % (AUTO) 76.2 % (42-78); TOTAL CELLS COUNTED % (AUTO) 100 %; WHITE BLOOD COUNT 2.9 10^3/uL (4.0-10.5)
[2017-09-27 06:03] LABS: ANION GAP 8 (5-19); BLOOD UREA NITROGEN 13 mg/dL (7-20); CALCIUM 7.9 mg/dL (8.4-10.2); CARBON DIOXIDE 26 mmol/L (22-30); CHLORIDE 104 mmol/L (98-107); GLUCOSE 112 mg/dL (75-110); POTASSIUM 3.4 mmol/L (3.6-5.0); SODIUM 138.2 mmol/L (137-145)
[2017-09-27] MEDS: FUROSEMIDE 20 MG TABLET PO SCH (08:21)
[2017-09-27] MEDS ORDERED: PHARMACY COMMUNICATION ORDER MC NR (09:00)
--- NOTE | 2017-09-27 10:00 | PDOC PROGRESS REPORT ---
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, stools last night, emesis thisAM Reason For Visit: STRANGULATED HERNIA, SMALL BOWEL OBSTRUCTION Physical Exam Vital Signs: Temp Pulse Resp BP Pulse Ox 99.3 F 105 H 16 149/76 H 97 09/27/17 06:27 09/27/17 06:27 09/27/17 06:27 09/27/17 06:27 09/27/17 06:27 Intake & Output 09/26/17 09/27/17 09/28/17 06:59 06:59 06:59 Intake Total 3122 3236 Output Total 450 935 Balance 2672 2301 Weight 77.4 kg 80 kg General appearance: PRESENT: no acute distress, other - flat affect, non responsive Respiratory exam: PRESENT: clear to auscultation sabina Cardiovascular exam: PRESENT: RRR, tachycardia GI/Abdominal exam: PRESENT: normal bowel sounds, other - slightly distended, wound C/D/I Results Laboratory Results: 09/27/17 05:36 09/27/17 05:36 09/27/17 09/27/17 05:36 05:36 WBC 2.9 L RBC 3.44 L Hgb 10.5 L Hct 30.5 L MCV 89 MCH 30.6 MCHC 34.5 RDW 14.2 H Plt Count 216 Seg Neutrophils % 76.2 Lymphocytes % 8.3 L Monocytes % 10.9 Eosinophils % 4.4 Basophils % 0.2 Absolute Neutrophils 2.2 Absolute Lymphocytes 0.2 L Absolute Monocytes 0.3 Absolute Eosinophils 0.1 Absolute Basophils 0.0 Sodium 138.2 Potassium 3.4 L Chloride 104 Carbon Dioxide 26 Anion Gap 8 BUN 13 Creatinine 0.65 Est GFR ( Amer) > 60 Est GFR (Non-Af Amer) > 60 Glucose 112 H Calcium 7.9 L 09/23/17 20:29 Troponin I 0.041 Impressions: Abdomen/Pelvis CT 09/23/17 13:19 IMPRESSION: Small bowel obstruction from small bowel incarcerated in a subxiphoid midline ventral hernia Chest X-Ray 09/26/17 00:00 IMPRESSION: 1. Left subclavian central venous catheter with tip overlying the high right atrium. Somewhat medially projecting course. If there is concern for azygos vein placement lateral view may be helpful. 2. Interval increase in patchy bibasilar airspace opacities and small bilateral pleural effusions. 2010 [employer]- All Rights Reserved Assessment & Plan - Diagnosis (1) Incarcerated hernia Is this a current diagnosis for this admission?: Yes (2) S/P right hemicolectomy Is this a current diagnosis for this admission?: Yes - Plan Summary Plan Summary: A/ POD #5 after right hemicolectomy for strangulated ventral hernia VSS, tachycardia Marginal UO Emesis this AM Low K Slightly distended anbdomen P/ Insert NGT to LCS KCl 40 mEq IVPB Continue NPO change IVF to NF Bolus NS 1 liter
--- NOTE | 2017-09-27 10:12 | RADIOLOGY REPORT (SQ) ---
EXAM DESCRIPTION: KUB/ABDOMEN (SINGLE VIEW) COMPLETED DATE/TIME: 09/27/2017 9:36 am REASON FOR STUDY: Check Placement of NG Tube COMPARISON: CT abdomen pelvis 09/23/2017 KUB 06/28/2016 NUMBER OF VIEWS: One view. TECHNIQUE: Supine radiographic image of the abdomen acquired for NG tube placement. LIMITATIONS: Pelvis not included in the field of view FINDINGS: 2 films of the upper abdomen are submitted. Patient has a retrocardiac hiatal hernia. The tip and side port of the nasogastric tube are in the r etrocardiac hernia. There is gaseous distension of subdiaphragmatic stomach, small bowel and colon. Bibasilar atelectasis is present. Midline anterior surgical jeremie are present. IMPRESSION: Tip and side port of the nasogastric tube is in the retrocardiac hiatal hernia. Below the hemidiaphragms, there is moderate gaseous distension of stomach and small bowel Bibasilar bandlike atelectasis TECHNICAL DOCUMENTATION: JOB ID: [id number] [employer]- All Rights Reserved Reading location - IP/workstation name: [email or web address]
[2017-09-27] MEDS ORDERED: NORMAL SALINE 1000 ML 1,000 ML IV PRN ×3 (10:14→10:24)
[2017-09-27] MEDS ORDERED: POTASSIUM CHLORIDE 10 MEQ TABLET.SA PO ONE (10:37)
--- NOTE | 2017-09-27 10:44 | PDOC PROGRESS REPORT ---
Subjective Progress Note for:: 09/27/17 Subjective:: Patient out of the intensive care unit. She responded nicely to intravenous fluids and her narcotics currently on hold. She is 5 days status post right hemicolectomy for port revision of small bowel ischemia CXR noted with interval increase of pleural effusion. There is no evidence of respiratory compromise Reason For Visit: STRANGULATED HERNIA, SMALL BOWEL OBSTRUCTION Physical Exam Vital Signs: Temp Pulse Resp BP Pulse Ox 99.3 F 105 H 16 149/76 H 97 09/27/17 06:27 09/27/17 06:27 09/27/17 06:27 09/27/17 06:27 09/27/17 06:27 Intake & Output 09/26/17 09/27/17 09/28/17 06:59 06:59 06:59 Intake Total 3122 3236 Output Total 450 935 Balance 2672 2301 Weight 77.4 kg 80 kg General appearance: PRESENT: no acute distress, other - elderly and frail Head exam: PRESENT: atraumatic, normocephalic Eye exam: PRESENT: conjunctiva pink, EOMI, PERRLA. ABSENT: scleral icterus Ear exam: PRESENT: normal external ear exam Mouth exam: PRESENT: moist, tongue midline Neck exam: ABSENT: carotid bruit, JVD, lymphadenopathy, thyromegaly Respiratory exam: PRESENT: clear to auscultation sabina. ABSENT: rales, rhonchi, wheezes Cardiovascular exam: PRESENT: RRR. ABSENT: diastolic murmur, rubs, systolic murmur Pulses: PRESENT: normal dorsalis pedis pul Vascular exam: PRESENT: normal capillary refill GI/Abdominal exam: PRESENT: normal bowel sounds, soft, tenderness - incision site. ABSENT: distended, guarding, mass, organolmegaly, rebound Rectal exam: PRESENT: deferred Extremities exam: PRESENT: full ROM. ABSENT: calf tenderness, clubbing, pedal edema Neurological exam: PRESENT: alert, awake, oriented to person, oriented to place , oriented to time. ABSENT: motor sensory deficit Psychiatric exam: PRESENT: appropriate affect, normal mood. ABSENT: homicidal ideation, suicidal ideation Skin exam: PRESENT: dry, intact, warm, other - incision site appropi=riate. ABSENT: cyanosis, rash Results Laboratory Results: 09/27/17 05:36 09/27/17 05:36 09/27/17 09/27/17 05:36 05:36 WBC 2.9 L RBC 3.44 L Hgb 10.5 L Hct 30.5 L MCV 89 MCH 30.6 MCHC 34.5 RDW 14.2 H Plt Count 216 Seg Neutrophils % 76.2 Lymphocytes % 8.3 L Monocytes % 10.9 Eosinophils % 4.4 Basophils % 0.2 Absolute Neutrophils 2.2 Absolute Lymphocytes 0.2 L Absolute Monocytes 0.3 Absolute Eosinophils 0.1 Absolute Basophils 0.0 Sodium 138.2 Potassium 3.4 L Chloride 104 Carbon Dioxide 26 Anion Gap 8 BUN 13 Creatinine 0.65 Est GFR ( Amer) > 60 Est GFR (Non-Af Amer) > 60 Glucose 112 H Calcium 7.9 L 09/23/17 20:29 Troponin I 0.041 Impressions: Abdomen/Pelvis CT 09/23/17 13:19 IMPRESSION: Small bowel obstruction from small bowel incarcerated in a subxiphoid midline ventral hernia Chest X-Ray 09/26/17 00:00 IMPRESSION: 1. Left subclavian central venous catheter with tip overlying the high right atrium. Somewhat medially projecting course. If there is concern for azygos vein placement lateral view may be helpful. 2. Interval increase in patchy bibasilar airspace opacities and small bilateral pleural effusions. 2011 [employer]- All Rights Reserved KUB X-Ray 09/27/17 08:57 IMPRESSION: Tip and side port of the nasogastric tube is in the retrocardiac hiatal hernia. Below the hemidiaphragms, there is moderate gaseous distension of stomach and small bowel Bibasilar bandlike atelectasis Assessment & Plan - Diagnosis (1) Incarcerated hernia Is this a current diagnosis for this admission?: Yes Plan: Continue management per Surgery post op day 5 (2) Hypertension Qualifiers: Hypertension type: essential hypertension Qualified Code(s): I10 - Essential (primary) hypertension Is this a current diagnosis for this admission?: Yes Plan: Controlled (3) Seizure Is this a current diagnosis for this admission?: Yes Plan: Keppra -continue, no seizure activity since admission
[2017-09-27] MEDS: MEMANTINE HCL 10 MG TABLET PO SCH (10:46)
[2017-09-27] MEDS: FAMOTIDINE INJ/PF 20 MG/2 ML SDV IV SCH ×2 (10:46→21:22)
[2017-09-27] MEDS: DULOXETINE HCL 30 MG CAPSULE.DR PO SCH (10:46)
[2017-09-27] MEDS: TOLTERODINE TARTRATE 1 MG TABLET PO SCH (10:46)
[2017-09-27] MEDS: DONEPEZIL HCL 5 MG TABLET PO SCH (10:46)
[2017-09-27] MEDS: LEVETIRACETAM 500 MG TABLET PO SCH (10:46)
[2017-09-27] MEDS: ASPIRIN 81 MG TABLET, ENT COATED PO SCH (10:46)
[2017-09-27] MEDS: ENOXAPARIN SODIUM INJ 40 MG/0.4 ML DISP.SYRIN SUBCUT SCH (10:47)
[2017-09-27] MEDS ORDERED: ONDANSETRON HCL INJ/PF 4 MG/2 ML SDV IV PRN (10:48)
[2017-09-27] MEDS ORDERED: KETOROLAC TROMETHAMINE 10 MG TABLET NG PRN (11:00)
[2017-09-27] MEDS: ASPIRIN 81 MG TABLET, CHEWABLE NG SCH (11:04)
[2017-09-27] MEDS: POTASSIUM CHLORIDE 20 MEQ/50 ML RTU IV SCH ×2 (11:12→13:11)
[2017-09-27] MEDS: PROMETHAZINE HCL INJ 25 MG/1 ML VIAL IV PRN ×2 (13:10→18:10)
[2017-09-27] MEDS ORDERED: METOPROLOL TARTRATE PF/INJ 5 MG/5 ML SDV IV ONE (13:55)
--- NOTE | 2017-09-27 16:29 | RADIOLOGY REPORT (SQ) ---
EXAM DESCRIPTION: CHEST SINGLE VIEW COMPLETED DATE/TIME: 09/27/2017 4:21 pm REASON FOR STUDY: possible aspiration COMPARISON: 09/26/2017. EXAM PARAMETERS: NUMBER OF VIEWS: One view. TECHNIQUE: Single frontal radiographic view of the chest acquired. RADIATION DOSE: NA LIMITATIONS: None. FINDINGS: LUNGS AND PLEURA: Patchy basilar densities, left greater than right. No large pleural eff usion. No pneumothorax. Skin fold overlying the upper chest on the right. MEDIASTINUM AND HILAR STRUCTURES: No masses. Contour normal. HEART AND VASCULAR STRUCTURES: Mild cardiomegaly. BONES: No acute findings. HARDWARE: Stable nasogastric tube, central line. Bilateral shoulder prosthesis. Clips in the abdome n. OTHER: No other significant finding. IMPRESSION: CARDIOMEGALY. PATCHY BASILAR DENSITIES, LEFT GREATER THAN RIGHT, POSSIBLE DEVELOPING PN EUMONIA. TECHNICAL DOCUMENTATION: JOB ID: [id number] [employer]- All Rights Reserved Reading location - IP/workstation name: [email or web address]
[2017-09-27] MEDS ORDERED: METOPROLOL TARTRATE 25 MG TABLET NG ONE (16:30)
[2017-09-27 16:37] LABS: AMORPHOUS SEDIMENT,URINE TRACE /HPF; APPEARANCE,URINE CLOUDY; BILIRUBIN,URINE NEGATIVE (NEGATIVE); COLOR,URINE AMBER; GLUCOSE, URINE NEGATIVE (NEGATIVE); KETONES,URINE NEGATIVE (NEGATIVE); LEUKOCYTE ESTERASE,URINE NEGATIVE (NEGATIVE); NITRITE,URINE NEGATIVE (NEGATIVE); PROTEIN,URINE 100 mg/dL (NEGATIVE); URINE SPECIFIC GRAVITY 1.024; UROBILINOGEN,URINE NEGATIVE mg/dL (<2.0)
[2017-09-27] MEDS: MEMANTINE HCL 10 MG TABLET NG SCH (17:02)
[2017-09-27] MEDS: METOPROLOL TARTRATE 25 MG TABLET PO SCH (17:03)
[2017-09-27] MEDS: LEVETIRACETAM ORAL SOLN 500 MG/5 ML UDCUP NG SCH (21:23)
[2017-09-27] MEDS: TOLTERODINE TARTRATE 1 MG TABLET NG SCH (21:23)
[2017-09-27] MEDS ORDERED: ATORVASTATIN CALCIUM 20 MG TABLET NG SCH (22:00)
[2017-09-27] MEDS ORDERED: HYDROXYZINE PAMOATE 25 MG CAPSULE NG SCH (22:00)
[2017-09-27] MEDS ORDERED: QUETIAPINE FUMARATE 25 MG TABLET NG SCH (22:00)
[2017-09-28] MEDS: PROMETHAZINE HCL INJ 25 MG/1 ML VIAL IV PRN (02:13)
[2017-09-28] MEDS: METOPROLOL TARTRATE 25 MG TABLET PO SCH ×2 (05:26→17:41)
[2017-09-28 06:56] LABS: ANION GAP 7 (5-19); BLOOD UREA NITROGEN 16 mg/dL (7-20); CALCIUM 7.5 mg/dL (8.4-10.2); CARBON DIOXIDE 25 mmol/L (22-30); CHLORIDE 106 mmol/L (98-107); GLUCOSE 67 mg/dL (75-110); HEMATOCRIT 29.7 % (36.0-47.0); HEMOGLOBIN 10.1 g/dL (12.0-15.5); MEAN CORPUSCULAR HEMOGLOBIN 30.4 pg (27.0-33.4); MEAN CORPUSCULAR HGB CONC 33.8 g/dL (32.0-36.0); MEAN CORPUSCULAR VOLUME 90 fl (80-97); PLATELET COUNT 248 10^3/uL (150-450); POTASSIUM 3.9 mmol/L (3.6-5.0); RED BLOOD COUNT 3.31 10^6/uL (3.72-5.28); RED CELL DISTRIBUTION WIDTH 14.2 % (11.5-14.0); SODIUM 138.4 mmol/L (137-145); WHITE BLOOD COUNT 3.9 10^3/uL (4.0-10.5)
[2017-09-28 07:39] LABS: ABSOLUTE LYMPHOCYTES# (MANUAL) 0.7 10^3/uL (0.5-4.7); ABSOLUTE MONOCYTES # (MANUAL) 0.6 10^3/uL (0.1-1.4); ABSOLUTE NEUTROPHILS# (MANUAL) 2.5 10^3/uL (1.7-8.2); BAND NEUTROPHILS % (MANUAL) 8 % (3-5); BASOPHILS % (MANUAL) 0 % (0-2); EOSINOPHILS % (MANUAL) 3 % (0-6); LYMPHOCYTES % (MANUAL) 17 % (13-45); METAMYELOCYTES % (MANUAL) 1 % (0); MONOCYTES % (MANUAL) 16 % (3-13); SEGMENTED NEUTROPHILS % (MAN) 55 % (42-78); TOTAL CELLS COUNTED 100
[2017-09-28 07:41] LABS: BURR CELLS SLIGHT; PLATELET COMMENT ADEQUATE; POIKILOCYTOSIS SLIGHT; POLYCHROMASIA SLIGHT; TOXIC GRANULATION 2+
--- NOTE | 2017-09-28 09:27 | PDOC PROGRESS REPORT ---
Subjective Progress Note for:: 09/28/17 Subjective:: Comfortable, BM this AM Reason For Visit: STRANGULATED HERNIA, SMALL BOWEL OBSTRUCTION Physical Exam Vital Signs: Temp Pulse Resp BP Pulse Ox 98.6 F 105 H 15 148/83 H 90 L 09/28/17 07:35 09/28/17 07:35 09/28/17 07:35 09/28/17 07:35 09/28/17 07:35 Intake & Output 09/27/17 09/28/17 09/29/17 06:59 06:59 06:59 Intake Total 3236 2233 Output Total 935 1325 Balance 2301 908 Weight 80 kg 81.9 kg General appearance: PRESENT: no acute distress Respiratory exam: PRESENT: clear to auscultation sabina Cardiovascular exam: PRESENT: RRR GI/Abdominal exam: PRESENT: normal bowel sounds, soft, other - wound C/D/I Results Laboratory Results: 09/28/17 04:30 09/28/17 04:30 09/27/17 09/28/17 09/28/17 15:56 04:30 04:30 WBC 3.9 L RBC 3.31 L Hgb 10.1 L Hct 29.7 L MCV 90 MCH 30.4 MCHC 33.8 RDW 14.2 H Plt Count 248 Seg Neutrophils % Not Reportable Lymphocytes % Not Reportable Monocytes % Not Reportable Eosinophils % Not Reportable Basophils % Not Reportable Absolute Neutrophils Not Reportable Absolute Lymphocytes Not Reportable Absolute Monocytes Not Reportable Absolute Eosinophils Not Reportable Absolute Basophils Not Reportable Sodium 138.4 Potassium 3.9 Chloride 106 Carbon Dioxide 25 Anion Gap 7 BUN 16 Creatinine 0.63 Est GFR ( Amer) > 60 Est GFR (Non-Af Amer) > 60 Glucose 67 L Calcium 7.5 L Urine Color MARIE Urine Appearance CLOUDY Urine pH 5.0 Ur Specific [place] 1.024 Urine Protein 100 H Urine Glucose (UA) NEGATIVE Urine Ketones NEGATIVE Urine Blood SMALL H Urine Nitrite NEGATIVE Ur Leukocyte Esterase NEGATIVE Urine WBC (Auto) 4 Urine RBC (Auto) 3 09/23/17 20:29 Troponin I 0.041 Impressions: Abdomen/Pelvis CT 09/23/17 13:19 IMPRESSION: Small bowel obstruction from small bowel incarcerated in a subxiphoid midline ventral hernia Chest X-Ray 09/27/17 00:00 IMPRESSION: CARDIOMEGALY. PATCHY BASILAR DENSITIES, LEFT GREATER THAN RIGHT, POSSIBLE DEVELOPING PNEUMONIA. KUB X-Ray 09/27/17 08:57 IMPRESSION: Tip and side port of the nasogastric tube is in the retrocardiac hiatal hernia. Below the hemidiaphragms, there is moderate gaseous distension of stomach and small bowel Bibasilar bandlike atelectasis Assessment & Plan - Diagnosis (1) Incarcerated hernia Is this a current diagnosis for this admission?: Yes (2) S/P right hemicolectomy Is this a current diagnosis for this admission?: Yes - Plan Summary Plan Summary: A/ POD#4 after right hemicolectomy VSS, AF Good UO Elevated NGT output, slow this AM BM this morning Blood work acceptable Chest Xray shows possible developing pneumonia P/ Clamp NGT x 4 hrs, if residual < 100 ml, remove NGT and start sips of water Continue current [facility] Start Zosyn for possible hospital acquired pneumonia PT consult
[2017-09-28] MEDS ORDERED: DONEPEZIL HCL 5 MG TABLET NG SCH (10:00)
[2017-09-28] MEDS ORDERED: BUPRENORPHINE 5 MCG TOP SCH (10:00)
[2017-09-28 10:05] LABS: PATH REVIEW PATHOLOGIST REVIEWED
[2017-09-28] MEDS: TOLTERODINE TARTRATE 1 MG TABLET NG SCH (11:47)
[2017-09-28] MEDS: DULOXETINE HCL 30 MG CAPSULE.DR PO SCH (11:48)
[2017-09-28] MEDS: MEMANTINE HCL 10 MG TABLET NG SCH ×2 (11:48→17:41)
[2017-09-28] MEDS: LEVETIRACETAM ORAL SOLN 500 MG/5 ML UDCUP NG SCH (11:49)
[2017-09-28] MEDS: FAMOTIDINE INJ/PF 20 MG/2 ML SDV IV SCH ×2 (11:49→21:53)
[2017-09-28] MEDS: ENOXAPARIN SODIUM INJ 40 MG/0.4 ML DISP.SYRIN SUBCUT SCH (11:49)
[2017-09-28] MEDS: METRONIDAZOLE 500 MG/NS RTU 100 ML IV SCH ×2 (11:50→17:41)
[2017-09-28] MEDS: CIPROFLOXACIN 400 MG/D5W RTU 400 MG/200 ML RTUPB IV SCH ×2 (11:50→21:53)
[2017-09-28] MEDS: ASPIRIN 81 MG TABLET, CHEWABLE NG SCH (12:00)
[2017-09-28] MEDS: DEXTROSE 5%-NORMAL SALINE 1,000 ML IV PRN (12:01)
[2017-09-28] MEDS ORDERED: ACETAMINOPHEN 325 MG TABLET PO PRN (15:23)
--- NOTE | 2017-09-28 15:48 | PDOC PROGRESS REPORT ---
Subjective Progress Note for:: 09/28/17 Subjective:: Patient out of the intensive care unit. She responded nicely to intravenous fluids and her narcotics currently on hold. She is 6 days status post right hemicolectomy for port revision of small bowel ischemia CXR noted with interval increase of pleural effusion. There is no evidence of respiratory compromise She was in atrial fibrillation yesterday and appears she did convert to sinus rhythm. She does have a history of atrial fibrillation from report. This point obviously since this is likely postop issue will not pursue this any further however if she does revert back to atrial fibrillation she would need further evaluation including an echocardiogram. She is postop she is not appropriate for full anticoagulation but will continue to monitor. She appears to be over this acute illness And she seems to be stabilizing hopefully no further interventions will be needed Reason For Visit: STRANGULATED HERNIA, SMALL BOWEL OBSTRUCTION Physical Exam Vital Signs: Temp Pulse Resp BP Pulse Ox 98.8 F 97 16 145/78 H 100 09/28/17 11:37 09/28/17 14:00 09/28/17 11:37 09/28/17 11:37 09/28/17 11:37 Intake & Output 09/27/17 09/28/17 09/29/17 06:59 06:59 06:59 Intake Total 3236 2233 0 Output Total 935 1325 200 Balance 2301 908 -200 Weight 80 kg 81.9 kg General appearance: PRESENT: no acute distress, other - Elderly and frail Head exam: PRESENT: atraumatic Eye exam: PRESENT: other - Left eye slight droop-chronic with boggy lower eyelid Ear exam: PRESENT: normal external ear exam Mouth exam: PRESENT: other - NG tube in place with minimal drainage Neck exam: ABSENT: carotid bruit, JVD Respiratory exam: PRESENT: decreased breath sounds, unlabored. ABSENT: rales, tachypnea, wheezes Cardiovascular exam: PRESENT: RRR, +S1, +S2. ABSENT: bradycardia, tachycardia Pulses: PRESENT: normal dorsalis pedis pul GI/Abdominal exam: PRESENT: normal bowel sounds, tenderness - Incision site Rectal exam: PRESENT: deferred Extremities exam: ABSENT: calf tenderness Neurological exam: PRESENT: alert, awake, oriented to person, oriented to place Results Laboratory Results: 09/28/17 04:30 09/28/17 04:30 09/27/17 09/28/17 09/28/17 15:56 04:30 04:30 WBC 3.9 L RBC 3.31 L Hgb 10.1 L Hct 29.7 L MCV 90 MCH 30.4 MCHC 33.8 RDW 14.2 H Plt Count 248 Seg Neutrophils % Not Reportable Lymphocytes % Not Reportable Monocytes % Not Reportable Eosinophils % Not Reportable Basophils % Not Reportable Absolute Neutrophils Not Reportable Absolute Lymphocytes Not Reportable Absolute Monocytes Not Reportable Absolute Eosinophils Not Reportable Absolute Basophils Not Reportable Sodium 138.4 Potassium 3.9 Chloride 106 Carbon Dioxide 25 Anion Gap 7 BUN 16 Creatinine 0.63 Est GFR ( Amer) > 60 Est GFR (Non-Af Amer) > 60 Glucose 67 L Calcium 7.5 L Urine Color MARIE Urine Appearance CLOUDY Urine pH 5.0 Ur Specific [place] 1.024 Urine Protein 100 H Urine Glucose (UA) NEGATIVE Urine Ketones NEGATIVE Urine Blood SMALL H Urine Nitrite NEGATIVE Ur Leukocyte Esterase NEGATIVE Urine WBC (Auto) 4 Urine RBC (Auto) 3 09/23/17 20:29 Troponin I 0.041 Impressions: Abdomen/Pelvis CT 09/23/17 13:19 IMPRESSION: Small bowel obstruction from small bowel incarcerated in a subxiphoid midline ventral hernia Chest X-Ray 09/27/17 00:00 IMPRESSION: CARDIOMEGALY. PATCHY BASILAR DENSITIES, LEFT GREATER THAN RIGHT, POSSIBLE DEVELOPING PNEUMONIA. KUB X-Ray 09/27/17 08:57 IMPRESSION: Tip and side port of the nasogastric tube is in the retrocardiac hiatal hernia. Below the hemidiaphragms, there is moderate gaseous distension of stomach and small bowel Bibasilar bandlike atelectasis Assessment & Plan - Diagnosis (1) Incarcerated hernia Is this a current diagnosis for this admission?: Yes Plan: Continue management per Surgery post op day 6 (2) Hypertension Qualifiers: Hypertension type: essential hypertension Qualified Code(s): I10 - Essential (primary) hypertension Is this a current diagnosis for this admission?: Yes Plan: Controlled, added Metoprolol to regimen (3) Seizure Is this a current diagnosis for this admission?: Yes Plan: Keppra -continue, no seizure activity since admission (4) Paroxysmal atrial fibrillation Is this a current diagnosis for this admission?: Yes Plan: Please see discussion above (5) Pneumonia Qualifiers: Pneumonia type: due to unspecified organism Laterality: right Lung location: lower lobe of lung Qualified Code(s): J18.1 - Lobar pneumonia, unspecified organism Is this a current diagnosis for this admission?: Yes Plan: Clinically unclear due to paucity of findings however she is on empiric antibiotics. Will add Incentive spirometry - Time Time Spent with patient: 15-24 minutes Medications reviewed and adjusted accordingly: Yes Anticipated discharge: Acute Rehab Within: within 72 hours - Inpatient Certification Based on my medical assessment, after consideration of the patient's comorbidities, presenting symptoms, or acuity I expect that the services needed warrant INPATIENT care.: Yes Medical Necessity: Need For IV Fluids, Need for Pain Control, Need for IV Antibiotics
[2017-09-28] MEDS: TOLTERODINE TARTRATE 1 MG TABLET PO SCH (21:53)
[2017-09-28] MEDS: QUETIAPINE FUMARATE 25 MG TABLET PO SCH (21:54)
[2017-09-28] MEDS: LEVETIRACETAM ORAL SOLN 500 MG/5 ML UDCUP PO SCH (21:54)
[2017-09-28] MEDS: HYDROXYZINE PAMOATE 25 MG CAPSULE PO SCH (21:54)
[2017-09-28] MEDS: ATORVASTATIN CALCIUM 20 MG TABLET PO SCH (21:54)
[2017-09-29] MEDS: METRONIDAZOLE 500 MG/NS RTU 100 ML IV SCH ×3 (02:12→17:16)
[2017-09-29 05:03] LABS: ABSOLUTE EOSINOPHILS # (AUTO) 0.2 10^3/uL (0.0-0.6); ABSOLUTE LYMPHOCYTES (AUTO) 0.4 10^3/uL (0.5-4.7); ABSOLUTE MONOCYTES (AUTO) 0.6 10^3/uL (0.1-1.4); ABSOLUTE NEUT (AUTO) 4.3 10^3/uL (1.7-8.2); BASOPHILS % (AUTO) 0.2 % (0-2); EOSINOPHILS % (AUTO) 3.7 % (0-6); HEMATOCRIT 28.3 % (36.0-47.0); HEMOGLOBIN 9.5 g/dL (12.0-15.5); LYMPHOCYTES % (AUTO) 7.5 % (13-45); MEAN CORPUSCULAR HGB CONC 33.6 g/dL (32.0-36.0); MEAN CORPUSCULAR VOLUME 89 fl (80-97); MONOCYTES % (AUTO) 11.1 % (3-13); PLATELET COUNT 242 10^3/uL (150-450); RED BLOOD COUNT 3.17 10^6/uL (3.72-5.28); RED CELL DISTRIBUTION WIDTH 14.3 % (11.5-14.0); SEGMENTED NEUTROPHILS % (AUTO) 77.5 % (42-78); TOTAL CELLS COUNTED % (AUTO) 100 %; WHITE BLOOD COUNT 5.5 10^3/uL (4.0-10.5)
[2017-09-29] MEDS: METOPROLOL TARTRATE 25 MG TABLET PO SCH ×2 (05:20→17:15)
[2017-09-29 05:59] LABS: ANION GAP 8 (5-19); BLOOD UREA NITROGEN 11 mg/dL (7-20); CALCIUM 7.8 mg/dL (8.4-10.2); CARBON DIOXIDE 25 mmol/L (22-30); CHLORIDE 104 mmol/L (98-107); GLUCOSE 79 mg/dL (75-110); POTASSIUM 3.3 mmol/L (3.6-5.0)
[2017-09-29] MEDS: ENOXAPARIN SODIUM INJ 40 MG/0.4 ML DISP.SYRIN SUBCUT SCH (10:08)
[2017-09-29] MEDS: CIPROFLOXACIN 400 MG/D5W RTU 400 MG/200 ML RTUPB IV SCH ×2 (10:11→22:36)
[2017-09-29] MEDS: FAMOTIDINE INJ/PF 20 MG/2 ML SDV IV SCH ×2 (10:15→22:36)
[2017-09-29] MEDS: LEVETIRACETAM ORAL SOLN 500 MG/5 ML UDCUP PO SCH ×2 (10:15→22:37)
[2017-09-29] MEDS: DONEPEZIL HCL 5 MG TABLET PO SCH (10:16)
[2017-09-29] MEDS: DULOXETINE HCL 30 MG CAPSULE.DR PO SCH (10:17)
[2017-09-29] MEDS: TOLTERODINE TARTRATE 1 MG TABLET PO SCH ×2 (10:17→22:36)
[2017-09-29] MEDS: MEMANTINE HCL 10 MG TABLET PO SCH ×2 (10:17→17:16)
[2017-09-29] MEDS: DEXTROSE 5%-NORMAL SALINE 1,000 ML IV PRN (11:55)
[2017-09-29] MEDS: ASPIRIN 81 MG TABLET, CHEWABLE PO SCH (11:58)
--- NOTE | 2017-09-29 17:55 | PDOC PROGRESS REPORT ---
Subjective Progress Note for:: 09/29/17 Subjective:: No adverse events overnight. No new complaints. No fevers. No cough. No shortness of breath. She did not do very well with her incentive spirometer but she at least try it. She has to be encouraged to use it regularly. No abdominal pain, nausea, or vomiting. Reason For Visit: STRANGULATED HERNIA, SMALL BOWEL OBSTRUCTION Physical Exam Vital Signs: Temp Pulse Resp BP Pulse Ox 98.3 F 91 17 144/78 H 100 09/29/17 15:27 09/29/17 15:27 09/29/17 15:27 09/29/17 15:27 09/29/17 15:27 Intake & Output 09/28/17 09/29/17 09/30/17 06:59 06:59 06:59 Intake Total 2233 2965 1175 Output Total 1325 825 400 Balance 908 2140 775 Weight 81.9 kg 81.3 kg General appearance: PRESENT: no acute distress, cooperative Respiratory exam: PRESENT: clear to auscultation sabina, unlabored. ABSENT: accessory muscle use, chest wall tenderness, crackles, rales, rhonchi, wheezes Cardiovascular exam: PRESENT: RRR. ABSENT: diastolic murmur, gallop, rubs, systolic murmur Vascular exam: PRESENT: normal capillary refill GI/Abdominal exam: PRESENT: hypoactive bowel sounds, soft, other - Abdominal incision appears clean and is well approximated without erythema or exudate. ABSENT: ascites, distended, guarding, rebound Extremities exam: ABSENT: joint swelling, pedal edema Neurological exam: PRESENT: alert, awake, oriented to person, oriented to place Results Laboratory Results: 09/29/17 04:50 09/29/17 04:50 09/29/17 09/29/17 04:50 04:50 WBC 5.5 RBC 3.17 L Hgb 9.5 L Hct 28.3 L MCV 89 MCH 30.0 MCHC 33.6 RDW 14.3 H Plt Count 242 Seg Neutrophils % 77.5 Lymphocytes % 7.5 L Monocytes % 11.1 Eosinophils % 3.7 Basophils % 0.2 Absolute Neutrophils 4.3 Absolute Lymphocytes 0.4 L Absolute Monocytes 0.6 Absolute Eosinophils 0.2 Absolute Basophils 0.0 Sodium 137.0 Potassium 3.3 L Chloride 104 Carbon Dioxide 25 Anion Gap 8 BUN 11 Creatinine 0.70 Est GFR ( Amer) > 60 Est GFR (Non-Af Amer) > 60 Glucose 79 Calcium 7.8 L 09/27/17 15:56 Catheterized Urine Urine Culture - Final NO GROWTH 2 DAYS 09/23/17 20:29 Troponin I 0.041 Impressions: Abdomen/Pelvis CT 09/23/17 13:19 IMPRESSION: Small bowel obstruction from small bowel incarcerated in a subxiphoid midline ventral hernia Chest X-Ray 09/27/17 00:00 IMPRESSION: CARDIOMEGALY. PATCHY BASILAR DENSITIES, LEFT GREATER THAN RIGHT, POSSIBLE DEVELOPING PNEUMONIA. KUB X-Ray 09/27/17 08:57 IMPRESSION: Tip and side port of the nasogastric tube is in the retrocardiac hiatal hernia. Below the hemidiaphragms, there is moderate gaseous distension of stomach and small bowel Bibasilar bandlike atelectasis Assessment & Plan - Diagnosis (1) Incarcerated hernia Is this a current diagnosis for this admission?: Yes Plan: She status post abdominal surgery. Will continue to follow up on surgery recommendations regarding advancement of diet and activity. Currently on Cipro and Flagyl. Will transition to p.o. when she is able to take it. - Time Time Spent with patient: 25-34 minutes Medications reviewed and adjusted accordingly: Yes Anticipated discharge: Other - As yet undetermined
--- NOTE | 2017-09-29 19:15 | PDOC PROGRESS REPORT ---
Subjective Progress Note for:: 09/29/17 Subjective:: Comfortable but poor appetite, no c/o Reason For Visit: STRANGULATED HERNIA, SMALL BOWEL OBSTRUCTION Physical Exam Vital Signs: Temp Pulse Resp BP Pulse Ox 98.3 F 91 17 144/78 H 100 09/29/17 15:27 09/29/17 15:27 09/29/17 15:27 09/29/17 15:27 09/29/17 15:27 Intake & Output 09/28/17 09/29/17 09/30/17 06:59 06:59 06:59 Intake Total 2233 2965 1175 Output Total 1325 825 600 Balance 908 2140 575 Weight 81.9 kg 81.3 kg General appearance: PRESENT: no acute distress, cooperative Respiratory exam: PRESENT: clear to auscultation sabina Cardiovascular exam: PRESENT: RRR GI/Abdominal exam: PRESENT: soft, other - incision c/d/i Results Laboratory Results: 09/29/17 04:50 09/29/17 04:50 09/29/17 09/29/17 04:50 04:50 WBC 5.5 RBC 3.17 L Hgb 9.5 L Hct 28.3 L MCV 89 MCH 30.0 MCHC 33.6 RDW 14.3 H Plt Count 242 Seg Neutrophils % 77.5 Lymphocytes % 7.5 L Monocytes % 11.1 Eosinophils % 3.7 Basophils % 0.2 Absolute Neutrophils 4.3 Absolute Lymphocytes 0.4 L Absolute Monocytes 0.6 Absolute Eosinophils 0.2 Absolute Basophils 0.0 Sodium 137.0 Potassium 3.3 L Chloride 104 Carbon Dioxide 25 Anion Gap 8 BUN 11 Creatinine 0.70 Est GFR ( Amer) > 60 Est GFR (Non-Af Amer) > 60 Glucose 79 Calcium 7.8 L 09/27/17 15:56 Catheterized Urine Urine Culture - Final NO GROWTH 2 DAYS 09/23/17 20:29 Troponin I 0.041 Impressions: Abdomen/Pelvis CT 09/23/17 13:19 IMPRESSION: Small bowel obstruction from small bowel incarcerated in a subxiphoid midline ventral hernia Chest X-Ray 09/27/17 00:00 IMPRESSION: CARDIOMEGALY. PATCHY BASILAR DENSITIES, LEFT GREATER THAN RIGHT, POSSIBLE DEVELOPING PNEUMONIA. KUB X-Ray 09/27/17 08:57 IMPRESSION: Tip and side port of the nasogastric tube is in the retrocardiac hiatal hernia. Below the hemidiaphragms, there is moderate gaseous distension of stomach and small bowel Bibasilar bandlike atelectasis Assessment & Plan - Diagnosis (1) Incarcerated hernia Is this a current diagnosis for this admission?: Yes (2) S/P right hemicolectomy Is this a current diagnosis for this admission?: Yes - Plan Summary Plan Summary: A/ POD #6 after right colectomy/repair ventral hernia VSS, AF Blood work WNL except for low K (3.3) Poor appetite, patient not interested in clear liquids, wishes solid foof three loose stools today continue Levaquin/Flagyl for pneumonia P/ Replace K Remove Hitchcock Advance diet top soft mechanical Send stools for C. Difficilis
[2017-09-29] MEDS ORDERED: POTASSIUM CHLORIDE 20 MEQ/50 ML RTU IV ONE (20:00)
[2017-09-29] MEDS: POTASSIUM CHLORIDE 20 MEQ/50 ML RTU IV SCH ×2 (20:22→22:47)
[2017-09-29] MEDS: HYDROXYZINE PAMOATE 25 MG CAPSULE PO SCH (22:36)
[2017-09-29] MEDS: QUETIAPINE FUMARATE 25 MG TABLET PO SCH (22:36)
[2017-09-29] MEDS: ATORVASTATIN CALCIUM 20 MG TABLET PO SCH (22:37)
[2017-09-29] MEDS ORDERED: POTASSI CL 20 MEQ/50 ML RIDER 20 MEQ/50 ML RTUPB IV ONE (22:41)
[2017-09-30] MEDS: METRONIDAZOLE 500 MG/NS RTU 100 ML IV SCH ×3 (02:25→17:21)
[2017-09-30 02:29] LABS: ANION GAP 8 (5-19); BLOOD UREA NITROGEN 7 mg/dL (7-20); CALCIUM 7.5 mg/dL (8.4-10.2); CARBON DIOXIDE 25 mmol/L (22-30); CHLORIDE 105 mmol/L (98-107); GLUCOSE 90 mg/dL (75-110); POTASSIUM 3.3 mmol/L (3.6-5.0); SODIUM 137.5 mmol/L (137-145)
[2017-09-30] MEDS ORDERED: POTASSI CL 20 MEQ/50 ML RIDER 40 MEQ/100 ML RTUPB IV ONE (03:07)
[2017-09-30] MEDS: POTASSIUM CHLORIDE 20 MEQ/50 ML RTU IV SCH ×2 (04:34→05:48)
[2017-09-30] MEDS: METOPROLOL TARTRATE 25 MG TABLET PO SCH ×2 (05:48→17:21)
[2017-09-30] MEDS: CIPROFLOXACIN 400 MG/D5W RTU 400 MG/200 ML RTUPB IV SCH (10:50)
[2017-09-30] MEDS: LEVETIRACETAM ORAL SOLN 500 MG/5 ML UDCUP PO SCH ×2 (10:51→21:31)
[2017-09-30] MEDS: FAMOTIDINE INJ/PF 20 MG/2 ML SDV IV SCH ×2 (10:51→21:34)
[2017-09-30] MEDS: DONEPEZIL HCL 5 MG TABLET PO SCH (10:51)
[2017-09-30] MEDS: DULOXETINE HCL 30 MG CAPSULE.DR PO SCH (10:52)
[2017-09-30] MEDS: MEMANTINE HCL 10 MG TABLET PO SCH ×2 (10:52→17:20)
[2017-09-30] MEDS: TOLTERODINE TARTRATE 1 MG TABLET PO SCH ×2 (10:52→21:32)
[2017-09-30] MEDS: ENOXAPARIN SODIUM INJ 40 MG/0.4 ML DISP.SYRIN SUBCUT SCH (10:54)
[2017-09-30 11:09] LABS: ANION GAP 5 (5-19); BLOOD UREA NITROGEN 6 mg/dL (7-20); CALCIUM 7.5 mg/dL (8.4-10.2); CARBON DIOXIDE 26 mmol/L (22-30); CHLORIDE 106 mmol/L (98-107); GLUCOSE 97 mg/dL (75-110); POTASSIUM 3.7 mmol/L (3.6-5.0); SODIUM 136.9 mmol/L (137-145)
[2017-09-30] MEDS: ASPIRIN 81 MG TABLET, CHEWABLE PO SCH (11:54)
[2017-09-30 12:05] LABS: ABSOLUTE EOSINOPHILS # (AUTO) 0.2 10^3/uL (0.0-0.6); ABSOLUTE LYMPHOCYTES (AUTO) 0.5 10^3/uL (0.5-4.7); ABSOLUTE MONOCYTES (AUTO) 0.7 10^3/uL (0.1-1.4); ABSOLUTE NEUT (AUTO) 6.9 10^3/uL (1.7-8.2); BASOPHILS % (AUTO) 0.2 % (0-2); EOSINOPHILS % (AUTO) 2.1 % (0-6); HEMATOCRIT 26.7 % (36.0-47.0); HEMOGLOBIN 9.2 g/dL (12.0-15.5); LYMPHOCYTES % (AUTO) 6.4 % (13-45); MEAN CORPUSCULAR HEMOGLOBIN 30.6 pg (27.0-33.4); MEAN CORPUSCULAR HGB CONC 34.5 g/dL (32.0-36.0); MEAN CORPUSCULAR VOLUME 89 fl (80-97); MONOCYTES % (AUTO) 7.9 % (3-13); PLATELET COUNT 265 10^3/uL (150-450); RED BLOOD COUNT 3.01 10^6/uL (3.72-5.28); RED CELL DISTRIBUTION WIDTH 14.5 % (11.5-14.0); SEGMENTED NEUTROPHILS % (AUTO) 83.4 % (42-78); TOTAL CELLS COUNTED % (AUTO) 100 %; WHITE BLOOD COUNT 8.3 10^3/uL (4.0-10.5)
--- NOTE | 2017-09-30 16:37 | PDOC PROGRESS REPORT ---
Subjective Progress Note for:: 09/30/17 Reason For Visit: STRANGULATED HERNIA, SMALL BOWEL OBSTRUCTION Physical Exam Vital Signs: Temp Pulse Resp BP Pulse Ox 98.2 F 63 18 139/95 H 95 09/30/17 14:48 09/30/17 14:48 09/30/17 14:48 09/30/17 14:48 09/30/17 14:48 Intake & Output 09/29/17 09/30/17 10/01/17 06:59 06:59 06:59 Intake Total 2965 2035 150 Output Total 825 1250 500 Balance 2140 785 -350 Weight 81.3 kg 81.7 kg GI/Abdominal exam: PRESENT: other - Incision is clean, dry, intact. Neurological exam: PRESENT: alert, awake Results Laboratory Results: 09/30/17 10:00 09/30/17 10:00 09/30/17 09/30/17 09/30/17 01:47 10:00 10:00 WBC 8.3 RBC 3.01 L Hgb 9.2 L Hct 26.7 L MCV 89 MCH 30.6 MCHC 34.5 RDW 14.5 H Plt Count 265 Seg Neutrophils % 83.4 H Lymphocytes % 6.4 L Monocytes % 7.9 Eosinophils % 2.1 Basophils % 0.2 Absolute Neutrophils 6.9 Absolute Lymphocytes 0.5 Absolute Monocytes 0.7 Absolute Eosinophils 0.2 Absolute Basophils 0.0 Sodium 137.5 136.9 L Potassium 3.3 L 3.7 Chloride 105 106 Carbon Dioxide 25 26 Anion Gap 8 5 BUN 7 6 L Creatinine 0.63 0.64 Est GFR ( Amer) > 60 > 60 Est GFR (Non-Af Amer) > 60 > 60 Glucose 90 97 Calcium 7.5 L 7.5 L 09/23/17 20:29 Troponin I 0.041 Impressions: Abdomen/Pelvis CT 09/23/17 13:19 IMPRESSION: Small bowel obstruction from small bowel incarcerated in a subxiphoid midline ventral hernia Chest X-Ray 09/27/17 00:00 IMPRESSION: CARDIOMEGALY. PATCHY BASILAR DENSITIES, LEFT GREATER THAN RIGHT, POSSIBLE DEVELOPING PNEUMONIA. KUB X-Ray 09/27/17 08:57 IMPRESSION: Tip and side port of the nasogastric tube is in the retrocardiac hiatal hernia. Below the hemidiaphragms, there is moderate gaseous distension of stomach and small bowel Bibasilar bandlike atelectasis Assessment & Plan - Diagnosis (1) Incarcerated hernia Is this a current diagnosis for this admission?: Yes - Plan Summary Plan Summary: This is a 77-year-old female status post exploratory laparotomy and right hemicolectomy for a strangulated ventral hernia. She is doing well. Her appetite is improving. She is out of bed to chair today. The patient has significant comorbidities including rheumatoid arthritis. I will consult social media senior associate for home health versus rehab placement. The patient is having bowel movements. She is tolerating full liquids, but does not desire anything further at this time. Encouraged her to use her incentive spirometer. Continue antibiotics for pneumonia.
--- NOTE | 2017-09-30 18:35 | PDOC PROGRESS REPORT ---
Subjective Progress Note for:: 09/30/17 Subjective:: No adverse events overnight. She has been sleeping a lot. No abdominal pain or nausea, but her appetite has not been very good. She still not doing well with the incentive spirometer. No fevers. No cough or shortness of breath. Reason For Visit: STRANGULATED HERNIA, SMALL BOWEL OBSTRUCTION Physical Exam Vital Signs: Temp Pulse Resp BP Pulse Ox 98.2 F 63 18 139/95 H 95 09/30/17 14:48 09/30/17 14:48 09/30/17 14:48 09/30/17 14:48 09/30/17 14:48 Intake & Output 09/29/17 09/30/17 10/01/17 06:59 06:59 06:59 Intake Total 2965 2035 150 Output Total 825 1250 500 Balance 2140 785 -350 Weight 81.3 kg 81.7 kg General appearance: PRESENT: no acute distress, well-developed, well-nourished Head exam: PRESENT: atraumatic, normocephalic Respiratory exam: PRESENT: clear to auscultation sabina. ABSENT: rales, rhonchi, wheezes Cardiovascular exam: PRESENT: RRR. ABSENT: diastolic murmur, rubs, systolic murmur GI/Abdominal exam: PRESENT: hypoactive bowel sounds, soft, other - Midline incision appears clean, nonerythematous, nonexudative, edges are well approximated. ABSENT: distended, guarding, rebound, tenderness Extremities exam: PRESENT: full ROM. ABSENT: calf tenderness, clubbing, pedal edema Neurological exam: PRESENT: other - Drowsy but arousable, pleasant, cooperative Results Laboratory Results: 09/30/17 10:00 09/30/17 10:00 09/30/17 09/30/17 09/30/17 01:47 10:00 10:00 WBC 8.3 RBC 3.01 L Hgb 9.2 L Hct 26.7 L MCV 89 MCH 30.6 MCHC 34.5 RDW 14.5 H Plt Count 265 Seg Neutrophils % 83.4 H Lymphocytes % 6.4 L Monocytes % 7.9 Eosinophils % 2.1 Basophils % 0.2 Absolute Neutrophils 6.9 Absolute Lymphocytes 0.5 Absolute Monocytes 0.7 Absolute Eosinophils 0.2 Absolute Basophils 0.0 Sodium 137.5 136.9 L Potassium 3.3 L 3.7 Chloride 105 106 Carbon Dioxide 25 26 Anion Gap 8 5 BUN 7 6 L Creatinine 0.63 0.64 Est GFR ( Amer) > 60 > 60 Est GFR (Non-Af Amer) > 60 > 60 Glucose 90 97 Calcium 7.5 L 7.5 L 09/23/17 20:29 Troponin I 0.041 Impressions: Abdomen/Pelvis CT 09/23/17 13:19 IMPRESSION: Small bowel obstruction from small bowel incarcerated in a subxiphoid midline ventral hernia Chest X-Ray 09/27/17 00:00 IMPRESSION: CARDIOMEGALY. PATCHY BASILAR DENSITIES, LEFT GREATER THAN RIGHT, POSSIBLE DEVELOPING PNEUMONIA. KUB X-Ray 09/27/17 08:57 IMPRESSION: Tip and side port of the nasogastric tube is in the retrocardiac hiatal hernia. Below the hemidiaphragms, there is moderate gaseous distension of stomach and small bowel Bibasilar bandlike atelectasis Assessment & Plan - Diagnosis (1) Incarcerated hernia Is this a current diagnosis for this admission?: Yes Plan: She status post abdominal surgery. Will continue to follow up on surgery recommendations regarding advancement of diet and activity. Currently on Cipro and Flagyl. Will transition to p.o. when she is able to take it. Continue to encourage incentive spirometry and I am encouraging her to do physical therapy and to try to eat more if she can tolerate it. - Time Time Spent with patient: 25-34 minutes Medications reviewed and adjusted accordingly: Yes
[2017-09-30] MEDS: QUETIAPINE FUMARATE 25 MG TABLET PO SCH (21:32)
[2017-09-30] MEDS: ATORVASTATIN CALCIUM 20 MG TABLET PO SCH (21:32)
[2017-09-30] MEDS: CIPROFLOXACIN HCL 500 MG TABLET PO SCH (21:33)
[2017-09-30] MEDS: HYDROXYZINE PAMOATE 25 MG CAPSULE PO SCH (21:33)
[2017-09-30] MEDS: DEXTROSE 5%-NORMAL SALINE 1,000 ML IV PRN (22:08)
[2017-10-01] MEDS: METRONIDAZOLE 500 MG/NS RTU 100 ML IV SCH ×2 (01:32→10:04)
[2017-10-01] MEDS: METOPROLOL TARTRATE 25 MG TABLET PO SCH (05:46)
[2017-10-01 06:25] LABS: HEMATOCRIT 27.2 % (36.0-47.0); HEMOGLOBIN 9.4 g/dL (12.0-15.5); MEAN CORPUSCULAR HEMOGLOBIN 30.6 pg (27.0-33.4); MEAN CORPUSCULAR HGB CONC 34.5 g/dL (32.0-36.0); MEAN CORPUSCULAR VOLUME 89 fl (80-97); PLATELET COUNT 277 10^3/uL (150-450); RED BLOOD COUNT 3.06 10^6/uL (3.72-5.28); RED CELL DISTRIBUTION WIDTH 14.5 % (11.5-14.0); WHITE BLOOD COUNT 9.8 10^3/uL (4.0-10.5)
[2017-10-01 06:36] LABS: ANION GAP 6 (5-19); BLOOD UREA NITROGEN 3 mg/dL (7-20); CALCIUM 7.9 mg/dL (8.4-10.2); CARBON DIOXIDE 25 mmol/L (22-30); CHLORIDE 107 mmol/L (98-107); GLUCOSE 99 mg/dL (75-110); POTASSIUM 3.5 mmol/L (3.6-5.0); SODIUM 138.2 mmol/L (137-145)
[2017-10-01 06:56] LABS: ABSOLUTE LYMPHOCYTES# (MANUAL) 0.5 10^3/uL (0.5-4.7); ABSOLUTE MONOCYTES # (MANUAL) 0.3 10^3/uL (0.1-1.4); ABSOLUTE NEUTROPHILS# (MANUAL) 8.6 10^3/uL (1.7-8.2); BAND NEUTROPHILS % (MANUAL) 1 % (3-5); BASOPHILS % (MANUAL) 0 % (0-2); EOSINOPHILS % (MANUAL) 4 % (0-6); LYMPHOCYTES % (MANUAL) 5 % (13-45); MONOCYTES % (MANUAL) 3 % (3-13); PLATELET COMMENT ADEQUATE; RBC MORPHOLOGY COMMENT NORMO-CYTIC/CHROMIC; SEGMENTED NEUTROPHILS % (MAN) 87 % (42-78); TOTAL CELLS COUNTED 100
[2017-10-01] MEDS: ENOXAPARIN SODIUM INJ 40 MG/0.4 ML DISP.SYRIN SUBCUT SCH (10:04)
[2017-10-01] MEDS: LEVETIRACETAM ORAL SOLN 500 MG/5 ML UDCUP PO SCH (10:05)
[2017-10-01] MEDS: DULOXETINE HCL 30 MG CAPSULE.DR PO SCH (10:05)
[2017-10-01] MEDS: FAMOTIDINE INJ/PF 20 MG/2 ML SDV IV SCH (10:05)
[2017-10-01] MEDS: DONEPEZIL HCL 5 MG TABLET PO SCH (10:05)
[2017-10-01] MEDS: MEMANTINE HCL 10 MG TABLET PO SCH (10:05)
[2017-10-01] MEDS: CIPROFLOXACIN HCL 500 MG TABLET PO SCH (10:05)
[2017-10-01] MEDS: TOLTERODINE TARTRATE 1 MG TABLET PO SCH (10:05)
--- NOTE | 2017-10-01 10:46 | PDOC PROGRESS REPORT ---
Subjective Progress Note for:: 10/01/17 Subjective:: Patient comfortable, eating well, reports postprandial diarrhea Reason For Visit: STRANGULATED HERNIA, SMALL BOWEL OBSTRUCTION Physical Exam Vital Signs: Temp Pulse Resp BP Pulse Ox 98.3 F 76 19 148/76 H 97 10/01/17 04:10 10/01/17 07:00 10/01/17 04:10 10/01/17 04:10 10/01/17 04:10 Intake & Output 09/30/17 10/01/17 10/02/17 06:59 06:59 06:59 Intake Total 2035 1076 Output Total 1250 500 Balance 785 576 Weight 81.7 kg 82.8 kg General appearance: PRESENT: no acute distress, cooperative Respiratory exam: PRESENT: clear to auscultation sabina Cardiovascular exam: PRESENT: RRR GI/Abdominal exam: PRESENT: normal bowel sounds, soft, other - wound C/D/I Results Laboratory Results: 10/01/17 05:47 10/01/17 05:47 09/30/17 09/30/17 10/01/17 10:00 10:00 05:47 WBC 8.3 9.8 RBC 3.01 L 3.06 L Hgb 9.2 L 9.4 L Hct 26.7 L 27.2 L MCV 89 89 MCH 30.6 30.6 MCHC 34.5 34.5 RDW 14.5 H 14.5 H Plt Count 265 277 Seg Neutrophils % 83.4 H Not Reportable Lymphocytes % 6.4 L Not Reportable Monocytes % 7.9 Not Reportable Eosinophils % 2.1 Not Reportable Basophils % 0.2 Not Reportable Absolute Neutrophils 6.9 Not Reportable Absolute Lymphocytes 0.5 Not Reportable Absolute Monocytes 0.7 Not Reportable Absolute Eosinophils 0.2 Not Reportable Absolute Basophils 0.0 Not Reportable Sodium 136.9 L Potassium 3.7 Chloride 106 Carbon Dioxide 26 Anion Gap 5 BUN 6 L Creatinine 0.64 Est GFR ( Amer) > 60 Est GFR (Non-Af Amer) > 60 Glucose 97 Calcium 7.5 L 10/01/17 05:47 WBC RBC Hgb Hct MCV MCH MCHC RDW Plt Count Seg Neutrophils % Lymphocytes % Monocytes % Eosinophils % Basophils % Absolute Neutrophils Absolute Lymphocytes Absolute Monocytes Absolute Eosinophils Absolute Basophils Sodium 138.2 Potassium 3.5 L Chloride 107 Carbon Dioxide 25 Anion Gap 6 BUN 3 L Creatinine 0.52 Est GFR ( Amer) > 60 Est GFR (Non-Af Amer) > 60 Glucose 99 Calcium 7.9 L 09/23/17 20:29 Troponin I 0.041 Impressions: Abdomen/Pelvis CT 09/23/17 13:19 IMPRESSION: Small bowel obstruction from small bowel incarcerated in a subxiphoid midline ventral hernia Chest X-Ray 09/27/17 00:00 IMPRESSION: CARDIOMEGALY. PATCHY BASILAR DENSITIES, LEFT GREATER THAN RIGHT, POSSIBLE DEVELOPING PNEUMONIA. KUB X-Ray 09/27/17 08:57 IMPRESSION: Tip and side port of the nasogastric tube is in the retrocardiac hiatal hernia. Below the hemidiaphragms, there is moderate gaseous distension of stomach and small bowel Bibasilar bandlike atelectasis Assessment & Plan - Diagnosis (1) Incarcerated hernia Is this a current diagnosis for this admission?: Yes (2) S/P right hemicolectomy Is this a current diagnosis for this admission?: Yes - Plan Summary Plan Summary: A/ POD#8 after right colectomy, ventral herniorraphy VSS Blood work WNL PE unremarkable postprandial diarrhea P/ Send stools for C. Diff If negative, patient can be discharged to home under family member (daughter supervision) Resume regular diet and home meds Yogurt 1 cup daily and probiotic over the counbter 1-2 tabs daily x 2 weeks Aumentin 875 m poBID x 7 days for prenumonia Tylenol as needed for pain Can sower only, bathe after October 11 if jeremie are removed no wound care needed Follow up with General Surgery office within 1 week with IRENA Gillespie
[2017-10-01] MEDS: ASPIRIN 81 MG TABLET, CHEWABLE PO SCH (13:05)
[2017-10-01 13:52] VITALS: BP 152/81
--- NOTE | 2017-10-01 16:25 | PDOC PROGRESS REPORT ---
Subjective Progress Note for:: 10/01/17 Subjective:: No adverse events overnight. No new complaints. Appetite still not very good. She is having bowel movements. No cough. No fevers. No shortness of breath. The oxygen has been discontinued and her breathing has been comfortable. Reason For Visit: STRANGULATED HERNIA, SMALL BOWEL OBSTRUCTION Physical Exam Vital Signs: Temp Pulse Resp BP Pulse Ox 98.0 F 63 18 152/81 H 97 10/01/17 13:52 10/01/17 14:00 10/01/17 13:52 10/01/17 13:52 10/01/17 13:52 Intake & Output 09/30/17 10/01/17 10/02/17 06:59 06:59 06:59 Intake Total 2035 1076 250 Output Total 1250 500 250 Balance 785 576 0 Weight 81.7 kg 82.8 kg General appearance: PRESENT: no acute distress, well-developed, well-nourished Head exam: PRESENT: atraumatic, normocephalic Respiratory exam: PRESENT: clear to auscultation sabina. ABSENT: rales, rhonchi, wheezes Cardiovascular exam: PRESENT: RRR. ABSENT: diastolic murmur, rubs, systolic murmur Vascular exam: PRESENT: normal capillary refill GI/Abdominal exam: PRESENT: normal bowel sounds, soft, tenderness - Appropriate , other - Midline surgical incision is nonerythematous, nonexudative, and the edges well approximated. ABSENT: distended, guarding, mass, organolmegaly, rebound Extremities exam: PRESENT: full ROM. ABSENT: calf tenderness, clubbing, pedal edema Results Laboratory Results: 10/01/17 05:47 10/01/17 05:47 10/01/17 10/01/17 05:47 05:47 WBC 9.8 RBC 3.06 L Hgb 9.4 L Hct 27.2 L MCV 89 MCH 30.6 MCHC 34.5 RDW 14.5 H Plt Count 277 Seg Neutrophils % Not Reportable Lymphocytes % Not Reportable Monocytes % Not Reportable Eosinophils % Not Reportable Basophils % Not Reportable Absolute Neutrophils Not Reportable Absolute Lymphocytes Not Reportable Absolute Monocytes Not Reportable Absolute Eosinophils Not Reportable Absolute Basophils Not Reportable Sodium 138.2 Potassium 3.5 L Chloride 107 Carbon Dioxide 25 Anion Gap 6 BUN 3 L Creatinine 0.52 Est GFR ( Amer) > 60 Est GFR (Non-Af Amer) > 60 Glucose 99 Calcium 7.9 L 09/23/17 20:29 Troponin I 0.041 Impressions: Abdomen/Pelvis CT 09/23/17 13:19 IMPRESSION: Small bowel obstruction from small bowel incarcerated in a subxiphoid midline ventral hernia Chest X-Ray 09/27/17 00:00 IMPRESSION: CARDIOMEGALY. PATCHY BASILAR DENSITIES, LEFT GREATER THAN RIGHT, POSSIBLE DEVELOPING PNEUMONIA. KUB X-Ray 09/27/17 08:57 IMPRESSION: Tip and side port of the nasogastric tube is in the retrocardiac hiatal hernia. Below the hemidiaphragms, there is moderate gaseous distension of stomach and small bowel Bibasilar bandlike atelectasis Assessment & Plan - Diagnosis (1) Incarcerated hernia Is this a current diagnosis for this admission?: Yes Plan: She will be discharged whenever the primary service is ready for her to leave. She is being treated with antibiotics but Cipro and Flagyl which would not really cover pneumonia. However, I do not really think she has a pneumonia. Will let the surgical service decide whether or not they want to treat this. At this point I will just follow her peripherally and if any new issues arise will look into them at that time. - Time Time Spent with patient: 15-24 minutes
--- NOTE | 2017-10-02 08:30 | DISCHARGE SUMMARY E ---
Discharge Summary NAME: BHARATH JORDAN : 1940 AGE: 77Y ADMITTED: 09/23/2017 DISCHARGED: 10/01/2017 FINAL DIAGNOSIS: Incarcerated ventral hernia. PROCEDURE: On September 23, the patient underwent right hemicolectomy and repair of incarcerated ventral hernia. COMPLICATIONS: None. HOSPITAL COURSE: This is a 77-year-old female with multiple medical problems, admitted on September 23 due to abdominal pain and incarcerated ventral hernia. She underwent surgery the same day with laparotomy, right hemicolectomy and repair of incarcerated ventral hernia. The procedures were well tolerated. The hospital course was complicated with urinary retention. Her vital signs remained stable. Her diet was slowly advanced. A chest x-ray was obtained revealing a patchy infiltrate for which she was started on Cipro and Flagyl antibiotics. On the day of discharge, the patient's vital signs were stable. She had no complaints. She was tolerating a regular diet well. Abdomen was soft. Blood work within normal limits. She had some bouts of diarrhea and stool sent for C. difficile prior to discharge. The patient was discharged to home on home medications, regular diet, Cipro 500 mg p.o. b.i.d. for 7 days, and Flagyl 500 mg p.o. 3 times a day for 7 days because of the pneumonia. Activities as tolerated. Shower only until October 12, afterward the patient can bathe. She was instructed to return to the surgery office within a week to see the Laurie OSBORN. She was discharged to home with agreement that the patient's daughter will take care of the mother as the patient declined to go to a [facility] for rehab. DICTATING PHYSICIAN: ALLISON MONTEJO M.D. [id number] PHY#: [id number] ID: [id number] JOB#: [id number] ACCT: [id number] cc:Cristian ADDISON Cammy [facility], [facility]
== END 2017-10-01 18:06 | disposition home health service (06) | DRG 329 ==
LOC: ER 10:15 → EH 16:55 → ICU 19:59 → 5 09-24 13:24 → ICU 09-26 01:09 → 3W 09-27 06:11
PROVIDERS: ADMIT Surgery; ATTEND Surgery
PROC: 0DTF0ZZ Resection of Right Large Intestine, Open Approach (ICD-10-PCS; principal; 2017-09-23 17:30)
PROC: 02H633Z Insertion of Infusion Device into Right Atrium, Percutaneous Approach (ICD-10-PCS; 2017-09-26)
PROC: B244ZZZ Ultrasonography of Right Heart (ICD-10-PCS; 2017-09-26)
PROC: 0D9670Z Drainage of Stomach with Drainage Device, Via Natural or Artificial Opening (ICD-10-PCS; 2017-09-27)
DX: K43.6 Other and unspecified ventral hernia with obstruction, without gangrene (principal); J18.1 Lobar pneumonia, unspecified organism; Q43.8 Other specified congenital malformations of intestine; I10 Essential (primary) hypertension; G30.9 Alzheimer's disease, unspecified; F02.80 Dementia in other diseases classified elsewhere, unspecified severity, without behavioral disturbance, psychotic disturbance, mood disturbance, and anxiety; M06.9 Rheumatoid arthritis, unspecified; F32.9 Major depressive disorder, single episode, unspecified; D64.9 Anemia, unspecified; G40.909 Epilepsy, unspecified, not intractable, without status epilepticus; G89.29 Other chronic pain; M54.9 Dorsalgia, unspecified; E86.0 Dehydration; H02.402 Unspecified ptosis of left eyelid; I48.0 Paroxysmal atrial fibrillation; K44.9 Diaphragmatic hernia without obstruction or gangrene; Z90.49 Acquired absence of other specified parts of digestive tract; Z90.710 Acquired absence of both cervix and uterus; Z79.82 Long term (current) use of aspirin; Z79.899 Other long term (current) drug therapy; Z88.6 Allergy status to analgesic agent; Z88.1 Allergy status to other antibiotic agents; Z88.0 Allergy status to penicillin; Z78.1 Physical restraint status; Z82.49 Family history of ischemic heart disease and other diseases of the circulatory system
CPT/HCPCS: 00790; 36415; 71045; 74018; 74177; 80048; 80053; 81001; 82550; 82553; 82962; 83605; 83690; 83735; 84484; 85025; 85610; 85730; 87040; 87086; 87493; 88305; 88307; 93005; 93010; 94799; 96374; 99285; C1751; G8978-GP; G8979-GP; J0131; J0330; J0744; J1642; J1650; J1885; J2250; J2270; J2405; J2550; J2704; J2765; J3010; J3480; J3490; J7030; S0028; S0119

== ENCOUNTER 2017-10-07 18:37 | Emergency (ER) | payer MEDICARE, OTHER ==
--- NOTE | 2017-10-07 19:41 | ER Document Report ---
ED General - General Mode of Arrival: Stretcher Information source: Patient TRAVEL OUTSIDE OF THE [place] IN LAST 30 DAYS: No - HPI Patient complains to provider of: Dictated <MASSIEL WILSON - Last Filed: 10/08/17 03:51> <[place] - Last Filed: 10/08/17 15:08> - General Chief Complaint: Post Surgical Pain Stated Complaint: BACK PAIN Time Seen by Provider: 10/07/17 19:22 Notes: Chief complaint: Difficulty taking care of herself History of complain:( obtained from----patient) 77 years old female with chronic history of low back pain, lower leg edema as, general malaise, finding it more and more difficult to take care of at home. She lives alone. She visited her primary care physician today, from that she was referred to the ED for placement. She also complained of diffuse abdominal pain with hiatal hernia. No nausea vomiting. Denied any fever chills. Onset: As above Duration: Long-standing Severity: Moderate Quality: Sharp Context: Lives alone Exacerbating factor and relieving factors: Change of positions walking REVIEW OF SYSTEMS: CONSTITUTIONAL : Denies fever, chills, or sweats. Denies recent illness. EENT: Denies eye, ear, throat, or mouth pain or symptoms. Denies nasal or sinus congestion or discharge. Denies throat, tongue, or mouth swelling or difficulty swallowing. CARDIOVASCULAR: Denies chest pain. Denies palpitations or racing or irregular heart beat. Denies ankle edema. RESPIRATORY: Denies cough, cold, or chest congestion. Denies shortness of breath, difficulty breathing, or wheezing. GASTROINTESTINAL: Denies distention. Denies nausea, vomiting, or diarrhea. Denies blood in vomitus, stools, or per rectum. Denies black, tarry stools. Denies constipation. GENITOURINARY: Denies difficulty urinating, painful urination, burning, frequency, blood in urine, or discharge. FEMALE GENITOURINARY: Denies vaginal bleeding, heavy or abnormal periods, irregular periods. Denies vaginal discharge or odor. MUSCULOSKELETAL: As above HEMATOLOGIC : Denies easy bruising or bleeding. LYMPHATIC: Denies swollen, enlarged glands. NEUROLOGICAL: Denies confusion or altered mental status. Denies passing out or loss of consciousness. Denies dizziness or lightheadedness. Denies headache. Denies weakness or paralysis or loss of use of either side. Denies problems with gait or speech. Denies sensory loss, numbness, or tingling. Denies seizures. PSYCHIATRIC: Denies anxiety or stress. Denies depression, suicidal ideation, or homicidal ideation. ALL OTHER SYSTEMS REVIEWED AND NEGATIVE. PHYSICAL EXAMINATION: GENERAL: Elderly female, largely bedbound, appears to be in moderate discomfort HEAD: Atraumatic, normocephalic. EYES: Pupils equal round and reactive to light, extraocular movements intact, conjunctiva are normal. ENT: Nares patent, oropharynx clear without exudates. Moist mucous membranes. NECK: Normal range of motion, supple without lymphadenopathy LUNGS: Breath sounds clear to auscultation bilaterally and equal. No wheezes rales or rhonchi. HEART: Regular rate and rhythm without murmurs ABDOMEN: Soft, diffusely tender, no rebound tenderness or guarding, nondistended abdomen. No guarding, no rebound. No masses appreciated. Examination of genitals-deferred Musculoskeletal: Bilateral lower leg edema, all the way to the knee NEUROLOGICAL: Cranial nerves grossly intact. Normal speech, normal gait. Normal sensory, motor exams PSYCH: Normal mood, normal affect. SKIN: Warm, Dry, normal turgor, no rashes or lesions noted. Dictation was performed using [employer] voice recognition software (MASSIEL WILSON) - Related Data Allergies/Adverse Reactions: amoxicillin Allergy (Verified 10/07/17 19:00) cephalexin [From Keflex] Allergy (Verified 10/07/17 19:00) Itching and Rash morphine Allergy (Verified 10/07/17 19:00) Penicillins Allergy (Verified 10/07/17 19:00) Past Medical History - General Information source: Patient - Social History Smoking Status: Unknown if Ever Smoked Chew tobacco use (# tins/day): No Smoking Education Provided: No Frequency of alcohol use: None Lives with: Family Family History: Reviewed & Not Pertinent, CAD, Hypertension Patient has suicidal ideation: No Patient has homicidal ideation: No - Past Medical History Cardiac Medical History: Reports: Hx Hypertension Pulmonary Medical History: Reports: Hx Bronchitis Neurological Medical History: Reports: Hx Seizures Renal/ Medical History: Denies: Hx Peritoneal Dialysis Musculoskeltal Medical History: 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 Medical History: Reports Hx Cellulitis Psychiatric Medical History: Reports: Hx Depression Traumatic Medical History: Reports: Hx Fractures - Femur Past Surgical History: Reports: Hx Cholecystectomy, Hx Hysterectomy, Hx Orthopedic Surgery - right hip, right knee, Hx Tonsillectomy - Immunizations Hx Diphtheria, Pertussis, Tetanus Vaccination: No <MASSIEL WILSON - Last Filed: 10/08/17 03:51> Review of Systems <MASSIEL WILSON - Last Filed: 10/08/17 03:51> <[place] - Last Filed: 10/08/17 15:08> - Review of Systems Notes: Dictated (MASSIEL WILSON) Physical Exam <MASSIEL WILSON - Last Filed: 10/08/17 03:51> <[place] - Last Filed: 10/08/17 15:08> - Vital signs Vitals: Temp Pulse Resp BP Pulse Ox 97.1 F 75 16 154/80 H 98 10/07/17 18:50 10/07/17 18:50 10/07/17 18:50 10/07/17 18:50 10/07/17 18:50 - Notes Notes: Dictated (MASSIEL WILSON) Course - Laboratory Result Diagrams: 10/07/17 19:40 10/07/17 19:40 <MASSIEL WILSON - Last Filed: 10/08/17 03:51> - Laboratory Result Diagrams: 10/07/17 19:40 10/07/17 19:40 <[place] - Last Filed: 10/08/17 15:08> - Re-evaluation Re-evalutation: 10/08/17 03:52 Family was contacted, the social sciences instructor to be evaluated for placement patient is kept in the ER in the morning. (MASSIEL WILSON) - Vital Signs Vital signs: Temp Pulse Resp BP Pulse Ox 97.3 F 77 17 163/83 H 98 10/08/17 09:29 10/08/17 09:29 10/08/17 09:29 10/08/17 14:54 10/08/17 14:53 - Laboratory Laboratory results interpreted by me: 10/07/17 10/07/17 10/08/17 19:40 19:40 07:15 RBC 3.16 L Hgb 9.5 L Hct 28.4 L RDW 15.8 H Eosinophils % 6.3 H Calcium 8.2 L Total Protein 5.9 L Albumin 2.9 L Urine Ketones TRACE H Discharge <MASSIEL WILSON - Last Filed: 10/08/17 03:51> <[place] - Last Filed: 10/08/17 15:08> - Discharge Clinical Impression: Leg edema, assisted as place of occurrence of external cause Chronic pain Qualifiers: Chronic pain type: chronic pain syndrome Qualified Code(s): G89.4 - Chronic pain syndrome Chronic low back pain Qualifiers: Back pain laterality: bilateral Sciatica presence: without sciatica Qualified Code(s): M54.5 - Low back pain Condition: Stable Additional Instructions: LOW BACK PAIN: Three out of every four people will have an episode of disabling back pain during their lifetime. Most commonly the pain is due to straining of the muscles and ligaments in the low back. Usual treatment includes: (1) Rest on a firm surface. Avoid lying on your stomach. (2) Ice pack the painful area. After a few days, gentle heat may be used intermittently to relax the area, or ice packs can be continued. (3) Medication may be needed -- muscle relaxers and antiinflammatory medicines are commonly used. (4) As the back improves, exercises are prescribed to strengthen the back and abdominal muscles. Your doctor will advise you on the proper care for your back at each stage in your recovery. You may be better in a few days -- or healing may take several weeks. If new symptoms of a "herniated disc" (radiation of pain, numbness, or tingling down the back of the leg or weakness in the leg) occur, you should be re-examined. Further testing may be necessary. USE OF ACETAMINOPHEN (Tylenol): Acetaminophen may be taken for pain relief or fever control. It's much safer than aspirin, offering a wider range of "safe" dosages. It is safe during . Some brand names are Tylenol, Panadol, Datril, Anacin 3, Tempra, and Liquiprin. Acetaminophen can be repeated every four hours. The following are maximum recommended dosages: WEIGHT Dose Drops Elixir Chewable( 80mg) (LBS.) drprs=droppers tsp=teaspoon >89 pounds or adults 650 mg to 900 mg Acetaminophen can be repeated every four hours. Maximum dose not to exceed 4000 mg a day. These maximum recommended dosages are slightly higher than the dosages written on the product container, but these dosages are very safe and below the toxic dosage for acetaminophen. FOLLOW-UP CARE: If you have been referred to a physician for follow-up care, call the physician s office for an appointment as you were instructed or within the next two days. If you experience worsening or a significant change in your symptoms, notify the physician immediately or return to the Emergency Department at any time for re-evaluation. Prescriptions: Acetaminophen 325 - 650 mg PO Q6HP PRN #30 tablet PRN Reason: Referrals: MEGHA PAZ MD [Primary Care Provider] - Follow up as needed
[2017-10-07 20:03] LABS: ABSOLUTE BASOPHILS # (AUTO) 0.1 10^3/uL (0.0-0.2); ABSOLUTE EOSINOPHILS # (AUTO) 0.4 10^3/uL (0.0-0.6); ABSOLUTE LYMPHOCYTES (AUTO) 0.8 10^3/uL (0.5-4.7); ABSOLUTE MONOCYTES (AUTO) 0.6 10^3/uL (0.1-1.4); ABSOLUTE NEUT (AUTO) 4.2 10^3/uL (1.7-8.2); EOSINOPHILS % (AUTO) 6.3 % (0-6); HEMATOCRIT 28.4 % (36.0-47.0); HEMOGLOBIN 9.5 g/dL (12.0-15.5); LYMPHOCYTES % (AUTO) 13.1 % (13-45); MEAN CORPUSCULAR HEMOGLOBIN 30.1 pg (27.0-33.4); MEAN CORPUSCULAR HGB CONC 33.5 g/dL (32.0-36.0); MEAN CORPUSCULAR VOLUME 90 fl (80-97); MONOCYTES % (AUTO) 9.6 % (3-13); PLATELET COUNT 413 10^3/uL (150-450); RED BLOOD COUNT 3.16 10^6/uL (3.72-5.28); RED CELL DISTRIBUTION WIDTH 15.8 % (11.5-14.0); TOTAL CELLS COUNTED % (AUTO) 100 %
--- NOTE | 2017-10-07 20:06 | RADIOLOGY REPORT (SQ) ---
EXAM DESCRIPTION: KUB/ABDOMEN (SINGLE VIEW) COMPLETED DATE/TIME: 10/07/2017 7:58 pm REASON FOR STUDY: back pain COMPARISON: None. NUMBER OF VIEWS: One view. TECHNIQUE: Supine radiographic image of the abdomen acquired. LIMITATIONS: None. FINDINGS: BOWEL GAS PATTERN: No bowel gas is present. CALCIFICATIONS: No suspicious calcifications. SOFT TISSUES: No gross mass or suggestion of organomegaly. HARDWARE: None in the abdomen. BONES: Scoliosis and associated degenerative changes are present in the lumbar spine. OTHER: There is ill-defined opacification in the right lung base. IMPRESSION: 1. Scoliosis with degenerative disc disease and spondylosis. 2. Cannot exclude a right lower lobe pneumonia. TECHNICAL DOCUMENTATION: JOB ID: [id number] [employer]- All Rights Reserved Reading location - IP/workstation name: [email or web address]
[2017-10-07 20:07] LABS: ALANINE AMINOTRANSFERASE 29 U/L (9-52); ALBUMIN 2.9 g/dL (3.5-5.0); ALKALINE PHOSPHATASE 85 U/L (38-126); ANION GAP 8 (5-19); ASPARTATE AMINO TRANSFERASE 27 U/L (14-36); BILIRUBIN,DIRECT 0.4 mg/dL (0.0-0.4); BILIRUBIN,TOTAL 0.5 mg/dL (0.2-1.3); BLOOD UREA NITROGEN 7 mg/dL (7-20); CALCIUM 8.2 mg/dL (8.4-10.2); CARBON DIOXIDE 27 mmol/L (22-30); CHLORIDE 102 mmol/L (98-107); GLUCOSE 83 mg/dL (75-110); POTASSIUM 4.4 mmol/L (3.6-5.0); SODIUM 137.1 mmol/L (137-145); TOTAL PROTEIN 5.9 g/dL (6.3-8.2)
[2017-10-08] MEDS ORDERED: ACETAMINOPHEN 325 MG TABLET PO ONE ×2 (02:06→11:49)
[2017-10-08 07:37] LABS: APPEARANCE,URINE CLEAR; BILIRUBIN,URINE NEGATIVE (NEGATIVE); COLOR,URINE YELLOW; GLUCOSE, URINE NEGATIVE (NEGATIVE); KETONES,URINE TRACE mg/dL (NEGATIVE); LEUKOCYTE ESTERASE,URINE NEGATIVE (NEGATIVE); NITRITE,URINE NEGATIVE (NEGATIVE); PROTEIN,URINE NEGATIVE (NEGATIVE); URINE SPECIFIC GRAVITY 1.009; UROBILINOGEN,URINE NEGATIVE mg/dL (<2.0)
[2017-10-08 15:07] VITALS: BP 153/89
== END 2017-10-08 15:10 ==
LOC: ER 18:37
DX: M54.5 Low back pain (principal); G89.4 Chronic pain syndrome; R60.0 Localized edema; G89.18 Other acute postprocedural pain; M54.9 Dorsalgia, unspecified; R53.81 Other malaise
CPT/HCPCS: 99285; 36415; 85025; 80053; 81001; 74018; A9270

== ENCOUNTER 2018-06-10 17:28 | Inpatient (IN) | payer MEDICARE, OTHER ==
[2018-06-10] MEDS ORDERED: RINGERS SOLUTION,LACTATED 500 ML IV ONE (19:59)
--- NOTE | 2018-06-10 20:03 | ER Document Report ---
ED General - General Chief Complaint: Fall Injury Stated Complaint: FALL Time Seen by Provider: 06/10/18 18:23 Primary Care Provider: MEGHA PAZ MD [Primary Care Provider] - Follow up as needed Notes: Patient is a 77-year-old female with a past medical history of dementia, hypertension, seizures, presents by EMS after being found on the ground by her friend. Patient apparently lives by herself, walks with an assistive walking device, very limited in the activities of daily living that she is able to complete. She does not have any daily in-home care. Friend at the bedside states that she checks on her several times daily but that she is very concerned about the patient's ability to continue the residing by herself particularly at today's fall. The patient herself does not know what happened today. The friend at the bedside states that she suspects the patient was try to get up onto a bedside commode, fell and struck her head on the cabinet. The patient herself is an extraordinarily poor historian, quite demented, unable to provide meaningful history. She does complain of a dull, throbbing, constant pain to the left temporal aspect of her head. Nothing improves or worsens that pain. Denies any use of anticoagulation. Friend at the bedside states that she is not taking any of her prescribed medications currently. TRAVEL OUTSIDE OF THE [place] IN LAST 30 DAYS: No - Related Data Allergies/Adverse Reactions: amoxicillin Allergy (Verified 10/07/17 19:00) cephalexin [From Keflex] Allergy (Verified 10/07/17 19:00) Itching and Rash morphine Allergy (Verified 10/07/17 19:00) Penicillins Allergy (Verified 10/07/17 19:00) Past Medical History - General Information source: Patient, Friend - Social History Smoking Status: Never Smoker Frequency of alcohol use: None Drug Abuse: None Lives with: Alone Family History: Reviewed & Not Pertinent, CAD, Hypertension Patient has suicidal ideation: No Patient has homicidal ideation: No - Past Medical History Cardiac Medical History: Reports: Hx Hypertension Pulmonary Medical History: Reports: Hx Bronchitis Neurological Medical History: Reports: Hx Seizures Renal/ Medical History: Denies: Hx Peritoneal Dialysis Musculoskeletal Medical History: 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 Eyes: Negative for visual changes. ENT: Negative for facial injury Cardiovascular: Negative for chest injury. Respiratory: Negative for shortness of breath. Gastrointestinal: Negative for abdominal injury. Genitourinary: Negative for genital injury Musculoskeletal: Positive for left shoulder and bilateral hand injury Skin: Negative for laceration/abrasions. Neurological: Positive for head injury. Physical Exam - Vital signs Vitals: Temp 97.8 F 06/10/18 17:39 Notes: PHYSICAL EXAMINATION: GENERAL: Frail, somewhat cachectic. In no acute distress HEAD: Atraumatic, normocephalic. EYES: Pupils equal round and reactive to light, extraocular movements intact, sclera anicteric, conjunctiva are normal. ENT: nares patent, no oral pharyngeal trauma. No hemotympanum, no Guajardo's sign, no raccoon eyes. NECK: No midline cervical spine tenderness. Patient able to move their head to 45 bilaterally without any discomfort. LUNGS: Breath sounds clear to auscultation bilaterally and equal. No wheezes rales or rhonchi. HEART: Regular rate and rhythm without murmurs. CHEST WALL: No ecchymosis over the chest wall. ABDOMEN: Soft, nontender, normoactive bowel sounds. No guarding, no rebound. No abdominal bruising EXTREMITIES: Normal range of motion, no pitting or edema. No long bone deformities. BACK: No midline spinal tenderness, step-offs, or deformities. NEUROLOGICAL: Face symmetric. Tongue protrudes midline. Extraocular motions intact. Pupils are 2 mm and equally reactive. Normal speech, gait deferred. 5 out of 5 strength in both the distal and proximal upper and lower extremities bilaterally. Sensation is grossly intact throughout. PSYCH: Alert, oriented to person place SKIN: Warm, Dry, normal turgor, superficial skin avulsions over the left forearm, left shoulder. There is traumatic ecchymosis over the left shoulder and the dorsal surfaces of the bilateral hands. Course - Re-evaluation Re-evalutation: 06/10/18 20:02 Presentation of a well appearing elderly patient in no acute distress, vitals within normal limits after a mechanical fall. Patient denies a syncopal episode as the cause for today's fall. Although she is a very poor historian no focal neurologic deficits on exam, no evidence of basilar skull fracture on exam without evidence of hemotympanum, raccoon eyes, or periauricular hematoma. No papilledema. Patient is not on anticoagulation. GCS is 15. No loss of consciousness. No episodes of vomiting. However, based on patient's age a CT of the head has been obtained which is negative for any acute intracranial bleed. Likewise, patient was unable to be clinically cleared due to age by Foley cervical spine criteria. A CT of the cervical spine was also obtained and likewise is negative for any acute fracture. No indication for further imaging of the cervical spine. Patient has no focal deformities or limited range of motion in any joint space. X-rays of the bilateral hands and left shoulder were obtained due to bruising of these areas, noted to be unremarkable. Chest and abdominal exam are benign without any focal tenderness, shortness of breath, or bruising over the chest or abdominal wall. Patient has no flank tenderness. Labs pending. 06/10/18 22:49 CK consistent with acute rhabdomyolysis as is urinalysis. Patient has had some mild hypotension. An additional liter of lactated Ringer's will be administered. I discussed this case with Dr. Bella who has accepted the patient for admission. - Vital Signs Vital signs: Temp Pulse Resp BP Pulse Ox 97.8 F 20 98/69 L 93 06/10/18 17:39 06/10/18 22:28 06/10/18 22:28 06/10/18 20:02 - Laboratory Result Diagrams: 06/10/18 21:15 06/10/18 21:15 Laboratory results interpreted by me: 06/10/18 06/10/18 06/10/18 20:13 21:15 21:15 WBC 16.4 H RDW 19.2 H Seg Neuts % (Manual) 92 H Lymphocytes % (Manual) 6 L Monocytes % (Manual) 2 L Abs Neuts (Manual) 15.1 H BUN 31 H AST 113 H Alkaline Phosphatase 133 H Creatine Kinase 2480 H Urine Protein >=500 H Urine Ketones 20 H Urine Blood LARGE H Ur Leukocyte Esterase TRACE H - Diagnostic Test Radiology reviewed: Image reviewed, Reports reviewed Radiology results interpreted by me: 06/10/18 22:51 CT head: No acute intracranial bleed or mass Left shoulder: no acute fracture Discharge - Discharge Clinical Impression: Dehydration Rhabdomyolysis Qualifiers: Rhabdomyolysis type: non-traumatic Qualified Code(s): M62.82 - Rhabdomyolysis Head trauma Qualifiers: Encounter type: initial encounter Qualified Code(s): S09.90XA - Unspecified injury of head, initial encounter Dementia Qualifiers: Dementia type: unspecified type Dementia behavioral disturbance: without behavioral disturbance Qualified Code(s): F03.90 - Unspecified dementia without behavioral disturbance Condition: Fair Disposition: ADMITTED INPATIENT Admitting Provider: Hospitalist Unit Admitted: IMCU Referrals: MEGHA PAZ MD [Primary Care Provider] - Follow up as needed
--- NOTE | 2018-06-10 21:00 | RADIOLOGY REPORT (SQ) ---
EXAM DESCRIPTION: CT HEAD WITHOUT IV CONTRAST COMPLETED DATE/TME: 06/10/2018 19:58 CLINICAL HISTORY: 77 years, Female, head trauma COMPARISON: June 27, 2016 Technique: Contiguous axial images of the brain were obtained without the administration of intravenous contrast. Coronal and sagittal reformats obtained and reviewed. This exam was performed according to our departmental dose-optimization program which includes use of Automated Exposure Control, adjustment of the mA and/or kV according to patient size and/or use of iterative reconstruction technique. Findings: Brain: Mild cerebral atrophy. Periventricular and deep white matter hypodensities, most commonly due to nonspecific white matter chronic microvascular ischemia.No hemorrhage. No territorial infarct. No mass effect. No herniation. Ventricles: Within normal limits for patient's age. Bones: No acute osseous abnormality. Paranasal sinuses: Unremarkable. Mastoid air cells: Unremarkable. Soft tissues: No acute abnormality. IMPRESSION: No acute intracranial abnormalities.
--- NOTE | 2018-06-10 21:04 | RADIOLOGY REPORT (SQ) ---
EXAM DESCRIPTION: CT CERVICAL SPINE WITHOUT IV CONTRAST COMPLETED DATE/TME: 06/10/2018 19:58 CLINICAL HISTORY: 77 years, Female, fall COMPARISON: None Limitations: Images are degraded due to motion artifact and out of field artifact from the patient's shoulder arthroplasties. TECHNIQUE: Multiplanar imaging through the cervical spine without contrast. This exam was performed according to our departmental dose-optimization program, which includes automated exposure control, adjustment of the mA and/or kV according to patient size and/or use of iterative reconstruction technique. FINDINGS: No acute fracture. 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 Bilateral shoulder arthroplasty. 2 mm anterolisthesis C4 relative to C5. Disc space narrowing and marginal osteophytes C3-4 through C6-7. Moderate multilevel bilateral facet arthropathy. Soft tissues are unremarkable. Visualized lung is clear. IMPRESSION: No acute abnormality.
[2018-06-10 21:40] LABS: APPEARANCE,URINE CLOUDY; BILIRUBIN,URINE NEGATIVE (NEGATIVE); COLOR,URINE YELLOW; GLUCOSE, URINE NEGATIVE (NEGATIVE); KETONES,URINE 20 mg/dL (NEGATIVE); LEUKOCYTE ESTERASE,URINE TRACE (NEGATIVE); NITRITE,URINE NEGATIVE (NEGATIVE); PROTEIN,URINE >=500 mg/dL (NEGATIVE); URINE SPECIFIC GRAVITY 1.028; UROBILINOGEN,URINE NEGATIVE mg/dL (<2.0)
--- NOTE | 2018-06-10 21:42 | RADIOLOGY REPORT (SQ) ---
EXAM DESCRIPTION: XR HAND 3 VIEWS BILATERAL COMPLETED DATE/TME: 06/10/2018 19:59 CLINICAL HISTORY: 77 years, Female, fall, trauma COMPARISON: None. NUMBER OF VIEWS: TECHNIQUE: LIMITATIONS: None. FINDINGS: No fracture or dislocation. There are degenerative changes involving the right radiocarpal joint. There are also degenerative changes involving the right first carpometacarpal joint and the right second metacarpophalangeal joint. There are some degenerative changes involving several right interphalangeal joints. There are degenerative changes involving the left radiocarpal joint, left intercarpal joints and the left first carpometacarpal joint. IMPRESSION: No fracture or dislocation. Degenerative changes. copyright 2010 [employer]- All Rights Reserved
--- NOTE | 2018-06-10 21:44 | RADIOLOGY REPORT (SQ) ---
EXAM DESCRIPTION: XR SHOULDER 2 OR MORE VIEWS COMPLETED DATE/TME: 06/10/2018 19:58 CLINICAL HISTORY: 77 years, Female, left shoulder trauma COMPARISON: None. NUMBER OF VIEWS: TECHNIQUE: LIMITATIONS: None. FINDINGS: No fracture or dislocation. There is a metallic shoulder prosthesis. There are mild degenerative changes involving the acromioclavicular joint. IMPRESSION: No fracture or dislocation. copyright 2010 [employer]- All Rights Reserved
[2018-06-10 21:47] LABS: ALANINE AMINOTRANSFERASE 47 U/L (9-52); ALKALINE PHOSPHATASE 133 U/L (38-126); ANION GAP 10 (5-19); ASPARTATE AMINO TRANSFERASE 113 U/L (14-36); BILIRUBIN,DIRECT 0.2 mg/dL (0.0-0.4); BILIRUBIN,TOTAL 1.1 mg/dL (0.2-1.3); BLOOD UREA NITROGEN 31 mg/dL (7-20); CARBON DIOXIDE 26 mmol/L (22-30); CHLORIDE 105 mmol/L (98-107); GLUCOSE 101 mg/dL (75-110); HEMATOCRIT 38.9 % (36.0-47.0); HEMOGLOBIN 13.1 g/dL (12.0-15.5); MEAN CORPUSCULAR HEMOGLOBIN 29.3 pg (27.0-33.4); MEAN CORPUSCULAR HGB CONC 33.7 g/dL (32.0-36.0); MEAN CORPUSCULAR VOLUME 87 fl (80-97); PLATELET COUNT 285 10^3/uL (150-450); POTASSIUM 4.3 mmol/L (3.6-5.0); RED BLOOD COUNT 4.47 10^6/uL (3.72-5.28); RED CELL DISTRIBUTION WIDTH 19.2 % (11.5-14.0); SODIUM 141.1 mmol/L (137-145); TOTAL PROTEIN 7.2 g/dL (6.3-8.2); WHITE BLOOD COUNT 16.4 10^3/uL (4.0-10.5)
[2018-06-10 21:55] LABS: CREATINE KINASE 2480 U/L (30-135)
[2018-06-10 22:02] LABS: ABSOLUTE MONOCYTES # (MANUAL) 0.3 10^3/uL (0.1-1.4); ABSOLUTE NEUTROPHILS# (MANUAL) 15.1 10^3/uL (1.7-8.2); BASOPHILS % (MANUAL) 0 % (0-2); EOSINOPHILS % (MANUAL) 0 % (0-6); LYMPHOCYTES % (MANUAL) 6 % (13-45); MONOCYTES % (MANUAL) 2 % (3-13); SEGMENTED NEUTROPHILS % (MAN) 92 % (42-78); TOTAL CELLS COUNTED 100
[2018-06-10 22:03] LABS: ANISOCYTOSIS 2+; POIKILOCYTOSIS SLIGHT; POLYCHROMASIA SLIGHT
[2018-06-10 22:04] LABS: PLATELET COMMENT ADEQUATE; TARGET CELLS SLIGHT
[2018-06-10] MEDS ORDERED: RINGERS SOLUTION,LACTATED 1,000 ML IV ONE (22:34)
[2018-06-10] MEDS ORDERED: IPRATROPIUM/ALBUTEROL 0.5-2.5 MG/3 ML AMPUL NEB PRN (22:50)
[2018-06-10] MEDS ORDERED: MAG HYDROX/AL HYDROX/SIMETH SUSP 30 ML UDCUP PO PRN (22:50)
[2018-06-10 23:12] LABS: PHOSPHORUS 3.4 mg/dL (2.5-4.5)
[2018-06-10 23:33] LABS: URINE AMPHETAMINES SCREEN NEGATIVE; URINE BARBITURATES SCREEN NEGATIVE; URINE BENZODIAZEPINES SCREEN NEGATIVE; URINE COCAINE SCREEN NEGATIVE; URINE MARIJUANA (THC) SCREEN NEGATIVE; URINE METHADONE SCREEN NEGATIVE; URINE PHENCYCLIDINE SCREEN NEGATIVE
[2018-06-11] MEDS: NORMAL SALINE 1000 ML 1,000 ML IV PRN ×3 (00:12→18:30)
[2018-06-11] MEDS ORDERED: METOPROLOL TARTRATE PF/INJ 5 MG/5 ML SDV IV ONE ×2 (03:52→04:45)
[2018-06-11] MEDS ORDERED: DILTIAZEM HCL INJ 25 MG/5 ML VIAL IV ONE (03:54)
[2018-06-11] MEDS ORDERED: DILTIAZEM HCL/D5W 125 MG/125 ML RTUINJ IV PRN (03:55)
[2018-06-11] MEDS ORDERED: DILTIAZEM HCL INJ 25 MG/5 ML VIAL ONE (03:56)
--- NOTE | 2018-06-11 05:50 | PDOC H&P ---
History of Present Illness Admission Date/PCP: 06/10/18 22:58 MEGHA PAZ MD Patient complains of: Fall History of Present Illness: BHARATH JORDAN is a 77 year old female with altered mental status and subsequent history obtained by the medical record. Dementia, GERD, dyslipidemia, seizure disorder, paroxysmal atrial fibrillation and rheumatoid arthritis. Patient presents with her neighbor who is able to provide history that she had refilled her medications after several weeks of limited medication use. Patient lives alone and was discovered by her neighbor to be poorly responsive with ecchymosis and swelling to the left side. Her time down was unknown at baseline she ambulates with a wheeled walker, in the emergency department she complains of dull throbbing pain to the left face and scalp. With atrial fibrillation with RVR and hypotension. Labs reveal rhabdomyolysis imaging does not reveal fracture. She is referred to the hospitalist for admission. Patient is altered and unable to provide history Past Medical History Cardiac Medical History: Reports: Hypertension Pulmonary Medical History: Reports: Bronchitis Neurological Medical History: Reports: Seizures Musculoskeltal Medical History: Reports: Arthritis - Rheumatoid Psychiatric Medical History: Reports: Dementia, Depression Hematology: Reports: Anemia Past Surgical History Past Surgical History: Reports: Cholecystectomy, Hysterectomy, Orthopedic Surgery - right hip, right knee, Tonsillectomy Social History Information Source: Friend, Emergency Med Personnel, [facility] Records Lives with: Alone Smoking Status: Never Smoker Frequency of Alcohol Use: None Hx Recreational Drug Use: No Hx Prescription Drug Abuse: No - Advance Directive Resuscitation Status: Full Code Family History Family History: CAD, Hypertension Parental Family History Reviewed: No - Altered mental status Children Family History Reviewed: No Sibling(s) Family History Reviewed.: No Medication/Allergy Home Medications: Aspirin [Aspirin EC] 81 mg PO DAILY 03/13/17 Atorvastatin Calcium [Lipitor 20 mg Tablet] 20 mg PO DAILY 03/13/17 Donepezil HCl [Aricept 5 mg Tablet] 10 mg PO DAILY 03/13/17 Duloxetine HCl [Cymbalta] 60 mg PO DAILY 03/13/17 Furosemide [Lasix 20 mg Tablet] 20 mg PO QAM 03/13/17 Hydroxyzine HCl 25 mg PO QHS 03/13/17 Levetiracetam [Keppra 500 mg Tablet] 500 mg PO Q12 03/13/17 Magnesium Oxide [Mag-Ox 400 mg Tablet] 400 mg PO BID 03/13/17 Memantine HCl [Namenda 10 mg Tablet] 10 mg PO BID 03/13/17 Pantoprazole Sodium 40 mg PO DAILY 03/13/17 Potassium Chloride [Klor-Con 10 Meq Capsule ER] 10 meq PO DAILY 03/13/17 Quetiapine Fumarate [Seroquel 25 mg Tablet] 25 mg PO QHS 03/13/17 Buprenorphine [Butrans] 5 mcg TOP MO@1000 09/23/17 Polyethylene Glycol 3350 [Miralax Powder 17 gm/Packet] 17 gm PO DAILY 09/23/17 Psyllium Seed [Metamucil-Sf Powder 5.85 gm Packet] 1 packet PO DAILYP PRN 09/23/17 Tolterodine Tartrate [Tolterodine Tartrate ER] 4 mg PO DAILY 09/23/17 Acetaminophen [Tylenol 325 mg Tablet] 650 mg PO Q4HP PRN tablet 10/01/17 Ciprofloxacin HCl [Cipro 500 mg Tablet] 500 mg PO Q12 #14 tablet 10/01/17 Metoprolol Tartrate [Lopressor 25 mg Tablet] 25 mg PO Q12A tablet 10/01/17 Metronidazole 500 mg/Ns RTU [Flagyl RTU 500 mg/Ns 100Ml Premix] 500 mg PO Q8A 7 Days #21 tbs 10/01/17 Acetaminophen 325 - 650 mg PO Q6HP PRN #30 tablet 10/08/17 Mirabegron [Myrbetriq] 25 mg PO DAILY 06/10/18 Allergies/Adverse Reactions: amoxicillin Allergy (Verified 10/07/17 19:00) cephalexin [From Keflex] Allergy (Verified 10/07/17 19:00) Itching and Rash morphine Allergy (Verified 10/07/17 19:00) Penicillins Allergy (Verified 10/07/17 19:00) Review of Systems ROS unobtainable: Due to mental status Physical Exam Vital Signs: Temp Pulse Resp BP Pulse Ox 98.4 F 103 H 26 H 95/65 L 98 06/11/18 03:00 06/11/18 02:00 06/11/18 05:16 06/11/18 05:16 06/11/18 05:10 Intake & Output 06/09/18 06/10/18 06/11/18 11:59 11:59 11:59 Intake Total 2503 Balance 2503 Weight 64 kg General appearance: PRESENT: cooperative, disheveled, mild distress, well- developed, other - Temporal wasting with cachexia. ABSENT: well-nourished Head exam: ABSENT: atraumatic - Widespread ecchymosis and swelling to the left scalp and face Eye exam: PRESENT: conjunctival injection, conjunctiva pale, EOMI, periorbital swelling - Left side, PERRLA. ABSENT: nystagmus Ear exam: PRESENT: normal external ear exam Mouth exam: PRESENT: moist, tongue midline Neck exam: ABSENT: carotid bruit, JVD, lymphadenopathy, thyromegaly Respiratory exam: PRESENT: clear to auscultation sabina. ABSENT: rales, rhonchi, wheezes Cardiovascular exam: PRESENT: irregular rhythm, tachycardia. ABSENT: diastolic murmur, rubs, systolic murmur Pulses: PRESENT: normal dorsalis pedis pul Vascular exam: PRESENT: normal capillary refill GI/Abdominal exam: PRESENT: normal bowel sounds, soft. ABSENT: distended, guarding, mass, organolmegaly, rebound, tenderness Rectal exam: PRESENT: deferred Extremities exam: PRESENT: joint swelling, tenderness - Left upper extremity range of motion limited by pain, +1 edema. ABSENT: calf tenderness, clubbing, full ROM, pedal edema Musculoskeletal exam: ABSENT: ambulatory Neurological exam: PRESENT: alert, altered, oriented to person, CN II-XII grossly intact. ABSENT: oriented to place, oriented to time, oriented to situation Psychiatric exam: PRESENT: appropriate affect, normal mood. ABSENT: homicidal ideation, suicidal ideation Skin exam: PRESENT: abrasion, dry, intact, mottled, skin tears, warm, other - Widespread ecchymosis on the left side arm torso leg and foot. ABSENT: cyanosis, rash Results Laboratory Results: 06/10/18 06/10/18 06/10/18 20:13 21:15 21:15 WBC 16.4 H RBC 4.47 Hgb 13.1 Hct 38.9 MCV 87 MCH 29.3 MCHC 33.7 RDW 19.2 H Plt Count 285 Seg Neutrophils % Not Reportable Lymphocytes % Not Reportable Monocytes % Not Reportable Eosinophils % Not Reportable Basophils % Not Reportable Absolute Neutrophils Not Reportable Absolute Lymphocytes Not Reportable Absolute Monocytes Not Reportable Absolute Eosinophils Not Reportable Absolute Basophils Not Reportable Sodium 141.1 Potassium 4.3 Chloride 105 Carbon Dioxide 26 Anion Gap 10 BUN 31 H Creatinine 0.71 Est GFR ( Amer) > 60 Est GFR (Non-Af Amer) > 60 Glucose 101 Calcium 10.0 Phosphorus Magnesium Total Bilirubin 1.1 AST 113 H ALT 47 Alkaline Phosphatase 133 H Total Protein 7.2 Albumin 4.0 Urine Color YELLOW Urine Appearance CLOUDY Urine pH 5.0 Ur Specific [place] 1.028 Urine Protein >=500 H Urine Glucose (UA) NEGATIVE Urine Ketones 20 H Urine Blood LARGE H Urine Nitrite NEGATIVE Ur Leukocyte Esterase TRACE H Urine WBC (Auto) 18 Urine RBC (Auto) 0 06/10/18 21:15 WBC RBC Hgb Hct MCV MCH MCHC RDW Plt Count Seg Neutrophils % Lymphocytes % Monocytes % Eosinophils % Basophils % Absolute Neutrophils Absolute Lymphocytes Absolute Monocytes Absolute Eosinophils Absolute Basophils Sodium Potassium Chloride Carbon Dioxide Anion Gap BUN Creatinine Est GFR ( Amer) Est GFR (Non-Af Amer) Glucose Calcium Phosphorus 3.4 Magnesium 2.1 Total Bilirubin AST ALT Alkaline Phosphatase Total Protein Albumin Urine Color Urine Appearance Urine pH Ur Specific [place] Urine Protein Urine Glucose (UA) Urine Ketones Urine Blood Urine Nitrite Ur Leukocyte Esterase Urine WBC (Auto) Urine RBC (Auto) 06/10/18 21:15 Creatine Kinase 2480 H Impressions: Cervical Spine CT 06/10/18 19:58 IMPRESSION: No acute abnormality. Head CT 06/10/18 19:58 IMPRESSION: No acute intracranial abnormalities. Shoulder X-Ray 06/10/18 19:58 IMPRESSION: No fracture or dislocation. copyright 2010 [employer]- All Rights Reserved Hand X-Ray 06/10/18 19:59 IMPRESSION: No fracture or dislocation. Degenerative changes. copyright 2010 [employer]- All Rights Reserved Assessment & Plan - Diagnosis (1) Atrial fibrillation with RVR Is this a current diagnosis for this admission?: Yes Plan: IV fluid resuscitation, IV Cardizem, resume p.o. Lopressor as tolerated, follow cardiac enzymes (2) Seizure Is this a current diagnosis for this admission?: Yes Plan: Possible precipitant of, patient known to have run out of several medications prior to resumption 24 hours ago. Keppra ordered (3) Rhabdomyolysis Is this a current diagnosis for this admission?: Yes Plan: IV fluid challenge ordered, follow-up chemistry and total CK. Consider bicarb (4) Dementia Is this a current diagnosis for this admission?: Yes Plan: Supportive care discharge planning consult for long-term placement (5) Failure to thrive Is this a current diagnosis for this admission?: Yes Plan: Patient lives independently poorly ambulatory at baseline, physical therapy eval, complicated by significant dementia. Discharge planning consulted for long-term placement. - Time Time Spent: 50 to 70 Minutes - Inpatient Certification Medical Necessity: Need Close Monitoring Due to Risk of Patient Decompensation
[2018-06-11 05:58] LABS: ALANINE AMINOTRANSFERASE 38 U/L (9-52); ALBUMIN 2.9 g/dL (3.5-5.0); ALKALINE PHOSPHATASE 84 U/L (38-126); ANION GAP 9 (5-19); ASPARTATE AMINO TRANSFERASE 94 U/L (14-36); BILIRUBIN,DIRECT 0.3 mg/dL (0.0-0.4); BILIRUBIN,TOTAL 0.9 mg/dL (0.2-1.3); BLOOD UREA NITROGEN 28 mg/dL (7-20); CALCIUM 8.8 mg/dL (8.4-10.2); CARBON DIOXIDE 22 mmol/L (22-30); CHLORIDE 110 mmol/L (98-107); CREATINE KINASE 1515 U/L (30-135); GLUCOSE 109 mg/dL (75-110); POTASSIUM 4.3 mmol/L (3.6-5.0); SODIUM 141.1 mmol/L (137-145); TOTAL PROTEIN 5.7 g/dL (6.3-8.2)
[2018-06-11 06:32] LABS: ABSOLUTE LYMPHOCYTES (AUTO) 0.8 10^3/uL (0.5-4.7); ABSOLUTE MONOCYTES (AUTO) 1.5 10^3/uL (0.1-1.4); ABSOLUTE NEUT (AUTO) 9.2 10^3/uL (1.7-8.2); BASOPHILS % (AUTO) 0.4 % (0-2); EOSINOPHILS % (AUTO) 0.2 % (0-6); LYMPHOCYTES % (AUTO) 6.9 % (13-45); MEAN CORPUSCULAR HEMOGLOBIN 28.9 pg (27.0-33.4); MEAN CORPUSCULAR HGB CONC 33.6 g/dL (32.0-36.0); MEAN CORPUSCULAR VOLUME 86 fl (80-97); MONOCYTES % (AUTO) 12.6 % (3-13); PLATELET COUNT 234 10^3/uL (150-450); RED BLOOD COUNT 3.61 10^6/uL (3.72-5.28); RED CELL DISTRIBUTION WIDTH 19.2 % (11.5-14.0); SEGMENTED NEUTROPHILS % (AUTO) 79.9 % (42-78); TOTAL CELLS COUNTED % (AUTO) 100 %; WHITE BLOOD COUNT 11.6 10^3/uL (4.0-10.5)
[2018-06-11 06:48] LABS: HEMOGLOBIN 10.4 g/dL (12.0-15.5)
[2018-06-11] MEDS: HEPARIN SOD (PORCINE) 5,000 UNIT/ML 1 ML SYRINGE SUBCUT SCH ×3 (07:08→21:22)
[2018-06-11] MEDS ORDERED: NORMAL SALINE 1000 ML 1,000 ML IV PRN (09:32)
[2018-06-11] MEDS ORDERED: NORMAL SALINE 1000 ML 500 ML IV ONE (09:32)
[2018-06-11] MEDS ORDERED: DONEPEZIL HCL 5 MG TABLET PO SCH (10:00)
[2018-06-11] MEDS ORDERED: DULOXETINE HCL 30 MG CAPSULE.DR PO SCH (10:00)
[2018-06-11] MEDS: DILTIAZEM HCL 30 MG TABLET PO SCH ×3 (10:38→20:42)
[2018-06-11] MEDS: ATORVASTATIN CALCIUM 20 MG TABLET PO SCH (11:02)
[2018-06-11] MEDS: ACETAMINOPHEN 325 MG TABLET PO PRN ×2 (11:03→18:30)
[2018-06-11] MEDS: ASPIRIN 81 MG TABLET, ENT COATED PO SCH (11:03)
[2018-06-11] MEDS: LEVETIRACETAM 500 MG TABLET PO SCH ×2 (11:03→21:22)
[2018-06-11] MEDS: POLYETHYLENE GLYCOL 3350 POWDER 17 GM/1 PACKET PO SCH (11:06)
--- NOTE | 2018-06-11 17:27 | PDOC PROGRESS REPORT ---
Subjective Progress Note for:: 06/11/18 Subjective:: The patient is a 77-year-old female with a past medical history of seizure disorder, CHF, hypertension, HLD, GERD, and dementia who was admitted 06/10/2018 for atrial fibrillation RVR and rhabdomyolysis after being found by her neighbor with unknown downtime. The patient was seen early this morning while still in the emergency department. She was found to be sitting up in bed comfortably on room air. She was alert and oriented x4, though cannot recall the events of the last few days and is uncertain as to what led up to her fall. She reports generalized body aches but asks only for Tylenol and fatigue. Otherwise she has no complaints or concerns at this time. She was seen again this afternoon after being moved to the fourth floor. She was seen while sitting up to the recliner on room air. She reports that she is comfortable and other continued fatigue has no complaints. She denies fever, chills, headache, dizziness, chest pain, palpitations, dyspnea, abdominal pain, nausea vomiting and diarrhea. Nursing reports that she remains in atrial fibrillation with a heart rate in the 90s but with soft blood pressures (103/58); otherwise no concerns. Reason For Visit: FTT, FALL RHABDO HYPOTENSION Physical Exam Vital Signs: Temp Pulse Resp BP Pulse Ox 98.6 F 71 19 103/58 L 100 06/11/18 15:52 06/11/18 15:52 06/11/18 15:52 06/11/18 15:52 06/11/18 15:52 Intake & Output 06/10/18 06/11/18 06/12/18 06:59 06:59 06:59 Intake Total 3531 522 Balance 3531 522 Weight 64 kg 64 kg General appearance: PRESENT: no acute distress, cooperative, disheveled, well- developed, well-nourished Head exam: PRESENT: normocephalic, other - Ecchymosis to left scalp and face Eye exam: PRESENT: conjunctiva pink, EOMI, PERRLA. ABSENT: scleral icterus Mouth exam: PRESENT: moist, tongue midline Neck exam: ABSENT: carotid bruit, JVD, lymphadenopathy, thyromegaly Respiratory exam: PRESENT: clear to auscultation sabina, symmetrical, unlabored. ABSENT: rales, rhonchi, wheezes Cardiovascular exam: PRESENT: irregular rhythm, +S1, +S2. ABSENT: diastolic murmur, rubs, systolic murmur Pulses: PRESENT: normal dorsalis pedis pul Vascular exam: PRESENT: normal capillary refill GI/Abdominal exam: PRESENT: normal bowel sounds, soft. ABSENT: distended, guarding, mass, organolmegaly, rebound, tenderness Rectal exam: PRESENT: deferred Extremities exam: PRESENT: tenderness - Left upper extremity. ABSENT: calf tenderness, clubbing, pedal edema Neurological exam: PRESENT: alert, awake, oriented to person, oriented to place, oriented to time, oriented to situation, CN II-XII grossly intact. ABSENT: motor sensory deficit Psychiatric exam: PRESENT: appropriate affect, normal mood. ABSENT: homicidal ideation, suicidal ideation Skin exam: PRESENT: dry, intact, warm, other - Scattered ecchymosis; especially to left upper extremity and left scalp/face. ABSENT: cyanosis, rash Results Laboratory Results: 06/11/18 06:19 06/11/18 05:15 06/10/18 06/10/18 06/10/18 20:13 21:15 21:15 WBC 16.4 H RBC 4.47 Hgb 13.1 Hct 38.9 MCV 87 MCH 29.3 MCHC 33.7 RDW 19.2 H Plt Count 285 Seg Neutrophils % Not Reportable Lymphocytes % Not Reportable Monocytes % Not Reportable Eosinophils % Not Reportable Basophils % Not Reportable Absolute Neutrophils Not Reportable Absolute Lymphocytes Not Reportable Absolute Monocytes Not Reportable Absolute Eosinophils Not Reportable Absolute Basophils Not Reportable Sodium 141.1 Potassium 4.3 Chloride 105 Carbon Dioxide 26 Anion Gap 10 BUN 31 H Creatinine 0.71 Est GFR ( Amer) > 60 Est GFR (Non-Af Amer) > 60 Glucose 101 Calcium 10.0 Phosphorus Magnesium Total Bilirubin 1.1 AST 113 H ALT 47 Alkaline Phosphatase 133 H Total Protein 7.2 Albumin 4.0 Urine Color YELLOW Urine Appearance CLOUDY Urine pH 5.0 Ur Specific [place] 1.028 Urine Protein >=500 H Urine Glucose (UA) NEGATIVE Urine Ketones 20 H Urine Blood LARGE H Urine Nitrite NEGATIVE Ur Leukocyte Esterase TRACE H Urine WBC (Auto) 18 Urine RBC (Auto) 0 06/10/18 06/11/18 06/11/18 21:15 05:15 05:15 WBC Cancelled RBC Cancelled Hgb Cancelled Hct Cancelled MCV Cancelled MCH Cancelled MCHC Cancelled RDW Cancelled Plt Count Cancelled Seg Neutrophils % Cancelled Lymphocytes % Cancelled Monocytes % Cancelled Eosinophils % Cancelled Basophils % Cancelled Absolute Neutrophils Cancelled Absolute Lymphocytes Cancelled Absolute Monocytes Cancelled Absolute Eosinophils Cancelled Absolute Basophils Cancelled Sodium 141.1 Potassium 4.3 Chloride 110 H Carbon Dioxide 22 Anion Gap 9 BUN 28 H Creatinine 0.67 Est GFR ( Amer) > 60 Est GFR (Non-Af Amer) > 60 Glucose 109 Calcium 8.8 Phosphorus 3.4 Magnesium 2.1 Total Bilirubin 0.9 AST 94 H ALT 38 Alkaline Phosphatase 84 Total Protein 5.7 L Albumin 2.9 L Urine Color Urine Appearance Urine pH Ur Specific [place] Urine Protein Urine Glucose (UA) Urine Ketones Urine Blood Urine Nitrite Ur Leukocyte Esterase Urine WBC (Auto) Urine RBC (Auto) 06/11/18 06:19 WBC 11.6 H RBC 3.61 L Hgb 10.4 L D Hct 31.0 L MCV 86 MCH 28.9 MCHC 33.6 RDW 19.2 H Plt Count 234 Seg Neutrophils % 79.9 H Lymphocytes % 6.9 L Monocytes % 12.6 Eosinophils % 0.2 Basophils % 0.4 Absolute Neutrophils 9.2 H Absolute Lymphocytes 0.8 Absolute Monocytes 1.5 H Absolute Eosinophils 0.0 Absolute Basophils 0.0 Sodium Potassium Chloride Carbon Dioxide Anion Gap BUN Creatinine Est GFR ( Amer) Est GFR (Non-Af Amer) Glucose Calcium Phosphorus Magnesium Total Bilirubin AST ALT Alkaline Phosphatase Total Protein Albumin Urine Color Urine Appearance Urine pH Ur Specific [place] Urine Protein Urine Glucose (UA) Urine Ketones Urine Blood Urine Nitrite Ur Leukocyte Esterase Urine WBC (Auto) Urine RBC (Auto) 06/10/18 06/11/18 21:15 05:15 Creatine Kinase 2480 H 1515 H Impressions: Cervical Spine CT 06/10/18 19:58 IMPRESSION: No acute abnormality. Head CT 06/10/18 19:58 IMPRESSION: No acute intracranial abnormalities. Shoulder X-Ray 06/10/18 19:58 IMPRESSION: No fracture or dislocation. copyright 2010 [employer]- All Rights Reserved Hand X-Ray 06/10/18 19:59 IMPRESSION: No fracture or dislocation. Degenerative changes. copyright 2010 [employer]- All Rights Reserved Assessment & Plan - Diagnosis (1) Atrial fibrillation with RVR Is this a current diagnosis for this admission?: Yes Plan: Multifactorial secondary to medication noncompliance (reportedly had been without her medications for several days to weeks) and dehydration. She is admitted to the medical floor and continuous cardiac telemetry. She received aggressive IV fluid resuscitation. Initially placed on IV diltiazem, however now rate controlled and so has been transitioned to p.o. diltiazem. Continue aspirin therapy. Patient is not a good candidate for chronic anticoagulation; HAS-BLED Score 4: 8.9% yearly risk of major bleeding event (2) Dementia Is this a current diagnosis for this admission?: Yes Plan: The patient's home dose of Aricept and Namenda are held secondary to side effect of dizziness/increased risk of falls. Will provide supportive care and ensure patient safety. Discharge planning is consulted; patient reportedly lives independently. (3) Rhabdomyolysis Qualifiers: Rhabdomyolysis type: non-traumatic Qualified Code(s): M62.82 - Rhabdomyolysis Is this a current diagnosis for this admission?: Yes Plan: CK 2480 on admission; secondary to fall with unknown downtime. Last seen well 3-4 days ago. She received aggressive IV fluid resuscitation by the ED provider. Total of 4 L of IV fluids already administered. Continue gentle maintenance IV fluids and encourage p.o. fluid intake. Continue to monitor daily chemistries and CK. (4) Seizure Is this a current diagnosis for this admission?: Yes Plan: History of seizure disorder. Resume home dose Keppra.. Fall and seizure precautions. (5) CHF (congestive heart failure) Qualifiers: Heart failure type: combined systolic and diastolic Heart failure chronicity: chronic Qualified Code(s): I50.42 - Chronic combined systolic (congestive) and diastolic (congestive) heart failure Is this a current diagnosis for this admission?: Yes Plan: Per echocardiogram June 2016; LVEF 45% with grade 2 diastolic dysfunction. The patient does not appear to be in exacerbation at this time. Will monitor closely secondary to aggressive IV fluid resuscitation for dehydration rhabdomyolysis. Currently on diltiazem for rhythm/rate control. Patient remains in atrial fibrillation, though now with heart rate in the 90s. Continue daily statin and aspirin therapy. We will resume the patient's home medication regiment as clinical condition and blood pressures allow. - Time Time Spent with patient: 25-34 minutes Medications reviewed and adjusted accordingly: Yes Anticipated discharge: Home with Homehealth, SNF Within: within 72 hours - Inpatient Certification Based on my medical assessment, after consideration of the patient's comorbidities, presenting symptoms, or acuity I expect that the services needed warrant INPATIENT care.: Yes I certify that my determination is in accordance with my understanding of Medicare's requirements for reasonable and necessary INPATIENT services [42 CFR 412.3e].: Yes Medical Necessity: Need Close Monitoring Due to Risk of Patient Decompensation, Need For IV Fluids, Need For Continuous Telemetry Monitoring
[2018-06-11] MEDS ORDERED: QUETIAPINE FUMARATE 25 MG TABLET PO SCH (22:00)
--- NOTE | 2018-06-11 22:06 | EKG REPORT ---
SEVERITY:- ABNORMAL ECG - ATRIAL FIBRILLATION WITH RAPID V-RATE VENTRICULAR PREMATURE COMPLEX LEFT ANTERIOR FASCICULAR BLOCK REPOLARIZATION ABNORMALITY, PROB RATE RELATED VS ISCHEMIA : Confirmed by: Lai Luz 11-Jun-2018 22:05:55
--- NOTE | 2018-06-11 22:06 | EKG REPORT ---
SEVERITY:- ABNORMAL ECG - ATRIAL FIBRILLATION LEFT ANTERIOR FASCICULAR BLOCK CONSIDER ANTEROSEPTAL INFARCT REPOLARIZATION ABNORMALITY, PROB RATE RELATED VS ISCHEMIA : Confirmed by: Lai Luz 11-Jun-2018 22:05:30
[2018-06-12] MEDS: DILTIAZEM HCL 30 MG TABLET PO SCH ×4 (03:04→21:43)
[2018-06-12] MEDS: ACETAMINOPHEN 325 MG TABLET PO PRN (03:31)
[2018-06-12] MEDS: HEPARIN SOD (PORCINE) 5,000 UNIT/ML 1 ML SYRINGE SUBCUT SCH ×3 (05:17→21:43)
[2018-06-12 05:37] LABS: HEMATOCRIT 26.9 % (36.0-47.0); HEMOGLOBIN 9.1 g/dL (12.0-15.5); MEAN CORPUSCULAR HEMOGLOBIN 29.6 pg (27.0-33.4); MEAN CORPUSCULAR HGB CONC 33.9 g/dL (32.0-36.0); MEAN CORPUSCULAR VOLUME 87 fl (80-97); PLATELET COUNT 219 10^3/uL (150-450); RED BLOOD COUNT 3.08 10^6/uL (3.72-5.28); WHITE BLOOD COUNT 7.3 10^3/uL (4.0-10.5)
[2018-06-12 06:00] LABS: BLOOD UREA NITROGEN 19 mg/dL (7-20); CALCIUM 8.1 mg/dL (8.4-10.2); CREATINE KINASE 948 U/L (30-135); GLUCOSE 89 mg/dL (75-110); POTASSIUM 3.7 mmol/L (3.6-5.0)
[2018-06-12 06:05] LABS: CARBON DIOXIDE 24 mmol/L (22-30); CHLORIDE 111 mmol/L (98-107); SODIUM 137.9 mmol/L (137-145)
[2018-06-12 06:13] LABS: ANION GAP 3 (5-19)
[2018-06-12] MEDS: NORMAL SALINE 1000 ML 1,000 ML IV PRN (08:13)
[2018-06-12] MEDS: ATORVASTATIN CALCIUM 20 MG TABLET PO SCH (09:05)
[2018-06-12] MEDS: ASPIRIN 81 MG TABLET, ENT COATED PO SCH (09:05)
[2018-06-12] MEDS: POLYETHYLENE GLYCOL 3350 POWDER 17 GM/1 PACKET PO SCH (09:05)
[2018-06-12] MEDS: LEVETIRACETAM 500 MG TABLET PO SCH ×2 (09:05→21:43)
[2018-06-12] MEDS ORDERED: KETOROLAC TROMETHAMINE INJ/PF 30 MG/1 ML SDV IV PRN (09:11)
[2018-06-12] MEDS ORDERED: TRAMADOL HCL 50 MG TABLET PO PRN (09:12)
--- NOTE | 2018-06-12 13:31 | PDOC PROGRESS REPORT ---
Subjective Progress Note for:: 06/12/18 Subjective:: The patient is a 77-year-old female with a past medical history of seizure disorder, CHF, hypertension, HLD, GERD, and dementia who was admitted 06/10/2018 for atrial fibrillation RVR and rhabdomyolysis after being found by her neighbor with unknown downtime. The patient was seen on rounds this morning. She was found to be sitting up in the recliner comfortably on room air. She was alert and oriented x4. She reports generalized body aches; especially to her head and shoulder. She asks for stronger pain medication. She also asks to stop the MiraLax as she is now having loose stools. Otherwise she has no complaints or concerns at this time. She denies fever, chills, headache, dizziness, chest pain, palpitations, dyspnea, abdominal pain, nausea vomiting and diarrhea. She has no questions or concerns. Nursing reports patient is very unsteady/weak; concerned about d/c to home. Will have PT/OT evaluate. Reason For Visit: FTT, FALL RHABDO HYPOTENSION Physical Exam Vital Signs: Temp Pulse Resp BP Pulse Ox 98.1 F 77 16 114/69 95 06/12/18 07:45 06/12/18 10:02 06/12/18 10:02 06/12/18 07:45 06/12/18 10:02 Intake & Output 06/11/18 06/12/18 06/13/18 06:59 06:59 06:59 Intake Total 3531 1622 1000 Balance 3531 1622 1000 Weight 64 kg 72.2 kg General appearance: PRESENT: no acute distress, well-developed, well-nourished Head exam: PRESENT: normocephalic, other - Ecchymosis to left scalp and face Eye exam: PRESENT: conjunctiva pink, EOMI, PERRLA. ABSENT: scleral icterus Ear exam: PRESENT: normal external ear exam Mouth exam: PRESENT: moist, tongue midline Respiratory exam: PRESENT: clear to auscultation sabina, symmetrical, unlabored. ABSENT: rales, rhonchi, wheezes Cardiovascular exam: PRESENT: irregular rhythm, +S1, +S2. ABSENT: diastolic murmur, rubs, systolic murmur Pulses: PRESENT: normal dorsalis pedis pul Vascular exam: PRESENT: normal capillary refill GI/Abdominal exam: PRESENT: normal bowel sounds, soft. ABSENT: distended, guarding, mass, organolmegaly, rebound, tenderness Rectal exam: PRESENT: deferred Extremities exam: PRESENT: full ROM. ABSENT: calf tenderness, clubbing, pedal edema Musculoskeletal exam: PRESENT: ambulatory - unsteady; w/ assistance, tenderness - Left upper extremity Neurological exam: PRESENT: alert, awake, oriented to person, oriented to place, oriented to time, oriented to situation, CN II-XII grossly intact. ABSENT: mo tor sensory deficit Psychiatric exam: PRESENT: appropriate affect, normal mood. ABSENT: homicidal ideation, suicidal ideation Skin exam: PRESENT: dry, intact, warm. ABSENT: cyanosis, rash Results Laboratory Results: 06/12/18 05:04 06/12/18 05:04 06/12/18 06/12/18 05:04 05:04 WBC 7.3 RBC 3.08 L Hgb 9.1 L Hct 26.9 L MCV 87 MCH 29.6 MCHC 33.9 RDW 19.0 H Plt Count 219 Sodium 137.9 Potassium 3.7 Chloride 111 H Carbon Dioxide 24 Anion Gap 3 L BUN 19 Creatinine 0.66 Est GFR ( Amer) > 60 Est GFR (Non-Af Amer) > 60 Glucose 89 Calcium 8.1 L 06/10/18 06/11/18 06/12/18 21:15 05:15 05:04 Creatine Kinase 2480 H 1515 H 948 H Impressions: Cervical Spine CT 06/10/18 19:58 IMPRESSION: No acute abnormality. Head CT 06/10/18 19:58 IMPRESSION: No acute intracranial abnormalities. Shoulder X-Ray 06/10/18 19:58 IMPRESSION: No fracture or dislocation. copyright 2010 [employer]- All Rights Reserved Hand X-Ray 06/10/18 19:59 IMPRESSION: No fracture or dislocation. Degenerative changes. copyright 2010 [employer]- All Rights Reserved Assessment & Plan - Diagnosis (1) Atrial fibrillation with RVR Is this a current diagnosis for this admission?: Yes Plan: Now rate controlled on p.o diltiazem. Multifactorial secondary to medication noncompliance (reportedly had been without her medications for several days to weeks) and dehydration. She is admitted to the medical floor and continuous cardiac telemetry. She received aggressive IV fluid resuscitation. Initially placed on IV diltiazem, however now rate controlled and so has been transitioned to p.o. diltiazem (holding parameters provided due to soft blood pressures) Continue aspirin therapy. Patient is not a good candidate for chronic anticoagulation; HAS-BLED Score 4: 8.9% yearly risk of major bleeding event [id number] Score 5: 7.2 % yearly CVA risk (2) Dementia Is this a current diagnosis for this admission?: Yes Plan: The patient's home dose of Aricept and Namenda are held secondary to side effect of dizziness/increased risk of falls. Patient is alert and orientated x4 during each of my visits. Day shift nursing has not noted confusion/forgetfulness. No report of sundowning. Will observe closely. Will provide supportive care and ensure patient safety. Discharge planning is consulted; patient reportedly lives independently. (3) Rhabdomyolysis Qualifiers: Rhabdomyolysis type: non-traumatic Qualified Code(s): M62.82 - Rhabdomyolysis Is this a current diagnosis for this admission?: Yes Plan: Improved; CK trending down (2480-> 1515-> 948) Secondary to fall with unknown downtime. Last seen well 3-4 days prior to adm ission. She received aggressive IV fluid resuscitation by the ED provider. Total of 4 L of IV fluids already administered. Continue gentle maintenance IV fluids and encourage p.o. fluid intake. Monitor closely for fluid overload in pt with hx of CHF. Continue to monitor daily chemistries and CK. (4) Seizure Is this a current diagnosis for this admission?: Yes Plan: History of seizure disorder. Continue home dose Keppra. Fall and seizure precautions. (5) CHF (congestive heart failure) Qualifiers: Heart failure type: combined systolic and diastolic Heart failure chr onicity: chronic Qualified Code(s): I50.42 - Chronic combined systolic (congestive) and diastolic (congestive) heart failure Is this a current diagnosis for this admission?: Yes Plan: Per echocardiogram June 2016; LVEF 45% with grade 2 diastolic dysfunction. The patient does not appear to be in exacerbation at this time. Will monitor closely secondary to aggressive IV fluid resuscitation for dehydrat ion rhabdomyolysis. Currently on diltiazem for rhythm/rate control. Patient remains in atrial fibr illation, though now with heart rate in the 90s. Continue daily statin and aspirin therapy. We will resume the patient's home medication regiment as clinical condition and blood pressures allow. - Time Time Spent with patient: 15-24 minutes Medications reviewed and adjusted accordingly: Yes Anticipated discharge: Home with Homehealth - vs SNF for short term rehab Within: within 72 hours
[2018-06-12] MEDS ORDERED: LIDOCAINE 5% (700 MG) TRANSDERMAL ADH..PATCH TP ONE (15:00)
[2018-06-13 05:44] LABS: ABSOLUTE RETICS # 0.045 10^6/uL (0.028-0.122); HEMATOCRIT 23.9 % (36.0-47.0); HEMOGLOBIN 8.1 g/dL (12.0-15.5); MEAN CORPUSCULAR HEMOGLOBIN 29.8 pg (27.0-33.4); MEAN CORPUSCULAR VOLUME 87 fl (80-97); PLATELET COUNT 202 10^3/uL (150-450); RED BLOOD COUNT 2.73 10^6/uL (3.72-5.28); RED CELL DISTRIBUTION WIDTH 18.7 % (11.5-14.0); RETICULOCYTE COUNT (AUTO) 1.64 % (0.66-2.85); WHITE BLOOD COUNT 7.1 10^3/uL (4.0-10.5)
[2018-06-13 05:59] LABS: BLOOD UREA NITROGEN 23 mg/dL (7-20); GLUCOSE 90 mg/dL (75-110); IRON(TIBC) 42.3 ug/dL (37-170); POTASSIUM 3.9 mmol/L (3.6-5.0)
[2018-06-13] MEDS: HEPARIN SOD (PORCINE) 5,000 UNIT/ML 1 ML SYRINGE SUBCUT SCH (05:59)
[2018-06-13] MEDS: DILTIAZEM HCL 30 MG TABLET PO SCH ×3 (06:00→21:53)
[2018-06-13 06:05] LABS: CARBON DIOXIDE 25 mmol/L (22-30); CHLORIDE 112 mmol/L (98-107); SODIUM 139.8 mmol/L (137-145)
[2018-06-13 06:12] LABS: ANION GAP 3 (5-19)
[2018-06-13] MEDS ORDERED: METOPROLOL TARTRATE PF/INJ 5 MG/5 ML SDV IV ONE ×2 (06:52→06:55)
[2018-06-13 07:06] LABS: FOLATE 6.85 ng/mL (>2.76)
[2018-06-13 08:51] LABS: CREATINE KINASE MB 1.77 ng/mL (<4.55)
[2018-06-13 09:00] LABS: TROPONIN I 0.177 ng/mL
[2018-06-13] MEDS: ASPIRIN 81 MG TABLET, ENT COATED PO SCH (09:38)
[2018-06-13] MEDS: LEVETIRACETAM 500 MG TABLET PO SCH ×2 (09:38→21:52)
[2018-06-13] MEDS: ATORVASTATIN CALCIUM 20 MG TABLET PO SCH (09:38)
[2018-06-13 09:40] LABS: CHOLESTEROL 89.13 mg/dL (0-200); TRIGLYCERIDES 81 mg/dL (<150)
[2018-06-13 09:51] LABS: DIRECT LDL 44 mg/dL (<100)
[2018-06-13] MEDS ORDERED: MULTIVIT-STRESS FORMULA/ZINC TABLET PO SCH (10:00)
[2018-06-13] MEDS ORDERED: CYANOCOBALAMIN (VITAMIN B-12) INJ 1000 MCG/1 ML VIAL IM ONE (10:00)
[2018-06-13] MEDS ORDERED: FERROUS SULFATE 325 MG TABLET PO SCH (10:00)
[2018-06-13] MEDS ORDERED: MORPHINE SULFATE 10 MG/ML INJ IV PRN (10:14)
[2018-06-13] MEDS: NITROGLYCERIN 0.4 MG/TAB 25 TAB/BOTTLE SL PRN ×2 (10:15→10:20)
[2018-06-13] MEDS: ENOXAPARIN SODIUM INJ 80 MG/0.8 ML DISP.SYRIN SUBCUT SCH ×2 (10:17→21:53)
[2018-06-13] MEDS: NORMAL SALINE 1000 ML 1,000 ML IV PRN ×2 (10:47→17:33)
[2018-06-13] MEDS ORDERED: METOCLOPRAMIDE HCL ORAL SOLN 10 MG/10 ML UDCUP PO ONE (11:00)
[2018-06-13] MEDS ORDERED: MAG HYDROX/AL HYDROX/SIMETH SUSP 30 ML UDCUP PO ONE (11:00)
[2018-06-13] MEDS ORDERED: LIDOCAINE 2% VISCOUS SOLN 20 ML UDCUP PO ONE (11:00)
[2018-06-13 15:01] LABS: CREATINE KINASE MB 1.57 ng/mL (<4.55); TROPONIN I 0.131 ng/mL
--- NOTE | 2018-06-13 17:12 | PDOC PROGRESS REPORT ---
Subjective Progress Note for:: 06/13/18 Subjective:: The patient is a 77-year-old female with a past medical history of seizure disorder, CHF, hypertension, HLD, GERD, and dementia who was admitted 06/10/2018 for atrial fibrillation RVR and rhabdomyolysis after being found by her neighbor with unknown downtime. The patient was seen on rounds this morning. She was found to be in bed on supplemental oxygen nasal cannula. The patient and nurse tell me that she has just returned to bed from the recliner after developing sudden onset of substernal/epigastric chest pain, radiating upward, described as crushing, and associated with a generalized sense of and ease. Patient denies headache, dizziness, dyspnea, diaphoresis, nausea. Chest pain was relieved after her second sublingual nitroglycerin tab. Reason For Visit: FTT, FALL RHABDO HYPOTENSION Physical Exam Vital Signs: Temp Pulse Resp BP Pulse Ox 98.7 F 92 16 123/68 100 06/13/18 15:15 06/13/18 15:15 06/13/18 15:15 06/13/18 15:15 06/13/18 15:15 Intake & Output 06/12/18 06/13/18 06/14/18 06:59 06:59 06:59 Intake Total 1622 3734 Balance 1622 3734 Weight 72.2 kg 75.8 kg General appearance: PRESENT: cooperative, mild distress, well-developed, well- nourished - Overweight Head exam: PRESENT: atraumatic, normocephalic Eye exam: PRESENT: conjunctiva pink, EOMI, PERRLA. ABSENT: scleral icterus Mouth exam: PRESENT: moist, tongue midline Neck exam: ABSENT: carotid bruit, JVD, lymphadenopathy, thyromegaly Respiratory exam: PRESENT: clear to auscultation sabina, symmetrical, unlabored. ABSENT: rales, rhonchi, wheezes Cardiovascular exam: PRESENT: RRR, +S1, +S2. ABSENT: diastolic murmur, rubs, systolic murmur Pulses: PRESENT: normal dorsalis pedis pul Vascular exam: PRESENT: normal capillary refill GI/Abdominal exam: PRESENT: normal bowel sounds, soft. ABSENT: distended, guarding, mass, organolmegaly, rebound, tenderness Rectal exam: PRESENT: deferred Extremities exam: PRESENT: full ROM. ABSENT: calf tenderness, clubbing, pedal edema Neurological exam: PRESENT: alert, awake, oriented to person, oriented to place, oriented to time, oriented to situation, CN II-XII grossly intact. ABSENT: motor sensory deficit Psychiatric exam: PRESENT: anxious, appropriate affect, normal mood, other - Tearful. ABSENT: homicidal ideation, suicidal ideation Skin exam: PRESENT: dry, intact, warm. ABSENT: cyanosis, rash Results Laboratory Results: 06/13/18 04:56 06/13/18 04:56 06/13/18 06/13/18 06/13/18 04:56 04:56 04:56 WBC 7.1 RBC 2.73 L Hgb 8.1 L Hct 23.9 L MCV 87 MCH 29.8 MCHC 34.0 RDW 18.7 H Plt Count 202 Retic Count (auto) 1.64 Absolute Retic 0.045 Sodium 139.8 Potassium 3.9 Chloride 112 H Carbon Dioxide 25 Anion Gap 3 L BUN 23 H Creatinine 0.72 Est GFR ( Amer) > 60 Est GFR (Non-Af Amer) > 60 Glucose 90 Calcium 8.0 L Magnesium 1.8 Iron 42.3 TIBC 272 % Saturation 16 Ferritin 25.80 Triglycerides Cholesterol LDL Cholesterol Direct VLDL Cholesterol HDL Cholesterol Vitamin B12 234.0 L Folate 6.85 06/13/18 04:56 WBC RBC Hgb Hct MCV MCH MCHC RDW Plt Count Retic Count (auto) Absolute Retic Sodium Potassium Chloride Carbon Dioxide Anion Gap BUN Creatinine Est GFR ( Amer) Est GFR (Non-Af Amer) Glucose Calcium Magnesium Iron TIBC % Saturation Ferritin Triglycerides 81 Cholesterol 89.13 LDL Cholesterol Direct 44 VLDL Cholesterol 16.0 HDL Cholesterol 46 Vitamin B12 Folate 06/10/18 06/11/18 06/12/18 21:15 05:15 05:04 Creatine Kinase 2480 H 1515 H 948 H CK-MB (CK-2) Troponin I NT-Pro-B Natriuret Pep 06/13/18 06/13/18 06/13/18 04:56 07:50 07:50 Creatine Kinase 456 H CK-MB (CK-2) 1.77 Troponin I 0.177 NT-Pro-B Natriuret Pep 08886 H 06/13/18 06/13/18 06/13/18 10:30 14:00 14:00 Creatine Kinase 438 H CK-MB (CK-2) 1.57 Troponin I 0.140 0.131 NT-Pro-B Natriuret Pep Impressions: Cervical Spine CT 06/10/18 19:58 IMPRESSION: No acute abnormality. Head CT 06/10/18 19:58 IMPRESSION: No acute intracranial abnormalities. Shoulder X-Ray 06/10/18 19:58 IMPRESSION: No fracture or dislocation. copyright 2010 [employer]- All Rights Reserved Hand X-Ray 06/10/18 19:59 IMPRESSION: No fracture or dislocation. Degenerative changes. copyright 2010 [employer]- All Rights Reserved Assessment & Plan - Diagnosis (1) Chest pain Qualifiers: Chest pain type: unspecified Qualified Code(s): R07.9 - Chest pain, unspecified Is this a current diagnosis for this admission?: Yes Plan: The patient developed sudden onset sternal chest pain, nonradiating, described as crushing it was relieved after the second SL Nitro dose. She is monitored on continuous cardiac telemetry. EKG demonstrated NSR with prolonged QT interval (QTC 515) without ST segment changes or other acute findings. Troponins elevated 0.177--> 0.140--> 0.131 proBNP elevated to 10k (no previous BNP on file) Discussed with Dr. Barnes; recommends consideration for cardiac cath eterization. Dr. Mondragon confirms patient sees Dr. Bennett with [facility] cardiology. We will call Dr. Bennett in the morning. Continue daily statin and aspirin therapy. Start full dose Lovenox. Supplemental oxygen as needed to maintain oxygen saturations greater than 89%. Sublingual nitroglycerin tabs as needed for chest pain. Continue to trend cardiac enzymes. Echocardiogram pending. (2) Atrial fibrillation with RVR Is this a current diagnosis for this admission?: Yes Plan: Now rate controlled on p.o diltiazem. Multifactorial secondary to medication noncompliance (reportedly had been without her medications for several days to weeks) and dehydration. She is admitted to the medical floor and continuous cardiac telemetry. She received aggressive IV fluid resuscitation. Initially placed on IV diltiazem, however now rate controlled and so has been transitioned to p.o. diltiazem (holding parameters provided due to soft blood pressures) Continue aspirin therapy. Patient is not a good candidate for chronic anticoagulation; HAS-BLED Score 4: 8.9% yearly risk of major bleeding event [id number] Score 5: 7.2 % yearly CVA risk (3) Dementia Is this a current diagnosis for this admission?: Yes Plan: The patient's home dose of Aricept and Namenda are held secondary to side effect of dizziness/increased risk of falls. Patient is alert and orientated x4 during each of my visits. Day shift nursing has not noted confusion/forgetfulness. Does report that the patient experienced slight confusion earlier yesterday evening. Will observe closely. Will provide supportive care and ensure patient safety. Discharge planning is consulted; patient reportedly lives independently. (4) Rhabdomyolysis Qualifiers: Rhabdomyolysis type: non-traumatic Qualified Code(s): M62.82 - Rhabdomyolysis Is this a current diagnosis for this admission?: Yes Plan: Improved; CK trending down (2480-> 1515-> 948-> 438) Secondary to fall with unknown downtime. Last seen well 3-4 days prior to admission. She received aggressive IV fluid resuscitation by the ED provider. Total of 4 L of IV fluids already administered. Continue gentle maintenance IV fluids and encourage p.o. fluid intake. Monitor closely for fluid overload in pt with hx of CHF. Continue to monitor daily chemistries and CK. (5) Seizure Is this a current diagnosis for this admission?: Yes Plan: History of seizure disorder. Continue home dose Keppra. Fall and seizure precautions. (6) CHF (congestive heart failure) Qualifiers: Heart failure type: combined systolic and diastolic Heart failure chronicity: chronic Qualified Code(s): I50.42 - Chronic combined systolic (congestive) and diastolic (congestive) heart failure Is this a current diagnosis for this admission?: Yes Plan: Per echocardiogram June 2016; LVEF 45% with grade 2 diastolic dysfunction. The patient does not appear to be in exacerbation at this time. Repeat echocardiogram pending Will monitor closely secondary to aggressive IV fluid resuscitation for dehydration rhabdomyolysis. Currently on diltiazem for rhythm/rate control. Patient remains in atrial fibrillation, though now with heart rate in the 90s. Continue daily statin and aspirin therapy. We will resume the patient's home medication regiment as clinical condition and blood pressures allow. - Time Time Spent with patient: 35 or more minutes Medications reviewed and adjusted accordingly: Yes Anticipated discharge: SNF
[2018-06-13 19:34] LABS: CREATINE KINASE MB 1.2 ng/mL (<4.55); TROPONIN I 0.124 ng/mL
--- NOTE | 2018-06-13 22:54 | EKG REPORT ---
SEVERITY:- ABNORMAL ECG - SINUS RHYTHM PROBABLE ANTEROSEPTAL INFARCT, AGE INDETERM PROLONGED QT INTERVAL : Confirmed by: Lai Luz 13-Jun-2018 22:53:07
--- NOTE | 2018-06-13 22:54 | EKG REPORT ---
SEVERITY:- ABNORMAL ECG - SINUS RHYTHM LOW VOLTAGE IN FRONTAL LEADS CONSIDER ANTEROSEPTAL INFARCT BORDERLINE PROLONGED QT INTERVAL : Confirmed by: Lai Luz 13-Jun-2018 22:53:13
[2018-06-14] MEDS ORDERED: ONDANSETRON HCL INJ/PF 4 MG/2 ML SDV ONE ×2 (02:29→04:30)
[2018-06-14] MEDS ORDERED: NOREPINEPHRINE BITARTRATE INJ/PF 4 MG/4 ML SDV IV ONE (03:04)
--- NOTE | 2018-06-14 03:07 | RADIOLOGY REPORT (SQ) ---
CLINICAL HISTORY: loose stool/vomiting COMPARISON: October 07, 2017. 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 There are no abnormal radiopaque foreign bodies or abnormal calcifications. Right hip arthroplasty was performed. There is rightward scoliosis of the upper lumbar spine. There are chronic bibasilar opacities. IMPRESSION: No bowel obstruction.
[2018-06-14] MEDS ORDERED: NORMAL SALINE 250 ML IV PRN ×3 (03:17→09:22)
[2018-06-14] MEDS ORDERED: DILTIAZEM HCL/D5W 125 MG/125 ML RTUINJ IV PRN (03:20)
[2018-06-14] MEDS ORDERED: PANTOPRAZOLE SODIUM 80 MG in NORMAL SALINE 100 ML IV ONE (03:20)
[2018-06-14 03:30] LABS: ABSOLUTE EOSINOPHILS # (AUTO) 0.4 10^3/uL (0.0-0.6); ABSOLUTE LYMPHOCYTES (AUTO) 1.8 10^3/uL (0.5-4.7); ABSOLUTE MONOCYTES (AUTO) 0.6 10^3/uL (0.1-1.4); ABSOLUTE NEUT (AUTO) 5.6 10^3/uL (1.7-8.2); BASOPHILS % (AUTO) 0.5 % (0-2); EOSINOPHILS % (AUTO) 4.5 % (0-6); HEMATOCRIT 17.6 % (36.0-47.0); LYMPHOCYTES % (AUTO) 20.9 % (13-45); MEAN CORPUSCULAR HEMOGLOBIN 29.8 pg (27.0-33.4); MEAN CORPUSCULAR HGB CONC 33.4 g/dL (32.0-36.0); MEAN CORPUSCULAR VOLUME 89 fl (80-97); MONOCYTES % (AUTO) 7.5 % (3-13); PLATELET COUNT 214 10^3/uL (150-450); RED BLOOD COUNT 1.98 10^6/uL (3.72-5.28); RED CELL DISTRIBUTION WIDTH 18.6 % (11.5-14.0); SEGMENTED NEUTROPHILS % (AUTO) 66.6 % (42-78); TOTAL CELLS COUNTED % (AUTO) 100 %; WHITE BLOOD COUNT 8.4 10^3/uL (4.0-10.5)
[2018-06-14 03:32] LABS: HEMOGLOBIN 5.9 g/dL (12.0-15.5)
[2018-06-14] MEDS ORDERED: MIDAZOLAM HCL 50 MG/100 ML RTUINJ ONE (03:36)
[2018-06-14 03:44] LABS: ALANINE AMINOTRANSFERASE 32 U/L (9-52); ALBUMIN 1.8 g/dL (3.5-5.0); ALKALINE PHOSPHATASE 59 U/L (38-126); ASPARTATE AMINO TRANSFERASE 36 U/L (14-36); BILIRUBIN,DIRECT 0.4 mg/dL (0.0-0.4); BILIRUBIN,TOTAL 0.6 mg/dL (0.2-1.3); BLOOD UREA NITROGEN 25 mg/dL (7-20); CALCIUM 7.5 mg/dL (8.4-10.2); CARBON DIOXIDE 22 mmol/L (22-30); CHLORIDE 114 mmol/L (98-107); CREATINE KINASE 242 U/L (30-135); GLUCOSE 155 mg/dL (75-110)
[2018-06-14 03:49] LABS: SODIUM 139.6 mmol/L (137-145)
[2018-06-14 03:52] LABS: ANION GAP 4 (5-19)
[2018-06-14] MEDS ORDERED: PANTOPRAZOLE SODIUM 40 MG VIAL IV PRN (03:52)
[2018-06-14 03:53] LABS: CREATINE KINASE MB 1.12 ng/mL (<4.55); TROPONIN I 0.127 ng/mL
[2018-06-14] MEDS: NORMAL SALINE 100 ML with PANTOPRAZOLE SODIUM 80 MG IV PRN ×4 (04:14→14:43)
[2018-06-14] MEDS ORDERED: FENTANYL CITRATE INJ/PF 100 MCG/2 ML AMPUL IV PRN (04:17)
[2018-06-14] MEDS ORDERED: PROPOFOL INJ 200 MG/20 ML VIAL IV ONE (04:22)
--- NOTE | 2018-06-14 04:26 | Progress Note ---
Provider Note Provider Note: Contacted by patient's nurse at 2:40 AM for large volume hematemesis and bright red blood per rectum x2. At bedside patient's found pale, acutely ill with hypotension and tachycardia. She is maintaining her airway awake and alert. Earlier in the day she had complained of epigastric pain. She is transferred to the ICU, surgical and anesthesia consult for emergent airway protection and endoscopy. Acute upper GI bleed with full dose Lovenox. Lovenox discontinued, Protonix 80 mg bolus with 72-hour drip, FFP and 3 units of packed red blood cells ordered. Follow-up surgical consult for central line placement and EGD. CBC, chest x-ray ET tube and central line placement. Patient's next of kin notified granting blood consent. Hypotension secondary to acute GI bleed, 2 units of normal saline ordered, Levophed as needed. Patient remains critical requiring emergent endoscopy. Critical care time 45 minutes
[2018-06-14] MEDS ORDERED: PHARMACY COMMUNICATION ORDER MC NR (04:30)
[2018-06-14] MEDS ORDERED: DIPHENHYDRAMINE HCL 50 MG/ML VIAL ONE (04:30)
[2018-06-14] MEDS ORDERED: FENTANYL CITRATE INJ/PF 100 MCG/2 ML AMPUL ONE (04:30)
[2018-06-14] MEDS ORDERED: ACETAMINOPHEN 325 MG TABLET NG PRN (04:30)
[2018-06-14] MEDS ORDERED: TRAMADOL HCL 50 MG TABLET NG PRN (04:30)
[2018-06-14] MEDS ORDERED: NALOXONE HCL INJ/PF 0.4 MG/1 ML SDV ONE (04:31)
[2018-06-14] MEDS ORDERED: GLUCAGON,HUMAN RECOMB 1 MG INJ ONE (04:31)
[2018-06-14] MEDS ORDERED: MIDAZOLAM 2 MG/2 ML INJ ONE (04:31)
[2018-06-14] MEDS ORDERED: FLUMAZENIL INJ 0.5 MG/5 ML VIAL ONE (04:31)
[2018-06-14] MEDS ORDERED: EPINEPHRINE INJ 1 MG/10 ML DISP.SYRIN ONE (04:31)
[2018-06-14] MEDS: MIDAZOLAM HCL 50 MG/100 ML RTUINJ IV PRN ×4 (04:40→14:19)
[2018-06-14 04:46] LABS: FIBRINOGEN 212 mg/dL (209-497); INTERNATIONAL RATION (INR) 1.29; PROTHROMBIN TIME 16.7 SEC (11.4-15.4)
[2018-06-14] MEDS ORDERED: ONDANSETRON HCL INJ/PF 4 MG/2 ML SDV IV ONE (05:00)
--- NOTE | 2018-06-14 05:03 | RADIOLOGY REPORT (SQ) ---
EXAM DESCRIPTION: XR CHEST 1 VIEW COMPLETED DATE/TME: 06/14/2018 06:00 CLINICAL HISTORY: 77 years, Female, intubation, central line placement COMPARISON: 09/27/2017 NUMBER OF VIEWS: One TECHNIQUE: AP view the chest LIMITATIONS: None. FINDINGS: The endotracheal tube terminates approximately 4.7 cm above the ismael. Right IJ line terminates deep within the right atrium. There are bibasilar airspace opacities. Small pleural effusions are present. Heart is normal in size. There is no pneumothorax. IMPRESSION: Satisfactory position of the endotracheal tube. The right IJ line terminates deep within the right atrium. Recommend retraction by approximately 6 to 7 cm. Bibasilar airspace opacities. copyright 2010 [employer]- All Rights Reserved
[2018-06-14 05:13] LABS: ARTERIAL BLOOD BASE EXCESS -5.8 mmol/L; ARTERIAL BLOOD FIO2 40%; ARTERIAL BLOOD H2CO3 0.92 mmol/L (1.05-1.35); ARTERIAL BLOOD HCO3 18.6 mmol/L (20-24); ARTERIAL BLOOD O2 SATURATION 99.1 % (94-98); ARTERIAL BLOOD PCO2 30.6 mmHg (35-45); ARTERIAL BLOOD PO2 166.3 mmHg (80-100); ARTERIAL BLOOD TOTAL CO2 19.5 mmol/L (21-25)
[2018-06-14] MEDS ORDERED: DEXTROSE 5%-WATER 250 ML with NOREPINEPHRINE BITARTRATE 4 MG IV PRN ×2 (05:51)
--- NOTE | 2018-06-14 08:52 | RADIOLOGY REPORT (SQ) ---
EXAM DESCRIPTION: KUB/ABDOMEN (SINGLE VIEW) COMPLETED DATE/TIME: 06/14/2018 8:35 am REASON FOR STUDY: NGT placement COMPARISON: CT abdomen and pelvis 09/23/2017 Abdominal films 10/07/2017, 06/14/2018 NUMBER OF VIEWS: One view. TECHNIQUE: Supine radiographic image of the abdomen acquired. LIMITATIONS: Pelvis cropped from the field of view FINDINGS: BOWEL GAS PATTERN: Nasogastric tube tip in the antrum of the stomach below the hemidiaphra gms. Stomach and retrocardiac hiatal hernia are decompressed. There is gaseous distension of small bowel in the mid and upper abdomen, and diffuse gaseous distenti on of the transverse and descending colon. Findings could either represent an ileus or distal colon obstruction. CALCIFICATIONS: No suspicious calcifications. SOFT TISSUES: No gross mass or suggestion of organomegaly. HARDWARE: Nasogastric tube tip below the hemidiaphragms, in the gastric antrum. Clips right upper qu adrant post cholecystectomy. Right jugular central line tip in the right atrium. BONES: Osteoporotic with degenerative lumbar scoliosis OTHER: No other significant finding. IMPRESSION: Abnormal bowel gas pattern with diffusely distended small bowel loops and transverse/lan cending colon move perineum findings could either represent an ileus or distal bowel obstruction. TECHNICAL DOCUMENTATION: JOB ID: [id number] [employer]- All Rights Reserved Reading location - IP/workstation name: [email or web address]
[2018-06-14] MEDS: ASPIRIN 81 MG TABLET, ENT COATED PO SCH (09:04)
[2018-06-14 09:46] LABS: ABSOLUTE EOSINOPHILS # (AUTO) 0.1 10^3/uL (0.0-0.6); ABSOLUTE LYMPHOCYTES (AUTO) 0.8 10^3/uL (0.5-4.7); ABSOLUTE MONOCYTES (AUTO) 0.6 10^3/uL (0.1-1.4); ABSOLUTE NEUT (AUTO) 7.5 10^3/uL (1.7-8.2); BASOPHILS % (AUTO) 0.3 % (0-2); EOSINOPHILS % (AUTO) 0.8 % (0-6); HEMATOCRIT 28.3 % (36.0-47.0); MEAN CORPUSCULAR HEMOGLOBIN 30.7 pg (27.0-33.4); MEAN CORPUSCULAR VOLUME 88 fl (80-97); MONOCYTES % (AUTO) 6.9 % (3-13); PLATELET COUNT 133 10^3/uL (150-450); RED BLOOD COUNT 3.23 10^6/uL (3.72-5.28); RED CELL DISTRIBUTION WIDTH 16.8 % (11.5-14.0); TOTAL CELLS COUNTED % (AUTO) 100 %
[2018-06-14 09:47] LABS: HEMOGLOBIN 9.9 g/dL (12.0-15.5)
[2018-06-14] MEDS ORDERED: LEVETIRACETAM 1000 MG/NACL-ISO 1,000 MG/100 ML RTUPB IV SCH (10:00)
[2018-06-14] MEDS ORDERED: MULTIVIT-STRESS FORMULA/ZINC TABLET NG SCH (10:00)
[2018-06-14] MEDS ORDERED: ATORVASTATIN CALCIUM 20 MG TABLET NG SCH (10:00)
[2018-06-14] MEDS: NORMAL SALINE 1000 ML 1,000 ML IV PRN (10:40)
--- NOTE | 2018-06-14 10:48 | OPERATIVE REPORT E ---
Operative Report NAME: BHARATH JORDAN : 1940 AGE: 77Y DATE OF SURGERY: 06/14/2018 ROOM: 605 PREOPERATIVE DIAGNOSES: 1. Acute GI bleed. 2. Respiratory failure. POSTOPERATIVE DIAGNOSES: 1. Acute GI bleed. 2. Respiratory failure. PROCEDURE: 1. Focused ultrasound of the right neck. 2. Ultrasound-directed insertion of a triple lumen central venous access catheter right internal jugular vein. 3. Interpretation of portable left/right chest x-ray. SURGEON: ZELDA HOWE M.D. ANESTHESIA: Lidocaine 1%, plain. COMPLICATIONS: None. ESTIMATED BLOOD LOSS: Scant. DRAINS: None. TISSUE REMOVED: None. SUMMARY OF PROCEDURE: The patient was placed in the Trendelenburg position. She had just undergone orotracheal intubation by the anesthesia team. The right neck was exposed, scanned with a variable frequency lumen transducer and found to have a patent, compressible right internal jugular vein. The right neck was prepped and draped in the sterile fashion. Surgical plan and surgical timeout were conducted. The skin was anesthetized with 1% plain lidocaine. Using Seldinger technique, a conventional 14 gauge needle and wire were threaded into the right internal jugular vein. Tract dilatated up and a triple lumen central venous catheter was inserted over the wire. There was excellent blood flow through all 3 lumens. The catheter was flushed with saline, Biopatch, and 2-0 silk applied. Sterile dressing applied. The patient tolerated the procedure well. A portable upright chest x-ray demonstrated endotracheal tube tip to be at the level of the clavicles and the tip of the central line to be in the right atrium. There was no evidence of ectopy. No evidence of pneumothorax. Results of the x-ray shared with team. DICTATING PHYSICIAN: ZELDA HOWE M.D. [id number] PHY#: [id number] ID: [id number] JOB#: [id number] ACCT: [id number] cc:ZELDA HOWE M.D. >
[2018-06-14] MEDS ORDERED: NORMAL SALINE 500 ML with OCTREOTIDE ACETATE 500 MCG IV PRN ×2 (12:00)
[2018-06-14] MEDS ORDERED: SUCCINYLCHOLINE CHLORIDE INJ 200 MG/10 ML VIAL ONE (12:16)
[2018-06-14 12:53] LABS: ABSOLUTE EOSINOPHILS # (AUTO) 0.1 10^3/uL (0.0-0.6); ABSOLUTE LYMPHOCYTES (AUTO) 0.7 10^3/uL (0.5-4.7); ABSOLUTE MONOCYTES (AUTO) 0.7 10^3/uL (0.1-1.4); BASOPHILS % (AUTO) 0.3 % (0-2); EOSINOPHILS % (AUTO) 1.3 % (0-6); HEMATOCRIT 29.7 % (36.0-47.0); HEMOGLOBIN 10.2 g/dL (12.0-15.5); LYMPHOCYTES % (AUTO) 7.6 % (13-45); MEAN CORPUSCULAR HEMOGLOBIN 30.1 pg (27.0-33.4); MEAN CORPUSCULAR HGB CONC 34.5 g/dL (32.0-36.0); MEAN CORPUSCULAR VOLUME 87 fl (80-97); MONOCYTES % (AUTO) 7.2 % (3-13); PLATELET COUNT 137 10^3/uL (150-450); RED BLOOD COUNT 3.41 10^6/uL (3.72-5.28); RED CELL DISTRIBUTION WIDTH 16.8 % (11.5-14.0); SEGMENTED NEUTROPHILS % (AUTO) 83.6 % (42-78); TOTAL CELLS COUNTED % (AUTO) 100 %; WHITE BLOOD COUNT 9.5 10^3/uL (4.0-10.5)
[2018-06-14 13:58] LABS: INTERNATIONAL RATION (INR) 1.03
--- NOTE | 2018-06-14 14:39 | PDOC TRANSFER SUMMARY ---
General Admission Date/PCP: 06/10/18 22:58 MEGHA PAZ MD Admission Date: 06/11/18 Transfer Date: 06/14/18 Accepting Facility: [facility] Accepting Physician: Dr. Park Resuscitation Status: Full Code - Transfer Diagnosis (1) GI bleed Is this a current diagnosis for this admission?: Yes Diagnosis Summary: Home medication list included daily aspirin; she was not chronically anticoa gulated. Upon admission she was found to be in A. fib RVR and so placed on DVT prophylaxis of Lovenox as her bleed risk was too high for chronic anticoagulation. On progress day #2, the patient developed acute chest pain with elevated troponins concerning for ACS. Therefore she was placed on full dose Lovenox pending cardiac evaluation. She received 2 doses of Lovenox 75 mg. That evening, the patient developed hematemesis and copious amounts of mikael blood per rectum. She was upgraded to the ICU and transfused 3 units PRBC and 2 units FFP. The Lovenox has been adequately reversed (PT 14, INR 1.03, APTT 29). The patient underwent EGD by Dr. Welch. Unfortunately the exam was incomplet e due to copious amounts of blood and clots. The source of bleeding was not identified. 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 The current surgeon, Dr. Liang, recommended transfer to tertiary care center where gastroenterology/endoscopist would be available to reduce the stomach and identify the source of bleeding. Should that fail, the patient would potentially warrant surgical interventions not available at our facility. Unfortunately, we do not have GI or surgical services available to attempt the above-mentioned procedures. [facility] was contacted; spoke with Dr. Park (assignment desk assistant) and Dr. Piedra (surgery). Dr. Park has graciously agreed to accept this patient into his care. At time of dictation, the patient continues to have bright red blood per NG tube suctioning, but otherwise remains hemodynamically stable with a heart rate in the 90s, blood pressures 120/70 (off pressor support), with a Hgb/Hct 10.2/29.7 and PLT 137. The patient is intubated and mechanically ventilated; SIMV 14/5 FiO2 28 with SpO2 99% and clear lung sounds throughout. She is transferred in serious, but stable, condition. (2) Chest pain Is this a current diagnosis for this admission?: Yes Diagnosis Summary: Initial presentation concerning for ACS. Patient complained of sudden onset epigastric/substernal crushing chest pain radiating upward and into her back on 06/13/18 associated with diaphoresis and general sense of unwell. She is monitored on continuous cardiac telemetry. EKG demonstrated NSR with prolonged QT interval (QTC 515) without ST segment changes or other acute findings. Troponins elevated 0.177--> 0.140--> 0.131--> 0.127; no longer trending proBNP elevated to 10k (no previous BNP on file) Echocardiogram pending. The patient was treated for ACS with daily aspirin and statin therapy. She was placed on full dose Lovenox. Spoke with Dr. Barnes; recommended contacting her primary raftsman, Dr. Bennett, at [facility] to discuss possible cardiac catheterization. Unfortunately, overnight, the patient developed severe GI bleeding. Lovenox subsequently placed on hold, patient has received blood products and transition to the ICU (see below). Dr. Bennett was consulted today and was able to see the patient at the bedside. Dr. Bennett has expressed that the patient has increased, but acceptable risk, for her surgery. States that there is no need to continue trending troponins are the the patient is likely to have demand ischemia related to her anemia and critical illness. Appreciate his evaluation and recommendations. (3) Atrial fibrillation with RVR Is this a current diagnosis for this admission?: Yes Diagnosis Summary: Multifactorial secondary to medication noncompliance (reportedly had been without her medications for several days to weeks) and dehydration. The patient received aggressive IV fluid resuscitation and was initially placed on IV diltiazem. She quickly became rate controlled and was transitioned to p.o. diltiazem. She was provided daily aspirin and statin therapy. She was initially placed on DVT prophylaxis Lovenox; however this was increased yesterday due to development of chest pain with elevated troponins. Upon development of the GI bleed, patient was obviously placed in n.p.o. status, and diltiazem drip was resumed to maintain rate control. At present she is in normal sinus rhythm with frequent PACs and a heart rate of 89. Overnight she did briefly require pressor support but this has since been discontinued. She is currently maintaining blood pressures of 127/75. Cardiology was consulted; appreciate Dr. Bennett evaluation and recommendations. Patient is not a good candidate for chronic anticoagulation; HAS-BLED Score 4: 8.9% yearly risk of major bleeding event [id number] Score 5: 7.2 % yearly CVA risk (4) Dementia Is this a current diagnosis for this admission?: Yes Diagnosis Summary: Mild; patient does take Aricept and Namenda at home. She was noted to be alert and oriented x4 during all assessments. Nursing reports that she did have mild forgetfulness/confusion in the evenings. She did not have any behavioral dist urbances was easily reoriented. (5) Rhabdomyolysis Is this a current diagnosis for this admission?: Yes Diagnosis Summary: Resolved; CK trending down (2480-> 1515-> 948-> 438--> 242) Secondary to fall with unknown downtime. Last seen well 3-4 days prior to admission. She did not experience an acute kidney injury related to her rhabdomyolysis. She was supported with IV fluids. (6) Seizure Is this a current diagnosis for this admission?: Yes Diagnosis Summary: History of seizure disorder. Her home dose Keppra was continued while admitted; she is now been placed on IV Keppra for seizure prophylaxis. (7) CHF (congestive heart failure) Is this a current diagnosis for this admission?: Yes Diagnosis Summary: Per echocardiogram June 2016; LVEF 45% with grade 2 diastolic dysfunction. The patient has not developed indications of acute CHF exacerbation. Repeat echocardiogram pending Currently on diltiazem for rhythm/rate control. - Transfer Medications Home Medications: Aspirin [Aspirin EC] 81 mg PO DAILY 03/13/17 Atorvastatin Calcium [Lipitor 20 mg Tablet] 20 mg PO DAILY 03/13/17 Donepezil HCl [Aricept 5 mg Tablet] 10 mg PO QHS 03/13/17 Duloxetine HCl [Cymbalta] 60 mg PO DAILY 03/13/17 Furosemide [Lasix 20 mg Tablet] 20 mg PO DAILY 03/13/17 Hydroxyzine HCl 25 mg PO QHS 03/13/17 Levetiracetam [Keppra 500 mg Tablet] 500 mg PO Q12 03/13/17 Memantine HCl [Namenda 10 mg Tablet] 10 mg PO DAILY 03/13/17 Pantoprazole Sodium 40 mg PO DAILY 03/13/17 Potassium Chloride [Klor-Con 10 Meq Capsule ER] 10 meq PO DAILY 03/13/17 Quetiapine Fumarate [Seroquel 25 mg Tablet] 25 mg PO QHS 03/13/17 Polyethylene Glycol 3350 [Miralax Powder 17 gm/Packet] 17 gm PO DAILYP PRN 09/23/17 Tolterodine Tartrate [Tolterodine Tartrate ER] 4 mg PO DAILY 09/23/17 Mirabegron [Myrbetriq] 25 mg PO DAILY 06/10/18 Cholestyramine (with Sugar) [Cholestyramine Packet] 4 gm PO BID 06/11/18 Nitroglycerin [Nitrostat 0.4 mg (1/150 Gr) Tabs 25/Bottle] 1 tab SL Q5MP PRN 06/11/18 Transfer Medications: Current Medications Acetaminophen (Tylenol 325 Mg Tablet) 650 mg NG Q4HP PRN PRN Reason: FOR PAIN OR TEMP Stop: 07/10/18 22:49 Albuterol/Ipratropium (Duoneb 3 Ml Ampul) 3 ml NEB [id number] PRN PRN Reason: SHORTNESS OF BREATH Stop: 07/10/18 22:49 Aspirin (Ecotrin 81 Mg Ec Tablet) 81 mg PO DAILY NELI Stop: 07/11/18 09:59 Last Admin: 06/14/18 09:04 Dose: Not Given Documented by: Atorvastatin Calcium (Lipitor 20 Mg Tablet) 20 mg NG DAILY NELI Stop: 07/11/18 09:59 Last Admin: 06/14/18 09:04 Dose: Not Given Documented by: Fentanyl Citrate (Sublimaze Inj/Pf 100 Mcg/2 Ml Ampule) 100 mcg IV Q4HP PRN PRN Reason: FOR PAIN Stop: 06/21/18 04:16 Heparin Sodium (Porcine) (Heparin Flush 10 Unit/Ml 5 Ml Disp.Syrg) 30 unit IV Q8 NELI Stop: 07/14/18 05:59 Last Admin: 06/14/18 13:32 Dose: Not Given Documented by: Sodium Chloride (Nacl 0.9% 1000 Ml Iv Soln) 1,000 mls @ 50 mls/hr IV CONTINUOUS PRN PRN Reason: THIS MED IS NOT "PRN" Stop: 07/11/18 09:31 Last Admin: 06/14/18 10:40 Dose: 50 mls/hr Documented by: Sodium Chloride (Nacl 0.9% 250 Ml Iv Soln) 250 mls @ 30 mls/hr IV .DURING TRANSFUSION PRN PRN Reason: THIS MED IS NOT "PRN" Stop: 06/15/18 03:16 Sodium Chloride (Nacl 0.9% 250 Ml Iv Soln) 250 mls @ 0 mls/hr IV CONTINUOUS PRN PRN Reason: AFTER EACH UNIT Stop: 06/15/18 03:16 Diltiazem HCl (Cardizem Rtu Inj 125 Mg-D5w 125 Ml Premix) 125 mg in 125 mls @ 0 mls/hr IV CONTINUOUS PRN; Protocol PRN Reason: THIS MED IS NOT "PRN" Stop: 07/14/18 03:19 Levetiracetam (Keppra Rtu 1000 Mg/Nacl-Iso 100 Ml Premix) 1,000 mg in 100 mls @ 400 mls/hr IV Q12 NELI Stop: 07/14/18 09:59 Last Infusion: 06/14/18 09:30 Dose: Infused Documented by: Pantoprazole Sodium 80 mg/ (Sodium Chloride) 100 mls @ 10 mls/hr IV CONTINUOUS PRN PRN Reason: THIS MED IS NOT "PRN" Stop: 06/17/18 03:19 Last Admin: 06/14/18 04:14 Dose: 10 ml/hr, 10 mls/hr Documented by: Norepinephrine Bitartrate 4 mg (/ Dextrose) 250 mls @ 0 mls/hr IV CONTINUOUS PRN; Protocol PRN Reason: THIS MED IS NOT "PRN" Stop: 07/14/18 05:50 Last Titration: 06/14/18 05:50 Dose: 0 mcg/min, 0 mls/hr Documented by: Midazolam HCl (Versed Rtu 50 Mg/100 Ml Premix Bag) 50 mg in 100 mls @ 0 mls/hr IV CONTINUOUS PRN; Protocol PRN Reason: THIS MED IS NOT "PRN" Stop: 06/21/18 05:53 Last Admin: 06/14/18 10:38 Dose: 17 mg/hr, 34 mls/hr Documented by: Sodium Chloride (Nacl 0.9% 250 Ml Iv Soln) 250 mls @ 0 mls/hr IV CONTINUOUS PRN PRN Reason: AFTER EACH UNIT Stop: 06/15/18 09:21 Octreotide Acetate 500 mcg/ (Sodium Chloride) 500 mls @ 25 mls/hr IV CONTINUOUS PRN PRN Reason: THIS MED IS NOT "PRN" Stop: 07/14/18 11:59 Last Admin: 06/14/18 12:49 Dose: 25 ml/hr, 25 mls/hr Documented by: Morphine Sulfate (Morphine 10 Mg/Ml Inj) 2 mg IV Q4HP PRN PRN Reason: Chest pain unreleaved by Nitro Stop: 06/20/18 10:13 Nitroglycerin (Nitrostat 0.4 Mg (1/150 Gr) Tabs 25/Bottle) 1 tab SL Q5MP PRN PRN Reason: FOR CHEST PAIN Stop: 07/13/18 10:12 Last Admin: 06/13/18 10:20 Dose: 1 tab Documented by: Pharmacy Profile Note (Medication Communication Order) 1 each MC .NOTICE NR Stop: 07/14/18 04:29 Tramadol HCl (Ultram 50 Mg Tablet) 50 mg NG Q6HP PRN PRN Reason: FOR PAIN Stop: 06/19/18 09:11 Vitamin B Complex/Vit C/Vit E/Zinc (Zbec Tablet) 1 tab NG DAILY NELI Stop: 07/13/18 09:59 Last Admin: 06/14/18 09:04 Dose: Not Given Documented by: - Allergies Allergies/Adverse Reactions: amoxicillin Allergy (Verified 06/11/18 16:20) cephalexin [From Keflex] Allergy (Verified 06/11/18 16:20) Itching and Rash morphine Allergy (Verified 06/11/18 16:20) Penicillins Allergy (Verified 06/11/18 16:20) - Diet/Activity Discharge Diet: Other (Comments) - N.p.o. Discharge Activity: Bedrest Physical Exam Vital Signs: Temp Pulse Resp BP Pulse Ox 97.5 F 93 22 H 148/88 H 100 06/14/18 10:00 06/14/18 12:00 06/14/18 12:00 06/14/18 12:00 06/14/18 12:08 Intake & Output 06/13/18 06/14/18 06/15/18 06:59 06:59 06:59 Intake Total 3734 3409 1146 Output Total 310 Balance 3734 3409 836 Weight 75.8 kg 70.3 kg General appearance: PRESENT: well-developed, well-nourished - overweight Head exam: PRESENT: atraumatic, normocephalic Eye exam: PRESENT: conjunctiva pale, PERRLA. ABSENT: scleral icterus Ear exam: PRESENT: normal external ear exam Mouth exam: PRESENT: moist, tongue midline, other - Dry blood noted in mouth; ET tube Respiratory exam: PRESENT: clear to auscultation sabina, symmetrical, unlabored, other - Intubated, mechanically ventilated. ABSENT: rales, rhonchi, wheezes Cardiovascular exam: PRESENT: irregular rhythm, +S1, +S2. ABSENT: diastolic murmur, rubs, systolic murmur Pulses: PRESENT: +1 pedal pulses bilateral Vascular exam: PRESENT: pallor GI/Abdominal exam: PRESENT: hypoactive bowel sounds, soft, other - NG tube suctioning mikael blood and clots. ABSENT: distended, mass, organolmegaly Rectal exam: PRESENT: bloody stool - Copious bright red blood per rectum Gentrourinary exam: PRESENT: indwelling catheter Extremities exam: PRESENT: pedal edema - Trace. ABSENT: calf tenderness, clubbing Neurological exam: PRESENT: other - Sedated. ABSENT: motor sensory deficit Skin exam: PRESENT: dry, pallor, warm, other - Scattered ecchymosis. ABSENT: cyanosis, rash Results Laboratory Results: 06/14/18 12:42 06/14/18 03:03 06/14/18 06/14/18 06/14/18 02:35 03:03 03:03 WBC 8.4 RBC 1.98 L Hgb 5.9 L D Hct 17.6 L MCV 89 MCH 29.8 MCHC 33.4 RDW 18.6 H Plt Count 214 Seg Neutrophils % 66.6 Lymphocytes % 20.9 Monocytes % 7.5 Eosinophils % 4.5 Basophils % 0.5 Absolute Neutrophils 5.6 Absolute Lymphocytes 1.8 Absolute Monocytes 0.6 Absolute Eosinophils 0.4 Absolute Basophils 0.0 Carbonic Acid HCO3/H2CO3 Ratio ABG pH ABG pCO2 ABG pO2 ABG HCO3 ABG O2 Saturation ABG Base Excess FiO2 Sodium Potassium Chloride Carbon Dioxide Anion Gap BUN Creatinine Est GFR ( Amer) Est GFR (Non-Af Amer) Glucose Calcium Total Bilirubin AST ALT Alkaline Phosphatase Total Protein Albumin Stool Occult Blood POSITIVE Blood Type B POSITIVE Antibody Screen NEGATIVE 06/14/18 06/14/18 06/14/18 03:03 04:40 08:31 WBC 9.0 RBC 3.23 L Hgb 9.9 L D Hct 28.3 L MCV 88 MCH 30.7 MCHC 35.0 RDW 16.8 H Plt Count 133 L Seg Neutrophils % 83.0 H Lymphocytes % 9.0 L Monocytes % 6.9 Eosinophils % 0.8 Basophils % 0.3 Absolute Neutrophils 7.5 Absolute Lymphocytes 0.8 Absolute Monocytes 0.6 Absolute Eosinophils 0.1 Absolute Basophils 0.0 Carbonic Acid 0.92 L HCO3/H2CO3 Ratio 20:1 ABG pH 7.40 ABG pCO2 30.6 L ABG pO2 166.3 H ABG HCO3 18.6 L ABG O2 Saturation 99.1 H ABG Base Excess -5.8 FiO2 40% Sodium 139.6 Potassium 4.0 Chloride 114 H Carbon Dioxide 22 Anion Gap 4 L BUN 25 H Creatinine 0.71 Est GFR ( Amer) > 60 Est GFR (Non-Af Amer) > 60 Glucose 155 H Calcium 7.5 L Total Bilirubin 0.6 AST 36 ALT 32 Alkaline Phosphatase 59 Total Protein 4.0 L Albumin 1.8 L Stool Occult Blood Blood Type Antibody Screen 06/14/18 12:42 WBC 9.5 RBC 3.41 L Hgb 10.2 L Hct 29.7 L MCV 87 MCH 30.1 MCHC 34.5 RDW 16.8 H Plt Count 137 L Seg Neutrophils % 83.6 H Lymphocytes % 7.6 L Monocytes % 7.2 Eosinophils % 1.3 Basophils % 0.3 Absolute Neutrophils 8.0 Absolute Lymphocytes 0.7 Absolute Monocytes 0.7 Absolute Eosinophils 0.1 Absolute Basophils 0.0 Carbonic Acid HCO3/H2CO3 Ratio ABG pH ABG pCO2 ABG pO2 ABG HCO3 ABG O2 Saturation ABG Base Excess FiO2 Sodium Potassium Chloride Carbon Dioxide Anion Gap BUN Creatinine Est GFR ( Amer) Est GFR (Non-Af Amer) Glucose Calcium Total Bilirubin AST ALT Alkaline Phosphatase Total Protein Albumin Stool Occult Blood Blood Type Antibody Screen 06/10/18 06/11/18 06/12/18 21:15 05:15 05:04 Creatine Kinase 2480 H 1515 H 948 H CK-MB (CK-2) Troponin I NT-Pro-B Natriuret Pep 06/13/18 06/13/18 06/13/18 04:56 07:50 07:50 Creatine Kinase 456 H CK-MB (CK-2) 1.77 Troponin I 0.177 NT-Pro-B Natriuret Pep 75040 H 06/13/18 06/13/18 06/13/18 10:30 14:00 14:00 Creatine Kinase 438 H CK-MB (CK-2) 1.57 Troponin I 0.140 0.131 NT-Pro-B Natriuret Pep 06/13/18 06/13/18 06/14/18 19:00 19:00 03:03 Creatine Kinase 333 H CK-MB (CK-2) 1.20 Troponin I 0.124 NT-Pro-B Natriuret Pep 88318 H 06/14/18 06/14/18 03:03 03:03 Creatine Kinase 242 H CK-MB (CK-2) 1.12 Troponin I 0.127 NT-Pro-B Natriuret Pep Impressions: Cervical Spine CT 06/10/18 19:58 IMPRESSION: No acute abnormality. Head CT 06/10/18 19:58 IMPRESSION: No acute intracranial abnormalities. Shoulder X-Ray 06/10/18 19:58 IMPRESSION: No fracture or dislocation. copyright 2011 [employer]- All Rights Reserved Hand X-Ray 06/10/18 19:59 IMPRESSION: No fracture or dislocation. Degenerative changes. copyright 2011 [employer]- All Rights Reserved KUB X-Ray 06/14/18 02:29 IMPRESSION: No bowel obstruction. Chest X-Ray 06/14/18 06:00 IMPRESSION: Satisfactory position of the endotracheal tube. The right IJ line terminates deep within the right atrium. Recommend retraction by approximately 6 to 7 cm. Bibasilar airspace opacities. copyright 2011 [employer]- All Rights Reserved Plan Discharge Plan: Transfer to [facility] under the care of Dr. Park Time Spent: Greater than 30 Minutes
--- NOTE | 2018-06-14 15:01 | PDOC CONSULTATION ---
Consultation Consult Date: 06/14/18 Attending physician:: BLADIMIR DEL ROSARIO Consult reason:: Acute on chronic respiratory failure History of Present Illness Admission Date/PCP: 06/10/18 22:58 MEGHA PAZ MD History of Present Illness: BHARATH JORDAN is a 77 year old female, to the emergency room with altered mental status was subsequently admitted for workup of A. fib with RVR rhabdomyol ysis Past Medical History Cardiac Medical History: Reports: Hypertension Pulmonary Medical History: Reports: Bronchitis Neurological Medical History: Reports: Seizures GI Medical History: Reports: Gastroesophageal Reflux Disease Musculoskeltal Medical History: Reports: Arthritis - Rheumatoid Psychiatric Medical History: Reports: Dementia, Depression Hematology: Reports: Anemia Denies: Sickle Cell Disease Past Surgical History Past Surgical History: Reports: Cholecystectomy, Orthopedic Surgery - right hip, right knee, Tonsillectomy Denies: Hysterectomy Social History Information Source: [facility] Records Lives with: Alone Smoking Status: Former Smoker Cigarettes Packs Per Day: 1 Cigars Per Day: 0 Pipes Per Day: 0 Number of Years Smokin Last Time Smoked: 04/13/1979 Frequency of Alcohol Use: None Hx Recreational Drug Use: No Hx Prescription Drug Abuse: No - Advance Directive Resuscitation Status: Full Code Family History Family History: CAD, Hypertension Parental Family History Reviewed: No Children Family History Reviewed: No Sibling(s) Family History Reviewed.: No Medication/Allergy Home Medications: Aspirin [Aspirin EC] 81 mg PO DAILY 03/13/17 Atorvastatin Calcium [Lipitor 20 mg Tablet] 20 mg PO DAILY 03/13/17 Donepezil HCl [Aricept 5 mg Tablet] 10 mg PO QHS 03/13/17 Duloxetine HCl [Cymbalta] 60 mg PO DAILY 03/13/17 Furosemide [Lasix 20 mg Tablet] 20 mg PO DAILY 03/13/17 Hydroxyzine HCl 25 mg PO QHS 03/13/17 Levetiracetam [Keppra 500 mg Tablet] 500 mg PO Q12 03/13/17 Memantine HCl [Namenda 10 mg Tablet] 10 mg PO DAILY 03/13/17 Pantoprazole Sodium 40 mg PO DAILY 03/13/17 Potassium Chloride [Klor-Con 10 Meq Capsule ER] 10 meq PO DAILY 03/13/17 Quetiapine Fumarate [Seroquel 25 mg Tablet] 25 mg PO QHS 03/13/17 Polyethylene Glycol 3350 [Miralax Powder 17 gm/Packet] 17 gm PO DAILYP PRN 09/23/17 Tolterodine Tartrate [Tolterodine Tartrate ER] 4 mg PO DAILY 09/23/17 Mirabegron [Myrbetriq] 25 mg PO DAILY 06/10/18 Cholestyramine (with Sugar) [Cholestyramine Packet] 4 gm PO BID 06/11/18 Nitroglycerin [Nitrostat 0.4 mg (1/150 Gr) Tabs 25/Bottle] 1 tab SL Q5MP PRN 06/11/18 Allergies/Adverse Reactions: amoxicillin Allergy (Verified 06/11/18 16:20) cephalexin [From Keflex] Allergy (Verified 06/11/18 16:20) Itching and Rash morphine Allergy (Verified 06/11/18 16:20) Penicillins Allergy (Verified 06/11/18 16:20) Review of Systems ROS unobtainable: Due to endotracheal tube, Due to mental status Physical Exam Vital Signs: Temp Pulse Resp BP Pulse Ox 99.0 F 94 22 H 111/72 100 06/14/18 14:00 06/14/18 14:00 06/14/18 14:00 06/14/18 14:00 06/14/18 14:00 Intake & Output 06/13/18 06/14/18 06/15/18 06:59 06:59 06:59 Intake Total 3734 3409 1346 Output Total 310 Balance 3734 3409 1036 Weight 75.8 kg 70.3 kg General appearance: PRESENT: no acute distress, disheveled, well-developed, well-nourished. ABSENT: cooperative Head exam: PRESENT: atraumatic, normocephalic Eye exam: PRESENT: conjunctiva pale. ABSENT: EOMI, nystagmus, periorbital swelling Mouth exam: PRESENT: dry mucosa, neck supple, tongue midline, other - ET tube in place Neck exam: ABSENT: carotid bruit, JVD, lymphadenopathy, thyromegaly, tracheal deviation, tracheostomy Respiratory exam: PRESENT: decreased breath sounds, prolonged expiratory phas, rales, rhonchi, unlabored, other - ET tube in place. ABSENT: retraction, stridor Cardiovascular exam: PRESENT: RRR, +S1, +S2, tachycardia Pulses: PRESENT: normal radial pulses GI/Abdominal exam: PRESENT: soft. ABSENT: tenderness Extremities exam: ABSENT: calf tenderness, clubbing, joint swelling Musculoskeletal exam: ABSENT: ambulatory, deformity, dislocation Neurological exam: ABSENT: awake Skin exam: PRESENT: dry, warm Results Laboratory Results: 06/14/18 12:42 06/14/18 03:03 06/14/18 06/14/18 06/14/18 02:35 03:03 03:03 WBC 8.4 RBC 1.98 L Hgb 5.9 L D Hct 17.6 L MCV 89 MCH 29.8 MCHC 33.4 RDW 18.6 H Plt Count 214 Seg Neutrophils % 66.6 Lymphocytes % 20.9 Monocytes % 7.5 Eosinophils % 4.5 Basophils % 0.5 Absolute Neutrophils 5.6 Absolute Lymphocytes 1.8 Absolute Monocytes 0.6 Absolute Eosinophils 0.4 Absolute Basophils 0.0 Carbonic Acid HCO3/H2CO3 Ratio ABG pH ABG pCO2 ABG pO2 ABG HCO3 ABG O2 Saturation ABG Base Excess FiO2 Sodium Potassium Chloride Carbon Dioxide Anion Gap BUN Creatinine Est GFR ( Amer) Est GFR (Non-Af Amer) Glucose Calcium Total Bilirubin AST ALT Alkaline Phosphatase Total Protein Albumin Stool Occult Blood POSITIVE Blood Type B POSITIVE Antibody Screen NEGATIVE 06/14/18 06/14/18 06/14/18 03:03 04:40 08:31 WBC 9.0 RBC 3.23 L Hgb 9.9 L D Hct 28.3 L MCV 88 MCH 30.7 MCHC 35.0 RDW 16.8 H Plt Count 133 L Seg Neutrophils % 83.0 H Lymphocytes % 9.0 L Monocytes % 6.9 Eosinophils % 0.8 Basophils % 0.3 Absolute Neutrophils 7.5 Absolute Lymphocytes 0.8 Absolute Monocytes 0.6 Absolute Eosinophils 0.1 Absolute Basophils 0.0 Carbonic Acid 0.92 L HCO3/H2CO3 Ratio 20:1 ABG pH 7.40 ABG pCO2 30.6 L ABG pO2 166.3 H ABG HCO3 18.6 L ABG O2 Saturation 99.1 H ABG Base Excess -5.8 FiO2 40% Sodium 139.6 Potassium 4.0 Chloride 114 H Carbon Dioxide 22 Anion Gap 4 L BUN 25 H Creatinine 0.71 Est GFR ( Amer) > 60 Est GFR (Non-Af Amer) > 60 Glucose 155 H Calcium 7.5 L Total Bilirubin 0.6 AST 36 ALT 32 Alkaline Phosphatase 59 Total Protein 4.0 L Albumin 1.8 L Stool Occult Blood Blood Type Antibody Screen 06/14/18 12:42 WBC 9.5 RBC 3.41 L Hgb 10.2 L Hct 29.7 L MCV 87 MCH 30.1 MCHC 34.5 RDW 16.8 H Plt Count 137 L Seg Neutrophils % 83.6 H Lymphocytes % 7.6 L Monocytes % 7.2 Eosinophils % 1.3 Basophils % 0.3 Absolute Neutrophils 8.0 Absolute Lymphocytes 0.7 Absolute Monocytes 0.7 Absolute Eosinophils 0.1 Absolute Basophils 0.0 Carbonic Acid HCO3/H2CO3 Ratio ABG pH ABG pCO2 ABG pO2 ABG HCO3 ABG O2 Saturation ABG Base Excess FiO2 Sodium Potassium Chloride Carbon Dioxide Anion Gap BUN Creatinine Est GFR ( Amer) Est GFR (Non-Af Amer) Glucose Calcium Total Bilirubin AST ALT Alkaline Phosphatase Total Protein Albumin Stool Occult Blood Blood Type Antibody Screen 06/10/18 06/11/18 06/12/18 21:15 05:15 05:04 Creatine Kinase 2480 H 1515 H 948 H CK-MB (CK-2) Troponin I NT-Pro-B Natriuret Pep 06/13/18 06/13/18 06/13/18 04:56 07:50 07:50 Creatine Kinase 456 H CK-MB (CK-2) 1.77 Troponin I 0.177 NT-Pro-B Natriuret Pep 58015 H 06/13/18 06/13/18 06/13/18 10:30 14:00 14:00 Creatine Kinase 438 H CK-MB (CK-2) 1.57 Troponin I 0.140 0.131 NT-Pro-B Natriuret Pep 06/13/18 06/13/18 06/14/18 19:00 19:00 03:03 Creatine Kinase 333 H CK-MB (CK-2) 1.20 Troponin I 0.124 NT-Pro-B Natriuret Pep 21990 H 06/14/18 06/14/18 03:03 03:03 Creatine Kinase 242 H CK-MB (CK-2) 1.12 Troponin I 0.127 NT-Pro-B Natriuret Pep Impressions: Cervical Spine CT 06/10/18 19:58 IMPRESSION: No acute abnormality. Head CT 06/10/18 19:58 IMPRESSION: No acute intracranial abnormalities. Shoulder X-Ray 06/10/18 19:58 IMPRESSION: No fracture or dislocation. copyright 2010 [employer]- All Rights Reserved Hand X-Ray 06/10/18 19:59 IMPRESSION: No fracture or dislocation. Degenerative changes. copyright 2010 [employer]- All Rights Reserved KUB X-Ray 06/14/18 02:29 IMPRESSION: No bowel obstruction. Chest X-Ray 06/14/18 06:00 IMPRESSION: Satisfactory position of the endotracheal tube. The right IJ line terminates deep within the right atrium. Recommend retraction by approximately 6 to 7 cm. Bibasilar airspace opacities. copyright 2010 [employer]- All Rights Reserved Assessment & Plan - Diagnosis (1) Atrial fibrillation with RVR Is this a current diagnosis for this admission?: Yes Plan: Improved with Cardizem (2) CHF (congestive heart failure) Qualifiers: Heart failure type: combined systolic and diastolic Heart failure chronicity: chronic Qualified Code(s): I50.42 - Chronic combined systolic (congestive) and diastolic (congestive) heart failure Is this a current diagnosis for this admission?: Yes Plan: Gentle diuresis "in the face of GI bleed (3) Dementia Qualifiers: Dementia type: unspecified type Dementia behavioral disturbance: without behavioral disturbance Qualified Code(s): F03.90 - Unspecified dementia without behavioral disturbance Is this a current diagnosis for this admission?: Yes Plan: Ongoing patient unable to protect airway (4) GI bleed Is this a current diagnosis for this admission?: Yes Plan: Status post EGD per surgery (5) Seizure Is this a current diagnosis for this admission?: Yes Plan: None noted thus far (6) Acute respiratory failure Is this a current diagnosis for this admission?: Yes Plan: Oxygenate and ventilator as needed - Time Total Critical Time (Minutes): 55
--- NOTE | 2018-06-14 16:40 | PDOC CONSULTATION ---
Consultation Consult Date: 06/14/18 - Atrial fibrillation Attending physician:: BLADIMIR DEL ROSARIO History of Present Illness Admission Date/PCP: 06/10/18 22:58 MEGHA PAZ MD Patient complains of: Respiratory failure, GI Bleed, Elevated Troponin History of Present Illness: BHARATH JORDAN is a 77 year old female is know to me from the office. I met her on 02/11/[address] Sung Quintanilla for further evluation of chest pain. She is known to have systemic hypertension, Dyslipidemia, Dementia and GERD. Questionable history of atrial fibrillation. Description of chest pain was atpical. We ordered MPS and Echo. MPS to be performed at [facility] due to patient's transportation issues. Echo was to be done at [facility] office here in [place]( patient did not show for testing. History per chart and RN. She was admitted after being found to be poorly responsive. Was treated for mild Rhabdomyolysis. She had developed atrial fibrillation with RVR. Was treated with AVN blockers. She was treated with full dose Enoxaparin and subsequently developed GI Bleed. EGD was performed. Study and imaging was suggestive of incarcerated stomach in para-esophageal hernia loop. PRBC 3 units and 2 units of plasma were administered for resuscitation of blood loss. EKG with ischemic changes when she had Afib RVR probably due to demand ischemia. Also mild indeterminate tropinin ( downward trending). Intuibated for airway protection. Transient pressor use. Has been evaluated by surgery and deemed requiring tertiary facility transfer for further surgical care. Past Medical History Cardiac Medical History: Reports: Hyperlipidema, Hypertension Pulmonary Medical History: Reports: Bronchitis Neurological Medical History: Reports: Seizures GI Medical History: Reports: Gastroesophageal Reflux Disease Musculoskeltal Medical History: Reports: Arthritis - Rheumatoid Psychiatric Medical History: Reports: Dementia, Depression Hematology: Reports: Anemia Denies: Sickle Cell Disease Past Surgical History Past Surgical History: Reports: Cholecystectomy, Orthopedic Surgery - right hip, right knee, Tonsillectomy Denies: Hysterectomy Social History Lives with: Alone Smoking Status: Former Smoker Cigarettes Packs Per Day: 1 Cigars Per Day: 0 Pipes Per Day: 0 Number of Years Smokin Last Time Smoked: 04/13/1979 Frequency of Alcohol Use: None Hx Recreational Drug Use: No Hx Prescription Drug Abuse: No - Advance Directive Resuscitation Status: Full Code Family History Family History: CAD, Hypertension Parental Family History Reviewed: No Children Family History Reviewed: Unknown Sibling(s) Family History Reviewed.: Unknown Medication/Allergy Home Medications: Aspirin [Aspirin EC] 81 mg PO DAILY 03/13/17 Atorvastatin Calcium [Lipitor 20 mg Tablet] 20 mg PO DAILY 03/13/17 Donepezil HCl [Aricept 5 mg Tablet] 10 mg PO QHS 03/13/17 Duloxetine HCl [Cymbalta] 60 mg PO DAILY 03/13/17 Furosemide [Lasix 20 mg Tablet] 20 mg PO DAILY 03/13/17 Hydroxyzine HCl 25 mg PO QHS 03/13/17 Levetiracetam [Keppra 500 mg Tablet] 500 mg PO Q12 03/13/17 Memantine HCl [Namenda 10 mg Tablet] 10 mg PO DAILY 03/13/17 Pantoprazole Sodium 40 mg PO DAILY 03/13/17 Potassium Chloride [Klor-Con 10 Meq Capsule ER] 10 meq PO DAILY 03/13/17 Quetiapine Fumarate [Seroquel 25 mg Tablet] 25 mg PO QHS 03/13/17 Polyethylene Glycol 3350 [Miralax Powder 17 gm/Packet] 17 gm PO DAILYP PRN 09/23/17 Tolterodine Tartrate [Tolterodine Tartrate ER] 4 mg PO DAILY 09/23/17 Mirabegron [Myrbetriq] 25 mg PO DAILY 06/10/18 Cholestyramine (with Sugar) [Cholestyramine Packet] 4 gm PO BID 06/11/18 Nitroglycerin [Nitrostat 0.4 mg (1/150 Gr) Tabs 25/Bottle] 1 tab SL Q5MP PRN 06/11/18 Allergies/Adverse Reactions: amoxicillin Allergy (Verified 06/11/18 16:20) cephalexin [From Keflex] Allergy (Verified 06/11/18 16:20) Itching and Rash morphine Allergy (Verified 06/11/18 16:20) Penicillins Allergy (Verified 06/11/18 16:20) Review of Systems Constitutional: ABSENT: chills, fever(s), headache(s), weight gain, weight loss Eyes: ABSENT: visual disturbances Ears: ABSENT: hearing changes Cardiovascular: ABSENT: chest pain, dyspnea on exertion, edema, orthropnea, palpitations Respiratory: ABSENT: cough, hemoptysis Gastrointestinal: ABSENT: abdominal pain, constipation, diarrhea, hematemesis, hematochezia, nausea, vomiting Genitourinary: ABSENT: dysuria, hematuria Musculoskeletal: ABSENT: joint swelling Integumentary: ABSENT: rash, wounds Neurological: ABSENT: abnormal gait, abnormal speech, confusion, dizziness, focal weakness, syncope Psychiatric: ABSENT: anxiety, depression, homidical ideation, suicidal ideation Endocrine: ABSENT: cold intolerance, heat intolerance, polydipsia, polyuria Hematologic/Lymphatic: ABSENT: easy bleeding, easy bruising Physical Exam Vital Signs: Temp Pulse Resp BP Pulse Ox 99.0 F 94 22 H 111/72 100 06/14/18 14:00 06/14/18 14:00 06/14/18 14:00 06/14/18 14:00 06/14/18 14:00 Intake & Output 06/13/18 06/14/18 06/15/18 06:59 06:59 06:59 Intake Total 3734 3409 1346 Output Total 310 Balance 3734 3409 1036 Weight 75.8 kg 70.3 kg Results Laboratory Results: 06/14/18 12:42 06/14/18 03:03 06/14/18 06/14/18 06/14/18 02:35 03:03 03:03 WBC 8.4 RBC 1.98 L Hgb 5.9 L D Hct 17.6 L MCV 89 MCH 29.8 MCHC 33.4 RDW 18.6 H Plt Count 214 Seg Neutrophils % 66.6 Lymphocytes % 20.9 Monocytes % 7.5 Eosinophils % 4.5 Basophils % 0.5 Absolute Neutrophils 5.6 Absolute Lymphocytes 1.8 Absolute Monocytes 0.6 Absolute Eosinophils 0.4 Absolute Basophils 0.0 Carbonic Acid HCO3/H2CO3 Ratio ABG pH ABG pCO2 ABG pO2 ABG HCO3 ABG O2 Saturation ABG Base Excess FiO2 Sodium Potassium Chloride Carbon Dioxide Anion Gap BUN Creatinine Est GFR ( Amer) Est GFR (Non-Af Amer) Glucose Calcium Total Bilirubin AST ALT Alkaline Phosphatase Total Protein Albumin Stool Occult Blood POSITIVE Blood Type B POSITIVE Antibody Screen NEGATIVE 06/14/18 06/14/18 06/14/18 03:03 04:40 08:31 WBC 9.0 RBC 3.23 L Hgb 9.9 L D Hct 28.3 L MCV 88 MCH 30.7 MCHC 35.0 RDW 16.8 H Plt Count 133 L Seg Neutrophils % 83.0 H Lymphocytes % 9.0 L Monocytes % 6.9 Eosinophils % 0.8 Basophils % 0.3 Absolute Neutrophils 7.5 Absolute Lymphocytes 0.8 Absolute Monocytes 0.6 Absolute Eosinophils 0.1 Absolute Basophils 0.0 Carbonic Acid 0.92 L HCO3/H2CO3 Ratio 20:1 ABG pH 7.40 ABG pCO2 30.6 L ABG pO2 166.3 H ABG HCO3 18.6 L ABG O2 Saturation 99.1 H ABG Base Excess -5.8 FiO2 40% Sodium 139.6 Potassium 4.0 Chloride 114 H Carbon Dioxide 22 Anion Gap 4 L BUN 25 H Creatinine 0.71 Est GFR ( Amer) > 60 Est GFR (Non-Af Amer) > 60 Glucose 155 H Calcium 7.5 L Total Bilirubin 0.6 AST 36 ALT 32 Alkaline Phosphatase 59 Total Protein 4.0 L Albumin 1.8 L Stool Occult Blood Blood Type Antibody Screen 06/14/18 12:42 WBC 9.5 RBC 3.41 L Hgb 10.2 L Hct 29.7 L MCV 87 MCH 30.1 MCHC 34.5 RDW 16.8 H Plt Count 137 L Seg Neutrophils % 83.6 H Lymphocytes % 7.6 L Monocytes % 7.2 Eosinophils % 1.3 Basophils % 0.3 Absolute Neutrophils 8.0 Absolute Lymphocytes 0.7 Absolute Monocytes 0.7 Absolute Eosinophils 0.1 Absolute Basophils 0.0 Carbonic Acid HCO3/H2CO3 Ratio ABG pH ABG pCO2 ABG pO2 ABG HCO3 ABG O2 Saturation ABG Base Excess FiO2 Sodium Potassium Chloride Carbon Dioxide Anion Gap BUN Creatinine Est GFR ( Amer) Est GFR (Non-Af Amer) Glucose Calcium Total Bilirubin AST ALT Alkaline Phosphatase Total Protein Albumin Stool Occult Blood Blood Type Antibody Screen 06/10/18 06/11/18 06/12/18 21:15 05:15 05:04 Creatine Kinase 2480 H 1515 H 948 H CK-MB (CK-2) Troponin I NT-Pro-B Natriuret Pep 06/13/18 06/13/18 06/13/18 04:56 07:50 07:50 Creatine Kinase 456 H CK-MB (CK-2) 1.77 Troponin I 0.177 NT-Pro-B Natriuret Pep 15448 H 06/13/18 06/13/18 06/13/18 10:30 14:00 14:00 Creatine Kinase 438 H CK-MB (CK-2) 1.57 Troponin I 0.140 0.131 NT-Pro-B Natriuret Pep 06/13/18 06/13/18 06/14/18 19:00 19:00 03:03 Creatine Kinase 333 H CK-MB (CK-2) 1.20 Troponin I 0.124 NT-Pro-B Natriuret Pep 84042 H 06/14/18 06/14/18 03:03 03:03 Creatine Kinase 242 H CK-MB (CK-2) 1.12 Troponin I 0.127 NT-Pro-B Natriuret Pep EKG Comments: 02/11/2018 Ectopic atrial rhythm. 79 bpm, Poor R wave progression 06/11/2018 Afib RVR 150 bpm, Global ST depression. 06/13/2018 Sinus rhythm 78 bpm, ellen-septal infarct Impressions: Cervical Spine CT 06/10/18 19:58 IMPRESSION: No acute abnormality. Head CT 06/10/18 19:58 IMPRESSION: No acute intracranial abnormalities. Shoulder X-Ray 06/10/18 19:58 IMPRESSION: No fracture or dislocation. copyright 2010 [employer]- All Rights Reserved Hand X-Ray 06/10/18 19:59 IMPRESSION: No fracture or dislocation. Degenerative changes. copyright 2010 [employer]- All Rights Reserved KUB X-Ray 06/14/18 02:29 IMPRESSION: No bowel obstruction. Chest X-Ray 06/14/18 06:00 IMPRESSION: Satisfactory position of the endotracheal tube. The right IJ line terminates deep within the right atrium. Recommend retraction by approximately 6 to 7 cm. Bibasilar airspace opacities. copyright 2010 [employer]- All Rights Reserved Assessment & Plan - Notes Notes: 1. Atrial fibrillation RVR-Resolved. No anticoagulation on account of severe bleeding. Also transient episode. Now rhythm is SR with PAC. 2. Blood loss Anemia-resuscitated with PRBC. Watch Hct/ Hb. No Heparin or ASA or derivatives. 3. VDRF- On ventilator 4. NSTEMI-Probably due to demand. Mildly elevated Troponins in a setting of global hypoperfusion/ ischemia due to blood loss. Underlying CAD cannot be excluded. However presently only supportive therapy. 5. Incarcerated stomach- Surgical input appreciated. Plans for transfer to [facility] for care/ ICU setting with plans for surgery. Increased risks due to age, unknown cardiac status, inability to risk stratify. Off pressors. Will check Echo. Family came by. Spoke with son and his spouse who have been updated regarding multiple issueas and decision to transfer to [facility] for further care. All questions answered.
[2018-06-14 16:53] VITALS: BP 132/83
--- NOTE | 2018-06-14 17:07 | XCELERA REPORT ---
[address] [address] Transthoracic Echocardiogram Report Name: BHARATH JORDAN Age: 77 yrs Gender: Female : 1940 Patient Status: Inpatient Patient Location: ICU^[id number] Study Date: 06/14/2018 01:56 PM History: NSTEMI Atrial fibrillation Height: 65 in Weight: 167 lb BSA: 1.8 m2 Procedure: A complete two-dimensional transthoracic echocardiogram was performed (2D, M-mode, spectral and color flow Doppler). The study was technically difficult with many images being suboptimal in quality. Reason For Study: Hx CHF, weakness, elevated troponin Previous Evaluation: No previous studies were available. History: HTN. Hyperlipidemia. Other: Hypotension. Ordering Physician: GERARDO CORNEJO Performed By: Farheen Kee Interpretation Summary Left ventricular systolic function is low normal. LV EF is 50-55% The right ventricle is normal in size and function. There is a trace to mild amount of mitral regurgitation There is no aortic valve stenosis There is a trace amount of aortic regurgitation There is a trace amount of tricuspid regurgitation Doppler findings do not suggest pulmonary hypertension. There is no pericardial effusion. MMode/2D Measurements & Calculations RVDd: 3.7 cm LVIDd: 4.5 cm FS: 26.0 % Ao root diam: 2.8 cm IVSd: 1.1 cm LVIDs: 3.3 cm EDV(Teich): Ao root area: LVPWd: 1.0 cm 90.4 ml 6.1 cm2 ESV(Teich): LA dimension: 3.6 cm 44.0 ml EF(Teich): 51.3 % LVLd ap4: 7.2 cm SV(MOD-sp4): EDV(MOD-sp4): 20.0 ml 65.0 ml LVLs ap4: 6.2 cm ESV(MOD-sp4): 45.0 ml EF(MOD-sp4): 30.8 % Doppler Measurements & Calculations MV E max stacie: MV P1/2t max stacie: Ao V2 max: LV V1 max P.3 cm/sec 53.8 cm/sec 154.5 cm/sec 3.3 mmHg MV A max stacie: MV P1/2t: 61.7 msec Ao max P.5 mmHg LV V1 max: 100.2 cm/sec MVA(P1/2t): 3.6 cm2 91.3 cm/sec MV E/A: 0.55 MV dec slope: 255.5 cm/sec2 MV dec time: 0.20 sec PA V2 max: TR max stacie: MV P1/2t-pr_phl: 73.1 cm/sec 189.4 cm/sec 61.7 msec PA max P.1 mmHg TR max P.4 mmHg Left Ventricle The left ventricle is normal in size, thickness and function. There is borderline concentric left ventricular hypertrophy. Left ventricular systolic function is low normal. LV EF is 50-55%. The left ventricular wall motion is normal. Right Ventricle The right ventricle is normal in size and function. Atria The right atrium is normal. The left atrial size is normal. Mitral Valve The mitral valve is grossly normal. There is no evidence of mitral valve prolapse. There is a trace to mild amount of mitral regurgitation. Aortic Valve The aortic valve is normal in structure and function. The aortic valve is trileaflet. There is no aortic valve stenosis. There is a trace amount of aortic regurgitation. Tricuspid Valve The tricuspid valve is not well visualized, but is grossly normal. There is a trace amount of tricuspid regurgitation. Doppler findings do not suggest pulmonary hypertension. Pulmonic Valve The pulmonic valve is not well seen, but is grossly normal. There is no pulmonic valvular regurgitation. Great Vessels The aortic root is normal size. Effusions There is no pericardial effusion. The pericardium appears normal. : GERARDO CORNEJO > Javi Bennett
[2018-06-14 17:26] LABS: ABSOLUTE EOSINOPHILS # (AUTO) 0.3 10^3/uL (0.0-0.6); ABSOLUTE MONOCYTES (AUTO) 0.7 10^3/uL (0.1-1.4); ABSOLUTE NEUT (AUTO) 7.2 10^3/uL (1.7-8.2); BASOPHILS % (AUTO) 0.2 % (0-2); EOSINOPHILS % (AUTO) 3.4 % (0-6); HEMATOCRIT 27.6 % (36.0-47.0); HEMOGLOBIN 9.6 g/dL (12.0-15.5); LYMPHOCYTES % (AUTO) 10.7 % (13-45); MEAN CORPUSCULAR HEMOGLOBIN 30.6 pg (27.0-33.4); MEAN CORPUSCULAR HGB CONC 34.8 g/dL (32.0-36.0); MEAN CORPUSCULAR VOLUME 88 fl (80-97); MONOCYTES % (AUTO) 7.9 % (3-13); PLATELET COUNT 133 10^3/uL (150-450); RED BLOOD COUNT 3.14 10^6/uL (3.72-5.28); RED CELL DISTRIBUTION WIDTH 17.4 % (11.5-14.0); SEGMENTED NEUTROPHILS % (AUTO) 77.8 % (42-78); TOTAL CELLS COUNTED % (AUTO) 100 %; WHITE BLOOD COUNT 9.3 10^3/uL (4.0-10.5)
--- NOTE | 2018-06-15 10:32 | Operative Report ---
Operative Report DATE OF SURGERY: 06/14/18 PREOPERATIVE DIAGNOSIS: Acute gastrointestinal hemorrhage. Blood loss anemia. Hemorrhagic shock POSTOPERATIVE DIAGNOSIS: Same with acute upper GI bleed, proximal stomach OPERATION: 1. Esophagogastroduodenoscopy. 2. Endoscopic irrigation and aspiration gastric hemorrhage SURGEON: ZELDA HOWE ANESTHESIA: Moderate Sedation TISSUE REMOVED OR ALTERED: None COMPLICATIONS: None ESTIMATED BLOOD LOSS: See below INTRAOPERATIVE FINDINGS: See below PROCEDURE: Patient was placed in a semirecumbent position. She had just undergone orotracheal intubation, and central line placement. Patient was receiving blood product transfusions including packed red blood cells and FFP. Blood pressure systolic 100. As this was deemed an emergent operation, we proceeded with flexible upper endoscopy. The endoscopic team was present at bedside in the intensive care unit. Appropriate level of sedation achieved With an oral mouthpiece inserted, the adult flexible upper endoscope was advanced to the oropharynx, down the esophagus through the GE junction into the stomach, then through the stomach into the first and second portions of the duodenum. The findings were significant for active bleeding and fresh clot, copious amounts, in the proximal stomach. The mid body and distal stomach demonstrated flecks of blood clot, and atrophic mucosa. The pylorus and first and second portion of the duodenum grossly unremarkable. The scope was brought back down into the stomach and retroflexed. There was a moderate size hiatal hernia. We now spent the next 20-30 minutes aspirating irrigating and aspirating clot from the proximal stomach. This was very difficult because of the retroflexed nature of the scope required to intubate this anatomic area; furthermore bringing the scope back and forth through the GE junction proved challenging because the anatomy was changing with insufflation and decompression. There was a small clot adhered to the distal esophagus at approximately 34 cm from the incisor. The clot was left in position. Of note the esophagus showed no gross pathology. The bleeding appeared to be subsiding but not completely abated. We felt that the diagnosis had been made, but certainly an incomplete therapeutic interventi on as we were unable to remove sufficient clot to identify the exact bleeding source. Scope was brought back to the esophagus and out of the patient's oropharynx. She did tolerate the procedure well. Subsequently an orogastric tube was inserted. Portable upright chest x-ray demonstrated no pneumothorax, and support tubes including oral tracheal tube, and right IJ central line in good position. Post procedure review of patient's CT scan from years past demonstrates significant hiatal hernia type II-III, likely explaining difficulty performing upper endoscopy and defining the anatomy.
== END 2018-06-14 17:50 | disposition short-term general hospital (02) | DRG 280 ==
LOC: ER 17:28 → EH 22:58 → 4N 06-11 12:49 → ICU 06-14 03:14
PROVIDERS: ADMIT Internal Medicine; ATTEND Internal Medicine
PROC: 3E0F73Z Introduction of Anti-inflammatory into Respiratory Tract, Via Natural or Artificial Opening (ICD-10-PCS; 2018-06-11)
PROC: 0BH17EZ Insertion of Endotracheal Airway into Trachea, Via Natural or Artificial Opening (ICD-10-PCS; 2018-06-14)
PROC: 30233L1 Transfusion of Nonautologous Fresh Plasma into Peripheral Vein, Percutaneous Approach (ICD-10-PCS; 2018-06-14)
PROC: 30233N1 Transfusion of Nonautologous Red Blood Cells into Peripheral Vein, Percutaneous Approach (ICD-10-PCS; 2018-06-14)
PROC: 02H633Z Insertion of Infusion Device into Right Atrium, Percutaneous Approach (ICD-10-PCS; 2018-06-14)
PROC: B543ZZA Ultrasonography of Right Jugular Veins, Guidance (ICD-10-PCS; 2018-06-14)
PROC: 0DD78ZX Extraction of Stomach, Pylorus, Via Natural or Artificial Opening Endoscopic, Diagnostic (ICD-10-PCS; 2018-06-14)
PROC: 5A1935Z Respiratory Ventilation, Less than 24 Consecutive Hours (ICD-10-PCS; principal; 2018-06-14 04:30)
DX: I48.0 Paroxysmal atrial fibrillation (principal); K25.0 Acute gastric ulcer with hemorrhage; I21.A1 Myocardial infarction type 2; J96.21 Acute and chronic respiratory failure with hypoxia; I50.42 Chronic combined systolic (congestive) and diastolic (congestive) heart failure; D62 Acute posthemorrhagic anemia; E86.0 Dehydration; I45.81 Long QT syndrome; F03.90 Unspecified dementia, unspecified severity, without behavioral disturbance, psychotic disturbance, mood disturbance, and anxiety; T79.6XXA Traumatic ischemia of muscle, initial encounter; W18.30XA Fall on same level, unspecified, initial encounter; R62.7 Adult failure to thrive; G40.909 Epilepsy, unspecified, not intractable, without status epilepticus; E78.5 Hyperlipidemia, unspecified; K21.9 Gastro-esophageal reflux disease without esophagitis; F32.9 Major depressive disorder, single episode, unspecified; M06.9 Rheumatoid arthritis, unspecified; I11.0 Hypertensive heart disease with heart failure; K44.9 Diaphragmatic hernia without obstruction or gangrene; S09.90XA Unspecified injury of head, initial encounter; W18.12XA Fall from or off toilet with subsequent striking against object, initial encounter; Y92.012 Bathroom of single-family (private) house as the place of occurrence of the external cause; Z78.1 Physical restraint status; Z90.710 Acquired absence of both cervix and uterus; Z79.82 Long term (current) use of aspirin; Z91.14 Patient's other noncompliance with medication regimen; Z79.899 Other long term (current) drug therapy; Z88.6 Allergy status to analgesic agent; Z88.1 Allergy status to other antibiotic agents; Z88.0 Allergy status to penicillin; Z90.49 Acquired absence of other specified parts of digestive tract; Z60.2 Problems related to living alone; Z87.891 Personal history of nicotine dependence; Z82.49 Family history of ischemic heart disease and other diseases of the circulatory system
CPT/HCPCS: 31500; 36415; 36430; 43235; 70450; 71045; 72125; 74018; 80048; 80053; 80061; 80307; 81001; 82272; 82550; 82553; 82607; 82728; 82746; 82803; 82962; 83036; 83540; 83550; 83735; 83880; 84100; 84484; 85025; 85027; 85045; 85384; 85610; 85730; 86850; 86900; 86901; 86920; 93005; 93010; 93306; 94002; 96360; 99285; C1751; J0171; J0330; J1200; J1610; J1644; J1650; J1885; J1953; J2250; J2310; J2354; J2405; J2704; J3010; J3420; J3490; J7030; J7040; J7060; J7120; P9016; P9017; S0164

== ENCOUNTER 2018-08-26 23:14 | Emergency (ER) | payer MEDICARE, OTHER ==
--- NOTE | 2018-08-26 23:39 | RADIOLOGY REPORT (SQ) ---
EXAM DESCRIPTION: CT HEAD WITHOUT IV CONTRAST COMPLETED DATE/TME: 08/26/2018 23:19 CLINICAL HISTORY: 78 years Female stroke alert COMPARISON: 06/10/2018. TECHNIQUE: Contiguous axial CT images obtained through the brain without IV contrast. This exam was performed according to our department optimization program which includes automated exposure control, adjustment of the mA and/or kv according to patient size and/or use of iterative reconstruction technique. FINDINGS: The ventricles and sulci are prominent consistent with atrophic changes. Microvascular ischemic changes. Old infarct in the right occipital lobe which is stable. No midline shift or mass effect. No mass lesions. No acute hemorrhage. Atherosclerotic calcifications. No fluid or significant mucosal thickening in the visualized paranasal sinuses. No depressed calvarial fractures. IMPRESSION: No acute intracranial abnormality is identified. Generalized atrophy with microvascular ischemic changes. Dr. Simpson was called and notified of the findings at 10:30 PM central time.
[2018-08-26 23:44] LABS: ABSOLUTE BASOPHILS # (AUTO) 0.1 10^3/uL (0.0-0.2); ABSOLUTE EOSINOPHILS # (AUTO) 0.2 10^3/uL (0.0-0.6); ABSOLUTE LYMPHOCYTES (AUTO) 1.2 10^3/uL (0.5-4.7); ABSOLUTE MONOCYTES (AUTO) 0.8 10^3/uL (0.1-1.4); ABSOLUTE NEUT (AUTO) 5.2 10^3/uL (1.7-8.2); BASOPHILS % (AUTO) 0.9 % (0-2); EOSINOPHILS % (AUTO) 2.7 % (0-6); HEMOGLOBIN 10.4 g/dL (12.0-15.5); MEAN CORPUSCULAR HEMOGLOBIN 28.5 pg (27.0-33.4); MEAN CORPUSCULAR HGB CONC 32.5 g/dL (32.0-36.0); MEAN CORPUSCULAR VOLUME 88 fl (80-97); MONOCYTES % (AUTO) 10.3 % (3-13); PLATELET COUNT 334 10^3/uL (150-450); RED BLOOD COUNT 3.66 10^6/uL (3.72-5.28); RED CELL DISTRIBUTION WIDTH 16.3 % (11.5-14.0); SEGMENTED NEUTROPHILS % (AUTO) 70.1 % (42-78); TOTAL CELLS COUNTED % (AUTO) 100 %; WHITE BLOOD COUNT 7.4 10^3/uL (4.0-10.5)
[2018-08-26 23:48] LABS: INTERNATIONAL RATION (INR) 0.89; PARTIAL THROMBOPLASTIN TIME 27.8 SEC (23.5-35.8)
[2018-08-26] MEDS ORDERED: RINGERS SOLUTION,LACTATED 1,000 ML IV ONE (23:48)
[2018-08-26] MEDS ORDERED: LORAZEPAM INJ 2 MG/1 ML VIAL ONE (23:50)
[2018-08-26 23:52] LABS: PROTHROMBIN TIME 12.6 SEC (11.4-15.4)
[2018-08-26] MEDS ORDERED: DIAZEPAM INJ 10 MG/2 ML DISP.SYRIN IV ONE (23:53)
[2018-08-26] MEDS ORDERED: LABETALOL HCL INJ 20 MG/4 ML DISP.SYRIN IV ONE (23:53)
--- NOTE | 2018-08-26 23:54 | ER Document Report ---
ED General - General Chief Complaint: S/S of Possible Stroke Stated Complaint: POSSIBLE STROKE Time Seen by Provider: 08/26/18 23:31 Primary Care Provider: MEGHA PAZ MD [Primary Care Provider] - Follow up as needed Mode of Arrival: Ambulatory Information source: Patient, Friend, Emergency Med Personnel Notes: 78-year-old female presents via EMS from home with concern for left-sided weakness. Home health nurse states that she was with the patient this afternoon but not this evening. Unclear symptom onset. Home health nurse reports that the patient was incontinent of stool and she brought her into the shower and the patient could not stand. She states that normally the patient can walk independently with her walker and get in and out of the shower by herself. Patient does live with her son who refused to come out when EMS arrived. TRAVEL OUTSIDE OF THE [place] IN LAST 30 DAYS: No - HPI Onset: Just prior to arrival Onset/Duration: Gradual Quality of pain: Achy Severity: Mild Associated symptoms: Headache, Weakness. 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 - Social History Smoking Status: Never Smoker Frequency of alcohol use: None Drug Abuse: None Lives with: Family Family History: CAD, Hypertension Patient has suicidal ideation: No Patient has homicidal ideation: No - Past Medical History Cardiac Medical History: Reports: Hx Hypercholesterolemia, Hx Hypertension Pulmonary Medical History: Reports: Hx Bronchitis Neurological Medical History: Reports: Hx Seizures Renal/ Medical History: Denies: Hx Peritoneal Dialysis GI Medical History: Reports: Hx Gastroesophageal Reflux Disease Musculoskeletal Medical History: 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 Denies: Hx Hysterectomy - Immunizations Hx Diphtheria, Pertussis, Tetanus Vaccination: No Review of Systems - Review of Systems Constitutional: Weakness. denies: Recent illness EENT: denies: Blurred vision Cardiovascular: denies: Chest pain, Palpitations, Dizziness, Edema Respiratory: denies: Cough, Short of breath Gastrointestinal: denies: Abdominal pain, Diarrhea, Nausea, Vomiting Genitourinary: denies: Dysuria, Flank pain Female Genitourinary: No symptoms reported Musculoskeletal: Back pain Neurological/Psychological: Loss of power, Headaches. denies: Lost consciousness -: Yes All other systems reviewed and negative Physical Exam - Vital signs Vitals: Pulse Resp BP Pulse Ox 91 16 176/146 H 95 08/26/18 23:19 08/26/18 23:19 08/26/18 23:19 08/26/18 23:19 - Notes Notes: PHYSICAL EXAMINATION: GENERAL: Well-appearing, well-nourished and in no acute distress. HEAD: Atraumatic, normocephalic. EYES: Pupils equal round and reactive to light, extraocular movements intact, conjunctiva are normal. ENT: Nares patent, oropharynx clear without exudates. Moist mucous membranes. NECK: Normal range of motion, supple without lymphadenopathy LUNGS: Breath sounds clear to auscultation bilaterally and equal. No wheezes rales or rhonchi. HEART: Regular rate and rhythm without murmurs ABDOMEN: Soft, nontender, nondistended abdomen. No guarding, no rebound. No masses appreciated. Female : deferred Musculoskeletal: Normal range of motion, no pitting or edema. No cyanosis. NEUROLOGICAL: Cranial nerves grossly intact. Normal speech, Normal sensory, motor exams. NIH 2 for drift of the left upper extremity and left lower extremity PSYCH: Normal mood, normal affect. SKIN: Warm, Dry, normal turgor, no rashes or lesions noted. Course - Re-evaluation Re-evalutation: Laboratory 08/26/18 08/26/18 08/26/18 02:14 23:20 23:20 WBC 7.4 RBC 3.66 L Hgb 10.4 L Hct 32.0 L MCV 88 MCH 28.5 MCHC 32.5 RDW 16.3 H Plt Count 334 Seg Neutrophils % 70.1 Lymphocytes % 16.0 Monocytes % 10.3 Eosinophils % 2.7 Basophils % 0.9 Absolute Neutrophils 5.2 Absolute Lymphocytes 1.2 Absolute Monocytes 0.8 Absolute Eosinophils 0.2 Absolute Basophils 0.1 PT 12.6 INR 0.89 APTT 27.8 Sodium Cancelled Potassium Cancelled Chloride Cancelled Carbon Dioxide Cancelled Anion Gap Cancelled BUN Cancelled Creatinine Cancelled Est GFR ( Amer) Cancelled Est GFR (Non-Af Amer) Cancelled Glucose Cancelled POC Glucose Calcium Cancelled Total Bilirubin Cancelled Direct Bilirubin Cancelled Neonat Total Bilirubin Cancelled Neonat Direct Bilirubin Cancelled Neonat Indirect Bili Cancelled AST Cancelled ALT Cancelled Alkaline Phosphatase Cancelled Creatine Kinase Cancelled CK-MB (CK-2) Troponin I Total Protein Cancelled Albumin Cancelled Urine Color Urine Appearance Urine pH Ur Specific [place] Urine Protein Urine Glucose (UA) Urine Ketones Urine Blood Urine Nitrite Urine Bilirubin Urine Urobilinogen Ur Leukocyte Esterase Urine WBC (Auto) Urine RBC (Auto) Squamous Epi Cells Auto Urine Mucus (Auto) Urine Ascorbic Acid 08/26/18 08/26/18 08/27/18 23:20 23:29 00:46 WBC RBC Hgb Hct MCV MCH MCHC RDW Plt Count Seg Neutrophils % Lymphocytes % Monocytes % Eosinophils % Basophils % Absolute Neutrophils Absolute Lymphocytes Absolute Monocytes Absolute Eosinophils Absolute Basophils PT INR APTT Sodium 139.8 Potassium 4.6 Chloride 104 Carbon Dioxide 25 Anion Gap 11 BUN 27 H Creatinine 1.12 Est GFR ( Amer) 57 L Est GFR (Non-Af Amer) 47 L Glucose 109 POC Glucose 110 Calcium 9.4 Total Bilirubin 0.3 Direct Bilirubin 0.2 Neonat Total Bilirubin Not Reportable Neonat Direct Bilirubin Not Reportable Neonat Indirect Bili Not Reportable AST 27 ALT 20 Alkaline Phosphatase 107 Creatine Kinase 46 CK-MB (CK-2) Cancelled Troponin I Cancelled Total Protein 7.8 Albumin 4.1 Urine Color Urine Appearance Urine pH Ur Specific [place] Urine Protein Urine Glucose (UA) Urine Ketones Urine Blood Urine Nitrite Urine Bilirubin Urine Urobilinogen Ur Leukocyte Esterase Urine WBC (Auto) Urine RBC (Auto) Squamous Epi Cells Auto Urine Mucus (Auto) Urine Ascorbic Acid 08/27/18 08/27/18 00:46 01:21 WBC RBC Hgb Hct MCV MCH MCHC RDW Plt Count Seg Neutrophils % Lymphocytes % Monocytes % Eosinophils % Basophils % Absolute Neutrophils Absolute Lymphocytes Absolute Monocytes Absolute Eosinophils Absolute Basophils PT INR APTT Sodium Potassium Chloride Carbon Dioxide Anion Gap BUN Creatinine Est GFR ( Amer) Est GFR (Non-Af Amer) Glucose POC Glucose Calcium Total Bilirubin Direct Bilirubin Neonat Total Bilirubin Neonat Direct Bilirubin Neonat Indirect Bili AST ALT Alkaline Phosphatase Creatine Kinase CK-MB (CK-2) 0.36 Troponin I < 0.012 Total Protein Albumin Urine Color YELLOW Urine Appearance CLEAR Urine pH 5.0 Ur Specific [place] 1.023 Urine Protein 30 H Urine Glucose (UA) NEGATIVE Urine Ketones NEGATIVE Urine Blood NEGATIVE Urine Nitrite NEGATIVE Urine Bilirubin NEGATIVE Urine Urobilinogen NEGATIVE Ur Leukocyte Esterase NEGATIVE Urine WBC (Auto) 4 Urine RBC (Auto) 1 Squamous Epi Cells Auto <1 Urine Mucus (Auto) RARE Urine Ascorbic Acid NEGATIVE Chest X-Ray 08/26/18 23:19 IMPRESSION: Cardiac enlargement and COPD Linear atelectasis in the lung bases Head CT 08/26/18 23:19 IMPRESSION: No acute intracranial abnormality is identified. Generalized atrophy with microvascular ischemic changes. Dr. Simpson was called and notified of the findings at 10:30 PM central time. Temp Pulse Resp BP Pulse Ox 98.0 F 91 26 H 143/88 H 100 08/27/18 02:01 08/26/18 23:19 08/27/18 02:01 08/27/18 02:01 08/27/18 02:01 08/26/18 23:54 Called into patient's room for seizure-like activity. At the time I got to the patient was alert, awake and asking for something to suction her mouth. Home health aide states that she does not know that the patient has a seizure history she has never seen the patient have a seizure. She also states the patient has not taken any of her medication today. Patient's exam is not consistent with stroke or seizure. When observed she does seem to have some muscle spasms and a fter reviewing her medication list she is on 2 different muscle relaxants. Home health aide is the power of attorney general and states that the patient is a DNR. The patient and the power of attorney general are holding him very loving towards one another. The desired goal is to get the patient home if possible. CBC, CMP, urinalysis are unremarkable. Patient was monitored in the emergency department for several hours. She did receive IV fluids. She had no seizure activity, is walking and moving all extremities without difficulty. Both patient and home health nurse who is the power of attorney general is comfortable with discharge home. 08/28/18 18:42 Patient was evaluated and treated as appropriate for the patient's presenting symptoms and complaint, with consideration of any critical or life threatening conditions that may be associated with their obtained history and exam as noted above. All results were discussed with patient and her power of attorney general. Patient provided the opportunity to ask questions, and express concerns. Patient was educated on treatments based on their presumed diagnosis as noted above. At this time we will discharge the patient with return precautions and follow-up recommendations. Verbal discharge instructions given a the bedside. Medication warnings reviewed. Patient is in agreement with this plan and has verbalized understanding of return precautions. After careful consideration I feel that that patient can be safely discharged from the emergency department, they were advised to followup with a primary care physician in 2-3 days. Dictation on this chart was performed using voice recognition software and may result in unintended grammatical, spelling, syntax or errors. - Vital Signs Vital signs: Temp Pulse Resp BP Pulse Ox 98.0 F 91 26 H 143/88 H 100 08/27/18 02:01 08/26/18 23:19 08/27/18 02:01 08/27/18 02:01 08/27/18 02:01 - Laboratory Result Diagrams: 08/26/18 23:20 08/27/18 00:46 Laboratory results interpreted by me: 08/26/18 08/27/18 08/27/18 23:20 00:46 01:21 RBC 3.66 L Hgb 10.4 L Hct 32.0 L RDW 16.3 H BUN 27 H Est GFR ( Amer) 57 L Est GFR (Non-Af Amer) 47 L Urine Protein 30 H - Diagnostic Test Radiology reviewed: Image reviewed, Reports reviewed Discharge - Discharge Clinical Impression: Seizure Headache Qualifiers: Headache type: unspecified Headache chronicity pattern: unspecified pattern Intractability: not intractable Qualified Code(s): R51 - Headache Back pain Qualifiers: Back pain location: low back pain Chronicity: chronic Back pain laterality: unspecified Sciatica presence: without sciatica Qualified Code(s): M54.5 - Low back pain Altered mental status Qualifiers: Altered mental status type: transient alteration of awareness Qualified Code(s): R40.4 - Transient alteration of awareness Condition: Fair Disposition: HOME, SELF-CARE Instructions: Altered Mental Status ([facility]), Chronic Back Pain ([facility]), Headache ([facility]) Additional Instructions: Follow up with your [id number] hours for further care or return to the ED IMMEDIATELY if symptoms worsen or you have any concerns. If you cannot afford to follow up with your primary care physician a list of low cost clinics have been provided at the end of your discharge papers as well. Most prescribed medications have multiple side effects. The safest thing to do is when filling your prescription speak to your pharmacist regarding possible interactions with your normal home medications and over the counter medications such as Ibuprofen, Tylenol, Benadryl. If you experience any symptoms that cause you discomfort or concern you should discontinue the medication immediately and return to the emergency room or call your primary care physician. Referrals: MEGHA PAZ MD [Primary Care Provider] - Follow up as needed
--- NOTE | 2018-08-26 23:54 | RADIOLOGY REPORT (SQ) ---
EXAM DESCRIPTION: XR CHEST 1 VIEW COMPLETED DATE/TME: 08/26/2018 23:19 CLINICAL HISTORY: 78 years Female stroke alert COMPARISON: None. FINDINGS: Cardiac enlargement pulmonary hyperinflation. Motion artifact limits the lesion. Areas of linear atelectasis in the lung bases. Tortuous aorta. Bilateral shoulder prostheses. IMPRESSION: Cardiac enlargement and COPD Linear atelectasis in the lung bases
[2018-08-27 01:11] LABS: ALANINE AMINOTRANSFERASE 20 U/L (9-52); ALBUMIN 4.1 g/dL (3.5-5.0); ALKALINE PHOSPHATASE 107 U/L (38-126); ANION GAP 11 (5-19); ASPARTATE AMINO TRANSFERASE 27 U/L (14-36); BILIRUBIN,DIRECT 0.2 mg/dL (0.0-0.4); BILIRUBIN,TOTAL 0.3 mg/dL (0.2-1.3); BLOOD UREA NITROGEN 27 mg/dL (7-20); CALCIUM 9.4 mg/dL (8.4-10.2); CARBON DIOXIDE 25 mmol/L (22-30); CHLORIDE 104 mmol/L (98-107); CREATINE KINASE 46 U/L (30-135); GLUCOSE 109 mg/dL (75-110); POTASSIUM 4.6 mmol/L (3.6-5.0); SODIUM 139.8 mmol/L (137-145); TOTAL PROTEIN 7.8 g/dL (6.3-8.2)
[2018-08-27 01:24] LABS: CREATINE KINASE MB 0.36 ng/mL (<4.55)
[2018-08-27 01:25] LABS: TROPONIN I < 0.012 ng/mL
[2018-08-27 01:47] LABS: APPEARANCE,URINE CLEAR; BILIRUBIN,URINE NEGATIVE (NEGATIVE); COLOR,URINE YELLOW; GLUCOSE, URINE NEGATIVE (NEGATIVE); KETONES,URINE NEGATIVE (NEGATIVE); LEUKOCYTE ESTERASE,URINE NEGATIVE (NEGATIVE); NITRITE,URINE NEGATIVE (NEGATIVE); PROTEIN,URINE 30 mg/dL (NEGATIVE); URINE SPECIFIC GRAVITY 1.023; UROBILINOGEN,URINE NEGATIVE mg/dL (<2.0)
[2018-08-27] MEDS ORDERED: ACETAMINOPHEN 325 MG TABLET PO ONE (01:48)
[2018-08-27] MEDS ORDERED: DIPHENHYDRAMINE HCL 25 MG CAPSULE PO ONE (01:48)
[2018-08-27 02:26] VITALS: BP 143/88
--- NOTE | 2018-08-27 07:42 | EKG REPORT ---
SEVERITY:- DEFECTIVE ECG - ACCELERATED JUNCTIONAL RHYTHM NONSPECIFIC INTRAVENTRICULAR CONDUCTION DELAY PROBABLE POSTERIOR INFARCT REPEAT EKG WITH MORE STABLE BASELINE. : Confirmed by: Huber Ashraf MD 27-Aug-2018 07:41:54
== END 2018-08-27 02:26 | disposition home or self-care (01) ==
LOC: ER 23:14
DX: R56.9 Unspecified convulsions (principal); R51 Headache; M54.5 Low back pain; R40.4 Transient alteration of awareness; J98.11 Atelectasis; R15.9 Full incontinence of feces; J44.9 Chronic obstructive pulmonary disease, unspecified; I11.9 Hypertensive heart disease without heart failure; R53.1 Weakness; Z79.899 Other long term (current) drug therapy; Z66 Do not resuscitate; Z88.0 Allergy status to penicillin; Z88.1 Allergy status to other antibiotic agents; Z88.5 Allergy status to narcotic agent
CPT/HCPCS: 93005; 99285; 96361; 51701; 96374; 36415; 82553; 82962; 82550; 85025; 85610; 85730; 80053; 81001; 84484; 71045; 70450; 93010; A9270 ×2; J3360; J7120

== ENCOUNTER 2019-02-03 15:02 | Emergency (ER) | payer MEDICARE, OTHER ==
[2019-02-03 15:25] VITALS: BP 151/69
--- NOTE | 2019-02-03 15:30 | ER Document Report ---
ED Medical Screen (RME) - General Chief Complaint: Chest Pain Stated Complaint: CHEST PAIN Time Seen by Provider: 02/03/19 15:26 Primary Care Provider: MEGHA PAZ MD [Primary Care Provider] - Follow up as needed Mode of Arrival: Wheelchair Information source: Patient Notes: 78-year-old female presented to ED for complaint of chest/epigastric pain. She is extremely tender to the epigastric area. Since morning. She states the pain started before she ate. Son states she does not have any history of pancreatitis and she does not have a gallbladder. She said she has had a heart catheterization years ago with no stents. She states she did have a GI bleed about a year ago and went to violent and had to have 4 units of blood. I have greeted and performed a rapid initial assessment of this patient. A comprehensive ED assessment and evaluation of the patient, analysis of test results and completion of medical decision making process will be conducted by an additional ED providers. TRAVEL OUTSIDE OF THE [place] IN LAST 30 DAYS: No - Related Data Allergies/Adverse Reactions: amoxicillin Allergy (Verified 06/11/18 16:20) cephalexin [From Keflex] Allergy (Verified 06/11/18 16:20) Itching and Rash morphine Allergy (Verified 06/11/18 16:20) Penicillins Allergy (Verified 06/11/18 16:20) Past Medical History - Past Medical History Cardiac Medical History: Reports: Hx Hypercholesterolemia, Hx Hypertension Pulmonary Medical History: Reports: Hx Bronchitis Neurological Medical History: Reports: Hx Seizures Renal/ Medical History: Denies: Hx Peritoneal Dialysis GI Medical History: Reports: Hx Gastroesophageal Reflux Disease Musculoskeltal Medical History: 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 Denies: Hx Hysterectomy - Immunizations Hx Diphtheria, Pertussis, Tetanus Vaccination: No Physical Exam - Vital signs Vitals: Temp Pulse Resp BP Pulse Ox 98.4 F 65 18 151/69 H 98 02/03/19 15:23 02/03/19 15:23 02/03/19 15:23 02/03/19 15:23 02/03/19 15:23 Course - Vital Signs Vital signs: Temp Pulse Resp BP Pulse Ox 98.4 F 65 18 151/69 H 98 02/03/19 15:23 02/03/19 15:23 02/03/19 15:23 02/03/19 15:23 02/03/19 15:23 Doctor's Discharge - Discharge Referrals: MEGHA PAZ MD [Primary Care Provider] - Follow up as needed
[2019-02-03 17:09] LABS: ABSOLUTE BASOPHILS # (AUTO) 0.1 10^3/uL (0.0-0.2); ABSOLUTE EOSINOPHILS # (AUTO) 0.2 10^3/uL (0.0-0.6); ABSOLUTE LYMPHOCYTES (AUTO) 0.9 10^3/uL (0.5-4.7); ABSOLUTE MONOCYTES (AUTO) 0.7 10^3/uL (0.1-1.4); ABSOLUTE NEUT (AUTO) 4.7 10^3/uL (1.7-8.2); BASOPHILS % (AUTO) 0.9 % (0-2); EOSINOPHILS % (AUTO) 3.4 % (0-6); HEMATOCRIT 29.8 % (36.0-47.0); HEMOGLOBIN 9.6 g/dL (12.0-15.5); LYMPHOCYTES % (AUTO) 13.7 % (13-45); MEAN CORPUSCULAR HEMOGLOBIN 26.3 pg (27.0-33.4); MEAN CORPUSCULAR HGB CONC 32.3 g/dL (32.0-36.0); MEAN CORPUSCULAR VOLUME 82 fl (80-97); MONOCYTES % (AUTO) 10.3 % (3-13); PLATELET COUNT 340 10^3/uL (150-450); RED BLOOD COUNT 3.66 10^6/uL (3.72-5.28); RED CELL DISTRIBUTION WIDTH 15.8 % (11.5-14.0); SEGMENTED NEUTROPHILS % (AUTO) 71.7 % (42-78); TOTAL CELLS COUNTED % (AUTO) 100 %; WHITE BLOOD COUNT 6.6 10^3/uL (4.0-10.5)
[2019-02-03 17:17] LABS: INTERNATIONAL RATION (INR) 0.98
--- NOTE | 2019-02-03 17:20 | RADIOLOGY REPORT (SQ) ---
EXAM DESCRIPTION: CHEST 2 VIEWS COMPLETED DATE/TIME: 02/03/2019 4:18 pm REASON FOR STUDY: chest pain COMPARISON: None. EXAM PARAMETERS: NUMBER OF VIEWS: two views TECHNIQUE: Digital Frontal and Lateral radiographic views of the chest acquired. RADIATION DOSE: NA LIMITATIONS: none FINDINGS: LUNGS AND PLEURA: No consolidation, pleural effusion or pneumothorax. MEDIASTINUM AND HILAR STRUCTURES: No mediastinal or hilar contour abnormality. HEART AND VASCULAR STRUCTURES: The cardiac silhouette and pulmonary vasculature are within normal liriano its. BONES: Osteopenia, chronic fracture deformities of numerous the right-sided ribs, accentuated kyphoti c angulation of the thoracic spine with a probable chronic compression deformity of a midthoracic ciara tebral body, and dextroconvex scoliotic curvature of the thoracolumbar spine. HARDWARE: Shoulder arthroplasties. OTHER: No other finding. IMPRESSION: No acute cardiopulmonary process. TECHNICAL DOCUMENTATION: JOB ID: [id number] [employer]- All Rights Reserved Reading location - IP/workstation name: [email or web address]
[2019-02-03 17:32] LABS: ALBUMIN 3.9 g/dL (3.5-5.0); ALKALINE PHOSPHATASE 109 U/L (38-126); ANION GAP 9 (5-19); ASPARTATE AMINO TRANSFERASE 26 U/L (14-36); BILIRUBIN,DIRECT 0.2 mg/dL (0.0-0.4); BILIRUBIN,TOTAL 0.6 mg/dL (0.2-1.3); BLOOD UREA NITROGEN 23 mg/dL (7-20); CALCIUM 9.3 mg/dL (8.4-10.2); CARBON DIOXIDE 27 mmol/L (22-30); CHLORIDE 103 mmol/L (98-107); CREATINE KINASE 60 U/L (30-135); GLUCOSE 98 mg/dL (75-110); POTASSIUM 4.7 mmol/L (3.6-5.0); TOTAL PROTEIN 7.4 g/dL (6.3-8.2)
[2019-02-03 17:43] LABS: CREATINE KINASE MB 0.53 ng/mL (<4.55); NT PRO BNP 767 pg/mL (<450); TROPONIN I < 0.012 ng/mL
--- NOTE | 2019-02-03 20:18 | EKG REPORT ---
SEVERITY:- BORDERLINE ECG - SINUS RHYTHM BORDERLINE T ABNORMALITIES, ANTERIOR LEADS : Confirmed by: Joanna Barnes MD 03-Feb-2019 20:17:39
== END 2019-02-03 18:58 | disposition left against medical advice (07) ==
LOC: ER 15:02
DX: R07.9 Chest pain, unspecified (principal); R10.13 Epigastric pain; E78.00 Pure hypercholesterolemia, unspecified; I10 Essential (primary) hypertension; Z88.0 Allergy status to penicillin; Z88.6 Allergy status to analgesic agent; Z90.49 Acquired absence of other specified parts of digestive tract
CPT/HCPCS: 36415; 71046; 80053; 82550; 82553; 83690; 83735; 83880; 84443; 84484; 85025; 85610; 85730; 86850; 86900; 86901; 93005; 93010; 99281

== ENCOUNTER 2019-04-07 17:31 | Inpatient (IN) | payer MEDICARE, OTHER ==
--- NOTE | 2019-04-07 18:01 | RADIOLOGY REPORT (SQ) ---
EXAM DESCRIPTION: CT HEAD WITHOUT COMPLETED DATE/TIME: 04/07/2019 5:48 pm REASON FOR STUDY: STROKE ALERT COMPARISON: CT head 08/26/2018. TECHNIQUE: Axial images acquired through the brain without intravenous contrast. Images reviewed wi th bone, brain and subdural windows. Additional sagittal and coronal reconstructions were generated. Images stored on PACS. All CT scanners at this facility use dose modulation, iterative reconstruction, and/or weight based d osing when appropriate to reduce radiation dose to as low as reasonably achievable (ALARA). [facility]: Dose Right [facility]: CareDose [facility]: Dose Right [facility]: Teradose 4D [facility]: Smart Channel [employer] RADIATION DOSE: mGy. LIMITATIONS: None. FINDINGS: VENTRICLES: Normal size and contour. CEREBRUM: No masses. No hemorrhage. No midline shift. No evidence for acute infarction. Extensive areas of low density in the white matter most likely chronic small vessel ischemic changes. CEREBELLUM: No masses. No hemorrhage. No alteration of density. No evidence for acute infarction. EXTRAAXIAL SPACES: No fluid collections. No masses. ORBITS AND GLOBE: No intra- or extraconal masses. Normal contour of globe without masses. CALVARIUM: No fracture. PARANASAL SINUSES: No fluid or mucosal thickening. SOFT TISSUES: No mass or hematoma. OTHER: No other significant finding. IMPRESSION: No acute intracranial findings. Similar background chronic small vessel ischemic change s. EVIDENCE OF ACUTE STROKE: NO. COMMENT: Quality ID # [id number]: Final reports with documentation of one or more dose reduction techniques (e.g., Automated exposure control, adjustment of the mA and/or kV according to patient size, use of iterative reconstruction technique) TECHNICAL DOCUMENTATION: JOB ID: [id number]- All Rights Reserved Reading location - IP/workstation name: [email or web address]
[2019-04-07] MEDS ORDERED: LEVETIRACETAM 1000 MG/NACL-ISO 1,000 MG/100 ML RTUPB IV ONE (18:02)
--- NOTE | 2019-04-07 18:03 | RADIOLOGY REPORT (SQ) ---
EXAM DESCRIPTION: CHEST SINGLE VIEW COMPLETED DATE/TIME: 04/07/2019 5:49 pm REASON FOR STUDY: STROKE COMPARISON: Chest radiographs 02/03/2019 EXAM PARAMETERS: NUMBER OF VIEWS: One view. TECHNIQUE: Single frontal radiographic view of the chest acquired. RADIATION DOSE: NA LIMITATIONS: None. FINDINGS: LUNGS AND PLEURA: Stable left basilar scarring. No new opacities, masses or pneumothorax. No pleural effusion. MEDIASTINUM AND HILAR STRUCTURES: Unchanged contours. HEART AND VASCULAR STRUCTURES: Heart normal in size. Normal vasculature. BONES: No acute findings. Old right rib fractures. Bilateral shoulder arthroplasties. HARDWARE: None in the chest. OTHER: No other significant finding. IMPRESSION: Unchanged chest. No acute pulmonary findings. TECHNICAL DOCUMENTATION: JOB ID: [id number] [employer]- All Rights Reserved Reading location - IP/workstation name: [email or web address]
[2019-04-07 18:12] LABS: ABSOLUTE BASOPHILS # (AUTO) 0.1 10^3/uL (0.0-0.2); ABSOLUTE EOSINOPHILS # (AUTO) 0.1 10^3/uL (0.0-0.6); ABSOLUTE LYMPHOCYTES (AUTO) 0.7 10^3/uL (0.5-4.7); ABSOLUTE MONOCYTES (AUTO) 0.6 10^3/uL (0.1-1.4); ABSOLUTE NEUT (AUTO) 5.4 10^3/uL (1.7-8.2); BASOPHILS % (AUTO) 0.9 % (0-2); EOSINOPHILS % (AUTO) 2.1 % (0-6); HEMATOCRIT 30.2 % (36.0-47.0); HEMOGLOBIN 9.5 g/dL (12.0-15.5); LYMPHOCYTES % (AUTO) 10.3 % (13-45); MEAN CORPUSCULAR HEMOGLOBIN 25.6 pg (27.0-33.4); MEAN CORPUSCULAR HGB CONC 31.6 g/dL (32.0-36.0); MEAN CORPUSCULAR VOLUME 81 fl (80-97); MONOCYTES % (AUTO) 8.8 % (3-13); PLATELET COUNT 427 10^3/uL (150-450); RED BLOOD COUNT 3.73 10^6/uL (3.72-5.28); RED CELL DISTRIBUTION WIDTH 16.6 % (11.5-14.0); SEGMENTED NEUTROPHILS % (AUTO) 77.9 % (42-78); TOTAL CELLS COUNTED % (AUTO) 100 %; WHITE BLOOD COUNT 6.9 10^3/uL (4.0-10.5)
[2019-04-07 18:16] LABS: INTERNATIONAL RATION (INR) 0.96; PROTHROMBIN TIME 12.8 SEC (11.4-15.4)
[2019-04-07 18:17] LABS: PARTIAL THROMBOPLASTIN TIME 27.5 SEC (23.5-35.8)
--- NOTE | 2019-04-07 18:18 | ER Document Report ---
ED General - General Chief Complaint: S/S of Possible Stroke Stated Complaint: POSSIBLE STROKE Time Seen by Provider: 04/07/19 18:02 Primary Care Provider: RAYNA HEBERT MD [Primary Care Provider] - Follow up as needed TRAVEL OUTSIDE OF THE [place] IN LAST 30 DAYS: No - Related Data Allergies/Adverse Reactions: amoxicillin Allergy (Verified 06/11/18 16:20) cephalexin [From Keflex] Allergy (Verified 06/11/18 16:20) Itching and Rash morphine Allergy (Verified 06/11/18 16:20) Penicillins Allergy (Verified 06/11/18 16:20) Home Medications: keppra, lasix, nitro, pantoprazole, depakote, metoprolol, atorvastatin, hydroxyzine, detrol, memantine, aricept, klor-con Past Medical History - Social History Smoking Status: Unknown if Ever Smoked Family History: CAD, Hypertension Patient has suicidal ideation: No Patient has homicidal ideation: No - Past Medical History Cardiac Medical History: Reports: Hx Hypercholesterolemia, Hx Hypertension Pulmonary Medical History: Reports: Hx Bronchitis Neurological Medical History: Reports: Hx Seizures Renal/ Medical History: Denies: Hx Peritoneal Dialysis GI Medical History: Reports: Hx Gastroesophageal Reflux Disease Musculoskeletal Medical History: 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 Denies: Hx Hysterectomy - Immunizations Hx Diphtheria, Pertussis, Tetanus Vaccination: No Physical Exam - Vital signs Vitals: Resp BP Pulse Ox 17 180/105 H 98 04/07/19 18:02 04/07/19 18:02 04/07/19 18:02 Course - Vital Signs Vital signs: Temp Pulse Resp BP Pulse Ox 15 144/92 H 100 04/07/19 21:02 04/07/19 21:02 04/07/19 21:02 - Laboratory Result Diagrams: 04/07/19 17:54 04/07/19 17:54 Laboratory results interpreted by me: 04/07/19 04/07/19 17:54 17:54 Hgb 9.5 L Hct 30.2 L MCH 25.6 L MCHC 31.6 L RDW 16.6 H Lymph % (Auto) 10.3 L Est GFR (MDRD) Non-Af 53 L Glucose 122 H Alkaline Phosphatase 127 H Discharge - Discharge Clinical Impression: Stroke, Skin tear Condition: Fair Disposition: ADMITTED INPATIENT Admitting Provider: Vijay (Hospitalist) Unit Admitted: Telemetry Referrals: RAYNA HEBERT MD [Primary Care Provider] - Follow up as needed
[2019-04-07 18:30] LABS: ALBUMIN 4.2 g/dL (3.5-5.0); ALKALINE PHOSPHATASE 127 U/L (38-126); ANION GAP 12 (5-19); ASPARTATE AMINO TRANSFERASE 29 U/L (14-36); BILIRUBIN,DIRECT 0.2 mg/dL (0.0-0.4); BILIRUBIN,TOTAL 0.6 mg/dL (0.2-1.3); BLOOD UREA NITROGEN 20 mg/dL (7-20); CALCIUM 9.4 mg/dL (8.4-10.2); CARBON DIOXIDE 27 mmol/L (22-30); CHLORIDE 100 mmol/L (98-107); CREATINE KINASE 61 U/L (30-135); GLUCOSE 122 mg/dL (75-110); POTASSIUM 4.5 mmol/L (3.6-5.0); TOTAL PROTEIN 7.9 g/dL (6.3-8.2)
[2019-04-07 18:42] LABS: CREATINE KINASE MB 0.62 ng/mL (<4.55)
[2019-04-07 18:44] LABS: TROPONIN I < 0.012 ng/mL
--- NOTE | 2019-04-07 18:57 | RADIOLOGY REPORT (SQ) ---
EXAM DESCRIPTION: CTA HEAD; CTA NECK COMPLETED DATE/TIME: 04/07/2019 6:34 pm REASON FOR STUDY: stroke deficits COMPARISON: None. TECHNIQUE: Axial dynamic scanning technique with dynamic contrast enhancement through the extra-aircraft engine assembler nial carotid and vertebral arteries. Multiplanar reconstruction. 3-D MIPS and Volume-rendered imag es acquired at the workstation and saved to PACS. Images are reviewed in soft tissue, bone, lung w indows. All CT scanners at this facility use dose modulation, iterative reconstruction, and/or weight based d osing when appropriate to reduce radiation dose to as low as reasonably achievable (ALARA). [facility]: Dose Right [facility]: CareDose [facility]: Dose Right [facility]: Teradose 4D [facility]: [employer] CONTRAST TYPE AND DOSE: contrast/concentration: Isovue 350.00 mg/ml; Total Contrast Delivered: 70.0 ml; Total Saline Delivered: 33.0 ml 70 mL Isovue 350- low osmolar. RENAL FUNCTION: NO LABS. LIMITATIONS: None. FINDINGS: [place]: The anterior, middle, posterior cerebral arteries are all patent. No ev idence of aneurysm or focal stenosis. POSTERIOR CIRCULATION: The distal vertebral arteries are patent as is the basilar artery. No aneurysm . BRAIN: No gross enhancing lesions as visualized. The superior cerebral hemispheres are not included in the field of view. BONES: Intact as visualized. SINUSES: No fluid or mucosal thickening. OTHER: No other significant finding. AORTIC ARCH: Normal three-vessel origin. Bilateral subclavian arteries are patent. No dissection. RIGHT CAROTIDS: Patent common, internal and external carotid arteries without suggestion of significa nt stenosis or irregular plaque. Noted is a retropharyngeal course of the right internal carotid art jacob. No dissection. RIGHT VERTEBRAL: Patent. No dissection. LEFT CAROTIDS: Patent common, internal and external carotid arteries without suggestion of significan t stenosis or irregular plaque. No dissection. LEFT VERTEBRAL: Patent. No dissection. OTHER: Patulous esophagus containing an air-fluid level. OTHER: 3-D reconstructions confirm findings. IMPRESSION: NORMAL CTA OF THE HEAD AND NECK. PATULOUS ESOPHAGUS CONTAINING AN AIR-FLUID LEVEL, WHICH POTENTIALLY POSES AN ASPIRATION RISK. COMMENT: Quality ID #[id number]: Measurements of distal internal carotid diameter were used as the denomina tor for stenosis measurement. TECHNICAL DOCUMENTATION: JOB ID: [id number] Quality ID # 436: Final reports with documentation of one or more dose reduction techniques (e.g., Au tomated exposure control, adjustment of the mA and/or kV according to patient size, use of iterative reconstruction technique) 2010 [employer]- All Rights Reserved Reading location - IP/workstation name: [email or web address]
--- NOTE | 2019-04-07 18:57 | RADIOLOGY REPORT (SQ) ---
EXAM DESCRIPTION: CTA HEAD; CTA NECK COMPLETED DATE/TIME: 04/07/2019 6:34 pm REASON FOR STUDY: stroke deficits COMPARISON: None. TECHNIQUE: Axial dynamic scanning technique with dynamic contrast enhancement through the extra-coke crane operator nial carotid and vertebral arteries. Multiplanar reconstruction. 3-D MIPS and Volume-rendered imag es acquired at the workstation and saved to PACS. Images are reviewed in soft tissue, bone, lung w indows. All CT scanners at this facility use dose modulation, iterative reconstruction, and/or weight based d osing when appropriate to reduce radiation dose to as low as reasonably achievable (ALARA). [facility]: Dose Right [facility]: CareDose [facility]: Dose Right [facility]: Teradose 4D [facility]: [employer] CONTRAST TYPE AND DOSE: contrast/concentration: Isovue 350.00 mg/ml; Total Contrast Delivered: 70.0 ml; Total Saline Delivered: 33.0 ml 70 mL Isovue 350- low osmolar. RENAL FUNCTION: NO LABS. LIMITATIONS: None. FINDINGS: [place]: The anterior, middle, posterior cerebral arteries are all patent. No ev idence of aneurysm or focal stenosis. POSTERIOR CIRCULATION: The distal vertebral arteries are patent as is the basilar artery. No aneurysm . BRAIN: No gross enhancing lesions as visualized. The superior cerebral hemispheres are not included in the field of view. BONES: Intact as visualized. SINUSES: No fluid or mucosal thickening. OTHER: No other significant finding. AORTIC ARCH: Normal three-vessel origin. Bilateral subclavian arteries are patent. No dissection. RIGHT CAROTIDS: Patent common, internal and external carotid arteries without suggestion of significa nt stenosis or irregular plaque. Noted is a retropharyngeal course of the right internal carotid art jacob. No dissection. RIGHT VERTEBRAL: Patent. No dissection. LEFT CAROTIDS: Patent common, internal and external carotid arteries without suggestion of significan t stenosis or irregular plaque. No dissection. LEFT VERTEBRAL: Patent. No dissection. OTHER: Patulous esophagus containing an air-fluid level. OTHER: 3-D reconstructions confirm findings. IMPRESSION: NORMAL CTA OF THE HEAD AND NECK. PATULOUS ESOPHAGUS CONTAINING AN AIR-FLUID LEVEL, WHICH POTENTIALLY POSES AN ASPIRATION RISK. COMMENT: Quality ID #195: Measurements of distal internal carotid diameter were used as the denomina tor for stenosis measurement. TECHNICAL DOCUMENTATION: JOB ID: [id number] Quality ID # 436: Final reports with documentation of one or more dose reduction techniques (e.g., Au tomated exposure control, adjustment of the mA and/or kV according to patient size, use of iterative reconstruction technique) 2010 [employer]- All Rights Reserved Reading location - IP/workstation name: [email or web address]
--- NOTE | 2019-04-07 19:06 | RADIOLOGY REPORT (SQ) ---
EXAM DESCRIPTION: WRIST LEFT 2 VIEWS COMPLETED DATE/TIME: 04/07/2019 6:48 pm REASON FOR STUDY: blunt injury skin tears COMPARISON: None. NUMBER OF VIEWS: Three views. TECHNIQUE: AP, lateral, and oblique radiographic images acquired of the left wrist. LIMITATIONS: None. FINDINGS: MINERALIZATION: Normal. BONES: Scapholunate dissociation. Radioscaphoid degenerative changes. Normal scaphoid capitate Carp al chondrocalcinosis with involvement of the TFCC and scapholunate ligament. No dorsal or volar inte rcalated segment instability. Osteoarthritic degenerate changes along the 1st ray. No acute fractur e. SOFT TISSUES: No soft tissue swelling. No foreign body. OTHER: No other significant finding. IMPRESSION: No acute osseous abnormality of the left wrist. 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 TECHNICAL DOCUMENTATION: JOB ID: [id number] [employer]- All Rights Reserved Reading location - IP/workstation name: [email or web address]
--- NOTE | 2019-04-07 19:08 | RADIOLOGY REPORT (SQ) ---
EXAM DESCRIPTION: ELBOW LEFT OVER 2 VIEWS COMPLETED DATE/TIME: 04/07/2019 6:48 pm REASON FOR STUDY: skin tears blunt trauma COMPARISON: None. NUMBER OF VIEWS: Four views. TECHNIQUE: AP, lateral, and both oblique radiographic images acquired of the left elbow. LIMITATIONS: None. FINDINGS: MINERALIZATION: Normal. BONES: No acute fracture or dislocation. No worrisome bone lesions. JOINT: No effusion. SOFT TISSUES: No soft tissue swelling. No foreign body. OTHER: No other significant finding. IMPRESSION: No acute osseous abnormality of the left elbow. TECHNICAL DOCUMENTATION: JOB ID: [id number] [employer]- All Rights Reserved Reading location - IP/workstation name: [email or web address]
--- NOTE | 2019-04-07 19:09 | RADIOLOGY REPORT (SQ) ---
EXAM DESCRIPTION: SHOULDER LEFT 2 OR MORE VIEWS COMPLETED DATE/TIME: 04/07/2019 6:48 pm REASON FOR STUDY: blunt injury COMPARISON: Left shoulder radiographs 06/10/2018 NUMBER OF VIEWS: Three views. TECHNIQUE: Internal rotation, external rotation, and Y view images acquired of the left shoulder. LIMITATIONS: None. FINDINGS: MINERALIZATION: Normal. BONES: Left shoulder arthroplasty hardware without evidence of hardware complication. No acute fract ure. No worrisome bone lesions. JOINTS: No dislocation. VISUALIZED LUNGS AND RIBS: No pneumothorax. No rib fracture. SOFT TISSUES: No radiopaque foreign body. OTHER: No other significant finding. IMPRESSION: No acute osseous abnormality of the left shoulder. TECHNICAL DOCUMENTATION: JOB ID: [id number] [employer]- All Rights Reserved Reading location - IP/workstation name: [email or web address]
[2019-04-07] MEDS ORDERED: BACITRACIN ZINC OINTMENT 15 GM TP ONE (21:27)
[2019-04-07] MEDS ORDERED: ACETAMINOPHEN 325 MG TABLET PO ONE (21:32)
[2019-04-07] MEDS ORDERED: BACITRACIN ZINC OINTMENT 15 GM ONE (22:28)
[2019-04-07] MEDS ORDERED: LIDOCAINE 4%/TETRACAINE 0.5%/EPI 0.18% 5 ML TOPICAL SOLN TOP ONE (23:15)
[2019-04-07] MEDS ORDERED: LIDOCAINE 4% TRANSPARENT DRESSING 5 GM KIT TP ONE (23:18)
--- NOTE | 2019-04-07 23:20 | RADIOLOGY REPORT (SQ) ---
EXAM DESCRIPTION: MR BRAIN WITHOUT IV CONTRAST COMPLETED DATE/TME: 04/07/2019 19:15 CLINICAL HISTORY: 78 years, Female, left deficits COMPARISON: CT 04/07/2019 TECHNIQUE: 307 Images stored on PACS. LIMITATIONS: None. FINDINGS: Motion artifact degrades image quality. Sagittal midline anatomic structures are significantly limited due to motion. The globes appear intact. The paranasal sinuses and mastoid air cells are grossly unremarkable. As visualized appears normal flow void in the intracranial vessels. Cranial nerve complex these are unremarkable. No gross evidence for intra or extra-axial hemorrhage. Diffusion-weighted images show a small focus of diffusion restriction in the medial right occipital lobe measuring 7 x 7 mm. This does appear to show low signal on ADC map consistent with small focus of acute lacunar infarct. No large or territorial acute infarct. No evidence for mass or midline shift. Diffuse atrophy. T2/flair hyperintensities in the white matter consistent with sequelae of small vessel ischemic change.. IMPRESSION: Limited due to motion. Acute lacunar infarct in the medial right occipital region as above. Atrophy. Small vessel ischemic change. copyright 2010 [employer]- All Rights Reserved
[2019-04-08] MEDS ORDERED: BACITRACIN ZINC OINTMENT 15 GM TP ONE (02:31)
[2019-04-08 03:12] LABS: APPEARANCE,URINE CLEAR; BILIRUBIN,URINE NEGATIVE (NEGATIVE); COLOR,URINE YELLOW; GLUCOSE, URINE NEGATIVE (NEGATIVE); KETONES,URINE NEGATIVE (NEGATIVE); LEUKOCYTE ESTERASE,URINE TRACE (NEGATIVE); NITRITE,URINE NEGATIVE (NEGATIVE); PROTEIN,URINE NEGATIVE (NEGATIVE); URINE SPECIFIC GRAVITY 1.023; UROBILINOGEN,URINE NEGATIVE mg/dL (<2.0)
[2019-04-08] MEDS ORDERED: ACETAMINOPHEN 650 MG SUPP.RECT PR PRN (03:23)
[2019-04-08] MEDS ORDERED: ONDANSETRON HCL INJ/PF 4 MG/2 ML SDV IV PRN (03:23)
[2019-04-08] MEDS ORDERED: RINGERS SOLUTION,LACTATED 1,000 ML IV PRN (03:23)
[2019-04-08] MEDS ORDERED: HYDRALAZINE HCL INJ/PF 20 MG/1 ML SDV IV PRN (03:26)
[2019-04-08] MEDS ORDERED: METOPROLOL TARTRATE PF/INJ 5 MG/5 ML SDV IV PRN (03:26)
[2019-04-08] MEDS ORDERED: LORAZEPAM INJ 2 MG/1 ML VIAL IV PRN (03:30)
[2019-04-08] MEDS ORDERED: MELATONIN 3 MG TABLET PO SCH (03:30)
[2019-04-08] MEDS: LEVETIRACETAM 1000 MG/NACL-ISO 1,000 MG/100 ML RTUPB IV SCH ×2 (06:12→23:29)
[2019-04-08] MEDS: HEPARIN SOD (PORCINE) 5,000 UNIT/ML 1 ML VIAL SUBCUT SCH ×2 (06:13→23:46)
[2019-04-08] MEDS: ACETAMINOPHEN 325 MG TABLET PO PRN ×2 (06:13→17:04)
--- NOTE | 2019-04-08 06:32 | PDOC H&P ---
History of Present Illness Admission Date/PCP: 04/08/2019 02:58 RAYNA HEBERT MD Patient complains of: Left-sided weakness History of Present Illness: BHARATH JORDAN is a 78 year old female who presented emergency room via EMS with acute left-sided weakness. Patient has dementia and is unable to contribute to her medical history. Patient's son reports that while they were eating at the [facility] today she began acting as though she was very confused and he noted that she markedly increased left-sided weakness when she tried to ambulate. He did manage to get her in the car and into the house upon their ret urn home. A short time later her left-sided weakness and increased persisted and she was unable to get out of the bathroom. EMS was called and she was noted by one observer to have a short period of possible rapid eye movement consistent with a focal seizure. After arrival in the emergency room the patient was found to have an acute right lacunar infarct on MRI. She was subsequently admitted to the [facility] on the stroke protocol. Past Medical History Past Medical History: Due to the patient's dementia she is unable to contribute to her past medical history, past surgical history, social history and family medical history. The information provided in this document is obtained from the best available reliable source at the time of my evaluation. Cardiac Medical History: Reports: Atrial Fibrillation, Coronary Artery Disease, Hyperlipidema, Hypertension Pulmonary Medical History: Reports: Bronchitis, Sleep Apnea EENT Medical History: Denies: Cataracts, Ears - Hearing aids Neurological Medical History: Reports: Ischemic CVA, Seizures Denies: Hemorrhagic CVA Endocrine Medical History: Denies: Diabetes Mellitus Type 1, Diabetes Mellitus Type 2, Hyperthyroidism, Hypothyroidism Renal/ Medical History: Denies: Chronic Kidney Disease, Nephrolithiasis Malignancy Medical History: Reports: None GI Medical History: Reports: Gastroesophageal Reflux Disease, Other - gastrointestinal hemorrhage Denies: Cirrhosis, Hepatitis Musculoskeltal Medical History: Reports: Arthritis - Rheumatoid Denies: Gout Skin Medical History: Denies: Eczema, Psoriasis Psychiatric Medical History: Reports: Dementia, Depression Denies: Alcohol Dependency, Substance Abuse, Tobacco Dependency Traumatic Medical History: Reports: None Hematology: Reports: Anemia, Bleeding Tendencies - GI bleeding Infectious Medical History: Reports: None Past Surgical History Past Surgical History: Due to the patient's dementia she is unable to contribute to her past medical history, past surgical history, social history and family medical history. The information provided in this document is obtained from the best available reliable source at the time of my evaluation. Past Surgical History: Reports: Cholecystectomy, Orthopedic Surgery - right hip, right knee, Tonsillectomy Social History Information Source: COUNTS INCLUDE 234 BEDS AT THE [facility] Records Lives with: Family Smoking Status: Never Smoker Electronic Cigarette use?: No Frequency of Alcohol Use: None Hx Recreational Drug Use: No Drugs: None Hx Prescription Drug Abuse: No Past Social History Note: Due to the patient's dementia she is unable to contribute to her past medical h istory, past surgical history, social history and family medical history. The information provided in this document is obtained from the best available reliable source at the time of my evaluation. - Advance Directive Resuscitation Status: Full Code Surrogate healthcare decision maker:: Anita Wilson Family History Family History: CAD, Hypertension Family History: Due to the patient's dementia she is unable to contribute to her past medical history, past surgical history, social history and family medical history. The information provided in this document is obtained from the best available reliable source at the time of my evaluation. Parental Family History Reviewed: Yes Children Family History Reviewed: No Sibling(s) Family History Reviewed.: Yes Medication/Allergy Home Medications: Aspirin [Aspirin EC] 81 mg PO DAILY 03/13/17 Atorvastatin Calcium [Lipitor 20 mg Tablet] 20 mg PO DAILY 03/13/17 Donepezil HCl [Aricept 5 mg Tablet] 10 mg PO QHS 03/13/17 Duloxetine HCl [Cymbalta] 60 mg PO DAILY 03/13/17 Furosemide [Lasix 20 mg Tablet] 20 mg PO DAILY 03/13/17 Hydroxyzine HCl 25 mg PO QHS 03/13/17 Levetiracetam [Keppra 500 mg Tablet] 500 mg PO Q12 03/13/17 Memantine HCl [Namenda 10 mg Tablet] 10 mg PO DAILY 03/13/17 Pantoprazole Sodium 40 mg PO DAILY 03/13/17 Potassium Chloride [Klor-Con 10 Meq Tablet ER] 10 meq PO DAILY 03/13/17 Quetiapine Fumarate [Seroquel 25 mg Tablet] 25 mg PO QHS 03/13/17 Polyethylene Glycol 3350 [Miralax Powder 17 gm/Packet] 17 gm PO DAILYP PRN 09/23/17 Tolterodine Tartrate [Tolterodine Tartrate ER] 4 mg PO DAILY 09/23/17 Mirabegron [Myrbetriq] 25 mg PO DAILY 06/10/18 Cholestyramine (with Sugar) [Cholestyramine Packet] 4 gm PO BID 06/11/18 Nitroglycerin [Nitrostat 0.4 mg (1/150 Gr) Tabs 25/Bottle] 1 tab SL Q5MP PRN 06/11/18 Allergies/Adverse Reactions: amoxicillin Allergy (Verified 06/11/18 16:20) cephalexin [From Keflex] Allergy (Verified 06/11/18 16:20) Itching and Rash morphine Allergy (Verified 06/11/18 16:20) Penicillins Allergy (Verified 06/11/18 16:20) Review of Systems ROS unobtainable: Due to mental status - Dementia Physical Exam Vital Signs: Temp Pulse Resp BP Pulse Ox 15 144/92 H 100 04/07/19 21:02 04/07/19 21:02 04/07/19 21:02 Intake & Output 04/06/19 04/07/19 04/08/19 23:59 23:59 23:59 Intake Total 100 Balance 100 General appearance: PRESENT: no acute distress, cooperative Head exam: PRESENT: atraumatic, normocephalic Eye exam: PRESENT: conjunctiva pink. ABSENT: conjunctival injection, scleral icterus Ear exam: PRESENT: normal external ear exam. ABSENT: bleeding, drainage Mouth exam: PRESENT: dry mucosa, neck supple Neck exam: ABSENT: thyromegaly, tracheal deviation Respiratory exam: PRESENT: clear to auscultation sabina, symmetrical, unlabored Cardiovascular exam: PRESENT: RRR. ABSENT: clicks, gallop, rubs Pulses: PRESENT: normal radial pulses, normal dorsalis pedis pul Vascular exam: PRESENT: normal capillary refill. ABSENT: pallor GI/Abdominal exam: PRESENT: normal bowel sounds, soft Rectal exam: PRESENT: deferred Extremities exam: ABSENT: pedal edema, tenderness Musculoskeletal exam: ABSENT: deformity, dislocation Neurological exam: PRESENT: altered - Confused, CN II-XII grossly intact - Minimal left facial weakness, central seventh facial nerve distribution, motor sensory deficit - Minimal left-sided weakness affecting both upper and lower extremity, other - Calm Psychiatric exam: PRESENT: flat affect, other - Calm but withdrawn Skin exam: PRESENT: dry, skin tears - Large skin tear of the left forearm, warm. ABSENT: jaundice, rash, urticaria Results Laboratory Results: 04/07/19 17:54 04/07/19 17:54 04/07/19 04/07/19 17:54 17:54 WBC 6.9 RBC 3.73 Hgb 9.5 L Hct 30.2 L MCV 81 MCH 25.6 L MCHC 31.6 L RDW 16.6 H Plt Count 427 Seg Neutrophils % 77.9 Sodium 138.5 Potassium 4.5 Chloride 100 Carbon Dioxide 27 Anion Gap 12 BUN 20 Creatinine 1.01 Est GFR ( Amer) > 60 Glucose 122 H Calcium 9.4 Total Bilirubin 0.6 AST 29 Alkaline Phosphatase 127 H Total Protein 7.9 Albumin 4.2 04/07/19 04/07/19 17:54 17:54 Creatine Kinase 61 CK-MB (CK-2) 0.62 Troponin I < 0.012 Impressions: Chest X-Ray 04/07/19 00:00 IMPRESSION: Unchanged chest. No acute pulmonary findings. Head CT 04/07/19 00:00 IMPRESSION: No acute intracranial findings. Similar background chronic small vessel ischemic changes. EVIDENCE OF ACUTE STROKE: NO. Head CTA 04/07/19 18:03 IMPRESSION: NORMAL CTA OF THE HEAD AND NECK. PATULOUS ESOPHAGUS CONTAINING AN AIR-FLUID LEVEL, WHICH POTENTIALLY POSES AN ASPIRATION RISK. Neck CTA 04/07/19 18:03 IMPRESSION: NORMAL CTA OF THE HEAD AND NECK. PATULOUS ESOPHAGUS CONTAINING AN AIR-FLUID LEVEL, WHICH POTENTIALLY POSES AN ASPIRATION RISK. Elbow X-Ray 04/07/19 18:18 IMPRESSION: No acute osseous abnormality of the left elbow. Wrist X-Ray 04/07/19 18:19 IMPRESSION: No acute osseous abnormality of the left wrist. 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 Shoulder X-Ray 04/07/19 18:20 IMPRESSION: No acute osseous abnormality of the left shoulder. Head MRI 04/07/19 19:15 IMPRESSION: Limited due to motion. Acute lacunar infarct in the medial right occipital region as above. Atrophy. Small vessel ischemic change. copyright 2010 [employer]- All Rights Reserved Assessment and Plan - Diagnosis (1) CVA (cerebral vascular accident) Qualifiers: CVA mechanism: occlusion Precerebral and cerebral artery: middle cerebral artery Laterality of affected vessel: right Qualified Code(s): I63.511 - Cerebral infarction due to unspecified occlusion or stenosis of right middle cerebral artery Is this a current diagnosis for this admission?: Yes (2) Seizure disorder Is this a current diagnosis for this admission?: Yes (3) Ambulatory dysfunction Is this a current diagnosis for this admission?: Yes (4) Hypertension Qualifiers: Hypertension type: essential hypertension Qualified Code(s): I10 - Essential (primary) hypertension Is this a current diagnosis for this admission?: Yes (5) Dementia Qualifiers: Dementia type: vascular dementia Dementia behavioral disturbance: without behavioral disturbance Qualified Code(s): F01.50 - Vascular dementia without behavioral disturbance Is this a current diagnosis for this admission?: Yes (6) [place] (obstructive sleep apnea) Is this a current diagnosis for this admission?: Yes (7) Rheumatoid arthritis Qualifiers: Rheumatoid arthritis location: unspecified site Rheumatoid factor presence: unspecified presence Qualified Code(s): M06.9 - Rheumatoid arthritis, unspecified Is this a current diagnosis for this admission?: Yes (8) Paroxysmal atrial fibrillation Is this a current diagnosis for this admission?: Yes - Plan Summary Summary: Patient is admitted to the stroke protocol on the [facility] unit where she will receive routine supportive and symptomatic cares. She will be evaluated by the stroke team including the stroke nurse, PT, OT, speech therapy, psychologist social and the registered dietitian. Because of her history of GI bleeding she would be at high risk for treatment although she may well tolerate treatment with aspirin and/or Plavix. A neurology tele-consultation could be obtained to evaluate and recommend treatment. In the interim she will receive maintenance IV fluids and her blood pressure will be controlled less than 160 systolic and 100 diastolic utilizing IV hydralazine and/or metoprolol. Heart rate will be controlled to less than 120 utilizing IV metoprolol. Patient's seizure disorder will be treated with IV Keppra. She will be n.p.o. until evaluated by speech therapy. - Time Time Spent with patient: Less than 15 minutes Medications reviewed and adjusted accordingly: Yes Anticipated discharge: SNF - Inpatient Certification Based on my medical assessment, after consideration of the patient's comorbidities, presenting symptoms, or acuity I expect that the services needed warrant INPATIENT care.: Yes I certify that my determination is in accordance with my understanding of Medicare's requirements for reasonable and necessary INPATIENT services [42 CFR 412.3e].: Yes Medical Necessity: Significant Comorbidiites Make Outpatient Treatment Too Risky, Need Close Monitoring Due to Risk of Patient Decompensation, Need For IV Fluids, Need For Continuous Telemetry Monitoring, Need for Neurological Checks, Risk of Complication if Not Cared For in Hospital
[2019-04-08] MEDS: FAMOTIDINE INJ/PF 20 MG/2 ML SDV IV SCH ×2 (17:04→22:15)
--- NOTE | 2019-04-08 18:20 | Progress Note ---
Provider Note Provider Note: 04/08/2019 Was seen briefly today even though she was admitted after midnight last night. No obvious left-sided weakness Patient appears to be medically stable I DC'd her heparin and placed her on Plavix Repeat labs in the morning potentially DC to home in the morning
--- NOTE | 2019-04-08 19:28 | EKG REPORT ---
SEVERITY:- ABNORMAL ECG - SINUS RHYTHM VENTRICULAR PREMATURE COMPLEX FIRST DEGREE AV BLOCK PROBABLE POSTERIOR INFARCT BORDERLINE PROLONGED QT INTERVAL : Confirmed by: Joanna Barnes MD 08-Apr-2019 19:28:17
[2019-04-08] MEDS ORDERED: LEVETIRACETAM 1000 MG/NACL-ISO 1,000 MG/100 ML RTUPB IV ONE (23:30)
[2019-04-09 05:26] LABS: ABSOLUTE BASOPHILS # (AUTO) 0.1 10^3/uL (0.0-0.2); ABSOLUTE EOSINOPHILS # (AUTO) 0.3 10^3/uL (0.0-0.6); ABSOLUTE MONOCYTES (AUTO) 0.7 10^3/uL (0.1-1.4); ABSOLUTE NEUT (AUTO) 2.8 10^3/uL (1.7-8.2); BASOPHILS % (AUTO) 1.2 % (0-2); EOSINOPHILS % (AUTO) 5.9 % (0-6); HEMATOCRIT 23.8 % (36.0-47.0); LYMPHOCYTES % (AUTO) 21.3 % (13-45); MEAN CORPUSCULAR HEMOGLOBIN 26.2 pg (27.0-33.4); MEAN CORPUSCULAR HGB CONC 33.1 g/dL (32.0-36.0); MEAN CORPUSCULAR VOLUME 79 fl (80-97); MONOCYTES % (AUTO) 13.8 % (3-13); PLATELET COUNT 321 10^3/uL (150-450); RED BLOOD COUNT 3.01 10^6/uL (3.72-5.28); RED CELL DISTRIBUTION WIDTH 16.4 % (11.5-14.0); SEGMENTED NEUTROPHILS % (AUTO) 57.8 % (42-78); TOTAL CELLS COUNTED % (AUTO) 100 %; WHITE BLOOD COUNT 4.9 10^3/uL (4.0-10.5)
[2019-04-09 05:27] LABS: INTERNATIONAL RATION (INR) 1.06; PROTHROMBIN TIME 13.8 SEC (11.4-15.4)
[2019-04-09 05:31] LABS: HEMOGLOBIN 7.9 g/dL (12.0-15.5)
[2019-04-09 05:47] LABS: ANION GAP 7 (5-19); BLOOD UREA NITROGEN 12 mg/dL (7-20); CALCIUM 8.7 mg/dL (8.4-10.2); CARBON DIOXIDE 25 mmol/L (22-30); CHLORIDE 106 mmol/L (98-107); GLUCOSE 95 mg/dL (75-110)
[2019-04-09] MEDS ORDERED: LEVETIRACETAM 1000 MG/NACL-ISO 1,000 MG/100 ML RTUPB IV SCH (10:00)
[2019-04-09] MEDS ORDERED: CLOPIDOGREL BISULFATE 75 MG TABLET PO SCH (10:00)
[2019-04-09] MEDS: FAMOTIDINE INJ/PF 20 MG/2 ML SDV IV SCH (10:53)
[2019-04-09 11:48] VITALS: BP 132/70
--- NOTE | 2019-04-09 16:10 | PDOC DISCHARGE SUMMARY ---
Impression - Admit/DC Date/PCP Admission Date/Primary Care Provider: 04/08/19 03:00 RAYNA HEBERT Discharge Date: 04/09/19 - Assessment Summary: Patient is admitted to the stroke protocol on the [facility] unit where she will rece ella routine supportive and symptomatic cares. She will be evaluated by the stroke team including the stroke nurse, PT, OT, speech therapy, social service assistant and the registered dietitian. Because of her history of GI bleeding she would be at high risk for treatment although she may well tolerate treatment with aspirin and/or Plavix. A neurology tele-consultation could be obtained to evaluate and recommend treatment. In the interim she will receive maintenance IV fluids and her blood pressure will be controlled less than 160 systolic and 100 diastolic utilizing IV hydralazine and/or metoprolol. Heart rate will be controlled to less than 120 utilizing IV metoprolol. Patient's seizure disorder will be treated with IV Keppra. She will be n.p.o. until evaluated by speech therapy. 04/09/2019 Patient was admitted to the hospital late last night for left-sided weakness. She was put in under observation status for an apparent left sided CVA. Patient has been admitted to the hospital several times this year for previous strokes as well as previous falls. Appears to be a new right lacunar infarct based on MRI. Patient had a history of a GI bleed back in June and therefore it was co ncerning about treatment involving aspirin or Plavix and so forth. Patient was put on heparin prophylactically for DVTs, had no evidence of bleeding. On yesterday I stop the heparin and instead placed her on Plavix 75 mg daily. Fact according to patient's medications that she was taking before coming to the hospital she was already taking aspirin 81 mg. Therefore one has to assume that patient had failed with aspirin therapy and Plavix needed to be added. The time of discharge patient has a skin tear to her left forearm which does not appear to be infected. He was instructed how to do dressing changes for this. He was instructed to call her primary care provider tomorrow for follow-up appointment next week. Patient had no weakness to her face nor her left side of her body. All of this had resolved. She was sitting up in bed talking laughing and in no distress. - Additional Information Resuscitation Status: Full Code Discharge Diet: As Tolerated Discharge Activity: Balance Activity w/Rest Referrals: RAYNA HEBERT MD [Primary Care Provider] - Follow up as needed Prescriptions: Clopidogrel Bisulfate [Plavix 75 mg Tablet] 75 mg PO DAILY 30 Days #30 tablet Home Medications: Aspirin [Aspirin EC] 81 mg PO DAILY 03/13/17 Atorvastatin Calcium [Lipitor 20 mg Tablet] 20 mg PO DAILY 03/13/17 Donepezil HCl [Aricept 5 mg Tablet] 10 mg PO QHS 03/13/17 Duloxetine HCl [Cymbalta] 60 mg PO DAILY 03/13/17 Furosemide [Lasix 20 mg Tablet] 20 mg PO DAILY 03/13/17 Hydroxyzine HCl 25 mg PO QHS 03/13/17 Levetiracetam [Keppra 500 mg Tablet] 500 mg PO Q12 03/13/17 Memantine HCl [Namenda 10 mg Tablet] 10 mg PO DAILY 03/13/17 Pantoprazole Sodium 40 mg PO DAILY 03/13/17 Potassium Chloride [Klor-Con 10 Meq Tablet ER] 10 meq PO DAILY 03/13/17 Quetiapine Fumarate [Seroquel 25 mg Tablet] 25 mg PO QHS 03/13/17 Tolterodine Tartrate [Tolterodine Tartrate ER] 4 mg PO DAILY 09/23/17 Mirabegron [Myrbetriq] 25 mg PO DAILY 06/10/18 Cholecalciferol (Vitamin D3) [Vitamin D3] 4,000 unit PO DAILY 04/08/19 Gabapentin [Neurontin 100 mg Capsule] 100 mg PO Q12 04/08/19 Metoprolol Succinate [Toprol Xl 25 mg Tab.sr] 12.5 mg PO DAILY 04/08/19 Clopidogrel Bisulfate [Plavix 75 mg Tablet] 75 mg PO DAILY 30 Days #30 tablet 04/09/19 History of Present Illiness History of Present Illness: BHARATH JORDAN is a 78 year old female Physical Exam Vital Signs: Temp Pulse Resp BP Pulse Ox 98.2 F 73 18 132/70 H 97 04/09/19 11:41 04/09/19 11:41 04/09/19 11:41 04/09/19 11:41 04/09/19 11:41 Intake & Output 04/08/19 04/09/19 04/10/19 06:59 06:59 06:59 Intake Total 559 092 9435 Output Total 50 Balance 200 651 8832 Weight 71.6 kg 70.2 kg Results Laboratory Results: WBC 4.9 10^3/uL (4.0-10.5) 04/09/19 05:05 RBC 3.01 10^6/uL (3.72-5.28) L 04/09/19 05:05 Hgb 7.9 g/dL (12.0-15.5) L 04/09/19 05:05 Hct 23.8 % (36.0-47.0) L 04/09/19 05:05 MCV 79 fl (80-97) L 04/09/19 05:05 MCH 26.2 pg (27.0-33.4) L 04/09/19 05:05 MCHC 33.1 g/dL (32.0-36.0) 04/09/19 05:05 RDW 16.4 % (11.5-14.0) H 04/09/19 05:05 Plt Count 321 10^3/uL (150-450) 04/09/19 05:05 Lymph % (Auto) 21.3 % (13-45) 04/09/19 05:05 King % (Auto) 13.8 % (3-13) H 04/09/19 05:05 Eos % (Auto) 5.9 % (0-6) 04/09/19 05:05 Baso % (Auto) 1.2 % (0-2) 04/09/19 05:05 Absolute Neuts (auto) 2.8 10^3/uL (1.7-8.2) 04/09/19 05:05 Absolute Lymphs (auto) 1.0 10^3/uL (0.5-4.7) 04/09/19 05:05 Absolute Monos (auto) 0.7 10^3/uL (0.1-1.4) 04/09/19 05:05 Absolute Eos (auto) 0.3 10^3/uL (0.0-0.6) 04/09/19 05:05 Absolute Basos (auto) 0.1 10^3/uL (0.0-0.2) 04/09/19 05:05 Seg Neutrophils % 57.8 % (42-78) 04/09/19 05:05 PT 13.8 SEC (11.4-15.4) 04/09/19 05:05 INR 1.06 04/09/19 05:05 APTT 27.5 SEC (23.5-35.8) 04/07/19 17:54 Sodium 138.0 mmol/L (137-145) 04/09/19 05:05 Potassium 4.0 mmol/L (3.6-5.0) 04/09/19 05:05 Chloride 106 mmol/L (98-107) 04/09/19 05:05 Carbon Dioxide 25 mmol/L (22-30) 04/09/19 05:05 Anion Gap 7 (5-19) 04/09/19 05:05 BUN 12 mg/dL (7-20) 04/09/19 05:05 Creatinine 0.87 mg/dL (0.52-1.25) 04/09/19 05:05 Est GFR ( Amer) > 60 (>60) 04/09/19 05:05 Est GFR (MDRD) Non-Af > 60 (>60) 04/09/19 05:05 Glucose 95 mg/dL (75-110) 04/09/19 05:05 Calcium 8.7 mg/dL (8.4-10.2) 04/09/19 05:05 Total Bilirubin 0.6 mg/dL (0.2-1.3) 04/07/19 17:54 Direct Bilirubin 0.2 mg/dL (0.0-0.4) 04/07/19 17:54 Neonat Total Bilirubin Not Reportable 04/07/19 17:54 Neonat Direct Bilirubin Not Reportable 04/07/19 17:54 Neonat Indirect Bili Not Reportable 04/07/19 17:54 AST 29 U/L (14-36) 04/07/19 17:54 ALT 12 U/L (<35) 04/07/19 17:54 Alkaline Phosphatase 127 U/L (38-126) H 04/07/19 17:54 Creatine Kinase 61 U/L (30-135) 04/07/19 17:54 CK-MB (CK-2) 0.62 ng/mL (<4.55) 04/07/19 17:54 Troponin I < 0.012 ng/mL 04/07/19 17:54 Total Protein 7.9 g/dL (6.3-8.2) 04/07/19 17:54 Albumin 4.2 g/dL (3.5-5.0) 04/07/19 17:54 Urine Color YELLOW 04/08/19 02:30 Urine Appearance CLEAR 04/08/19 02:30 Urine pH 7.0 (5.0-9.0) 04/08/19 02:30 Ur Specific [place] 1.023 04/08/19 02:30 Urine Protein NEGATIVE mg/dL (NEGATIVE) 04/08/19 02:30 Urine Glucose (UA) NEGATIVE mg/dL (NEGATIVE) 04/08/19 02:30 Urine Ketones NEGATIVE mg/dL (NEGATIVE) 04/08/19 02:30 Urine Blood NEGATIVE (NEGATIVE) 04/08/19 02:30 Urine Nitrite NEGATIVE (NEGATIVE) 04/08/19 02:30 Urine Bilirubin NEGATIVE (NEGATIVE) 04/08/19 02:30 Urine Urobilinogen NEGATIVE mg/dL (<2.0) 04/08/19 02:30 Ur Leukocyte Esterase TRACE (NEGATIVE) H 04/08/19 02:30 Urine WBC (Auto) 3 /HPF 04/08/19 02:30 Urine RBC (Auto) 1 /HPF 04/08/19 02:30 Urine Bacteria (Auto) TRACE /HPF 04/08/19 02:30 Squamous Epi Cells Auto 1 /HPF 04/08/19 02:30 Urine Mucus (Auto) RARE /LPF 04/08/19 02:30 Urine Ascorbic Acid NEGATIVE (NEGATIVE) 04/08/19 02:30 04/07/19 17:54 CK-MB (CK-2) 0.62 Troponin I < 0.012 Impressions: Chest X-Ray 04/07/19 00:00 IMPRESSION: Unchanged chest. No acute pulmonary findings. Head CT 04/07/19 00:00 IMPRESSION: No acute intracranial findings. Similar background chronic small vessel ischemic changes. EVIDENCE OF ACUTE STROKE: NO. Head CTA 04/07/19 18:03 IMPRESSION: NORMAL CTA OF THE HEAD AND NECK. PATULOUS ESOPHAGUS CONTAINING AN AIR-FLUID LEVEL, WHICH POTENTIALLY POSES AN ASPIRATION RISK. Neck CTA 04/07/19 18:03 IMPRESSION: NORMAL CTA OF THE HEAD AND NECK. PATULOUS ESOPHAGUS CONTAINING AN AIR-FLUID LEVEL, WHICH POTENTIALLY POSES AN ASPIRATION RISK. Elbow X-Ray 04/07/19 18:18 IMPRESSION: No acute osseous abnormality of the left elbow. Wrist X-Ray 04/07/19 18:19 IMPRESSION: No acute osseous abnormality of the left wrist. 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 Shoulder X-Ray 04/07/19 18:20 IMPRESSION: No acute osseous abnormality of the left shoulder. Head MRI 04/07/19 19:15 IMPRESSION: Limited due to motion. Acute lacunar infarct in the medial right occipital region as above. Atrophy. Small vessel ischemic change. copyright 2010 [employer] All Rights Reserved Stroke Is this a Stroke Patient?: Yes Stroke Pt being discharged on Anti-thrombolytic therapy?: Yes Stroke Pt being discharged on Anti-coagulation therapy?: Yes Stroke Pt being discharged on Statins?: Yes Acute Heart Failure - Is this a Heart Failure Patient?: No
== END 2019-04-09 13:26 | disposition home or self-care (01) | DRG 66 ==
LOC: ER 17:31 → EH 04-08 03:00 → 3W 04-08 08:13
PROVIDERS: ADMIT Emergency Medicine; ATTEND Emergency Medicine
DX: I63.511 Cerebral infarction due to unspecified occlusion or stenosis of right middle cerebral artery (principal); E78.00 Pure hypercholesterolemia, unspecified; I10 Essential (primary) hypertension; K21.9 Gastro-esophageal reflux disease without esophagitis; F03.90 Unspecified dementia, unspecified severity, without behavioral disturbance, psychotic disturbance, mood disturbance, and anxiety; I25.10 Atherosclerotic heart disease of native coronary artery without angina pectoris; S51.802A Unspecified open wound of left forearm, initial encounter; I48.0 Paroxysmal atrial fibrillation; G40.909 Epilepsy, unspecified, not intractable, without status epilepticus; M06.9 Rheumatoid arthritis, unspecified; Z79.82 Long term (current) use of aspirin; Z79.899 Other long term (current) drug therapy; Z88.1 Allergy status to other antibiotic agents; Z88.0 Allergy status to penicillin; Z88.8 Allergy status to other drugs, medicaments and biological substances
CPT/HCPCS: 36415; 70450; 70496; 70498; 70551; 71045; 80048; 80053; 80177; 81001; 82550; 82553; 84484; 85025; 85610; 85730; 93005; 93010; 96360; 99285; J1953; J3490; J7120; S0028

== ENCOUNTER 2019-05-25 10:45 | Inpatient (IN) | payer MEDICARE, OTHER ==
[2019-05-25] MEDS ORDERED: NORMAL SALINE 1000 ML 1,000 ML IV ONE (12:57)
[2019-05-25 13:06] LABS: ABSOLUTE EOSINOPHILS # (AUTO) 0.1 10^3/uL (0.0-0.6); ABSOLUTE MONOCYTES (AUTO) 0.6 10^3/uL (0.1-1.4); ABSOLUTE NEUT (AUTO) 5.5 10^3/uL (1.7-8.2); BASOPHILS % (AUTO) 0.6 % (0-2); EOSINOPHILS % (AUTO) 1.3 % (0-6); HEMATOCRIT 17.3 % (36.0-47.0); LYMPHOCYTES % (AUTO) 13.8 % (13-45); MEAN CORPUSCULAR HGB CONC 32.6 g/dL (32.0-36.0); MEAN CORPUSCULAR VOLUME 80 fl (80-97); MONOCYTES % (AUTO) 8.3 % (3-13); PLATELET COUNT 272 10^3/uL (150-450); RED BLOOD COUNT 2.18 10^6/uL (3.72-5.28); RED CELL DISTRIBUTION WIDTH 16.7 % (11.5-14.0); TOTAL CELLS COUNTED % (AUTO) 100 %; WHITE BLOOD COUNT 7.3 10^3/uL (4.0-10.5)
[2019-05-25 13:10] LABS: HEMOGLOBIN 5.7 g/dL (12.0-15.5)
[2019-05-25] MEDS ORDERED: NORMAL SALINE 250 ML IV PRN ×3 (13:12→16:22)
[2019-05-25 13:30] LABS: ALBUMIN 2.3 g/dL (3.5-5.0); ALKALINE PHOSPHATASE 65 U/L (38-126); ANION GAP 7 (5-19); ASPARTATE AMINO TRANSFERASE 17 U/L (14-36); BILIRUBIN,DIRECT 0.2 mg/dL (0.0-0.4); BILIRUBIN,TOTAL 0.3 mg/dL (0.2-1.3); BLOOD UREA NITROGEN 45 mg/dL (7-20); CALCIUM 7.4 mg/dL (8.4-10.2); CARBON DIOXIDE 21 mmol/L (22-30); CHLORIDE 111 mmol/L (98-107); GLUCOSE 75 mg/dL (75-110); POTASSIUM 4.2 mmol/L (3.6-5.0); TOTAL PROTEIN 5.1 g/dL (6.3-8.2)
--- NOTE | 2019-05-25 14:37 | ER Document Report ---
ED General - General Chief Complaint: Vomiting Stated Complaint: VOMITING Time Seen by Provider: 05/25/19 12:24 Primary Care Provider: RAYNA HEBERT MD [Primary Care Provider] - Follow up as needed Mode of Arrival: Ambulatory Information source: Patient TRAVEL OUTSIDE OF THE [place] IN LAST 30 DAYS: No - HPI Notes: Patient comes in and states that she had 2 episodes of vomiting blood yesterday and at that she has had some tarry stool for several days as well. She states she is also felt weak. She denies any significant pain. No shortness of breath. Her symptoms have been moderate. They have been intermittent. Nothing makes it better or worse. No known radiation of the symptoms. She is had no fevers. She has had previous GI bleeds but is unable to tell me the exact etiology. - Related Data Allergies/Adverse Reactions: amoxicillin Allergy (Verified 05/25/19 11:16) cephalexin [From Keflex] Allergy (Verified 05/25/19 11:16) Itching and Rash morphine Allergy (Verified 05/25/19 11:16) Penicillins Allergy (Verified 05/25/19 11:16) Past Medical History - General Information source: Patient - Social History Smoking Status: Never Smoker Frequency of alcohol use: None Drug Abuse: None Family History: CAD, Hypertension Patient has suicidal ideation: No Patient has homicidal ideation: No - Past Medical History Cardiac Medical History: Reports: Hx Atrial Fibrillation, Hx Coronary Artery Disease, Hx Hypercholesterolemia, Hx Hypertension Pulmonary Medical History: Reports: Hx Bronchitis, Hx Sleep Apnea Neurological Medical History: Reports: Hx Seizures Endocrine Medical History: Denies: Hx Diabetes Mellitus Type 1, Hx Diabetes Mellitus Type 2, Hx Hyperthyroidism, Hx Hypothyroidism Renal/ Medical History: Denies: Hx Peritoneal Dialysis GI Medical History: Reports: Hx Gastroesophageal Reflux Disease. Denies: Hx Cirrhosis, Hx Hepatitis Musculoskeletal Medical History: Reports Hx Arthritis - Rheumatoid, Denies Hx Gout Skin Medical History: Reports Hx Cellulitis, Denies Hx Eczema, Denies Hx Psoriasis Psychiatric Medical History: Reports: Hx Dementia, Hx Depression Traumatic Medical History: Reports: Hx Fractures - Femur Infectious Medical History: Denies: Hx Hepatitis Past Surgical History: Reports: Hx Cholecystectomy, Hx Orthopedic Surgery - right hip, right knee, Hx Tonsillectomy. Denies: Hx Hysterectomy - Immunizations Hx Diphtheria, Pertussis, Tetanus Vaccination: No Review of Systems - Review of Systems Constitutional: Malaise, Weakness. denies: Chills, Fever Cardiovascular: denies: Chest pain, Palpitations Respiratory: denies: Cough, Short of breath -: Yes All other systems reviewed and negative Physical Exam - Vital signs Vitals: Temp Pulse Resp BP Pulse Ox 99.0 F 86 16 107/47 L 100 05/25/19 11:14 05/25/19 11:14 05/25/19 11:14 05/25/19 11:14 05/25/19 11:14 Interpretation: Normal - General General appearance: Appears well, Alert - HEENT Head: Normocephalic, Atraumatic Eyes: Normal Pupils: PERRL - Respiratory Respiratory status: No respiratory distress Chest status: Nontender Breath sounds: Normal Chest palpation: Normal - Cardiovascular Rhythm: Regular Heart sounds: Normal auscultation Murmur: No - Abdominal Inspection: Normal Distension: No distension Bowel sounds: Normal Tenderness: Nontender Organomegaly: No organomegaly - Rectal Stool: Heme positive - Back Back: Normal, Nontender - Extremities General upper extremity: Normal inspection, Nontender, Normal color, Normal ROM, Normal temperature General lower extremity: Normal inspection, Nontender, Normal color, Normal ROM, Normal temperature, Normal weight bearing. No: Kathe's sign - Neurological Neuro grossly intact: Yes Cognition: Normal Orientation: AAOx4 [place] Coma Scale Eye Opening: Spontaneous [place] Coma Scale Verbal: Oriented [place] Coma Scale Motor: Obeys Commands [place] Coma Scale Total: 15 Speech: Normal Motor strength normal: LUE, RUE, LLE, RLE Sensory: Normal - Psychological Associated symptoms: Normal affect, Normal mood - Skin Skin Temperature: Warm Skin Moisture: Dry Skin Color: Pale Course - Re-evaluation Re-evalutation: 05/25/19 14:36 Patient presents with heme positive tarry stool and a history of vomiting blood yesterday. She is anemic with a hemoglobin of 5.6. She does have a previous history of GI bleeds. Patient will be admitted for further evaluation and endoscopy. - Vital Signs Vital signs: Temp Pulse Resp BP Pulse Ox 99.0 F 86 16 107/47 L 100 05/25/19 11:14 05/25/19 11:14 05/25/19 11:14 05/25/19 11:14 05/25/19 11:14 - Laboratory Result Diagrams: 05/25/19 12:35 05/25/19 12:35 Laboratory results interpreted by me: 05/25/19 05/25/19 05/25/19 12:35 12:35 12:35 RBC 2.18 L Hgb 5.7 L Hct 17.3 L MCH 26.0 L RDW 16.7 H Chloride 111 H Carbon Dioxide 21 L BUN 45 H Calcium 7.4 L Total Protein 5.1 L Albumin 2.3 L Crossmatch See Detail Critical Care Note - Critical Care Note Total time excluding time spent on procedures (mins): 50 Comments: Approximately 50 minutes of critical care time were spent managing this patient's GI bleed with severe anemia. This time were spent doing multiple reassessments. It was spent talking with multiple consultants. It was spent reviewing old records. It was spent reviewing laboratory values. Discharge - Discharge Clinical Impression: Upper GI bleed Anemia Qualifiers: Anemia type: iron deficiency Iron deficiency anemia type: unspecified iron deficiency Qualified Code(s): D50.9 - Iron deficiency anemia, unspecified Condition: Serious Disposition: ADMITTED INPATIENT Admitting Provider: Fozia (Hospitalist) Unit Admitted: Medical Floor Referrals: RAYNA HEBERT MD [Primary Care Provider] - Follow up as needed
[2019-05-25] MEDS ORDERED: FUROSEMIDE INJ/PF 20 MG/2 ML SDV IV PRN (16:22)
[2019-05-25 16:28] LABS: INTERNATIONAL RATION (INR) 1.13; PROTHROMBIN TIME 14.5 SEC (11.4-15.4)
[2019-05-25] MEDS ORDERED: PANTOPRAZOLE SODIUM 40 MG VIAL IV ONE ×2 (16:40→20:05)
--- NOTE | 2019-05-25 16:54 | PDOC H&P ---
History of Present Illness Admission Date/PCP: 05/25/19 15:10 RAYNA HEBERT Patient complains of: Hematemesis, fatigue History of Present Illness: BHARATH JORDAN is a 78 year old female with prior history of upper GI bleed, recent ischemic stroke [03/2019 with initial left-sided deficits which resolved by discharge] CAD, hypertension, dementia, who presents to the hospital after having a few episodes of hematemesis as well as melena. Patient endorses about 4 episodes of hematemesis with blood clots yesterday evening. This morning she has not had any recurrence of hematemesis but has had several episodes of black tarry stools. She also had one episode of black tarry stools in the emergency department. She has noted increasing fatigue over the past several days. Presented to the hospital for evaluation and was noted to have a hemoglobin of 5.5. Patient denies any history of cirrhosis or varices. Patient denies history of alcoholism. Denies taking blood thinners but admits to aspirin use. Patient did have a similar episode in June 2018 during which patient acutely decompensated requiring transfer to the ICU and subsequent endoscopy with poor visualization due to significant amount of blood and narrowed hiatal hernia and was subsequently transferred out to [facility]. I discussed with patient's son because patient's memory was foggy about the events at [facility] and patient's son informed me that on endoscopy there, they did not find any source of bleeding. Past Medical History Cardiac Medical History: Reports: Atrial Fibrillation, Coronary Artery Disease, Hyperlipidema, Hypertension Pulmonary Medical History: Reports: Bronchitis, Sleep Apnea Neurological Medical History: Reports: Seizures Endocrine Medical History: Denies: Diabetes Mellitus Type 1, Diabetes Mellitus Type 2, Hyperthyroidism, Hypothyroidism GI Medical History: Reports: Gastroesophageal Reflux Disease Denies: Cirrhosis, Hepatitis Musculoskeltal Medical History: Reports: Arthritis - Rheumatoid Denies: Gout Skin Medical History: Denies: Eczema, Psoriasis Psychiatric Medical History: Reports: Dementia, Depression Hematology: Reports: Anemia, Bleeding Tendencies - GI bleeding Denies: Sickle Cell Disease Past Surgical History Past Surgical History: Reports: Cholecystectomy, Orthopedic Surgery - right hip, right knee, Tonsillectomy Denies: Hysterectomy Social History Information Source: Patient Lives with: Other - with son Smoking Status: Never Smoker Frequency of Alcohol Use: Rare Hx Recreational Drug Use: No Drugs: None Hx Prescription Drug Abuse: No - Advance Directive Resuscitation Status: Full Code Family History Family History: CAD, Hypertension Parental Family History Reviewed: Yes Children Family History Reviewed: NA Sibling(s) Family History Reviewed.: Yes Medication/Allergy Allergies/Adverse Reactions: amoxicillin Allergy (Verified 05/25/19 11:16) cephalexin [From Keflex] Allergy (Verified 05/25/19 11:16) Itching and Rash morphine Allergy (Verified 05/25/19 11:16) Penicillins Allergy (Verified 05/25/19 11:16) Review of Systems Constitutional: PRESENT: chills, fatigue. ABSENT: fever(s) Eyes: ABSENT: visual disturbances Nose, Mouth, and Throat: ABSENT: headache(s) Cardiovascular: ABSENT: chest pain Respiratory: PRESENT: dyspnea - Mild. ABSENT: cough, hemoptysis Gastrointestinal: PRESENT: hematemesis, melena. ABSENT: abdominal pain, diarrhea, nausea Genitourinary: ABSENT: hematuria Integumentary: ABSENT: diaphoresis Neurological: PRESENT: other - Forgetfulness chronic. ABSENT: confusion Psychiatric: ABSENT: anxiety Physical Exam Vital Signs: Temp Pulse Resp BP Pulse Ox 98.0 F 66 16 122/56 L 100 05/25/19 16:02 05/25/19 16:02 05/25/19 16:02 05/25/19 16:02 05/25/19 16:02 Intake & Output 05/24/19 05/25/19 05/26/19 06:59 06:59 06:59 Intake Total 217 Balance 217 Weight 77.7 kg General appearance: PRESENT: no acute distress, cooperative Head exam: PRESENT: normocephalic Eye exam: PRESENT: EOMI Mouth exam: PRESENT: neck supple, other - No bleeding noted in oral cavity. ABSENT: laceration Neck exam: ABSENT: JVD Respiratory exam: PRESENT: clear to auscultation sabina, unlabored. ABSENT: tachypnea, wheezes Cardiovascular exam: PRESENT: RRR, +S1, +S2, systolic murmur - Right upper sternal border. ABSENT: tachycardia GI/Abdominal exam: PRESENT: normal bowel sounds, soft, tenderness - Epigastric. ABSENT: rebound, rigid Extremities exam: ABSENT: pedal edema Neurological exam: PRESENT: alert, awake, oriented to person, oriented to place, oriented to time, other - Awake and conversational but forgetful about some events Psychiatric exam: ABSENT: agitated, anxious Focused psych exam: ABSENT: pressured speech Skin exam: ABSENT: jaundice Results Laboratory Results: 05/25/19 12:35 05/25/19 12:35 05/25/19 05/25/19 05/25/19 12:35 12:35 12:35 WBC 7.3 RBC 2.18 L Hgb 5.7 L Hct 17.3 L MCV 80 MCH 26.0 L MCHC 32.6 RDW 16.7 H Plt Count 272 Seg Neutrophils % 76.0 Sodium 138.8 Potassium 4.2 Chloride 111 H Carbon Dioxide 21 L Anion Gap 7 BUN 45 H Creatinine 0.63 Est GFR ( Amer) > 60 Glucose 75 Calcium 7.4 L Total Bilirubin 0.3 AST 17 Alkaline Phosphatase 65 Total Protein 5.1 L Albumin 2.3 L Blood Type B POSITIVE Antibody Screen NEGATIVE Assessment and Plan - Diagnosis (1) Upper GI bleed Is this a current diagnosis for this admission?: Yes Plan: Recurrent episode. Did have an episode in June last year during which she decompensated quickly. We will monitor every 4 vital signs at [facility] Check coags Hold antiplatelets Dr. Meehan consulted for upper endoscopy PPI IV twice daily Transfuse blood products now. Receiving first of 3 units at this time. (2) Acute blood loss anemia Is this a current diagnosis for this admission?: Yes Plan: Currently with severe anemia of 5.7 likely secondary to upper GI bleed. We will transfuse 3 units of packed red blood cells. 1 unit of FFP is also recommended by surgicalist for replacement of loss coagulation factors. Monitor H&H posttransfusion and in the morning. Will give a dose of Lasix in between to avoid circulatory overload. (3) Coronary artery disease Qualifiers: Coronary Disease-Associated Artery/Lesion type: [place] artery Is this a current diagnosis for this admission?: Yes Plan: Continue statin. Hold antiplatelets for now. Continue metoprolol. (4) Hypertension Qualifiers: Hypertension type: essential hypertension Qualified Code(s): I10 - Essentia l (primary) hypertension Is this a current diagnosis for this admission?: Yes (5) History of ischemic stroke in prior three months Is this a current diagnosis for this admission?: Yes Plan: ischemic stroke [03/2019 with initial left-sided deficits which resolved by discharge] Was discharged on aspirin and Plavix. In light of upper GI bleed, will hold all antiplatelets for now. Continue atorvastatin. (6) History of seizure Is this a current diagnosis for this admission?: Yes Plan: Maintain on Keppra - Time Time Spent with patient: 35 or more minutes
[2019-05-25] MEDS ORDERED: NITROGLYCERIN 0.4 MG/TAB 25 TAB/BOTTLE SL PRN (17:58)
[2019-05-25] MEDS ORDERED: DEXTROSE 40% GEL 15 GM TUBE PO PRN ×2 (19:28)
[2019-05-25] MEDS ORDERED: DEXTROSE 50%-WATER 25 GM/50 ML DISP.SYRIN IV PRN ×2 (19:28)
[2019-05-25] MEDS ORDERED: GLUCAGON,HUMAN RECOMB 1 MG INJ SUBCUT PRN (19:28)
[2019-05-25] MEDS ORDERED: FUROSEMIDE INJ/PF 20 MG/2 ML SDV ONE (20:04)
[2019-05-25] MEDS: LEVETIRACETAM 500 MG TABLET PO SCH (20:12)
[2019-05-25] MEDS: ATORVASTATIN CALCIUM 20 MG TABLET PO SCH ×2 (20:13→23:40)
--- NOTE | 2019-05-25 20:22 | ADVANCED CARE ---
- Diagnosis (1) Upper GI bleed Diagnosis Current: Yes (2) Acute blood loss anemia Diagnosis Current: Yes Attendance: Patient, son and myself Resuscitation Status: Full Code Discussion: I discussed code status with patient. Patient was fully lucid but was having difficulty in making decision so she called her son on the phone we all the conversation together. After some back and forth, patient agreed to be full code. Patient states that she has lived a good life but her son needs her so she will like to be full code. Discussed if patient is ok with intubation in the absence of cardiac arrest, simply for respiratory distress betsy in light of her prior hospitaliztion last year that required emergent intubation for severe hematemesis. Patient agrees to intubation, upper endoscopy and pressors if neede d. Time Spent: 20 minutes
[2019-05-25 21:40] LABS: APPEARANCE,URINE SLIGHTLY-CLOUDY; BILIRUBIN,URINE NEGATIVE (NEGATIVE); COLOR,URINE YELLOW; GLUCOSE, URINE NEGATIVE (NEGATIVE); KETONES,URINE NEGATIVE (NEGATIVE); LEUKOCYTE ESTERASE,URINE MODERATE (NEGATIVE); NITRITE,URINE NEGATIVE (NEGATIVE); PROTEIN,URINE NEGATIVE (NEGATIVE); URINE SPECIFIC GRAVITY 1.019; UROBILINOGEN,URINE NEGATIVE mg/dL (<2.0)
[2019-05-25] MEDS ORDERED: DIPHENHYDRAMINE HCL 25 MG CAPSULE PO PRN (22:07)
[2019-05-25] MEDS ORDERED: ACETAMINOPHEN 325 MG TABLET PO PRN (22:07)
[2019-05-25] MEDS: GABAPENTIN 100 MG CAPSULE PO SCH (23:40)
[2019-05-25] MEDS: PANTOPRAZOLE SODIUM 40 MG VIAL IV SCH (23:40)
[2019-05-25] MEDS: QUETIAPINE FUMARATE 25 MG TABLET PO SCH (23:40)
[2019-05-25] MEDS: TOLTERODINE TARTRATE 1 MG TABLET PO SCH (23:40)
--- NOTE | 2019-05-26 05:54 | PDOC CONSULTATION ---
Consultation Consult Date: 05/26/19 Provider Consulted: SURGICAL SURGICALIST MD Consult reason:: Anemia, hematemesis. History of Present Illness Admission Date/PCP: 05/25/19 15:10 RAYNA HEBERT History of Present Illness: BHARATH JORDAN is a 78 year old female seen in consultation at the request of the hospitalist service. This patient reports a 2-day history of hematemesis and epigastric abdominal pain. She also reports melanotic stool. Her last episode of hematemesis was yesterday, prior to hospitalization. Since arriving to the hospital, she has had no further episodes of hematemesis. The patient reports weakness, malaise, fatigue, epigastric abdominal pain, melena, and hematemesis. She denies chest pain, shortness of breath, fevers, chills, blurry vision, hematochezia. The patient has had a similar episode to this approximately 1 year ago. The source of bleeding could not be identified, and she was sent to [facility]. The patient does not know what was found at that time. The patient cannot remember if she is ever had a colonoscopy before. Nothing makes her symptoms better or worse. Past Medical History Cardiac Medical History: Reports: Atrial Fibrillation, Coronary Artery Disease, Hyperlipidema, Hypertension Pulmonary Medical History: Reports: Bronchitis, Sleep Apnea Neurological Medical History: Reports: Seizures Endocrine Medical History: Denies: Diabetes Mellitus Type 1, Diabetes Mellitus Type 2, Hyperthyroidism, Hypothyroidism GI Medical History: Reports: Gastroesophageal Reflux Disease Denies: Cirrhosis, Hepatitis Musculoskeltal Medical History: Reports: Arthritis - Rheumatoid Denies: Gout Skin Medical History: Denies: Eczema, Psoriasis Psychiatric Medical History: Reports: Dementia, Depression Hematology: Reports: Anemia, Bleeding Tendencies - GI bleeding Denies: Sickle Cell Disease Past Surgical History Past Surgical History: Reports: Cholecystectomy, Orthopedic Surgery - right hip, right knee, Tonsillectomy, Other - Previous EGD for bleeding Denies: Hysterectomy Social History Lives with: Other - with son Smoking Status: Former Smoker Electronic Cigarette use?: No Frequency of Alcohol Use: None Hx Recreational Drug Use: No Drugs: None Hx Prescription Drug Abuse: No - Advance Directive Resuscitation Status: Full Code Family History Family History: CAD, Hypertension Parental Family History Reviewed: Yes Children Family History Reviewed: Yes Sibling(s) Family History Reviewed.: Yes Medication/Allergy Home Medications: Aspirin [Adult Low Dose Aspirin EC] 81 mg PO DAILY 02/12/20 Atorvastatin Calcium [Lipitor 20 mg Tablet] 20 mg PO QPM 05/25/19 Cholecalciferol (Vitamin D3) [Vitamin D3] 4,000 unit PO DAILY 05/25/19 Clopidogrel Bisulfate [Plavix 75 mg Tablet] 75 mg PO DAILY 05/25/19 Donepezil HCl 10 mg PO DAILY 05/25/19 Duloxetine HCl [Cymbalta] 60 mg PO DAILY 05/25/19 Furosemide [Lasix 20 mg Tablet] 20 mg PO DAILY 05/25/19 Gabapentin [Neurontin 100 mg Capsule] 100 mg PO Q12 05/25/19 Hydroxyzine HCl [Atarax 10 mg Tablet] 25 mg PO DAILY 05/25/19 Levetiracetam [Keppra 500 mg Tablet] 500 mg PO BID 05/25/19 Memantine HCl [Namenda 10 mg Tablet] 10 mg PO DAILY 05/25/19 Metoprolol Succinate [Toprol Xl 25 mg Tab.sr] 12.5 mg PO DAILY 05/25/19 Mirabegron [Myrbetriq] 25 mg PO DAILY 05/25/19 Nitroglycerin [Nitrostat 0.4 mg (1/150 Gr) Tabs 25/Bottle] 0.4 mg SL Q5MP PRN 05/25/19 Pantoprazole Sodium [Protonix [address] Tablet] 40 mg PO Q6AM 05/25/19 Potassium Chloride [Klor-Con M10] 10 meq PO DAILY 05/25/19 Quetiapine Fumarate [Seroquel 25 mg Tablet] 25 mg PO QHS 05/25/19 Tolterodine Tartrate [Tolterodine Tartrate ER] 4 mg PO DAILY 05/25/19 Allergies/Adverse Reactions: amoxicillin Allergy (Verified 05/25/19 11:16) cephalexin [From Keflex] Allergy (Verified 05/25/19 11:16) Itching and Rash morphine Allergy (Verified 05/25/19 11:16) Penicillins Allergy (Verified 05/25/19 11:16) Review of Systems Constitutional: PRESENT: fatigue. ABSENT: anorexia, chills, fever(s), headache(s) Eyes: ABSENT: visual disturbances Ears: ABSENT: hearing changes Nose, Mouth, and Throat: ABSENT: sore throat Cardiovascular: ABSENT: chest pain Respiratory: ABSENT: cough Gastrointestinal: PRESENT: abdominal pain Genitourinary: ABSENT: dysuria Musculoskeletal: ABSENT: back pain Integumentary: ABSENT: pruritus, rash Neurological: PRESENT: weakness. ABSENT: confusion, convulsions, dizziness Psychiatric: ABSENT: anxiety, depression Endocrine: ABSENT: cold intolerance Hematologic/Lymphatic: ABSENT: easy bruising Physical Exam Vital Signs: Temp Pulse Resp BP Pulse Ox 98.9 F 91 16 112/69 98 05/26/19 04:56 05/26/19 04:56 05/26/19 04:56 05/26/19 04:56 05/26/19 04:56 Intake & Output 05/24/19 05/25/19 05/26/19 06:59 06:59 06:59 Intake Total 1565 Output Total 1400 Balance 165 Weight 77.7 kg General appearance: PRESENT: no acute distress Head exam: PRESENT: atraumatic, normocephalic Eye exam: PRESENT: EOMI, PERRLA. ABSENT: scleral icterus Mouth exam: PRESENT: moist, neck supple Neck exam: ABSENT: meningismus, tenderness, thyromegaly, tracheal deviation Respiratory exam: PRESENT: unlabored. ABSENT: chest wall tenderness, tachypnea, wheezes Cardiovascular exam: PRESENT: RRR. ABSENT: tachycardia Pulses: PRESENT: normal radial pulses Vascular exam: PRESENT: pallor GI/Abdominal exam: PRESENT: soft. ABSENT: distended, firm, guarding, tenderness Rectal exam: PRESENT: deferred Extremities exam: ABSENT: clubbing Musculoskeletal exam: ABSENT: deformity Neurological exam: PRESENT: alert, awake, oriented to person, oriented to place, oriented to time, oriented to situation Psychiatric exam: ABSENT: agitated, anxious, depressed Focused psych exam: ABSENT: delusional Skin exam: ABSENT: cyanosis, erythema, jaundice Results Laboratory Results: 05/25/19 12:35 05/25/19 12:35 05/25/19 05/25/19 05/25/19 12:35 12:35 12:35 WBC 7.3 RBC 2.18 L Hgb 5.7 L Hct 17.3 L MCV 80 MCH 26.0 L MCHC 32.6 RDW 16.7 H Plt Count 272 Seg Neutrophils % 76.0 Sodium 138.8 Potassium 4.2 Chloride 111 H Carbon Dioxide 21 L Anion Gap 7 BUN 45 H Creatinine 0.63 Est GFR ( Amer) > 60 Glucose 75 Calcium 7.4 L Total Bilirubin 0.3 AST 17 Alkaline Phosphatase 65 Total Protein 5.1 L Albumin 2.3 L Urine Color Urine Appearance Urine pH Ur Specific [place] Urine Protein Urine Glucose (UA) Urine Ketones Urine Blood Urine Nitrite Ur Leukocyte Esterase Urine WBC (Auto) Urine RBC (Auto) Blood Type B POSITIVE Antibody Screen NEGATIVE 05/25/19 20:00 WBC RBC Hgb Hct MCV MCH MCHC RDW Plt Count Seg Neutrophils % Sodium Potassium Chloride Carbon Dioxide Anion Gap BUN Creatinine Est GFR ( Amer) Glucose Calcium Total Bilirubin AST Alkaline Phosphatase Total Protein Albumin Urine Color YELLOW Urine Appearance SLIGHTLY-CLOUDY Urine pH 5.0 Ur Specific [place] 1.019 Urine Protein NEGATIVE Urine Glucose (UA) NEGATIVE Urine Ketones NEGATIVE Urine Blood LARGE H Urine Nitrite NEGATIVE Ur Leukocyte Esterase MODERATE H Urine WBC (Auto) 3 Urine RBC (Auto) 0 Blood Type Antibody Screen Assessment & Plan - Diagnosis (1) Anemia Qualifiers: Anemia type: iron deficiency Iron deficiency anemia type: unspecified iron deficiency Qualified Code(s): D50.9 - Iron deficiency anemia, unspecified Is this a current diagnosis for this admission?: Yes (2) Upper GI bleed Is this a current diagnosis for this admission?: Yes - Plan Summary Plan Summary: This is a 78-year-old female with severe anemia and hematemesis. The patient's hemoglobin is in the 5 range. Currently she is not vomiting blood, and her vital signs are reasonably stable. I have discussed her case with the hospitalist. I have recommended replacement of blood products (packed red blood cells and FFP). After resuscitation, the patient may undergo EGD for diagnostic purposes. If the patient has life-threatening blood loss, she may require urgent EGD (before resuscitation has been completed). I have discussed this with the patient at length. She is in agreement with the treatment plan. Risks/benefits discussed, informed consent obtained, and all questions answered.
[2019-05-26] MEDS ORDERED: LIDOCAINE 2% INJ-PF (20 MG/ML) 2 ML AMPUL ONE (09:45)
[2019-05-26] MEDS ORDERED: (PENDING PHARMACY ID) (Tolterodine Tartrate [Tolterodine Tartrate Er] 4 MG) PO SCH (10:00)
[2019-05-26] MEDS ORDERED: (PENDING PHARMACY ID) (Mirabegron [Myrbetriq] 25 MG) PO SCH (10:00)
[2019-05-26] MEDS ORDERED: HYDROXYZINE HCL 10 MG TABLET PO SCH (10:00)
[2019-05-26] MEDS ORDERED: PROPOFOL INJ 200 MG/20 ML VIAL IV ONE ×3 (10:52→11:50)
[2019-05-26] MEDS: DONEPEZIL HCL 5 MG TABLET PO SCH (11:30)
[2019-05-26] MEDS: LEVETIRACETAM 500 MG TABLET PO SCH ×2 (11:31→18:53)
[2019-05-26] MEDS: POTASSIUM CHLORIDE 10 MEQ TABLET.ER PO SCH (11:31)
[2019-05-26] MEDS: TOLTERODINE TARTRATE 1 MG TABLET PO SCH ×2 (11:31→21:54)
[2019-05-26] MEDS: FUROSEMIDE 20 MG TABLET PO SCH (11:31)
[2019-05-26] MEDS: DULOXETINE HCL 30 MG CAPSULE.DR PO SCH (11:31)
[2019-05-26] MEDS: MEMANTINE HCL 10 MG TABLET PO SCH (11:32)
[2019-05-26] MEDS: GABAPENTIN 100 MG CAPSULE PO SCH ×2 (11:32→21:54)
[2019-05-26] MEDS: PANTOPRAZOLE SODIUM 40 MG VIAL IV SCH ×2 (11:32→21:54)
[2019-05-26] MEDS: CHOLECALCIFEROL (D3) 1,000 UNIT (25 MCG) TABLET PO SCH (11:33)
[2019-05-26] MEDS: METOPROLOL SUCCINATE 25 MG TAB.SR.24H PO SCH (11:33)
--- NOTE | 2019-05-26 11:55 | Operative Report ---
Operative Report DATE OF SURGERY: 05/26/19 PREOPERATIVE DIAGNOSIS: 1. Acute upper GI bleed. 2. Acute blood loss anemia. 3. History of gastrointestinal bleed POSTOPERATIVE DIAGNOSIS: Same with. 1. Diffuse, circumferential cobblestone- like acute esophagitis of the distal esophagus with recent hemorrhage. 2. Moderate to large hiatal hernia with mucosal gastropathy OPERATION: 1. Esophagogastroduodenoscopy. 2. Biopsies of the distal esophagus x2. 3. Biopsy of gastropathy of hiatal hernia. 4. Biopsy of gastric antrum SURGEON: ZELDA HOWE ANESTHESIA: LMAC TISSUE REMOVED OR ALTERED: Multiple biopsies COMPLICATIONS: None ESTIMATED BLOOD LOSS: Minimal INTRAOPERATIVE FINDINGS: See below PROCEDURE: The patient was taken to the preop holding area to the main operating room where LMAC anesthesia was induced. Patient was placed in left lateral cubitus position. Surgical plan and surgical timeout were conducted. The flexible adult upper endoscope was advanced to the oropharynx, down the esophagus through the moderate-large hiatal hernia, through the stomach, and eventually to the first and second portions of the duodenum. There was no active bleeding or clot visualized. The first and second portions of the duodenum were normal. Bile was present. The scope was brought back to the pylorus which was unremarkable. The majority of the stomach was unremarkable. There was no evidence of retained gastric contents, tumor polyp or bleeding. A random biopsy of the gastric antrum was performed with a cold forceps device for H. pylori testing. We now spent a fair amount of time examining the GE junction. This was very distorted due to a moderately large hiatal hernia. Within the hiatal hernia there were several folds of mucosa which were distorted and edematous. A random cold forceps biopsy was obtained of 1 of the mucosal folds. Just proximal to the hiatal hernia was the distal esophagus. The GE junction was extremely distorted secondary to a diffuse, circumferential cobblestone-like appearing erythematous, angry esophagitis. Several areas were quite edematous and heaped up, but no discrete mass. I did perform 2 forceps biopsies of this target tissue which was very likely the source of upper GI bleeding. The distorted cobblestone-like for GI this extended from 28 to approximately 35 cm from the incisor. Proximal to this area the esophagus was normal. Of note I did have my colleague, Dr. Freddie Liang step into the room and visualize the pathology. The scope was withdrawn with the patient oropharynx. She tolerated procedure well. There were no post procedure complications Plan: 1. Supportive therapy, await final pathology report; transfuse as needed 2. We will follow with you and discuss management options pending final path report.
--- NOTE | 2019-05-26 12:25 | PDOC PROGRESS REPORT ---
Subjective Progress Note for:: 05/26/19 Subjective:: Patient denies any recurrence of hematemesis since admission. Denies any lightheadedness shortness of breath or chest pain at the time. Reason For Visit: UPPER GI BLEED Physical Exam Vital Signs: Temp Pulse Resp BP Pulse Ox 97.5 F 70 17 126/63 H 96 05/26/19 11:42 05/26/19 11:57 05/26/19 11:57 05/26/19 11:57 05/26/19 11:57 Intake & Output 05/25/19 05/26/19 05/27/19 06:59 06:59 06:59 Intake Total 1915 500 Output Total 1600 Balance 315 500 Weight 77.7 kg General appearance: PRESENT: no acute distress, cooperative Neck exam: ABSENT: JVD Respiratory exam: PRESENT: clear to auscultation sabina, unlabored. ABSENT: tachypnea, wheezes Cardiovascular exam: PRESENT: RRR, +S1, +S2, systolic murmur. ABSENT: tachycardia GI/Abdominal exam: PRESENT: normal bowel sounds, soft. ABSENT: rebound, rigid, tenderness Neurological exam: PRESENT: alert, awake, oriented to person, oriented to place, oriented to time Results Laboratory Results: 05/25/19 12:35 05/25/19 12:35 05/25/19 05/25/19 05/25/19 12:35 12:35 12:35 WBC 7.3 RBC 2.18 L Hgb 5.7 L Hct 17.3 L MCV 80 MCH 26.0 L MCHC 32.6 RDW 16.7 H Plt Count 272 Seg Neutrophils % 76.0 Sodium 138.8 Potassium 4.2 Chloride 111 H Carbon Dioxide 21 L Anion Gap 7 BUN 45 H Creatinine 0.63 Est GFR ( Amer) > 60 Glucose 75 Calcium 7.4 L Total Bilirubin 0.3 AST 17 Alkaline Phosphatase 65 Total Protein 5.1 L Albumin 2.3 L Urine Color Urine Appearance Urine pH Ur Specific [place] Urine Protein Urine Glucose (UA) Urine Ketones Urine Blood Urine Nitrite Ur Leukocyte Esterase Urine WBC (Auto) Urine RBC (Auto) Blood Type B POSITIVE Antibody Screen NEGATIVE 05/25/19 20:00 WBC RBC Hgb Hct MCV MCH MCHC RDW Plt Count Seg Neutrophils % Sodium Potassium Chloride Carbon Dioxide Anion Gap BUN Creatinine Est GFR ( Amer) Glucose Calcium Total Bilirubin AST Alkaline Phosphatase Total Protein Albumin Urine Color YELLOW Urine Appearance SLIGHTLY-CLOUDY Urine pH 5.0 Ur Specific [place] 1.019 Urine Protein NEGATIVE Urine Glucose (UA) NEGATIVE Urine Ketones NEGATIVE Urine Blood LARGE H Urine Nitrite NEGATIVE Ur Leukocyte Esterase MODERATE H Urine WBC (Auto) 3 Urine RBC (Auto) 0 Blood Type Antibody Screen Assessment and Plan - Diagnosis (1) Upper GI bleed Is this a current diagnosis for this admission?: Yes Plan: Recurrent episode. EGD performed by Dr. Welch 05/26/2019 showing diffuse circumferential cobblestone-like esophagitis of the distal esophagus were recent hemorrhage and appeared very raw on visualization, moderate to large hiatal hernia with mucosal gastropathy. Biopsies taken. Continue with PPI IV twice daily We will add some Carafate Monitor H&H monitor for recurrence of bleed Continue to hold aspirin and Plavix Surgery to continue to follow (2) Acute blood loss anemia Is this a current diagnosis for this admission?: Yes Plan: Anemia of 5.7 hemoglobin on admission secondary to upper GI bleed S/p 3 units of packed red blood cells and 1 unit of FFP completed this morning Awaiting repeat posttransfusion CBC Continue to monitor H&H (3) Coronary artery disease Qualifiers: Coronary Disease-Associated Artery/Lesion type: [place] artery Is this a current diagnosis for this admission?: Yes Plan: Continue statin. Hold antiplatelets for now. Continue metoprolol. (4) Hypertension Qualifiers: Hypertension type: essential hypertension Qualified Code(s): I10 - Essential (primary) hypertension Is this a current diagnosis for this admission?: Yes Plan: Continue Toprol-XL and Lasix (5) History of ischemic stroke in prior three months Is this a current diagnosis for this admission?: Yes Plan: ischemic stroke [03/2019 with initial left-sided deficits which resolved by dis charge] Holding aspirin and Plavix in light of upper GI bleed. At some point at least 1 of this antiplatelet would not be restarted giving increased risk of stroke Continue atorvastatin. (6) History of seizure Is this a current diagnosis for this admission?: Yes Plan: Maintain on Keppra - Time Time Spent with patient: 15-24 minutes
[2019-05-26 13:32] LABS: HEMATOCRIT 30.7 % (36.0-47.0); MEAN CORPUSCULAR HEMOGLOBIN 27.2 pg (27.0-33.4); MEAN CORPUSCULAR HGB CONC 33.5 g/dL (32.0-36.0); MEAN CORPUSCULAR VOLUME 81 fl (80-97); PLATELET COUNT 226 10^3/uL (150-450); RED BLOOD COUNT 3.78 10^6/uL (3.72-5.28); RED CELL DISTRIBUTION WIDTH 16.5 % (11.5-14.0); WHITE BLOOD COUNT 5.1 10^3/uL (4.0-10.5)
[2019-05-26 13:35] LABS: HEMOGLOBIN 10.3 g/dL (12.0-15.5)
[2019-05-26 13:45] LABS: ANION GAP 7 (5-19); BLOOD UREA NITROGEN 31 mg/dL (7-20); CALCIUM 8.5 mg/dL (8.4-10.2); CARBON DIOXIDE 24 mmol/L (22-30); CHLORIDE 108 mmol/L (98-107); GLUCOSE 75 mg/dL (75-110); POTASSIUM 4.3 mmol/L (3.6-5.0)
[2019-05-26] MEDS: SUCRALFATE 1 GM TABLET PO SCH (18:52)
[2019-05-26] MEDS ORDERED: OXYCODONE HCL SR 10 MG TABLET PO PRN (21:01)
[2019-05-26] MEDS: QUETIAPINE FUMARATE 25 MG TABLET PO SCH (21:54)
[2019-05-26] MEDS: ATORVASTATIN CALCIUM 20 MG TABLET PO SCH (21:54)
[2019-05-27 05:07] LABS: HEMATOCRIT 27.6 % (36.0-47.0); HEMOGLOBIN 9.4 g/dL (12.0-15.5); MEAN CORPUSCULAR HEMOGLOBIN 27.5 pg (27.0-33.4); MEAN CORPUSCULAR HGB CONC 34.1 g/dL (32.0-36.0); MEAN CORPUSCULAR VOLUME 81 fl (80-97); PLATELET COUNT 219 10^3/uL (150-450); RED BLOOD COUNT 3.43 10^6/uL (3.72-5.28); RED CELL DISTRIBUTION WIDTH 16.8 % (11.5-14.0); WHITE BLOOD COUNT 6.3 10^3/uL (4.0-10.5)
[2019-05-27] MEDS ORDERED: HYDROXYZINE PAMOATE 25 MG CAPSULE PO SCH (10:00)
[2019-05-27] MEDS: PANTOPRAZOLE SODIUM 40 MG VIAL IV SCH (10:30)
[2019-05-27] MEDS: DONEPEZIL HCL 5 MG TABLET PO SCH (10:30)
[2019-05-27] MEDS: MEMANTINE HCL 10 MG TABLET PO SCH (10:30)
[2019-05-27] MEDS: TOLTERODINE TARTRATE 1 MG TABLET PO SCH (10:30)
[2019-05-27] MEDS: LEVETIRACETAM 500 MG TABLET PO SCH (10:30)
[2019-05-27] MEDS: FUROSEMIDE 20 MG TABLET PO SCH (10:30)
[2019-05-27] MEDS: METOPROLOL SUCCINATE 25 MG TAB.SR.24H PO SCH (10:31)
[2019-05-27] MEDS: CHOLECALCIFEROL (D3) 1,000 UNIT (25 MCG) TABLET PO SCH (10:31)
[2019-05-27] MEDS: SUCRALFATE 1 GM TABLET PO SCH (10:31)
[2019-05-27] MEDS: GABAPENTIN 100 MG CAPSULE PO SCH (10:31)
[2019-05-27] MEDS: DULOXETINE HCL 30 MG CAPSULE.DR PO SCH (10:31)
[2019-05-27] MEDS: POTASSIUM CHLORIDE 10 MEQ TABLET.ER PO SCH (10:32)
[2019-05-27 13:14] LABS: HEMATOCRIT 31.1 % (36.0-47.0); HEMOGLOBIN 10.4 g/dL (12.0-15.5); MEAN CORPUSCULAR HGB CONC 33.4 g/dL (32.0-36.0); MEAN CORPUSCULAR VOLUME 81 fl (80-97); PLATELET COUNT 242 10^3/uL (150-450); RED BLOOD COUNT 3.85 10^6/uL (3.72-5.28); RED CELL DISTRIBUTION WIDTH 17.6 % (11.5-14.0); WHITE BLOOD COUNT 6.9 10^3/uL (4.0-10.5)
[2019-05-27 14:00] VITALS: BP 149/77
--- NOTE | 2019-05-27 14:01 | PDOC DISCHARGE SUMMARY ---
Impression - Admit/DC Date/PCP Admission Date/Primary Care Provider: 05/25/19 15:10 RAYNA HEBERT Discharge Date: 05/27/19 - Discharge Diagnosis (1) Upper GI bleed Is this a current diagnosis for this admission?: Yes (2) Acute blood loss anemia Is this a current diagnosis for this admission?: Yes (3) Coronary artery disease Is this a current diagnosis for this admission?: Yes (4) Hypertension Is this a current diagnosis for this admission?: Yes (5) History of ischemic stroke in prior three months Is this a current diagnosis for this admission?: Yes (6) History of seizure Is this a current diagnosis for this admission?: Yes - Additional Information Resuscitation Status: Full Code Discharge Diet: Regular Referrals: LAINE BETANCOURT MD [ACTIVE STAFF] - 06/03/19 8:30 am AILEEN PEREZ MD [ACTIVE STAFF] - 06/08/19 1:45 pm RAYNA HEBERT MD [Primary Care Provider] - 06/01/19 11:30 am Prescriptions: Sucralfate [Carafate 1 gm Tablet] 1 gm PO AC #90 tablet Pantoprazole Sodium [Protonix [address] Tablet] 40 mg PO BIDACBS #60 Home Medications: Aspirin [Adult Low Dose Aspirin EC] 81 mg PO DAILY 05/25/19 Atorvastatin Calcium [Lipitor 20 mg Tablet] 20 mg PO QPM 05/25/19 Cholecalciferol (Vitamin D3) [Vitamin D3] 4,000 unit PO DAILY 05/25/19 Donepezil HCl 10 mg PO DAILY 05/25/19 Duloxetine HCl [Cymbalta] 60 mg PO DAILY 05/25/19 Furosemide [Lasix 20 mg Tablet] 20 mg PO DAILY 05/25/19 Gabapentin [Neurontin 100 mg Capsule] 100 mg PO Q12 05/25/19 Hydroxyzine HCl [Atarax 10 mg Tablet] 25 mg PO DAILY 05/25/19 Levetiracetam [Keppra 500 mg Tablet] 500 mg PO BID 05/25/19 Memantine HCl [Namenda 10 mg Tablet] 10 mg PO DAILY 05/25/19 Metoprolol Succinate [Toprol Xl 25 mg Tab.sr] 12.5 mg PO DAILY 05/25/19 Mirabegron [Myrbetriq] 25 mg PO DAILY 05/25/19 Nitroglycerin [Nitrostat 0.4 mg (1/150 Gr) Tabs 25/Bottle] 0.4 mg SL Q5MP PRN 05/25/19 Potassium Chloride [Klor-Con M10] 10 meq PO DAILY 05/25/19 Quetiapine Fumarate [Seroquel 25 mg Tablet] 25 mg PO QHS 05/25/19 Tolterodine Tartrate [Tolterodine Tartrate ER] 4 mg PO DAILY 05/25/19 Pantoprazole Sodium [Protonix [address] Tablet] 40 mg PO BIDACBS #60 05/27/19 Sucralfate [Carafate 1 gm Tablet] 1 gm PO AC #90 tablet 05/27/19 History of Present Illiness History of Present Illness: BHARATH JORDAN is a 78 year old female with prior history of upper GI bleed, recent ischemic stroke [03/2019 with initial left-sided deficits which resolved by discharge] CAD, hypertension, dementia, who presents to the hospital after having a few episodes of hematemesis as well as melena. Patient endorses about 4 episodes of hematemesis with blood clots yesterday evening. This morning she has not had any recurrence of hematemesis but has had several episodes of black tarry stools. She also had one episode of black tarry stools in the emergency department. She has noted increasing fatigue over the past several days. Presented to the hospital for evaluation and was noted to have a hemoglobin of 5.5. Patient denies any history of cirrhosis or varices. Patient denies history of alcoholism. Denies taking blood thinners but admits to aspirin use. Patient did have a similar episode in June 2018 during which patient acutely decompensated requiring transfer to the ICU and subsequent endoscopy with poor visualization due to significant amount of blood and narrowed hiatal hernia and was subsequently transferred out to [facility]. I discussed with patient's son because patient's memory was foggy about the events at [facility] and patient's son informed me that on endoscopy there, they did not find any source of bleeding. Hospital Course Hospital Course: Patient was admitted for evaluation of anemia and hematemesis. Patient had severe anemia on presentation with hemoglobin of 5.7. However patient remained hemodynamically stable. Anemia was deemed to be secondary to acute blood loss especially given her upper GI bleed with symptoms of hematemesis and melena. Patient received 3 units packed red blood cells. Per recommendation of surgery, patient also received a unit of FFP's. Patient was also placed on Protonix IV twice a day. Patient's aspirin and Plavix were held. Patient underwent upper endoscopy 05/26/[address] Welch which showed diffuse circumferential cobblestone-like esophagitis of the distal esophagus were recent hemorrhage and appeared very raw on visualization, moderate to large hiatal hernia with mucosal gastropathy. Biopsies taken. No intervention was indicated. Patient has been placed on Protonix twice a day p.o. 40 mg as well as Carafate. Patient's hemoglobin has remained stable since her transfusions and she has had no recurrence of hematemesis while in the hospital. I had a discussion with the Surgicalist today who states that patient's esophageal findings are concerning for possible malignancy. However there is no way to tell if this is cancer until we get the biopsy results. I have communicated this to patient and advised her that it is imperative that she follows up for the biopsy results for this reason and patient expressed understanding. Patient has been scheduled for follow-up appointment with surgery and GI as well as primary care provider. I have given patient instructions that she can resume her aspirin in 5 days given her history of recent stroke but have advised her to discontinue Plavix at this time. Patient is stable for discharge at this time. Physical Exam Vital Signs: Temp Pulse Resp BP Pulse Ox 98.2 F 69 16 143/80 H 100 05/27/19 11:43 05/27/19 11:43 05/27/19 11:43 05/27/19 11:43 05/27/19 11:43 Intake & Output 05/26/19 05/27/19 05/28/19 06:59 06:59 06:59 Intake Total 1915 2420 476 Output Total 1600 1875 Balance 315 545 476 Weight 77.7 kg 70.8 kg General appearance: PRESENT: no acute distress, cooperative Respiratory exam: PRESENT: clear to auscultation sabina Neurological exam: PRESENT: alert, awake, oriented to person, oriented to place, oriented to time Results Laboratory Results: WBC 6.9 10^3/uL (4.0-10.5) 05/27/19 12:27 RBC 3.85 10^6/uL (3.72-5.28) 05/27/19 12:27 Hgb 10.4 g/dL (12.0-15.5) L 05/27/19 12: Hct 31.1 % (36.0-47.0) L 05/27/19 12: MCV 81 fl (80-97) 05/27/19 12: MCH 27.0 pg (27.0-33.4) 05/27/19 12: MCHC 33.4 g/dL (32.0-36.0) 05/27/19 12: RDW 17.6 % (11.5-14.0) H 05/27/19 12: Plt Count 242 10^3/uL (150-450) 05/27/19 12: Lymph % (Auto) 13.8 % (13-45) 05/25/19 12: [place] % (Auto) 8.3 % (3-13) 05/25/19 12: Eos % (Auto) 1.3 % (0-6) 05/25/19: Baso % (Auto) 0.6 % (0-2) 05/25/19 12:35 Absolute Neuts (auto) 5.5 10^3/uL (1.7-8.2) 05/25/19 12: Absolute Lymphs (auto) 1.0 10^3/uL (0.5-4.7) 05/25/19 12:35 Absolute Monos (auto) 0.6 10^3/uL (0.1-1.4) 05/25/19 12: Absolute Eos (auto) 0.1 10^3/uL (0.0-0.6) 05/25/19 12:35 Absolute Basos (auto) 0.0 10^3/uL (0.0-0.2) 05/25/19 12: Seg Neutrophils % 76.0 % (42-78) 05/25/19 12: Platelet Estimate Cancelled 05/26/19 13:08 PT 14.5 SEC (11.4-15.4) 05/25/19 12:35 INR 1.13 05/25/19 12:35 APTT 24.0 SEC (23.5-35.8) 05/25/19 12:35 Sodium 138.6 mmol/L (137-145) 05/26/19 13:08 Potassium 4.3 mmol/L (3.6-5.0) 05/26/19 13:08 Chloride 108 mmol/L (98-107) H 05/26/19 13:08 Carbon Dioxide 24 mmol/L (22-30) 05/26/19 13:08 Anion Gap 7 (5-19) 05/26/19 13:08 BUN 31 mg/dL (7-20) H 05/26/19 13:08 Creatinine 0.79 mg/dL (0.52-1.25) 05/26/19 13:08 Est GFR ( Amer) > 60 (>60) 05/26/19 13:08 Est GFR (MDRD) Non-Af > 60 (>60) 05/26/19 13:08 Glucose 75 mg/dL (75-110) 05/26/19 13:08 Calcium 8.5 mg/dL (8.4-10.2) 05/26/19 13:08 Total Bilirubin 0.3 mg/dL (0.2-1.3) 05/25/19 12:35 Direct Bilirubin 0.2 mg/dL (0.0-0.4) 05/25/19 12:35 Neonat Total Bilirubin Not Reportable 05/25/19 12:35 Neonat Direct Bilirubin Not Reportable 05/25/19 12:35 Neonat Indirect Bili Not Reportable 05/25/19 12:35 AST 17 U/L (14-36) 05/25/19 12:35 ALT 8 U/L (<35) 05/25/19 12:35 Alkaline Phosphatase 65 U/L (38-126) 05/25/19 12:35 Total Protein 5.1 g/dL (6.3-8.2) L 05/25/19 12:35 Albumin 3.0 g/dL (3.5-5.0) L 05/26/19 13:08 Urine Color YELLOW 05/25/19 20:00 Urine Appearance SLIGHTLY-CLOUDY 05/25/19 20:00 Urine pH 5.0 (5.0-9.0) 05/25/19 20:00 Ur Specific [place] 1.019 05/25/19 20:00 Urine Protein NEGATIVE mg/dL (NEGATIVE) 05/25/19 20:00 Urine Glucose (UA) NEGATIVE mg/dL (NEGATIVE) 05/25/19 20:00 Urine Ketones NEGATIVE mg/dL (NEGATIVE) 05/25/19 20:00 Urine Blood LARGE (NEGATIVE) H 05/25/19 20:00 Urine Nitrite NEGATIVE (NEGATIVE) 05/25/19 20:00 Urine Bilirubin NEGATIVE (NEGATIVE) 05/25/19 20:00 Urine Urobilinogen NEGATIVE mg/dL (<2.0) 05/25/19 20:00 Ur Leukocyte Esterase MODERATE (NEGATIVE) H 05/25/19 20:00 Urine WBC (Auto) 3 /HPF 05/25/19 20:00 Urine RBC (Auto) 0 /HPF 05/25/19 20:00 Urine Bacteria (Auto) TRACE /HPF 05/25/19 20:00 Squamous Epi Cells Auto 5 /HPF 05/25/19 20:00 Urine Mucus (Auto) RARE /LPF 05/25/19 20:00 Urine Ascorbic Acid NEGATIVE (NEGATIVE) 05/25/19 20:00 POC Stool Occult Blood POSITIVE (NEGATIVE) 05/25/19 14:26 Slides for Path Review Cancelled 05/26/19 13:08 Blood Type B POSITIVE 05/25/19 12:35 Blood Type Confirm B POSITIVE 05/25/19 12:35 Antibody Screen NEGATIVE 05/25/19 12:35 Crossmatch See Detail 05/25/19 12:35 Plan Time Spent: Less than 30 Minutes Stroke Is this a Stroke Patient?: No Acute Heart Failure - Is this a Heart Failure Patient?: No
== END 2019-05-27 15:00 | disposition home or self-care (01) | DRG 378 ==
LOC: ER 10:45 → EH 15:10 → 3N 18:17
PROVIDERS: ADMIT Internal Medicine; ATTEND Internal Medicine
PROC: 0DB68ZX Excision of Stomach, Via Natural or Artificial Opening Endoscopic, Diagnostic (ICD-10-PCS; 2019-05-26)
PROC: 30233K1 Transfusion of Nonautologous Frozen Plasma into Peripheral Vein, Percutaneous Approach (ICD-10-PCS; 2019-05-26)
PROC: 30233N1 Transfusion of Nonautologous Red Blood Cells into Peripheral Vein, Percutaneous Approach (ICD-10-PCS; 2019-05-26)
PROC: 0DB38ZX Excision of Lower Esophagus, Via Natural or Artificial Opening Endoscopic, Diagnostic (ICD-10-PCS; principal; 2019-05-26 11:00)
PROC: 30233N1 Transfusion of Nonautologous Red Blood Cells into Peripheral Vein, Percutaneous Approach (ICD-10-PCS; 2019-05-27)
DX: K92.2 Gastrointestinal hemorrhage, unspecified (principal); D62 Acute posthemorrhagic anemia; R56.9 Unspecified convulsions; F03.90 Unspecified dementia, unspecified severity, without behavioral disturbance, psychotic disturbance, mood disturbance, and anxiety; D50.9 Iron deficiency anemia, unspecified; I25.10 Atherosclerotic heart disease of native coronary artery without angina pectoris; I10 Essential (primary) hypertension; K44.9 Diaphragmatic hernia without obstruction or gangrene; K20.9 Esophagitis, unspecified; K22.8 Other specified diseases of esophagus; K31.9 Disease of stomach and duodenum, unspecified; I48.91 Unspecified atrial fibrillation; E78.5 Hyperlipidemia, unspecified; G47.30 Sleep apnea, unspecified; K21.9 Gastro-esophageal reflux disease without esophagitis; M06.9 Rheumatoid arthritis, unspecified; F32.9 Major depressive disorder, single episode, unspecified; Z86.73 Personal history of transient ischemic attack (TIA), and cerebral infarction without residual deficits; Z79.82 Long term (current) use of aspirin; Z87.891 Personal history of nicotine dependence; Z82.49 Family history of ischemic heart disease and other diseases of the circulatory system; Z88.6 Allergy status to analgesic agent; Z88.1 Allergy status to other antibiotic agents; Z88.0 Allergy status to penicillin
CPT/HCPCS: 36415; 36430; 43239; 731; 80048; 80053; 81001; 82040; 85025; 85027; 85610; 85730; 86850; 86900; 86901; 86920; 88305; 88312; 96360; 99291; C9113; J1940; J2704; J3490; J7030; P9016; P9017

== ENCOUNTER → 2019-07-27 | Outpatient (CLI) | payer MEDICARE, OTHER ==
--- NOTE | 2019-07-28 15:48 | RADIOLOGY REPORT (SQ) ---
EXAM DESCRIPTION: FOOT RIGHT 2 VIEWS IMAGES COMPLETED DATE/TIME: 07/28/2019 2:59 pm REASON FOR STUDY: PAIN IN RT FOOT M79.672 PAIN IN LEFT FOOT COMPARISON: None. NUMBER OF VIEWS: Two views. TECHNIQUE: AP and lateral radiographic images acquired of the right foot. LIMITATIONS: None. FINDINGS: MINERALIZATION: Osteopenia. BONES: Fracture of the 5th metatarsal distal shaft with mild lateral angulation appears healed. No a cute fracture. JOINTS: Intact. SOFT TISSUES: Vascular calcifications. OTHER: No other significant finding. IMPRESSION: Old stress fracture distal 5th metatarsal. No acute findings. TECHNICAL DOCUMENTATION: JOB ID: [id number] [email or web address]- All Rights Reserved Reading location - IP/workstation name: [email or web address]
== END ==
LOC: RAD 16:30
PROVIDERS: ATTEND Internal Medicine
DX: M79.672 Pain in left foot (principal)

== ENCOUNTER 2019-07-31 23:25 | Emergency (ER) | payer MEDICARE, OTHER ==
[2019-07-31] MEDS ORDERED: ACETAMINOPHEN 325 MG TABLET PO ONE (23:46)
--- NOTE | 2019-07-31 23:49 | ER Document Report ---
ED Fall - General Chief Complaint: Fall Injury Stated Complaint: FALL Time Seen by Provider: 07/31/19 23:37 Primary Care Provider: RAYNA HEBERT MD [Primary Care Provider] - Follow up in 3-5 days Notes: Patient is an 79-year-old female that comes emergency department for chief complaint of a fall at home. She comes by EMS. Patient states that she was trying to get out of her tub after taking a shower in the tub when she slipped, landed on her buttocks and lower back, she states that she was positioned so precariously when she fell that she could not get up. She states that she was able to reach her phone and call for help. She lives with her son. She denies passing out and she is uncertain of head injury but she does report a headache and pain in her neck along with pain in her right shoulder and right hip. She was able to ambulate at home after EMS helped her out of the tub. She states she was in the tub for about 30 to 45 minutes. She is not on a blood thinner except for aspirin. She denies any other complaints including chest pain, shortness of breath, dizziness, abdominal pain, focal numbness or weakness, incontinence. TRAVEL OUTSIDE OF THE [place] IN LAST 30 DAYS: No - Related data Allergies/Adverse Reactions: amoxicillin Allergy (Verified 05/25/19 11:16) cephalexin [From Keflex] Allergy (Verified 05/25/19 11:16) Itching and Rash morphine Allergy (Verified 05/25/19 11:16) Penicillins Allergy (Verified 05/25/19 11:16) Past Medical History - General Information source: Patient - Social History Smoking Status: Former Smoker Chew tobacco use (# tins/day): No Frequency of alcohol use: None Drug Abuse: None Lives with: Family Family History: CAD, Hypertension Patient has suicidal ideation: No Patient has homicidal ideation: No - Past Medical History Cardiac Medical History: Reports: Hx Atrial Fibrillation, Hx Coronary Artery Disease, Hx Hypercholesterolemia, Hx Hypertension Pulmonary Medical History: Reports: Hx Bronchitis, Hx Sleep Apnea Neurological Medical History: Reports: Hx Seizures Endocrine Medical History: Denies: Hx Diabetes Mellitus Type 1, Hx Diabetes Mellitus Type 2, Hx Hyperthyroidism, Hx Hypothyroidism Renal/ Medical History: Denies: Hx Peritoneal Dialysis GI Medical History: Reports: Hx Gastroesophageal Reflux Disease. Denies: Hx C irrhosis, Hx Hepatitis Musculoskeletal Medical History: Reports Hx Arthritis - Rheumatoid, Denies Hx Gout Skin Medical History: Reports Hx Cellulitis, Denies Hx Eczema, Denies Hx Psoriasis Psychiatric Medical History: Reports: Hx Dementia, Hx Depression Traumatic Medical History: Reports: Hx Fractures - Femur Infectious Medical History: Denies: Hx Hepatitis Past Surgical History: Reports: Hx Cholecystectomy, Hx Orthopedic Surgery - right hip, right knee, Hx Tonsillectomy, Other - Previous EGD for bleeding. Denies: Hx Hysterectomy - Immunizations Hx Diphtheria, Pertussis, Tetanus Vaccination: Yes Review of Systems - Review of Systems Constitutional: No symptoms reported EENT: No symptoms reported Cardiovascular: No symptoms reported Respiratory: No symptoms reported Gastrointestinal: No symptoms reported Genitourinary: No symptoms reported Female Genitourinary: No symptoms reported Musculoskeletal: See HPI Skin: No symptoms reported Hematologic/Lymphatic: No symptoms reported Neurological/Psychological: See HPI Physical Exam - Vital signs Vitals: Pulse Resp BP Pulse Ox 60 16 162/80 H 100 07/31/19 23:26 07/31/19 23:26 07/31/19 23:26 07/31/19 23:26 - Notes Notes: GENERAL: Alert, interacts well. No acute distress. HEAD: Normocephalic, atraumatic. EYES: Pupils equal, round, and reactive to light. Extraocular movements intact. ENT: Oral mucosa moist, tongue midline. Oropharynx unremarkable. Airway patent. Nares patent, sinuses non-tender, ear canals unremarkable, TM's intact. NECK: Full range of motion. Supple. Trachea midline. No lymphadenopathy. LUNGS: Clear to auscultation bilaterally, no wheezes, rales, or rhonchi. No respiratory distress. Non-tender chest wall. No signs of trauma. HEART: Regular rate and rhythm. No murmur ABDOMEN: Soft, non-tender. Non-distended. Bowel sounds present in all 4 quadrants. No signs of trauma. EXTREMITIES: Moves all 4 extremities spontaneously. Full range of motion of all extremities. There is tenderness with palpation over the right hip and right shoulder but there are no signs of trauma. No significant tenderness or soft tissue swelling. No edema, normal radial and dorsalis pedis pulses bilaterally. No cyanosis. BACK: Patient with some generalized nonspecific tenderness over the cervical spine without signs of trauma, there are also some tender areas over the lumbar spine without signs of trauma. No saddle anesthesia, normal distal neurovascular exam. Moves all extremities in full range of motion. NEUROLOGICAL: Alert and oriented x3. Normal speech. Cranial nerves II through XII grossly intact. Strength 5/5 in all extremities. PSYCH: Normal affect, normal mood. SKIN: Warm, dry, normal turgor. No rashes or lesions noted. Course - Re-evaluation Re-evalutation: Patient is well-appearing on exam. She does have tenderness over the neck, lumbar spine, slightly over the right shoulder, slightly over the right hip, and she complains of a headache. No neurological deficits on exam, no signs of trauma, unremarkable vital signs. Patient is talkative and well-appearing. On reevaluation after Tylenol headache has resolved. CT of the head, CT of the cervical spine, CT of the lumbar spine are negative for acute findings. X-ray of the shoulder and hip with no acute findings. CBC, chemistry, urinalysis, CK nonspecific with no concerning findings. Patient is able to ambulate. Patient is very happy with work-up, no current complaints, she will be going home with her family. Discussed return precautions and follow-up instructions in detail. Patient states understanding and agreement with plan. - Vital Signs Vital signs: Temp Pulse Resp BP Pulse Ox 60 16 162/80 H 100 07/31/19 23:26 07/31/19 23:26 07/31/19 23:26 07/31/19 23:26 - Laboratory Result Diagrams: 08/01/19 01:00 08/01/19 01:00 Laboratory results interpreted by me: 08/01/19 08/01/19 01:00 01:00 Hgb 11.0 L Hct 32.0 L RDW 18.7 H Lymph % (Auto) 9.0 L Seg Neutrophils % 80.3 H Sodium 135.7 L Est GFR (MDRD) Non-Af 59 L Alkaline Phosphatase 153 H Discharge - Discharge Clinical Impression: Right hip pain Fall Qualifiers: Encounter type: initial encounter Qualified Code(s): W19.XXXA - Unspecified fall, initial encounter Head injury Qualifiers: Encounter type: initial encounter Qualified Code(s): S09.90XA - Unspecified injury of head, initial encounter Lower back pain Qualifiers: Chronicity: acute Back pain laterality: bilateral Sciatica presence: without sciatica Qualified Code(s): M54.5 - Low back pain Right shoulder pain Qualifiers: Chronicity: acute Qualified Code(s): M25.511 - Pain in right shoulder Condition: Stable Disposition: HOME, SELF-CARE Additional Instructions: Your evaluation, tests, and imaging do not show any concerning findings. No fractures or other injuries are noted. You most likely have soreness, take Tylenol for pain, rest. Follow-up with primary care for additional management. Return if you worsen including severe headache, vomiting, passing out, confusion, developing numbness, losing control of your bowel or bladder, or any other concerning or worsening symptoms. Referrals: RAYNA HEBERT MD [Primary Care Provider] - Follow up in 3-5 days
--- NOTE | 2019-08-01 00:48 | RADIOLOGY REPORT (SQ) ---
CT CERVICAL SPINE: 07/31/2019 11:45 PM CDT TECHNIQUE: Axial contiguous images were obtained through the cervical spine without intravenous contrast. Sagittal and coronal reconstructions were also reviewed. This exam was performed according to our departmental dose-optimization program, which includes automated exposure control, adjustment of the mA and/or KV according to the patient's size and/or use of iterative reconstruction technique. COMPARISON: CT of the cervical spine from 06/10/2018 INDICATION: 79-year old patient with neck pain, trauma. FINDINGS: There is anterolisthesis of C4 over C5 by 2 to 3 mm. Multilevel disc osteophytes are also present. There is suggestion of some minimal retrolisthesis of C5 over C6 and C6 over C7 by 2 to 3 mm. There is mild to moderate facet hypertrophy, most pronounced at the lower lumbar spine and on the left side. The vertebral body heights appear well maintained. No significant pre-vertebral soft tissue swelling is noted. No definite fracture or subluxation is noted. No significant intervertebral disc space narrowing is seen. The visualized brain parenchyma appears unremarkable. The craniocervical junction is unremarkable. There is overall increased cervical lordosis. IMPRESSION: There are no findings to suggest an acute fracture or subluxation within the cervical spine. Multilevel degenerative changes are seen at the cervical spine.
--- NOTE | 2019-08-01 00:53 | RADIOLOGY REPORT (SQ) ---
CT of the lumbar spine: 07/31/2019 11:47 PM CDT TECHNIQUE: Multiple axial contiguous images were obtained through the lumbar spine without intravenous contrast administered. Coronal and sagittal reconstructed images were also obtained and examined. This exam was performed according to our departmental dose-optimization program, which includes automated exposure control, adjustment of the mA and/or KV according to the patient's size and/or use of iterative reconstruction technique. HISTORY: 79-year-old patient with lower back pain, trauma. COMPARISON:None available FINDINGS: There is anterolisthesis of L4 over L5 and by 5 to 6 mm and L5 over S1 by L3 over L4 by 3 to 4 mm. Mild to moderate multilevel facet hypertrophy is present. No significant loss of vertebral body height is seen. Mild multilevel intervertebral disc space narrowing is seen. The visualized sacroiliac joints appear grossly unremarkable. There are no findings to suggest an acute fracture or subluxation. There is a mild scoliotic curvature of the lumbar spine, convex to the right side. The gallbladder is surgically absent. The visualized intrapelvic organs also appear unremarkable. There are no findings to suggest hydronephrosis. IMPRESSION: There are no findings to suggest an acute fracture or subluxation of the lumbar spine. Multilevel degenerative changes are seen throughout the lumbar spine.
--- NOTE | 2019-08-01 00:54 | RADIOLOGY REPORT (SQ) ---
CT of the head: 07/31/2019 11:52 PM CDT HISTORY: 79-year-old patient with trauma, headache. COMPARISON: CT the head from 08/26/2018 TECHNIQUE: Multiple axial contiguous images were obtained through the head without intravenous contrast administered. This exam was performed according to our departmental dose-optimization program, which includes automated exposure control, adjustment of the mA and/or KV according to the patient's size and/or use of iterative reconstruction technique. FINDINGS: The ventricles and cerebral sulci demonstrate mild prominence, consistent with cerebral atrophy. There are mild periventricular hypodensities, suggestive of periventricular white matter changes. The avila-white matter differentiation is within normal limits. Both orbits appear unremarkable. The mastoid air cells appear clear. The visualized paranasal sinuses appear clear. The calvarium is intact. No extra-axial fluid collection is seen. No midline shift or mass effect is apparent. There are no findings to suggest acute intracranial hemorrhage. IMPRESSION: 1. No acute intracranial hemorrhage is seen. 2. Mild cerebral atrophy and periventricular white matter changes are seen.
[2019-08-01 01:13] LABS: ABSOLUTE BASOPHILS # (AUTO) 0.1 10^3/uL (0.0-0.2); ABSOLUTE EOSINOPHILS # (AUTO) 0.1 10^3/uL (0.0-0.6); ABSOLUTE LYMPHOCYTES (AUTO) 0.7 10^3/uL (0.5-4.7); ABSOLUTE MONOCYTES (AUTO) 0.7 10^3/uL (0.1-1.4); ABSOLUTE NEUT (AUTO) 6.6 10^3/uL (1.7-8.2); BASOPHILS % (AUTO) 0.7 % (0-2); EOSINOPHILS % (AUTO) 1.8 % (0-6); MEAN CORPUSCULAR HEMOGLOBIN 28.8 pg (27.0-33.4); MEAN CORPUSCULAR HGB CONC 34.3 g/dL (32.0-36.0); MEAN CORPUSCULAR VOLUME 84 fl (80-97); MONOCYTES % (AUTO) 8.2 % (3-13); PLATELET COUNT 327 10^3/uL (150-450); RED BLOOD COUNT 3.81 10^6/uL (3.72-5.28); RED CELL DISTRIBUTION WIDTH 18.7 % (11.5-14.0); SEGMENTED NEUTROPHILS % (AUTO) 80.3 % (42-78); TOTAL CELLS COUNTED % (AUTO) 100 %; WHITE BLOOD COUNT 8.2 10^3/uL (4.0-10.5)
[2019-08-01 01:29] LABS: ALBUMIN 4.1 g/dL (3.5-5.0); ALKALINE PHOSPHATASE 153 U/L (38-126); ANION GAP 7 (5-19); ASPARTATE AMINO TRANSFERASE 32 U/L (14-36); BILIRUBIN,TOTAL 0.5 mg/dL (0.2-1.3); BLOOD UREA NITROGEN 18 mg/dL (7-20); CALCIUM 9.5 mg/dL (8.4-10.2); CARBON DIOXIDE 25 mmol/L (22-30); CHLORIDE 104 mmol/L (98-107); CREATINE KINASE 97 U/L (30-135); GLUCOSE 108 mg/dL (75-110); POTASSIUM 4.5 mmol/L (3.6-5.0); TOTAL PROTEIN 7.7 g/dL (6.3-8.2)
--- NOTE | 2019-08-01 01:32 | RADIOLOGY REPORT (SQ) ---
RIGHT HIP RADIOGRAPHS: 08/01/2019 12:31 AM CDT HISTORY: 79-year old patient with recent right total hip arthroplasty. TECHNIQUE: AP and lateral radiographs of the right hip were obtained. FINDINGS: There are post surgical changes of recent right total hip arthroplasty seen. There are post surgical changes seen within the soft tissues. There are no radiographic findings to suggest hardware complication. There is a compression plate with multiple screws seen at the right hip. Degenerative changes are seen at the left hip. IMPRESSION: Normal postoperative right hip arthroplasty changes are seen.
--- NOTE | 2019-08-01 01:34 | RADIOLOGY REPORT (SQ) ---
RIGHT SHOULDER RADIOGRAPHS: 08/01/2019 12:32 AM CDT TECHNIQUE: AP internal/external rotation, Y views of the right shoulder were obtained. COMPARISON: None available HISTORY: 79-year old patient with right shoulder pain . FINDINGS: The visualized portions of the right hemithorax appear unremarkable. There is mild degenerative spurring at the right acromioclavicular joint. There are changes of a right shoulder hemiarthroplasty. Deformity of the right clavicle, likely due to remote trauma. There are no findings to suggest an acute fracture of the right shoulder. The visualized portions of the right clavicle demonstrate no evidence of an acute fracture. The visualized soft tissues appear unremarkable. Several remote right-sided rib fractures are seen. IMPRESSION: There are no findings to suggest an acute fracture of the right shoulder.
[2019-08-01 02:13] LABS: APPEARANCE,URINE CLEAR; BILIRUBIN,URINE NEGATIVE (NEGATIVE); COLOR,URINE STRAW; GLUCOSE, URINE NEGATIVE (NEGATIVE); KETONES,URINE NEGATIVE (NEGATIVE); LEUKOCYTE ESTERASE,URINE NEGATIVE (NEGATIVE); NITRITE,URINE NEGATIVE (NEGATIVE); PROTEIN,URINE NEGATIVE (NEGATIVE); URINE SPECIFIC GRAVITY 1.008; UROBILINOGEN,URINE NEGATIVE mg/dL (<2.0)
[2019-08-01 08:33] VITALS: BP 126/64
== END 2019-08-01 07:45 | disposition home or self-care (01) ==
LOC: ER 23:25
DX: S09.90XA Unspecified injury of head, initial encounter (principal); M54.2 Cervicalgia; M25.551 Pain in right hip; M54.5 Low back pain; M25.511 Pain in right shoulder; W18.2XXA Fall in (into) shower or empty bathtub, initial encounter; Y93.E1 Activity, personal bathing and showering; Y92.002 Bathroom of unspecified non-institutional (private) residence as the place of occurrence of the external cause; I48.91 Unspecified atrial fibrillation; I25.10 Atherosclerotic heart disease of native coronary artery without angina pectoris; E78.00 Pure hypercholesterolemia, unspecified; I10 Essential (primary) hypertension; F03.90 Unspecified dementia, unspecified severity, without behavioral disturbance, psychotic disturbance, mood disturbance, and anxiety; Z88.0 Allergy status to penicillin; Z79.82 Long term (current) use of aspirin
CPT/HCPCS: 99284; 51701; 36415; 82550; 83735; 85025; 80053; 81001; 73502; 73030; 70450; 72125; 72131; A9270

== ENCOUNTER → 2019-09-02 | Emergency (ER) | payer MEDICARE ==
[~2019-09-02] MED LIST: ALTEPLASE INJ 100 MG VIAL IV ONE; ALTEPLASE INJ 100 MG VIAL ONE; DILTIAZEM HCL INJ 25 MG/5 ML VIAL IV ONE; DILTIAZEM HCL INJ 25 MG/5 ML VIAL ONE; NICARDIPINE HCL RTU, ISO-OS 20 MG/200 ML RTUINJ IV ONE
--- NOTE | 2019-09-02 18:17 | ER Document Report ---
ED Neuro Symptoms/Deficit - General Chief Complaint: S/S of Possible Stroke Stated Complaint: POSSIBLE STROKE Time Seen by Provider: 09/02/19 18:15 Primary Care Provider: RAYNA HEBERT MD [Primary Care Provider] - Follow up as needed Mode of Arrival: Medic Information source: Emergency Med Personnel Cannot obtain history due to: Altered mental status Notes: [age]-year-old female arrived by EMS with chief complaint of left-sided neglect since 89 per son's history. EMS report he is a poor historian and much of her history came from there computer records. They have seen her before in the past but never had a stroke in the past according to their records. Patient CT initially was within normal limits. CTA was ordered. Patient has a prior history of CVA and was seen by Sonny Vasques in March 2019. Also patient was seen August 2018 because of CVA as well. She also has a history of chest pain pneumonia UTI rhabdomyolysis hypotension and SBO in the past. TRAVEL OUTSIDE OF THE [place] IN LAST 30 DAYS: No - HPI Patient complains to provider of: Difficulty walking, Facial Droop, Paralysis - Left sided Onset: Just prior to arrival Awoke with symptoms: No Duration: Continues in ED Quality of pain: No pain Severity: Moderate Pain Level: 2 Baseline Cognitive: Alert but confused Baseline Gait: Uses a cane/walker Alert To: Name/Voice - Responds by moaning Patient Orientation: No: Person, Place, Time, Events Character of altered mental status: Decreased responsiveness, Disoriented Associated symptoms: Dizzy Similar symptoms previously: No Recently seen / treated by doctor: No - Related Data Allergies/Adverse Reactions: amoxicillin Allergy (Verified 05/25/19 11:16) cephalexin [From Keflex] Allergy (Verified 05/25/19 11:16) Itching and Rash morphine Allergy (Verified 05/25/19 11:16) Penicillins Allergy (Verified 05/25/19 11:16) Past Medical History - General Information source: Relative - son - Social History Smoking Status: Unknown if Ever Smoked Cigarette use (# per day): No Chew tobacco use (# tins/day): No Smoking Education Provided: No Frequency of alcohol use: None Drug Abuse: None Lives with: Family Family History: Reviewed & Not Pertinent, CAD, Hypertension - Past Medical History Cardiac Medical History: Reports: Hx Atrial Fibrillation, Hx Coronary Artery Disease, Hx Hypercholesterolemia, Hx Hypertension Pulmonary Medical History: Reports: Hx Bronchitis, Hx Sleep Apnea Neurological Medical History: Reports: Hx Seizures Endocrine Medical History: Denies: Hx Diabetes Mellitus Type 1, Hx Diabetes Mellitus Type 2, Hx Hyperthyroidism, Hx Hypothyroidism Renal/ Medical History: Denies: Hx Peritoneal Dialysis GI Medical History: Reports: Hx Gastroesophageal Reflux Disease. Denies: Hx C irrhosis, Hx Hepatitis Musculoskeletal Medical History: Reports Hx Arthritis - Rheumatoid, Denies Hx Gout Skin Medical History: Reports Hx Cellulitis, Denies Hx Eczema, Denies Hx Psoriasis Psychiatric Medical History: Reports: Hx Dementia, Hx Depression Traumatic Medical History: Reports: Hx Fractures - Femur Infectious Medical History: Denies: Hx Hepatitis Past Surgical History: Reports: Hx Cholecystectomy, Hx Orthopedic Surgery - right hip, right knee, Hx Tonsillectomy, Other - Previous EGD for bleeding. Denies: Hx Hysterectomy - Immunizations Hx Diphtheria, Pertussis, Tetanus Vaccination: Yes Review of Systems - Review of Systems Constitutional: See HPI, Weakness EENT: No symptoms reported Cardiovascular: No symptoms reported Respiratory: No symptoms reported Gastrointestinal: No symptoms reported Genitourinary: No symptoms reported Female Genitourinary: No symptoms reported Musculoskeletal: See HPI, Other - Left-sided neglect and weakness Skin: No symptoms reported Hematologic/Lymphatic: No symptoms reported Neurological/Psychological: See HPI, Weakness, Gait changes, Loss of power, Paralysis - left sided, Speech impairment Physical Exam - General General appearance: Anxious - HEENT Head: Normocephalic, Atraumatic Eyes: Normal Pupils: PERRL - Cardiovascular Rhythm: Tachycardia - a fib Murmur: No - Rectal Tenderness: No - Genitourinary External exam: Normal - Back Back: Normal - Extremities General upper extremity: Other - left neglect General lower extremity: Other - Left-sided neglect - Neurological Neuro grossly intact: No Cognition: Confused Orientation: No: AAOx4, Disoriented to person, Disoriented to place, Disoriented to time, Disoriented to events James Coma Scale Eye Opening: To Voice James Coma Scale Verbal: Incomprehensible Additional motor exam normals: Hemiplegia - left sided Course - Laboratory Result Diagrams: 09/02/19 18:46 09/02/19 18:46 - Diagnostic Test Radiology reviewed: Reports reviewed - EKG Interpretation by Me EKG shows normal: Sinus rhythm Rhythm: A.Fib - RVR she doing well I believe it still 1 Critical Care Note - Critical Care Note Total time excluding time spent on procedures (mins): 90 Comments: I discussed this case [facility] PA Susan Coelho after speaking with Varinder at the transfer center at 1900. I discussed this case with Dr. Fam at [facility] at 1925 and he advises TPA ED [employer]/Exc Criteria - Inclusion Criteria: 1: Patient presented to ED within 3 hours of acute ischemic stroke symptom onset? -: Yes 2: Did baseline CT exclude intracranial hemorrhage and/or other risk factors? -: Yes 3: Is the age of the patient 18 years of age or greater? -: No : If any of the above questions are answered "NO" then stop, patient is not a candidate for Alteplase, : If all of the above questions are answered "YES" then continue with Exclusion Criteria. - Exclusion Criteria: 1: Is there evidence of intracranial hemorrhage on baseline CT? -: No 2: Is there suspicion of subarachnoid hemorrhage (even if CT negative)? -: No 3: Is there a history of serious head trauma, recent previous stroke or WA within 3 months? -: No 4: Does the patient have a clinical presentation consistent with WA or post-WA pericarditis? -: No 5: Is there history of intracranial hemorrhage? -: No 6: On repeated measurement is Systolic BP greater than 185mmHg or Diastolic BP greater that 110 mmHg and is aggressive treatment needed to reduce blood pressure to these limits (e.g. constant infusion of an anti-hypertensive)? 7: Did the patient awake with stroke symptoms? -: No 8: Has the patient had a lumbar puncture or an arterial puncture at a non- compressile site within 7 days? -: No 9: With in the last 14 days did the patient have surgery or major trauma? 10: Is the patient or less than 2 weeks? -: No 11: Was there any active bleeding or acute trauma? -: No 12: Does the patient have intracranial neoplasm, arteriovenous malformation or aneurysm? -: No 13: Does the patient have abnormal glucose (less than 50 or greater than 400mg/dl)? Record glucose in Comment. -: No 14: Patient has rapidly improving symptoms at the time Alteplase is to be Ad ministered. 15: Does the patient have any risks for bleeding, including but not limited to: a.: Current use of Coumadin with PT greater than 15 seconds or INR greater than 1.7. b.: Current use of Pradaxa (Dabigatran). c.: Heparin administereed within the past 48 hours and PTT elevated. d.: Platelet count less than 100,000/mm. e.: Major surgery or serious trauma within 14 days. f.: Gastrointestinal or gynecological urinary bleeding within 14 days. g.: Myocardial Infarction (WA) within 3 months. -: No : If the answer to any of the above questions is "YES" then stop, the patient is not a candidate for Alteplase. : If the answer to all of the above questions is "NO" then the patient may be eligible for the Administration of Alteplase. : If the patient is noted to have seizure activity at onset of Stroke symptoms; Consult Neurologist for further evaluation. - The patient is: -: Included and is eligible to receive Alteplase. *Initiate bed placement at higher level of care* Reviewed risks & benefits of thrombolytic therapy: I have reviewed the risks and benefits of thrombolytic therapy with the patient and/or his/her family. -: Excluded and not eligible to receive Alteplase for the above exclusions. -: Excluded and not eligible to receive Alteplase for other reasons (specify in comments): - Diagnosis of TIA: -: Patient presented with transient symptoms that are now resolved and no other neurologic findings are currently present. List symptoms in comments. -: Patient is NOT a candidate for tPA. -: ____(put name in comment) has been consulted for admission and continued evaluation of risk factor assessment. Discharge - Discharge Clinical Impression: CVA (cerebral vascular accident) Qualifiers: CVA mechanism: unspecified Qualified Code(s): I63.9 - Cerebral infarction, unspecified Disposition: [facility] Additional Instructions: Transfer this patient to [facility] Referrals: RAYNA HEBERT MD [Primary Care Provider] - Follow up as needed
--- NOTE | 2019-09-02 18:38 | RADIOLOGY REPORT (SQ) ---
EXAM DESCRIPTION: CT HEAD WITHOUT IMAGES COMPLETED DATE/TIME: 09/02/2019 6:27 pm REASON FOR STUDY: stroke s/s COMPARISON: 08/01/2019 TECHNIQUE: Axial images acquired through the brain without intravenous contrast. Images reviewed wi th bone, brain and subdural windows. Additional sagittal and coronal reconstructions were generated. Images stored on PACS. All CT scanners at this facility use dose modulation, iterative reconstruction, and/or weight based d osing when appropriate to reduce radiation dose to as low as reasonably achievable (ALARA). [facility]: Dose Right [facility]: CareDose [facility]: Dose Right [facility]: Teradose 4D [facility]: Smart [employer] RADIATION DOSE: CT Rad equipment meets quality standard of care and radiation dose reduction techniq ues were employed. CTDIvol: 53.2 mGy. DLP: 991 mGy-cm. mGy. LIMITATIONS: None. FINDINGS: VENTRICLES: Normal size and contour. CEREBRUM: No masses. No hemorrhage. No midline shift. No evidence for acute infarction. Areas of l ow density in the white matter most likely chronic small vessel ischemic changes. CEREBELLUM: No masses. No hemorrhage. No alteration of density. No evidence for acute infarction. EXTRAAXIAL SPACES: No fluid collections. No masses. ORBITS AND GLOBE: No intra- or extraconal masses. Normal contour of globe without masses. CALVARIUM: No fracture. PARANASAL SINUSES: No fluid or mucosal thickening. SOFT TISSUES: No mass or hematoma. OTHER: No other significant finding. IMPRESSION: CHRONIC MICROVASCULAR ISCHEMIA. NO ACUTE IMAGING FINDINGS IN THE BRAIN. EVIDENCE OF ACUTE STROKE: NO. COMMENT: Quality ID # 436: Final reports with documentation of one or more dose reduction techniques (e.g., Automated exposure control, adjustment of the mA and/or kV according to patient size, use of iterative reconstruction technique) TECHNICAL DOCUMENTATION: JOB ID: [id number] 2010 [employer]- All Rights Reserved Reading location - IP/workstation name: [email or web address]
[2019-09-02 19:02] LABS: ABSOLUTE BASOPHILS # (AUTO) 0.1 10^3/uL (0.0-0.2); ABSOLUTE EOSINOPHILS # (AUTO) 0.2 10^3/uL (0.0-0.6); ABSOLUTE LYMPHOCYTES (AUTO) 0.8 10^3/uL (0.5-4.7); ABSOLUTE MONOCYTES (AUTO) 0.5 10^3/uL (0.1-1.4); ABSOLUTE NEUT (AUTO) 6.3 10^3/uL (1.7-8.2); EOSINOPHILS % (AUTO) 2.8 % (0-6); HEMATOCRIT 32.5 % (36.0-47.0); HEMOGLOBIN 10.9 g/dL (12.0-15.5); LYMPHOCYTES % (AUTO) 9.8 % (13-45); MEAN CORPUSCULAR HEMOGLOBIN 28.2 pg (27.0-33.4); MEAN CORPUSCULAR HGB CONC 33.4 g/dL (32.0-36.0); MEAN CORPUSCULAR VOLUME 84 fl (80-97); MONOCYTES % (AUTO) 5.9 % (3-13); PLATELET COUNT 365 10^3/uL (150-450); RED BLOOD COUNT 3.85 10^6/uL (3.72-5.28); RED CELL DISTRIBUTION WIDTH 16.8 % (11.5-14.0); SEGMENTED NEUTROPHILS % (AUTO) 80.5 % (42-78); TOTAL CELLS COUNTED % (AUTO) 100 %; WHITE BLOOD COUNT 7.9 10^3/uL (4.0-10.5)
[2019-09-02 19:07] LABS: INTERNATIONAL RATION (INR) 0.99; PARTIAL THROMBOPLASTIN TIME 26.6 SEC (23.5-35.8); PROTHROMBIN TIME 13.1 SEC (11.4-15.4)
--- NOTE | 2019-09-02 19:15 | RADIOLOGY REPORT (SQ) ---
EXAM DESCRIPTION: CHEST SINGLE VIEW IMAGES COMPLETED DATE/TIME: 09/02/2019 6:51 pm REASON FOR STUDY: stroke s/s COMPARISON: 04/07/2019 EXAM PARAMETERS: NUMBER OF VIEWS: One view. TECHNIQUE: Single frontal radiographic view of the chest acquired. RADIATION DOSE: NA LIMITATIONS: None. FINDINGS: LUNGS AND PLEURA: Ill-defined opacification in the lung bases. MEDIASTINUM AND HILAR STRUCTURES: No masses. Contour normal. HEART AND VASCULAR STRUCTURES: Heart size is borderline. No mikael pulmonary edema. Tortuous descend ing aorta. BONES: No acute findings. HARDWARE: None in the chest. OTHER: No other significant finding. IMPRESSION: Borderline heart size without mikael pulmonary edema. Cannot exclude pneumonia in either lung base. TECHNICAL DOCUMENTATION: JOB ID: [id number] 2010 [employer]- All Rights Reserved Reading location - IP/workstation name: [email or web address]
[2019-09-02 19:20] LABS: ALBUMIN 4.4 g/dL (3.5-5.0); ALKALINE PHOSPHATASE 162 U/L (38-126); ANION GAP 12 (5-19); ASPARTATE AMINO TRANSFERASE 34 U/L (14-36); BILIRUBIN,TOTAL 0.5 mg/dL (0.2-1.3); BLOOD UREA NITROGEN 17 mg/dL (7-20); CALCIUM 9.5 mg/dL (8.4-10.2); CARBON DIOXIDE 23 mmol/L (22-30); CHLORIDE 102 mmol/L (98-107); CREATINE KINASE 76 U/L (30-135); GLUCOSE 102 mg/dL (75-110); POTASSIUM 4.4 mmol/L (3.6-5.0); TOTAL PROTEIN 8.4 g/dL (6.3-8.2)
[2019-09-02 19:31] LABS: CREATINE KINASE MB 0.67 ng/mL (<4.55)
[2019-09-02 19:36] LABS: TROPONIN I < 0.012 ng/mL
[2019-09-02 22:13] VITALS: BP 176/93
--- NOTE | 2019-09-03 08:45 | EKG REPORT ---
SEVERITY:- ABNORMAL ECG - SINUS TACHYCARDIA WITH IRREGULAR RATE 82-183 BORDERLINE LEFT AXIS DEVIATION NONSPECIFIC T ABNORMALITIES, LATERAL LEADS : Confirmed by: Joanna Barnes MD 03-Sep-2019 08:44:59
== END | disposition short-term general hospital (02) ==
LOC: ER 18:01
DX: I63.9 Cerebral infarction, unspecified (principal); R41.82 Altered mental status, unspecified; R53.1 Weakness; R47.9 Unspecified speech disturbances; G81.94 Hemiplegia, unspecified affecting left nondominant side; Z88.0 Allergy status to penicillin; Z90.49 Acquired absence of other specified parts of digestive tract
CPT/HCPCS: 93005; 96376; 99291; 99292; 96365; 96367; 36415; 82553; 82962; 82550; 85025; 85610; 85730; 80053; 84484; 71045; 70450; 93010; J3490 ×2; J2997

== ENCOUNTER 2019-09-17 11:38 | Emergency (ER) | payer MEDICARE | END 2019-09-17 13:00 | disposition left against medical advice (07) | LOC: ER 11:38 | DX: Z53.21 Procedure and treatment not carried out due to patient leaving prior to being seen by health care provider (principal); R51 Headache ==

== ENCOUNTER 2019-09-17 16:01 | Emergency (ER) | payer MEDICARE, OTHER ==
[2019-09-17 16:14] VITALS: BP 94/52
--- NOTE | 2019-09-17 19:24 | ER Document Report ---
ED Headache - General Chief Complaint: Headache Stated Complaint: HEADACHE Time Seen by Provider: 09/17/19 19:06 Primary Care Provider: RAYNA HEBERT MD [Primary Care Provider] - Follow up as needed Notes: CHIEF COMPLAINT: Headache HPI: 79-year-old female complaining of frontal headache. Denies vision change. Denies vomiting denies chest pain denies shortness of breath denies cough denies fever denies abdominal pain denies dizziness denies weakness numbness or tingling in the extremities. Patient states that she would like to go home ROS: See HPI - all other systems were reviewed and are otherwise negative Constitutional: no fever Eyes: no drainage, no blurred vision ENT: no runny nose, no sore throat Cardiovascular: no chest pain Resp: no SOB, no cough GI: no vomiting, no diarrhea, no abdominal pain : no dysuria Integumentary: no rash Allergy: no hives Musculoskeletal: no extremity pain or swelling Neurological: no numbness/tingling, no weakness, positive headache MEDICATIONS: I agree with the patient medications as charted by the RN. ALLERGIES: I agree with the allergies as charted by the RN. PAST MEDICAL HISTORY/PAST SURGICAL HISTORY: Reviewed and agree as charted by RN. SOCIAL HISTORY: Reviewed and agree as charted by RN. FAMILY HISTORY: No significant familial comorbid conditions directly related to patient complaint EXAM: Reviewed vital signs as charted by RN. CONSTITUTIONAL: Alert and oriented and responds appropriately to questions the majority of the time. Well-appearing; well-nourished HEAD: Normocephalic; atraumatic EYES: PERRL; Conjunctivae clear, sclerae non-icteric ENT: normal nose; no rhinorrhea; moist mucous membranes; pharynx without lesions noted, no uvula edema or deviation, no tonsillar hypertrophy, phonation normal NECK: Supple without meningismus; non-tender; no cervical lymphadenopathy, no masses CARD: RRR; no murmurs, no clicks, no rubs, no gallops; symmetric distal pulses RESP: Normal chest excursion without splinting or tachypnea; breath sounds clear and equal bilaterally; no wheezes, no rhonchi, no rales, pulse oximetry 97% on room air not hypoxic ABD/GI: Normal bowel sounds; non-distended; soft, non-tender, no rebound, no guarding; no palpable organomegaly or masses. BACK: The back appears normal and is non-tender to palpation, there is no CVA tenderness EXT: Normal ROM in all joints; non-tender to palpation; no cyanosis, no e ffusions, no edema SKIN: Normal color for age and race; warm; dry; good turgor; no acute lesions noted NEURO: Moves all extremities equally; Motor and sensory function intact. Strength equal 5/5 bilateral upper and lower extremities. No facial droop. No slurred speech. PSYCH: The patient's mood and manner are appropriate. Grooming and personal hygiene are appropriate. MDM: 79-year-old female presenting for headache took Tylenol earlier today headache abated slightly. She denies a history of similar headaches. On review of the record she does have stroke history, is not on blood thinners, does not have any neurologic deficits today. Patient had checked in earlier today that the left but her son apparently wanted her to be evaluated so he called her and told her she had to come back. Patient has no other complaints. We did call and leave a message on the daughter's phone about the patient to attempt to obtain more information but had to leave a message. At this time will obtain a CT of the head to ensure that there is no bleed but patient otherwise wishes to eat and go home. She is answering questions appropriately but at times does seem to be somewhat confused and repetitive.` TRAVEL OUTSIDE OF THE [place] IN LAST 30 DAYS: No - Related Data Allergies/Adverse Reactions: amoxicillin Allergy (Verified 09/17/19 18:44) cephalexin [From Keflex] Allergy (Verified 09/17/19 18:44) Itching and Rash morphine Allergy (Verified 09/17/19 18:44) Penicillins Allergy (Verified 09/17/19 18:44) Past Medical History - Social History Smoking Status: Former Smoker Frequency of alcohol use: None Drug Abuse: None Family History: Reviewed & Not Pertinent, CAD, Hypertension Patient has homicidal ideation: No - Past Medical History Cardiac Medical History: Reports: Hx Atrial Fibrillation, Hx Coronary Artery Disease, Hx Hypercholesterolemia, Hx Hypertension Pulmonary Medical History: Reports: Hx Bronchitis, Hx Sleep Apnea Neurological Medical History: Reports: Hx Seizures Endocrine Medical History: Denies: Hx Diabetes Mellitus Type 1, Hx Diabetes Mellitus Type 2, Hx Hyperthyroidism, Hx Hypothyroidism Renal/ Medical History: Denies: Hx Peritoneal Dialysis GI Medical History: Reports: Hx Gastroesophageal Reflux Disease. Denies: Hx Cirrhosis, Hx Hepatitis Musculoskeletal Medical History: Reports Hx Arthritis - Rheumatoid, Denies Hx Gout Skin Medical History: Reports Hx Cellulitis, Denies Hx Eczema, Denies Hx Psoriasis Psychiatric Medical History: Reports: Hx Dementia, Hx Depression Traumatic Medical History: Reports: Hx Fractures - Femur Infectious Medical History: Denies: Hx Hepatitis Past Surgical History: Reports: Hx Cholecystectomy, Hx Orthopedic Surgery - right hip, right knee, Hx Tonsillectomy, Hx Tubal Ligation, Other - Previous EGD for bleeding. Denies: Hx Hysterectomy - Immunizations Hx Diphtheria, Pertussis, Tetanus Vaccination: Yes Physical Exam - Vital signs Vitals: Temp Pulse Resp BP Pulse Ox 98.6 F 79 16 94/52 L 96 09/17/19 16:13 09/17/19 16:13 09/17/19 16:13 09/17/19 16:13 09/17/19 16:13 Course - Re-evaluation Re-evalutation: 09/17/19 19:[address] Haro, will obtain baseline screening labs on the patient 09/17/19 20:24 CT imaging suggests a possible acute or subacute stroke. 09/17/19 20:[address] aHro who is going to evaluate the patient. Patient only c omplaint is a headache she moves all extremities equally. I did speak with the patient's son at home and he states that he is the patient's primary caregiver although he does not have legal healthcare power of patent prosecution attorney. He states that patient has been complaining about the headache ever since September 07 when she was discharged from [facility] where she had been admitted for a stroke. On review of the records here it appears patient had a stroke with deficits was treated with TPA and transferred to [facility]. The stroke on CT here today is likely subacute. 09/17/19 21:01 I spoke with the patient's daughter Anita. We discussed the patient's care. She is aware patient will likely be discharged home as the headache is most likely from the prior stroke. She requests to be called to come pick the patient up if patient is ready for discharge. 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 Will treat for UTI discharged home to follow-up with PCP - Vital Signs Vital signs: Temp Pulse Resp BP Pulse Ox 98.6 F 79 16 94/52 L 96 09/17/19 17:45 09/17/19 16:13 09/17/19 16:13 09/17/19 16:13 09/17/19 16:13 - Laboratory Result Diagrams: 09/17/19 19:50 09/17/19 19:50 Laboratory results interpreted by me: 09/17/19 09/17/19 09/17/19 19:50 19:50 19:50 RBC 3.41 L Hgb 9.6 L Hct 29.1 L RDW 16.7 H ESR 46 H Sodium 135.6 L Est GFR (MDRD) Non-Af 57 L Urine Protein 30 H Ur Leukocyte Esterase MODERATE H Discharge - Discharge Clinical Impression: Post stroke headache UTI (urinary tract infection) Qualifiers: Urinary tract infection type: acute cystitis Hematuria presence: with hematuria Qualified Code(s): N30.01 - Acute cystitis with hematuria Condition: Stable Disposition: HOME, SELF-CARE Additional Instructions: Take the Cipro to treat the urinary infection. The headache that you are having is likely from the stroke that you had 2 weeks ago. Follow-up with your primary care provider or neurology team for further evaluation and management. Take Tylenol every 4-6 hours for the headache. Prescriptions: Ciprofloxacin HCl [Cipro 500 mg Tablet] 500 mg PO BID #14 tablet Referrals: RAYNA HEBERT MD [Primary Care Provider] - Follow up as needed
--- NOTE | 2019-09-17 20:06 | RADIOLOGY REPORT (SQ) ---
EXAM DESCRIPTION: CT HEAD WITHOUT IMAGES COMPLETED DATE/TIME: 09/17/2019 7:50 pm REASON FOR STUDY: headache COMPARISON: 09/02/2019 TECHNIQUE: Axial images acquired through the brain without intravenous contrast. Images reviewed wit h bone, brain and subdural windows. Images stored on PACS. All CT scanners at this facility use dose modulation, iterative reconstruction, and/or weight based d osing when appropriate to reduce radiation dose to as low as reasonably achievable (ALARA). [facility]: Dose Right [facility]: CareDose [facility]: Dose Right [facility]: Teradose 4D [facility]: [employer] RADIATION DOSE: CT Rad equipment meets quality standard of care and radiation dose reduction techniq ues were employed. CTDIvol: 53.2 mGy. DLP: 937 mGy-cm.. LIMITATIONS: None. FINDINGS: VENTRICLES: Normal size and contour. CEREBRUM: No hemorrhage. No midline shift. Focal hypodensity noted the right posterior temporal and occipital lobes involving the avila and white matter, possible acute -subacute infarction. CEREBELLUM: No masses. No hemorrhage. No alteration of density. No evidence for acute infarction. EXTRA-AXIAL SPACES: No fluid collections. ORBITS AND GLOBE: No intra- or extraconal masses. Normal contour of globe without masses. CALVARIUM: No fracture. PARANASAL SINUSES: No fluid or mucosal thickening. SOFT TISSUES: No mass or hematoma. OTHER: No other significant finding. IMPRESSION: Focal hypodensity noted the right posterior temporal and occipital lobes involving the g ray and white matter, possible acute -subacute infarction. EVIDENCE OF ACUTE STROKE: YES. RIGHT SECRETARY ADMINISTRATIVE ASSISTANT COMMENT: The findings were sent to the Radiology Results Communication Center at 19:59 on 09/17/2019 to be communicated to a licensed caregiver. TECHNICAL DOCUMENTATION: JOB ID: [id number] Quality ID # [id number]: Final reports with documentation of one or more dose reduction techniques (e.g., Au tomated exposure control, adjustment of the mA and/or kV according to patient size, use of iterative reconstruction technique) 2010 [employer]- All Rights Reserved Reading location - IP/workstation name: [employer]
[2019-09-17 20:16] LABS: APPEARANCE,URINE SLIGHTLY-CLOUDY; BILIRUBIN,URINE NEGATIVE (NEGATIVE); COLOR,URINE YELLOW; GLUCOSE, URINE NEGATIVE (NEGATIVE); KETONES,URINE NEGATIVE (NEGATIVE); LEUKOCYTE ESTERASE,URINE MODERATE (NEGATIVE); NITRITE,URINE NEGATIVE (NEGATIVE); PROTEIN,URINE 30 mg/dL (NEGATIVE); URINE SPECIFIC GRAVITY 1.026; UROBILINOGEN,URINE NEGATIVE mg/dL (<2.0)
[2019-09-17 20:22] LABS: ABSOLUTE EOSINOPHILS # (AUTO) 0.2 10^3/uL (0.0-0.6); ABSOLUTE MONOCYTES (AUTO) 0.6 10^3/uL (0.1-1.4); ABSOLUTE NEUT (AUTO) 4.6 10^3/uL (1.7-8.2); BASOPHILS % (AUTO) 0.7 % (0-2); EOSINOPHILS % (AUTO) 3.8 % (0-6); HEMATOCRIT 29.1 % (36.0-47.0); HEMOGLOBIN 9.6 g/dL (12.0-15.5); LYMPHOCYTES % (AUTO) 15.4 % (13-45); MEAN CORPUSCULAR HEMOGLOBIN 28.3 pg (27.0-33.4); MEAN CORPUSCULAR HGB CONC 33.2 g/dL (32.0-36.0); MEAN CORPUSCULAR VOLUME 85 fl (80-97); MONOCYTES % (AUTO) 8.9 % (3-13); PLATELET COUNT 410 10^3/uL (150-450); RED BLOOD COUNT 3.41 10^6/uL (3.72-5.28); RED CELL DISTRIBUTION WIDTH 16.7 % (11.5-14.0); SEGMENTED NEUTROPHILS % (AUTO) 71.2 % (42-78); TOTAL CELLS COUNTED % (AUTO) 100 %; WHITE BLOOD COUNT 6.5 10^3/uL (4.0-10.5)
[2019-09-17 20:29] LABS: ALBUMIN 3.6 g/dL (3.5-5.0); ALKALINE PHOSPHATASE 118 U/L (38-126); ANION GAP 5 (5-19); ASPARTATE AMINO TRANSFERASE 24 U/L (14-36); BILIRUBIN,TOTAL 0.4 mg/dL (0.2-1.3); BLOOD UREA NITROGEN 17 mg/dL (7-20); CARBON DIOXIDE 28 mmol/L (22-30); CHLORIDE 103 mmol/L (98-107); GLUCOSE 97 mg/dL (75-110); POTASSIUM 4.4 mmol/L (3.6-5.0)
[2019-09-17 20:37] LABS: INTERNATIONAL RATION (INR) 0.99; PROTHROMBIN TIME 13.1 SEC (11.4-15.4)
--- NOTE | 2019-09-17 20:53 | ER Document Report ---
Doctor's Note Notes: 09/17/19 20:49 I was asked see this patient along with the midlevel provider who is currently evaluating her for chronic/recurrent headache. This is an elderly lady with some mild dementia and supplemental history is obtained by telephone from her son. She was previously hospitalized at [facility] with a stroke about 3 weeks ago and received TPA. No residual deficit from the stroke. She has however had intermittent persistent headaches since then. This described as a dull frontal headache minimally improved with acetaminophen. I examined the patient at the bedside. She is an elderly female appearing in no acute distress. She is alert and oriented x3 she has no focal motor or sensory deficit. She has no tenderness redness or swelling over the temporal arteries. Her neck is supple. She has no fever or skin rash. Her chest is clear. Cardiac rhythm is regular. She has no lower extremity edema. Moderate degenerative changes of inter-phalangeal joints of both hands are noted. Affect is flat. CT report is reviewed and this is consistent with subacute stroke showing no new or acute changes and would therefore be consistent with the history we have obtained. I suggested that we check sed rate for this patient. If this is significantly elevated we might need to think about a brief course of steroids and outpatient follow-up for temporal artery biopsy. Otherwise I think it is more likely that she is simply having some headache attributable to her prior stroke. This can be treated symptomatically with follow-up with this patient with her primary care physician as an outpatient.
[2019-09-17] MEDS ORDERED: CIPROFLOXACIN HCL 500 MG TABLET PO ONE (20:57)
[2019-09-17 20:59] LABS: ERYTHROCYTE SEDIMENTATION RATE 46 mm/hr (0-30)
== END 2019-09-17 21:51 | disposition home or self-care (01) ==
LOC: ER 16:01
DX: N30.01 Acute cystitis with hematuria (principal); I63.9 Cerebral infarction, unspecified; G44.309 Post-traumatic headache, unspecified, not intractable; F03.90 Unspecified dementia, unspecified severity, without behavioral disturbance, psychotic disturbance, mood disturbance, and anxiety; Z88.1 Allergy status to other antibiotic agents; Z88.8 Allergy status to other drugs, medicaments and biological substances; Z88.0 Allergy status to penicillin; Z87.891 Personal history of nicotine dependence; I25.10 Atherosclerotic heart disease of native coronary artery without angina pectoris; I10 Essential (primary) hypertension
CPT/HCPCS: 99284; 36415; 85025; 85652; 85610; 80053; 81001; 84484; 70450; A9270

== ENCOUNTER 2020-01-23 09:48 | Emergency (ER) | payer MEDICARE, OTHER ==
--- NOTE | 2020-01-23 13:07 | ER Document Report ---
ED General - General Chief Complaint: General Weakness Stated Complaint: WEAKNESS Time Seen by Provider: 01/23/20 12:08 Primary Care Provider: RAYNA HEBERT MD [Primary Care Provider] - Follow up as needed TRAVEL OUTSIDE OF THE [place] IN LAST 30 DAYS: No - HPI Notes: Patient is an 79-year-old female who presents for weakness. She is a poor historian. Patient states she pushed her life alert button today because she was overall weak. From reports, she was recently discharged from the [facility] yesterday for weakness. She lives with her son. Her son has not been taking care of her. Patient denies any specific complaints. She does state she feels weak. No chest pain. Patient did state that she fell recently and hit her forehead and right eye. She is unable to tell me when she fell or if she had a CAT scan yet but the facial bruising appears healing. States she uses a walker at home. No urinary symptoms. No abdominal pain. - Related Data Allergies/Adverse Reactions: amoxicillin Allergy (Verified 01/23/20 10:30) cephalexin [From Keflex] Allergy (Verified 01/23/20 10:30) Itching and Rash morphine Allergy (Verified 01/23/20 10:30) Penicillins Allergy (Verified 01/23/20 10:30) Past Medical History - General Information source: Patient, Emergency Med Personnel - Social History Smoking Status: Never Smoker Chew tobacco use (# tins/day): No Frequency of alcohol use: None Drug Abuse: None Family History: Reviewed & Not Pertinent, CAD, Hypertension Patient has homicidal ideation: No - Past Medical History Cardiac Medical History: Reports: Hx Atrial Fibrillation, Hx Coronary Artery Disease, Hx Hypercholesterolemia, Hx Hypertension Pulmonary Medical History: Reports: Hx Bronchitis, Hx Sleep Apnea Neurological Medical History: Reports: Hx Seizures Endocrine Medical History: Denies: Hx Diabetes Mellitus Type 1, Hx Diabetes Mellitus Type 2, Hx Hyperthyroidism, Hx Hypothyroidism Renal/ Medical History: Denies: Hx Peritoneal Dialysis GI Medical History: Reports: Hx Gastroesophageal Reflux Disease. Denies: Hx Cirrhosis, Hx Hepatitis Musculoskeletal Medical History: Reports Hx Arthritis - Rheumatoid, Denies Hx Gout Skin Medical History: Reports Hx Cellulitis, Denies Hx Eczema, Denies Hx Psoriasis Psychiatric Medical History: Reports: Hx Dementia, Hx Depression Traumatic Medical History: Reports: Hx Fractures - Femur Infectious Medical History: Denies: Hx Hepatitis Past Surgical History: Reports: Hx Cholecystectomy, Hx Orthopedic Surgery - r ight hip, right knee, Hx Tonsillectomy, Hx Tubal Ligation, Other - Previous EGD for bleeding. Denies: Hx Hysterectomy - Immunizations Hx Diphtheria, Pertussis, Tetanus Vaccination: Yes Review of Systems - Review of Systems Notes: CONSTITUTIONAL: No fever. Positive for fatigue. SKIN: No rash. HENT: No congestion, ear pain, or sore throat. EYES: No recent vision problems or eye pain. ENDOCRINE: No polyuria or polydipsia. CARDIOVASCULAR: No chest pain or edema. RESPIRATORY: No cough, shortness of breath, congestion, or wheezing. GASTROINTESTINAL: No abdominal pain, nausea, vomiting GENITOURINARY: No dysuria. MUSCULOSKELETAL: No joint pain or swelling. LYMPHATIC: No swollen glands. NEUROLOGIC: No seizures. No headache, focal weakness or sensory changes. HEMATOLOGIC: No unusual bruising or bleeding. PSYCHIATRIC: No depression or anxiety. Physical Exam - Vital signs Vitals: Temp 98.6 F 01/23/20 09:48 - Notes Notes: VITAL SIGNS: Within normal limits. GENERAL: No acute distress, non-toxic appearance. HEAD: Healing abrasion to forehead. Healing ecchymosis to right orbital region and forehead. EYES: EOMI, conjunctiva normal, no discharge. EARS: Hearing grossly intact. NOSE: Normal. NECK: Normal range of motion, no tenderness, supple, no lymphadenopathy, No adenopathy, no JVD. No posterior cervical tenderness. CHEST: Clear breath sounds bilaterally. No wheezes, rales, or rhonchi. CARDIAC: Regular rate and rhythm. S1 and S2, without murmurs, gallops, or rubs. VASCULAR: No Edema. ABDOMEN: Normal and soft with no tenderness, no masses or pulsatile masses. GENITOURINARY: Normal, No tenderness LYMPATHTIC: No lymphadenopathy noted. MUSCULOSKELETAL: Good range of motion of all major joints. Extremities without clubbing, cyanosis or edema. NEUROLOGICAL: Alert and oriented x 3. No focal sensory or strength deficits. Speech normal. Follows commands appropriately. Moves all extremities equally. PSYCHIATRIC: Normal Affect, judgement and mood. SKIN: Normal appearance with no rashes or lesions. Course - Re-evaluation Re-evalutation: 01/23/20 19:50 Social work was consulted who states that she had home health care set up by [facility] and they will have community out reach come check on her every day. Her work-up was unremarkable but urinalysis is pending. She ate lunch without difficulty. She attempted to ambulate and was very weak. She was too weak to ambulate from the bathroom and back to her bed even with assistance. I do not believe it is safe for her to go home as she may fall and will not be able to care for herself. Also, she has very little help at home as her son is not involved in her care and she does not have 03/11 home health care. I did discuss this with the patient and she is in agreement. Discussed with the hospitalist. He states that she does not need to be admitted for this. He recommended that we make her a social hold and have social work reevaluate her in the morning. 01/23/20 20:05 - Vital Signs Vital signs: Temp Pulse Resp BP Pulse Ox 98.6 F 15 112/57 L 98 01/23/20 10:04 01/23/20 10:04 01/23/20 10:04 01/23/20 10:04 - Laboratory Result Diagrams: 01/23/20 10:24 01/23/20 10:24 Laboratory results interpreted by me: 01/23/20 01/23/20 10:24 10:24 Hgb 9.5 L Hct 29.5 L MCV 79 L MCH 25.5 L RDW 18.6 H Lymph % (Auto) 9.5 L Sodium 136.6 L Est GFR (MDRD) Non-Af 52 L Alkaline Phosphatase 129 H - EKG Interpretation by Me EKG shows normal: Sinus rhythm Rate: Normal When compared to previous EKG there are: No significant change Additional EKG results interpreted by me: 01/23/20 14:02 EKG interpreted by me. Sinus rhythm at a rate of 55. QTc 494. No acute ST changes. EKG is similar to previous. Discharge - Discharge Clinical Impression: Weakness, Ambulatory dysfunction Dementia Qualifiers: Dementia type: unspecified type Dementia behavioral disturbance: without behavioral disturbance Qualified Code(s): F03.90 - Unspecified dementia without behavioral disturbance Condition: Stable Disposition: HOME, SELF-CARE Additional Instructions: Please follow-up with your family doctor. You have home health set up at home. Please return to the ER for any chest pain, shortness of breath, worsening symptoms. Referrals: RAYNA HEBERT MD [Primary Care Provider] - Follow up as needed
--- NOTE | 2020-01-23 13:19 | RADIOLOGY REPORT (SQ) ---
EXAM DESCRIPTION: CHEST SINGLE VIEW IMAGES COMPLETED DATE/TIME: 01/23/2020 12:53 pm REASON FOR STUDY: weakness COMPARISON: 09/02/2019 EXAM PARAMETERS: NUMBER OF VIEWS: One view. TECHNIQUE: Single frontal radiographic view of the chest acquired. RADIATION DOSE: NA LIMITATIONS: None. FINDINGS: LUNGS AND PLEURA: No opacities, masses or pneumothorax. No pleural effusion. MEDIASTINUM AND HILAR STRUCTURES: No masses. Contour normal. HEART AND VASCULAR STRUCTURES: The heart size is borderline. There is no pulmonary edema. BONES: No acute findings. HARDWARE: None in the chest. OTHER: No other significant finding. IMPRESSION: Borderline cardiomegaly without pulmonary edema. TECHNICAL DOCUMENTATION: JOB ID: [id number] 2010 [employer]- All Rights Reserved Reading location - IP/workstation name: [email or web address]
[2020-01-23 13:36] LABS: ABSOLUTE EOSINOPHILS # (AUTO) 0.2 10^3/uL (0.0-0.6); ABSOLUTE LYMPHOCYTES (AUTO) 0.5 10^3/uL (0.5-4.7); ABSOLUTE MONOCYTES (AUTO) 0.5 10^3/uL (0.1-1.4); ABSOLUTE NEUT (AUTO) 3.9 10^3/uL (1.7-8.2); BASOPHILS % (AUTO) 0.9 % (0-2); EOSINOPHILS % (AUTO) 3.8 % (0-6); HEMATOCRIT 29.5 % (36.0-47.0); HEMOGLOBIN 9.5 g/dL (12.0-15.5); LYMPHOCYTES % (AUTO) 9.5 % (13-45); MEAN CORPUSCULAR HEMOGLOBIN 25.5 pg (27.0-33.4); MEAN CORPUSCULAR HGB CONC 32.2 g/dL (32.0-36.0); MEAN CORPUSCULAR VOLUME 79 fl (80-97); MONOCYTES % (AUTO) 9.3 % (3-13); PLATELET COUNT 313 10^3/uL (150-450); RED BLOOD COUNT 3.73 10^6/uL (3.72-5.28); RED CELL DISTRIBUTION WIDTH 18.6 % (11.5-14.0); SEGMENTED NEUTROPHILS % (AUTO) 76.5 % (42-78); TOTAL CELLS COUNTED % (AUTO) 100 %
[2020-01-23 13:45] LABS: ALBUMIN 3.6 g/dL (3.5-5.0); ALKALINE PHOSPHATASE 129 U/L (38-126); ANION GAP 10 (5-19); ASPARTATE AMINO TRANSFERASE 23 U/L (14-36); BILIRUBIN,DIRECT 0.3 mg/dL (0.0-0.4); BILIRUBIN,TOTAL 0.7 mg/dL (0.2-1.3); BLOOD UREA NITROGEN 16 mg/dL (7-20); CARBON DIOXIDE 26 mmol/L (22-30); CHLORIDE 101 mmol/L (98-107); CREATINE KINASE 71 U/L (30-135); GLUCOSE 107 mg/dL (75-110); POTASSIUM 3.9 mmol/L (3.6-5.0)
[2020-01-23] MEDS ORDERED: NORMAL SALINE 500 ML IV ONE (14:55)
--- NOTE | 2020-01-23 15:07 | RADIOLOGY REPORT (SQ) ---
EXAM DESCRIPTION: CT FACIAL AREA WITHOUT IMAGES COMPLETED DATE/TIME: 01/23/2020 2:47 pm REASON FOR STUDY: fall COMPARISON: None. TECHNIQUE: Noncontrasted images through the facial bones and orbits windowed for bone and soft tissu e. Additional coronal and sagittal reconstructed images reviewed. All images stored on PACS. All CT scanners at this facility use dose modulation, iterative reconstruction, and/or weight based d osing when appropriate to reduce radiation dose to as low as reasonably achievable (ALARA). [facility]: Dose Right [facility]: CareDose [facility]: Dose Right [facility]: Teradose 4D [facility]: Smart [employer] RADIATION DOSE: CT Rad equipment meets quality standard of care and radiation dose reduction techniq ues were employed. CTDIvol: 30.4 mGy. DLP: 585 mGy-cm. mGy. LIMITATIONS: None. FINDINGS: FACIAL BONES: No fracture or bone lesion. ORBITS: Intact. No fracture. Symmetric intact globes and retroorbital soft tissues. PARANASAL SINUSES: Clear. No significant mucosal thickening, mass or fluid. SOFT TISSUES: No mass or edema. INFERIOR BRAIN: See separate report of the same date. OTHER: No other significant finding. IMPRESSION: NO ACUTE FINDINGS. TECHNICAL DOCUMENTATION: JOB ID: [id number] Quality ID # [id number]: Final reports with documentation of one or more dose reduction techniques (e.g., Au tomated exposure control, adjustment of the mA and/or kV according to patient size, use of iterative reconstruction technique) 2010 [employer]- All Rights Reserved Reading location - IP/workstation name: [email or web address]
--- NOTE | 2020-01-23 15:09 | RADIOLOGY REPORT (SQ) ---
EXAM DESCRIPTION: CT HEAD WITHOUT IMAGES COMPLETED DATE/TIME: 01/23/2020 2:47 pm REASON FOR STUDY: fall COMPARISON: 09/17/2019 TECHNIQUE: Axial images acquired through the brain without intravenous contrast. Images reviewed wi th bone, brain and subdural windows. Additional sagittal and coronal reconstructions were generated. Images stored on PACS. All CT scanners at this facility use dose modulation, iterative reconstruction, and/or weight based d osing when appropriate to reduce radiation dose to as low as reasonably achievable (ALARA). [facility]: Dose Right [facility]: CareDose [facility]: Dose Right [facility]: Teradose 4D [facility]: Aries [employer] RADIATION DOSE: CT Rad equipment meets quality standard of care and radiation dose reduction techniq ues were employed. CTDIvol: 53.2 mGy. DLP: 937 mGy-cm. mGy. LIMITATIONS: None. FINDINGS: VENTRICLES: Prominent. CEREBRUM: No masses. No hemorrhage. No midline shift. 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 Areas of low density in the white matter most likely due to chronic micro-vascular ischemic change. No evidence for acute infarction. CEREBELLUM: No masses. No hemorrhage. No alteration of density. No evidence for acute infarction. EXTRAAXIAL SPACES: Mild age-related involutional change. No fluid collections. No masses. ORBITS AND GLOBE: No intra- or extraconal masses. Normal contour of globe without masses. CALVARIUM: No fracture. PARANASAL SINUSES: No fluid or mucosal thickening. SOFT TISSUES: No mass or hematoma. OTHER: No other significant finding. IMPRESSION: Chronic ischemic changes. EVIDENCE OF ACUTE STROKE: NO. TECHNICAL DOCUMENTATION: JOB ID: [id number] Quality ID # [id number]: Final reports with documentation of one or more dose reduction techniques (e.g., Au tomated exposure control, adjustment of the mA and/or kV according to patient size, use of iterative reconstruction technique) 2010 [employer]- All Rights Reserved Reading location - IP/workstation name: [email or web address]
--- NOTE | 2020-01-23 19:54 | EKG REPORT ---
SEVERITY:- BORDERLINE ECG - SINUS RHYTHM BORDERLINE PROLONGED QT INTERVAL : Confirmed by: Lai Luz 23-Jan-2020 19:54:03
[2020-01-23 20:14] LABS: APPEARANCE,URINE CLOUDY; BILIRUBIN,URINE NEGATIVE (NEGATIVE); CALCIUM OXALATE CRYSTALS,URINE MODERATE /HPF; COLOR,URINE AMBER; GLUCOSE, URINE NEGATIVE (NEGATIVE); KETONES,URINE TRACE mg/dL (NEGATIVE); LEUKOCYTE ESTERASE,URINE LARGE (NEGATIVE); NITRITE,URINE NEGATIVE (NEGATIVE); PROTEIN,URINE 100 mg/dL (NEGATIVE); URINE SPECIFIC GRAVITY 1.025
[2020-01-23] MEDS ORDERED: NITROFURANTOIN MONOHYD/M-CRYST 100 MG CAPSULE PO ONE (21:35)
[2020-01-23] MEDS ORDERED: GENTAMICIN SULFATE INJ 80 MG/2 ML VIAL IM ONE (21:35)
[2020-01-23 23:21] VITALS: BP 123/66
[2020-01-24] MEDS ORDERED: ACETAMINOPHEN 325 MG TABLET PO ONE (02:04)
--- NOTE | 2020-01-24 12:04 | ER Document Report ---
Doctor's Note Notes: 01/24/20 12:03 Patient reassessed just now. Patient states she would like to be discharged. I can find no reason that patient cannot be discharged at this time. Social work has done extensive investigation and has arranged for home health and for social insurance administrator as well as Adult Protective Services to consult. Patient has a walker at home. She is able to ambulate with assistance here. In addition patient has a friend who is coming to see the patient will be able to assist the patient in the home as well. Home health services is going to come out today.
== END 2020-01-24 12:47 | disposition home or self-care (01) ==
LOC: ER 09:48
DX: R53.1 Weakness (principal); F03.90 Unspecified dementia, unspecified severity, without behavioral disturbance, psychotic disturbance, mood disturbance, and anxiety; S00.11XA Contusion of right eyelid and periocular area, initial encounter; S00.83XA Contusion of other part of head, initial encounter; S00.81XA Abrasion of other part of head, initial encounter; W19.XXXA Unspecified fall, initial encounter; R53.83 Other fatigue; I25.10 Atherosclerotic heart disease of native coronary artery without angina pectoris; I10 Essential (primary) hypertension; Z88.0 Allergy status to penicillin; Z88.1 Allergy status to other antibiotic agents; Z88.6 Allergy status to analgesic agent; Z88.5 Allergy status to narcotic agent
CPT/HCPCS: 93005; 99285; 96372; 36415; 87086; 82550; 85025; 80053; 81001; 84484; 71045; 70450; 70486; 93010; A9270 ×2; J1580; J7040; J8499

== ENCOUNTER → 2020-02-01 | Outpatient (CLI) | payer MEDICARE, OTHER ==
--- NOTE | 2020-02-01 17:32 | RADIOLOGY REPORT (SQ) ---
EXAM DESCRIPTION: CHEST 2 VIEWS IMAGES COMPLETED DATE/TIME: 02/01/2020 4:42 pm REASON FOR STUDY: R07.9 CHEST PAIN, UNSPECIFIED COMPARISON: 01/23/2020 EXAM PARAMETERS: NUMBER OF VIEWS: two views TECHNIQUE: Digital Frontal and Lateral radiographic views of the chest acquired. RADIATION DOSE: NA LIMITATIONS: none FINDINGS: LUNGS AND PLEURA: Hyperexpansion of the lungs. MEDIASTINUM AND HILAR STRUCTURES: No masses or contour abnormalities. HEART AND VASCULAR STRUCTURES: Heart size normal. Tortuosity of the descending aorta. BONES: No acute findings. HARDWARE: None in the chest. OTHER: No other significant finding. IMPRESSION: No acute pulmonary findings. Chronic lung changes. TECHNICAL DOCUMENTATION: JOB ID: [id number] 2010 [employer]- All Rights Reserved Reading location - IP/workstation name: [email or web address]
== END ==
LOC: RAD 16:25
PROVIDERS: ATTEND Internal Medicine
DX: R07.9 Chest pain, unspecified (principal)
CPT/HCPCS: 71046

== ENCOUNTER 2020-02-12 12:35 | Emergency (ER) | payer MEDICARE, OTHER ==
--- NOTE | 2020-02-12 13:13 | ER Document Report ---
ED General - General Stated Complaint: WEAKNESS Time Seen by Provider: 02/12/20 12:41 Primary Care Provider: RAYNA HEBERT MD [Primary Care Provider] - Follow up as needed Notes: 79-year-old female was sent into the emergency department for just not feeling well generalized weakness. The patient denies chest pain denies shortness of breath denies abdominal pain denies nausea vomiting diarrhea. Denies fever chills sore throat denies muscle aches. Denies any falls or trauma. Patient does have a history of dementia we try to ask her what is wrong she is states she does not feel good. She denies hematuria or dysuria denies black bloody or tarry stool. Denies chest pain or trouble breathing. Patient is a difficult historian try to get any specifics whatsoever. He does not know how long this has been going on but this is the first morning she has voiced this to anybody. TRAVEL OUTSIDE OF THE [place] IN LAST 30 DAYS: No - Related Data Allergies/Adverse Reactions: amoxicillin Allergy (Verified 01/23/20 10:30) cephalexin [From Keflex] Allergy (Verified 01/23/20 10:30) Itching and Rash morphine Allergy (Verified 01/23/20 10:30) Penicillins Allergy (Verified 01/23/20 10:30) Past Medical History - Social History Smoking Status: Unknown if Ever Smoked Family History: Reviewed & Not Pertinent, CAD, Hypertension - Past Medical History Cardiac Medical History: Reports: Hx Atrial Fibrillation, Hx Coronary Artery Disease, Hx Hypercholesterolemia, Hx Hypertension Pulmonary Medical History: Reports: Hx Bronchitis, Hx Sleep Apnea Neurological Medical History: Reports: Hx Seizures Endocrine Medical History: Denies: Hx Diabetes Mellitus Type 1, Hx Diabetes Mellitus Type 2, Hx Hyperthyroidism, Hx Hypothyroidism Renal/ Medical History: Denies: Hx Peritoneal Dialysis GI Medical History: Reports: Hx Gastroesophageal Reflux Disease. Denies: Hx Cirrhosis, Hx Hepatitis Musculoskeletal Medical History: Reports Hx Arthritis - Rheumatoid, Denies Hx Gout Skin Medical History: Reports Hx Cellulitis, Denies Hx Eczema, Denies Hx Psoriasis Psychiatric Medical History: Reports: Hx Dementia, Hx Depression Traumatic Medical History: Reports: Hx Fractures - Femur Infectious Medical History: Denies: Hx Hepatitis Past Surgical History: Reports: Hx Cholecystectomy, Hx Orthopedic Surgery - right hip, right knee, Hx Tonsillectomy, Hx Tubal Ligation, Other - Previous EGD for bleeding. Denies: Hx Hysterectomy - Immunizations Hx Diphtheria, Pertussis, Tetanus Vaccination: Yes Review of Systems - Review of Systems Constitutional: Malaise, Weakness. denies: Chills, Fever, Recent illness EENT: denies: Nose congestion, Throat pain Cardiovascular: denies: Chest pain, Dyspnea, Dizziness, Lightheaded, Edema Respiratory: denies: Cough, Hemoptysis, Short of breath Gastrointestinal: denies: Abdominal pain, Diarrhea, Nausea, Vomiting Genitourinary: denies: Burning, Dysuria, Flank pain, Hematuria Musculoskeletal: denies: Back pain, Muscle pain, Muscle stiffness Skin: Change in color. denies: Rash Neurological/Psychological: denies: Hallucinations, Gait changes, Lost consciousness, Headaches, Numbness, Tingling -: Yes All other systems reviewed and negative Physical Exam - Vital signs Vitals: Temp 98.8 F 02/12/20 12:35 - Notes Notes: GENERAL_APPEARANCE: well_nourished but frail appearing, alert, cooperative, no_acute_distress, no_obvious_discomfort. VITALS: reviewed, see vital signs table. HEAD: no_swelling\\tenderness on the head. EYES: PERRL, EOMI, conjunctiva_clear. NOSE: no_nasal_discharge. MOUTH: Mucous membranes THROAT: no_tonsilar_inflammation, no_airway_obstruction. no_lymphadenopathy NECK: supple, no_neck_tenderness, (-)thyromegaly. BACK: no_back_tenderness. CHEST_WALL: no_chest_tenderness. LUNGS: no_wheezing, no_rales, no_rhonchi, (-)accessory muscle use, good air exchange bilateral. HEART: normal_rate, normal_rhythm, normal_S1, normal_S2, (-)S3, (-)S4, no_murmur, no_rub. ABDOMEN:soft, no_abd_tenderness, (-)guarding, (-)rebound, no_organomegaly, no_abd_masses. EXTREMITIES: strength 5/5 in all_extremities, good pulses in all_extremities, no_swelling\\tenderness in the extremities, no_edema. SKIN: warm, dry, good_color, no_rash. MENTAL_STATUS: speech_clear, oriented_person and place but got the time wrong, normal_affect, responds_appropriately to questions. NEURO: Neg Motor or Sensory Deficits on exam, CN 2-12 intact, DTR 2+ symmetric x 4, No cerbellar signs Course - Re-evaluation Re-evalutation: 02/12/20 13:11 79-year-old female who comes in for very vague nonspecific weakness and "I do not feel good "I really cannot get any more information other than that out of her. Will do complete work-up. She has no unilateral motor or sensory deficits. She looks to have dementia at baseline. We will give her a liter of IV fluids. Will check for urinary tract infection. She is showing no respiratory infections I am not suspicious of Covid at this time. 02/12/20 16:06 Delay in obtaining blood - pt signed out to on coming doctor - Dr Rosario - Vital Signs Vital signs: Temp Pulse Resp BP Pulse Ox 98.8 F 02/12/20 12:35 - Laboratory Laboratory results interpreted by me: 02/12/20 14:37 Ur Leukocyte Esterase TRACE H Discharge - Discharge Clinical Impression: Weakness Condition: Good Disposition: OTHER Referrals: RAYNA HEBERT MD [Primary Care Provider] - Follow up as needed
[2020-02-12] MEDS: NORMAL SALINE 1000 ML 1,000 ML IV ONE ×2 (13:15→17:58)
--- NOTE | 2020-02-12 14:23 | EKG REPORT ---
SEVERITY:- ABNORMAL ECG - SINUS RHYTHM NONSPECIFIC INTRAVENTRICULAR CONDUCTION DELAY PROBABLE POSTERIOR INFARCT : Confirmed by: Huber Ashraf MD 12-Feb-2020 14:22:53
--- NOTE | 2020-02-12 14:44 | RADIOLOGY REPORT (SQ) ---
EXAM DESCRIPTION: CHEST SINGLE VIEW IMAGES COMPLETED DATE/TIME: 02/12/2020 2:20 pm REASON FOR STUDY: weakness COMPARISON: 02/01/2020 NUMBER OF VIEWS: One view. TECHNIQUE: Single frontal radiographic view of the chest acquired. LIMITATIONS: None. FINDINGS: LUNGS AND PLEURA: Stable scarring in the left lower lung. No infiltrate. MEDIASTINUM AND HILAR STRUCTURES: No masses. Contour normal. HEART AND VASCULAR STRUCTURES: Cardiomegaly. Normal vasculature. BONES: No acute findings. HARDWARE: None in the chest. OTHER: No other significant finding. IMPRESSION: COPD. NO ACUTE RADIOGRAPHIC FINDING IN THE CHEST. TECHNICAL DOCUMENTATION: JOB ID: [id number] 2010 [employer]- All Rights Reserved Reading location - IP/workstation name: [email or web address]
[2020-02-12 14:57] LABS: APPEARANCE,URINE SLIGHTLY-CLOUDY; BILIRUBIN,URINE NEGATIVE (NEGATIVE); COLOR,URINE YELLOW; GLUCOSE, URINE NEGATIVE (NEGATIVE); KETONES,URINE NEGATIVE (NEGATIVE); LEUKOCYTE ESTERASE,URINE TRACE (NEGATIVE); NITRITE,URINE NEGATIVE (NEGATIVE); PROTEIN,URINE NEGATIVE (NEGATIVE); URINE SPECIFIC GRAVITY 1.016; UROBILINOGEN,URINE NEGATIVE mg/dL (<2.0)
[2020-02-12 16:56] LABS: ABSOLUTE BASOPHILS # (AUTO) 0.1 10^3/uL (0.0-0.2); ABSOLUTE EOSINOPHILS # (AUTO) 0.1 10^3/uL (0.0-0.6); ABSOLUTE LYMPHOCYTES (AUTO) 0.9 10^3/uL (0.5-4.7); ABSOLUTE MONOCYTES (AUTO) 0.4 10^3/uL (0.1-1.4); ABSOLUTE NEUT (AUTO) 2.7 10^3/uL (1.7-8.2); BASOPHILS % (AUTO) 1.3 % (0-2); EOSINOPHILS % (AUTO) 2.9 % (0-6); HEMATOCRIT 27.9 % (36.0-47.0); HEMOGLOBIN 9.1 g/dL (12.0-15.5); LYMPHOCYTES % (AUTO) 21.2 % (13-45); MEAN CORPUSCULAR HEMOGLOBIN 25.9 pg (27.0-33.4); MEAN CORPUSCULAR HGB CONC 32.6 g/dL (32.0-36.0); MEAN CORPUSCULAR VOLUME 79 fl (80-97); MONOCYTES % (AUTO) 10.3 % (3-13); PLATELET COUNT 315 10^3/uL (150-450); RED BLOOD COUNT 3.52 10^6/uL (3.72-5.28); RED CELL DISTRIBUTION WIDTH 19.3 % (11.5-14.0); SEGMENTED NEUTROPHILS % (AUTO) 64.3 % (42-78); TOTAL CELLS COUNTED % (AUTO) 100 %; WHITE BLOOD COUNT 4.2 10^3/uL (4.0-10.5)
[2020-02-12 17:12] LABS: ALBUMIN 3.2 g/dL (3.5-5.0); ALKALINE PHOSPHATASE 120 U/L (38-126); ANION GAP 9 (5-19); ASPARTATE AMINO TRANSFERASE 22 U/L (14-36); BILIRUBIN,DIRECT 0.1 mg/dL (0.0-0.4); BILIRUBIN,TOTAL 0.6 mg/dL (0.2-1.3); BLOOD UREA NITROGEN 11 mg/dL (7-20); CALCIUM 9.1 mg/dL (8.4-10.2); CARBON DIOXIDE 23 mmol/L (22-30); CHLORIDE 103 mmol/L (98-107); CREATINE KINASE 35 U/L (30-135); GLUCOSE 95 mg/dL (75-110); POTASSIUM 4.3 mmol/L (3.6-5.0); TOTAL PROTEIN 6.1 g/dL (6.3-8.2)
[2020-02-12 18:48] VITALS: BP 163/76
== END 2020-02-12 18:44 | disposition other institution (70) ==
LOC: ER 12:35
DX: N30.00 Acute cystitis without hematuria (principal); D64.9 Anemia, unspecified; R53.1 Weakness; I25.10 Atherosclerotic heart disease of native coronary artery without angina pectoris; I10 Essential (primary) hypertension; R53.81 Other malaise; Z88.0 Allergy status to penicillin; Z88.1 Allergy status to other antibiotic agents; Z88.6 Allergy status to analgesic agent; Z88.5 Allergy status to narcotic agent
CPT/HCPCS: 93005; 99285; 96360; 36415; 82550; 85025; 80053; 81001; 84484; 71045; 93010; J7030